=== PATIENT | female | born 1955 | race Caucasian/White ===

== ENCOUNTER 2020-10-02 08:56 | Outpatient (CLI) | payer MEDICARE, OTHER, SELFPAY ==
--- NOTE | ~2020-10-02 | MM_ITS ---
EXAMINATION: MM screening bela BI w guicho HISTORY: Screening TECHNIQUE: Craniocaudal and mediolateral oblique 3-D tomosynthesis images were obtained and synthetic 2-D images were generated. CAD analysis was submitted and interpreted. COMPARISON: Comparison to multiple prior studies sequentially, with oldest reviewed study dated 03/07. BREAST PARENCHYMAL COMPOSITION: Breast composed of scattered areas of fibroglandular density. FINDINGS: There is no evidence of suspicious mass, calcification, or architectural distortion to sugg est malignancy in either breast. There has been no suspicious interval change. IMPRESSION: 1. No mammographic evidence of malignancy. 2. Recommend routine screening mammography in one year. BI-RADS Category 1: Negative Reviewed, dictated and finalized at location A. 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
== END 2020-10-02 08:57 | disposition home or self-care (01) ==
LOC: ANHIMG 09:02
PROVIDERS: PCP Family Medicine; Visit Provider Physician Assistant
DX: Z12.31 Encounter for screening mammogram for malignant neoplasm of breast (principal)
CPT/HCPCS: 77063; 77067

== ENCOUNTER 2021-10-02 11:27 | Emergency (ER) | payer MEDICARE, OTHER, SELFPAY ==
--- NOTE | 2021-10-02 11:36 | ED.URI ---
HPI - URI/Sore Throat General Chief Complaint: Upper Respiratory Infection Stated Complaint: sorethroat,cough,rt earache Time Seen by Provider: 10/02/21 12:15 Source: patient and RN notes reviewed Mode of arrival: ambulatory Limitations: no limitations History of Present Illness HPI Narrative: 66-year-old female presents with concern for 3-day history of sore throat, cough, headache, nasal drainage, ear pain, body aches. Reports her spouse just tested positive for COVID 2 symptoms started Thursday. She denies fever, shortness of breath. Reports she has been taking several srjp-ern-gmbwcpi remedies without relief. MD elicited complaint: cough and sore throat Related Data Home Medications Medication Instructions Recorded Confirmed cetirizine 10 mg tablet 5 mg PO DAILY 08/31/20 10/02/21 Allergies Allergy/AdvReac Type Severity Reaction Status Date / Time codeine [Guaifen-C] Allergy Unknown anxious Verified 10/02/21 11:58 guaifenesin [Entex T] Allergy Unknown anxious Verified 10/02/21 11:58 pseudoephedrine [Entex T] Allergy Unknown anxious Verified 10/02/21 11:58 Review of Systems Review of Systems: CONSTITUTIONAL: Denies malaise, chills, sweats, or fever. EYES: Denies visual changes, redness, or discharge. ENT: Reports rhinorrhea, congestion, otalgia and sore throat. CARDIOVASCULAR: Denies chest pain, palpitations, or edema. RESPIRATORY: Reports cough. Denies dyspnea. GASTROINTESTINAL: Denies abdominal pain, nausea, vomiting, diarrhea SKIN: Denies rash or itching. MUSCULOSKELETAL: Reports myalgia. NEUROLOGIC: Reports headache. All systems reviewed & are unremarkable except as noted in HPI and below PMFSH Past Medical History Medical History (Updated 10/02/21 @ 12:26 by Hilary Cardenas NP) Cancer of endometrium Hysterectomy [address] Pathak Surgical History Surgical History H/O dilation and curettage H/O: hysterectomy History of appendectomy Hx of tonsillectomy Family History Family History Mother Hypertension Family history of elevated blood lipids Family history of cardiovascular disease Family history of coronary artery disease Cerebrovascular accident, Onset Age: 84 Father Malignant neoplasm of prostate Family history of cardiovascular disease Family history of malignant neoplasm of esophagus Other Family history of glaucoma Family history of malignant neoplasm of breast Social History Social History Smoking end date: 09/21/98 Alcohol intake: current Substance use: never Comments At time of signature, agree with nursing past medical, surgical, social and family history. There is no relevant family history pertinent to the presenting complaint Exam Narrative: GENERAL: Well-appearing, well-nourished, and in no acute distress. HEAD: Normocephalic EYES: PERRLA, conjunctivae clear ENT: Nares clear, turbinates edematous and erythematous, clear discharge. Mucous membranes moist. TM pearly walker with dull light reflex bilaterally; no tragal tenderness. Oropharynx not erythematous without lesions. Tonsils not enlarged and without exudate, no drooling, no hoarseness, no trismus, uvula midline. NECK: Supple. No lymphadenopathy CHEST: Clear to auscultation, breath sounds equal. No wheezing, rhonchi, rales, or stridor. No respiratory distress, speaks in full sentences. HEART: Regular rate and rhythm. No murmur heard. SKIN: Warm, dry, no rash. NEURO: Alert and oriented x3. PSYCH: Normal mood and affect Course Course Emergency Course: Patient is aware of diagnosis, understands and agrees to treatment plan. Anticipatory guidance given. Patient agrees to follow-up as directed and is aware of reasons to seek care at the emergency department. Portions of this record may have been created with voice recog
[2021-10-02 11:45] VITALS: BP 139/73; PULSE 80; RESP 18; TEMP 36.9; O2SAT 98
[2021-10-03 20:41] LABS: SARS-CoV-2 RNA PCR Positive
== END 2021-10-02 12:32 | disposition home or self-care (01) ==
PROVIDERS: Emergency Provider Nurse Practitioner; PCP Family Medicine
DX: U07.1 COVID-19 (principal)
CPT/HCPCS: 87426; 99213; C9803; G0463; U0003; U0005

== ENCOUNTER 2021-10-22 15:17 | Outpatient (CLI) | payer MEDICARE, OTHER, SELFPAY ==
--- NOTE | ~2021-10-22 | MM_ITS ---
EXAMINATION: MM screening bela BI w guicho HISTORY: Screening TECHNIQUE: Craniocaudal and mediolateral oblique 3-D tomosynthesis images were obtained and synthetic 2-D images were generated. CAD analysis was submitted and interpreted. COMPARISON: Comparison to multiple prior studies sequentially, with oldest reviewed study dated 03/12. BREAST PARENCHYMAL COMPOSITION: Breast composed of scattered areas of fibroglandular density FINDINGS: There is no evidence of suspicious mass, calcification, or architectural distortion to sugg est malignancy in either breast. There has been no suspicious interval change. IMPRESSION: 1. No mammographic evidence of malignancy. 2. Recommend routine screening mammography in one year. BI-RADS Category 1: Negative Reviewed, dictated and finalized at location A. 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
== END 2021-10-22 15:18 | disposition home or self-care (01) ==
LOC: ANHIMG 15:19
PROVIDERS: PCP Family Medicine; Visit Provider Physician Assistant
DX: Z12.31 Encounter for screening mammogram for malignant neoplasm of breast (principal)
CPT/HCPCS: 77063; 77067

== ENCOUNTER 2021-10-27 12:51 | Emergency (ER) | payer MEDICARE, OTHER, SELFPAY ==
--- NOTE | ~2021-10-27 | XR_ITS ---
EXAMINATION: XR chest 2V 10/27/2021 13:43 INDICATION: Covid infection. PROCEDURE: 2 view chest COMPARISON: No prior studies for comparison. FINDINGS: There is left basilar atelectasis. No focal pneumonia, edema, pleural effusion or pneumotho rax. The cardiomediastinal silhouette is within normal limits. There are no pleural effusions. Ther e is no pneumothorax suspected. IMPRESSION: 1: Left basilar atelectasis. Reviewed, dictated and finalized at location A. 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
--- NOTE | 2021-10-27 13:00 | ED.GENADULT ---
HPI - General Adult General Chief complaint: Upper Respiratory Infection Stated complaint: sorethroat,lt ear pain Time Seen by Provider: 10/27/21 13:00 Source: patient Mode of arrival: ambulatory Limitations: no limitations History of Present Illness HPI narrative: 66-year-old female patient presents to the [facility] with complaints of cold symptoms. Patient states she was diagnosed with COVID on October 02. Patient states at that time she was given a steroid pack which did help some of her symptoms. Patient states last weekend she started having bilateral ear pain and a sore throat with a cough and intermittent shortness of breath at times. Patient is a previous smoker but quit 1998. Patient states she is fully vaccinated against COVID. Patient states she has taken some jxnr-vwq-icttmds cold and flu medication without much relief and is taken some leftover amoxicillin of her 's which has not done anything. Related Data Allergies Allergy/AdvReac Type Severity Reaction Status Date / Time codeine [Guaifen-C] AdvReac Unknown anxious Verified 10/27/21 13:30 guaifenesin [Entex T] AdvReac Unknown anxious Verified 10/27/21 13:30 pseudoephedrine [Entex T] AdvReac Unknown anxious Verified 10/27/21 13:30 Review of Systems Review of Systems: CONSTITUTIONAL: Denies fever, chills, or sweats. EYES: Denies visual changes, redness, or discharge. ENT: Positive rhinorrhea, congestion, and sore throat, positive bilateral otalgia. CARDIOVASCULAR: Denies chest pain, palpitations, or edema. RESPIRATORY: Positive cough with intermittent dyspnea. GASTROINTESTINAL: Denies abdominal pain, nausea, vomiting, or diarrhea. GENITOURINARY: Denies dysuria or hematuria. SKIN: Denies rash or itching. MUSCULOSKELETAL: Denies back pain, joint pain, or myalgia. NEUROLOGIC: Denies headache, numbness, or weakness. PSYCHIATRIC: Denies anxiety or depression. [facility] Past Medical History Medical History (Updated 10/27/21 @ 13:54 by LIBIA Gomez) Cancer of endometrium Hysterectomy [address] Pathak Depression, recurrent Esophageal reflux Hypothyroid Laboratory confirmed diagnosis of COVID-09 October 2021 Lesion of vertebra Lytic lesion of bone on x-ray Surgical History Surgical History H/O dilation and curettage H/O: hysterectomy History of appendectomy Hx of tonsillectomy Family History Family History Mother Hypertension Family history of elevated blood lipids Family history of cardiovascular disease Family history of coronary artery disease Cerebrovascular accident, Onset Age: 84 Father Malignant neoplasm of prostate Family history of cardiovascular disease Family history of malignant neoplasm of esophagus Other Family history of glaucoma Family history of malignant neoplasm of breast Social History Social History Smoking end date: 09/21/98 Alcohol intake: current Substance use: never Comments At the time of my signature I agree with nursing past medical history, surgical, social, and family history. There is no relevant family history pertinent to the presenting complaint. Exam Narrative: GENERAL: Well-appearing, well-nourished, and in no acute distress. HEAD: Normocephalic, atraumatic. EYES: PERRLA and EOMI. ENT: Nares with erythema and edema noted bilaterally, no rhinorrhea or epistaxis. Mucous membranes moist. Posterior pharynx with no erythema, tonsillar edema, exudates or lesions. Bilateral TMs do have some fluid noted behind the TM. NECK: Supple. No lymphadenopathy CHEST: Patient slightly diminished to bilateral upper and lower lobes. No respiratory distress. Patient able talk in clear complete sentences. HEART: Regular rate and rhythm. No murmur heard. Normal peripheral pulses. ABDOMEN: Soft, nontender, nondistended,
[2021-10-27 13:09] VITALS: BP 147/71; PULSE 79; RESP 18; TEMP 36.6; O2SAT 98
== END 2021-10-27 14:00 | disposition home or self-care (01) ==
PROVIDERS: Emergency Provider Nurse Practitioner Family; PCP Family Medicine
DX: J98.11 Atelectasis (principal); E03.9 Hypothyroidism, unspecified; K21.9 Gastro-esophageal reflux disease without esophagitis; Z85.42 Personal history of malignant neoplasm of other parts of uterus
CPT/HCPCS: 71046; 99213; G0463

== ENCOUNTER 2022-01-03 10:08 | Outpatient (CLI) | payer MEDICARE, OTHER, SELFPAY ==
--- NOTE | ~2022-01-03 | DEXA_ITS ---
Bone Density Report Name: LEWIS NICHOLAS Age: 66 Sex: Female Ethnicity: White Date of : 1955 Indication: postmenopausal; screening for osteoporosis; cancer; hysterectomy; Referring Provider: VERÓNICA PRATHER Study: Bone densitometry was performed. Exam Date: January 03, 2022 Accession number: [id number] Bone Density: Region BMD T-score Z-score Classification AP Spine(L1-L4) 1.013 -0.3 1.6 Normal Femoral Neck (Left) 0.797 -0.5 1.2 Normal Total Hip (Left) 0.988 0.4 1.7 Normal Femoral Neck (Right) 0.822 -0.2 1.4 Normal Total Hip (Right) 0.953 0.1 1.5 Normal Total Hip Mean 0.971 0.3 1.6 Normal World Health Organization criteria for BMD impression classify patients as: Normal (T-score at or above -1.0), Osteopenia (T-score between -1.0 and -2.5), or Osteoporosis (T-score at or below -2.5). 10-year Fracture Risk: FRAX not reported because: All T-scores for Spine Total, Hip Total, Femoral Neck at or above -1.0 Clinical Information Provided by Patient: Has used the following medications: Vitamin D, Calcium Has the following medical conditions: Cancer, Hysterectomy Patient maximum height was 64 Menopause Age: 49 Drinks caffeinated beverages Onset of menses at age 11 Number of children 0 Impression: The patient has normal bone mass. Discussion: BONE DENSITY IS ABOVE THE MINIMUM DESIRABLE LEVEL AT ALL SKELETAL SITES TESTED. This patient?s bone mineral density is above the minimum desirable level (T-score -1.0 or better) at all sites measured. The patient should follow a healthful lifestyle (good nutrition with adequate calcium and vitamin D, and appropriate weight-bearing exercise). Follow-Up: Consider repeating this study in 5 years or sooner if there is some new clinical indication. Reported by: ALIZA on 01/06/2022 2:55:00 PM. Reviewed, dictated and finalized at location AKatrina BHANADRI
== END 2022-01-03 10:09 | disposition home or self-care (01) ==
LOC: ANHIMG 10:13
PROVIDERS: PCP Family Medicine; Visit Provider Physician Assistant
DX: Z78.0 Asymptomatic menopausal state (principal)
CPT/HCPCS: 77080

== ENCOUNTER 2022-09-25 16:11 | Emergency (ER) | payer MEDICARE, OTHER, SELFPAY ==
[2022-09-25 16:17] VITALS: BP 132/90; PULSE 80; RESP 20; TEMP 35.9; O2SAT 96
[2022-09-25 16:25] VITALS: BP 132/90; PULSE 80; RESP 20; TEMP 35.9; O2SAT 96
--- NOTE | 2022-09-25 16:38 | ED.URI ---
HPI - URI/Sore Throat General Chief Complaint: Upper Respiratory Infection Stated Complaint: Sore Throat, Time Seen by Provider: 09/25/22 16:38 Source: patient, RN notes reviewed and old records reviewed Mode of arrival: ambulatory Limitations: no limitations History of Present Illness HPI Narrative: 67 year old female who presents to [facility] care with complaints of sinus congestion and drainage which she has problems with this time of the year but has started to also have sore throat today and right ear pain. patient reports that she has been taking Mucinex, Zyrtec, Claritin, Flonase and even gargling with hydrogen peroxide. MD elicited complaint: cough and sore throat Pertinent past history: sinusitis Related Data Home Medications Medication Instructions Recorded Confirmed cetirizine 10 mg capsule (Zyrtec) 10 mg PO DAILY PRN Allergy Symptoms 06/24/22 09/25/22 multivit with 1 tablet PO DAILY 06/24/22 09/25/22 bqupsalw-whno-CS-lutein 8 mg iron-400 mcg-300 mcg tablet (Centrum Silver Women) omega-3 fatty acids 1,000 mg 1,000 mg PO DAILY 06/24/22 09/25/22 capsule Allergies Allergy/AdvReac Type Severity Reaction Status Date / Time codeine [Guaifen-C] AdvReac Unknown anxious Verified 09/25/22 16:23 guaifenesin [Entex T] AdvReac Unknown anxious Verified 09/25/22 16:23 pseudoephedrine [Entex T] AdvReac Unknown anxious Verified 09/25/22 16:23 Review of Systems Review of Systems: CONSTITUTIONAL: Reports malaise, chills, sweats, or fever. EYES: Denies visual changes, redness, or discharge. ENT: Reports rhinorrhea, congestion, sinus pain, right otalgia and sore throat. CARDIOVASCULAR: Denies chest pain, palpitations, or edema. RESPIRATORY: Reports cough.? Denies dyspnea. GASTROINTESTINAL: Denies abdominal pain, nausea, vomiting, diarrhea SKIN: Denies rash or itching. MUSCULOSKELETAL: Denies myalgia. NEUROLOGIC: Denies headache. All systems reviewed & are unremarkable except as noted in HPI and below PMFSH Past Medical History Medical History Cancer of endometrium Hysterectomy [address] Pathak Depression, recurrent Esophageal reflux Hypothyroid Laboratory confirmed diagnosis of COVID-09 October 2021 Lesion of vertebra Lytic lesion of bone on x-ray Surgical History Surgical History H/O dilation and curettage H/O: hysterectomy History of appendectomy Hx of tonsillectomy Family History Family History Mother Hypertension Family history of elevated blood lipids Family history of cardiovascular disease Family history of coronary artery disease Cerebrovascular accident, Onset Age: 84 Father Malignant neoplasm of prostate Family history of cardiovascular disease Family history of malignant neoplasm of esophagus Other Family history of glaucoma Family history of malignant neoplasm of breast Social History Social History Smoking status: Former smoker Smoking end date: 09/21/98 Alcohol intake: current Substance use: never Comments At time of signature, agree with nursing past medical, surgical, social and family history. There is no relevant family history pertinent to the presenting complaint Exam Narrative: GENERAL: Well-appearing, well-nourished, and in no acute distress. HEAD: Normocephalic EYES: PERRLA, conjunctivae clear ENT: Nares clear, turbinates edematous and erythematous, clear discharge. Mucous membranes moist. TM pearly walker with dull light reflex bilaterally; no tragal tenderness. Oropharynx erythematous without lesions. Tonsils not present and without throat exudate, no drooling, no hoarseness, no trismus, uvula midline. NECK: Supple. No lymphadenopathy CHEST: Clear to auscultation, breath sounds equ
== END 2022-09-25 17:08 | disposition home or self-care (01) ==
PROVIDERS: Emergency Provider Registered Nurse; PCP Emergency Medicine
DX: J32.9 Chronic sinusitis, unspecified (principal); Z87.891 Personal history of nicotine dependence; K21.9 Gastro-esophageal reflux disease without esophagitis; E03.9 Hypothyroidism, unspecified; Z85.42 Personal history of malignant neoplasm of other parts of uterus
CPT/HCPCS: 99213; G0463

== ENCOUNTER 2022-11-04 10:39 | Outpatient (CLI) | payer MEDICARE, OTHER, SELFPAY ==
[2022-11-04 12:55] LABS: Kit Draw Collected
== END 2022-11-04 10:40 | disposition home or self-care (01) ==
LOC: ANHGOSHLAB 10:42
PROVIDERS: PCP Emergency Medicine; Visit Provider Physician Assistant
DX: F33.9 Major depressive disorder, recurrent, unspecified (principal); E03.9 Hypothyroidism, unspecified; E78.5 Hyperlipidemia, unspecified; R73.01 Impaired fasting glucose; I10 Essential (primary) hypertension
CPT/HCPCS: 36415

== ENCOUNTER 2023-01-14 16:25 | Outpatient (CLI) | payer MEDICARE, OTHER, SELFPAY ==
--- NOTE | ~2023-01-14 | MM_ITS ---
EXAMINATION: MM screening bela BI w guicho HISTORY: Screening mammogram TECHNIQUE: Craniocaudal and mediolateral oblique 3-D tomosynthesis images were obtained and synthetic 2-D images were generated. CAD analysis was submitted and interpreted. COMPARISON: October 22, 2021, October 02, 2020, September 09, 2019 bilateral screening mammogram exam[place] BREAST PARENCHYMAL COMPOSITION: There are scattered areas of fibroglandular density. FINDINGS: Stable mild fibroglandular asymmetry. There is no evidence of suspicious mass, calcificatio n, or architectural distortion to suggest malignancy in either breast. There has been no suspicious i nterval change. IMPRESSION: 1. No mammographic evidence of malignancy. 2. Recommend routine screening mammography in one year. BI-RADS Category 2: Benign finding(s). Reviewed, dictated and finalized at location A.
== END 2023-01-14 16:26 | disposition home or self-care (01) ==
LOC: ANHIMG 16:28
PROVIDERS: PCP Emergency Medicine; Visit Provider Emergency Medicine
DX: Z12.31 Encounter for screening mammogram for malignant neoplasm of breast (principal)
CPT/HCPCS: 77063; 77067

== ENCOUNTER 2023-05-11 10:44 | Outpatient (CLI) | payer MEDICARE, OTHER, SELFPAY ==
[2023-05-11 12:19] LABS: Total Triiodothyronine (T3) 0.68 NG/ML (0.97-1.69)
[2023-05-11 19:05] LABS: Free T4 Free Thyroxine 0.65 ng/mL (0.78-2.19)
== END 2023-05-11 10:45 | disposition home or self-care (01) ==
LOC: ANHGOSHLAB 10:47
PROVIDERS: Physician Assistant; PCP Emergency Medicine; Visit Provider Emergency Medicine
DX: E03.9 Hypothyroidism, unspecified (principal); Z79.899 Other long term (current) drug therapy
CPT/HCPCS: 36415; 84439; 84443; 84480

== ENCOUNTER 2024-09-07 13:29 | Outpatient (CLI) | payer MEDICARE, OTHER, SELFPAY ==
--- NOTE | ~2024-09-07 | MM_ITS ---
EXAMINATION: MM screening bela BI w guicho HISTORY: Screening TECHNIQUE: Craniocaudal and mediolateral oblique 3-D tomosynthesis images were obtained and synthetic 2-D images were generated. CAD analysis was submitted and interpreted. COMPARISON: Comparison to multiple prior studies sequentially, with oldest reviewed study dated 03/2017. BREAST PARENCHYMAL COMPOSITION: Not dense: There are scattered areas of fibroglandular density. FINDINGS: There is no evidence of suspicious mass, calcification, or architectural distortion to sugg est malignancy in either breast. There has been no suspicious interval change. IMPRESSION: 1. No mammographic evidence of malignancy. 2. Recommend routine screening mammography in one year. BI-RADS Category 1: Negative Reviewed, dictated and finalized at location B. 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
== END 2024-09-07 13:30 | disposition home or self-care (01) ==
PROVIDERS: PCP Family Medicine; Visit Provider Family Medicine
DX: Z12.31 Encounter for screening mammogram for malignant neoplasm of breast (principal)
CPT/HCPCS: 77063; 77067

== ENCOUNTER 2024-10-05 00:31 | Day surgery (SDC) | payer MEDICARE, OTHER, SELFPAY ==
[2024-09-09 13:53] VITALS: BMI 27.4
--- NOTE | 2024-09-26 12:06 | SUR.PREOP ---
Pt called this am and left a voicemail that she had to go out town for an emergency and wouldn't be able to make her appointment. Attempted to call patient back, voicemail left requesting a return call. Pt removed from procedure schedule per pt's request.
[2024-10-05 08:35] VITALS: BP 149/79; PULSE 63; RESP 18; TEMP 36.3; O2SAT 97
[2024-10-05] MEDS: LACTATED RINGERS 1,000 ML 150 ML IV CONT (08:45)
--- NOTE | 2024-10-05 09:16 | PM.IMHP ---
H&P: HPI History of Present Illness Date/Time: 10/05/24 09:16 Chief Complaint: Screening colonoscopy Narrative: the patient had a screening colonoscopy more than 5 years ago due to the Cologuard positive test. She does not recall if she had polyps or not. She is here for a screening colonoscopy.There are no GI symptoms and there is no family history of colorectal cancer. Review of Systems Review of Systems: All systems reviewed & are unremarkable except as noted in HPI and below PMFSH Past Medical History Medical History Cancer of endometrium Hysterectomy [address] Pathak Depression, recurrent Esophageal reflux Hypothyroid Laboratory confirmed diagnosis of COVID-09 October 2021 Lesion of vertebra Lytic lesion of bone on x-ray Surgical History Surgical History H/O dilation and curettage H/O: hysterectomy History of appendectomy Hx of tonsillectomy Family History Family History Mother Hypertension Family history of elevated blood lipids Family history of cardiovascular disease Family history of coronary artery disease Cerebrovascular accident, Onset Age: 84 Father Malignant neoplasm of prostate Family history of cardiovascular disease Family history of malignant neoplasm of esophagus Other Family history of glaucoma Family history of malignant neoplasm of breast Social History Social History Smoking status: Former smoker Tobacco type: cigarettes Smoking end date: 09/21/98 Alcohol intake: current Drinks per week: 2 Substance use: never Substance use type: does not use Lack of Transportation: No Lack of Food: Never True Current Housing: I Have Housing Concerned About Future Housing: No Difficulty Paying Gas/Electric Bills: No Difficulty Paying for Meds: No Currently Unemployed: No Education: Trade/Vocational Certificate Difficulty w/ Childcare or Family Care: No Living arrangements: with family Spiritual care concerns: No Meds Home Medications and Allergies Home Medications ?Medication ?Instructions ?Recorded ?Confirmed ?Type cetirizine 10 mg capsule (Zyrtec) 10 mg PO DAILY PRN Allergy Symptoms 06/24/22 10/05/24 History jfzpdjkx-lwle-ppqz 8 mg-folic 400 1 tablet PO DAILY 06/24/22 10/05/24 History mcg-K 50 mcg-lutein 300 mcg tablet (Centrum Silver Women) diphenhydramine 25 1 tablet PO QHS PRN sleep 05/11/23 10/05/24 History mg-acetaminophen 500 mg tablet (Tylenol PM Extra Strength) mecobalamin (vitamin B12) 1,000 1,000 mcg PO DAILY 03/28/24 10/05/24 History mcg lozenges levothyroxine 75 mcg tablet See Rx Instructions .Route 06/02/24 10/05/24 Rx .COMPLEX #90 tabs simvastatin 20 mg tablet See Rx Instructions .Route 07/04/24 10/05/24 Rx .COMPLEX #90 tabs cholecalciferol (vitamin D3) 50 50 mcg PO DAILY 09/09/24 10/03/24 History mcg (2,000 unit) tablet (Vitamin D3) fluoxetine 20 mg capsule 20 mg PO DAILY #90 caps 09/22/24 10/05/24 Rx omeprazole 20 mg capsule,delayed 20 mg PO DAILY #90 caps 09/22/24 10/05/24 Rx release Allergies Allergy/AdvReac Type Severity Reaction Status Date / Time codeine (Guaifen-C) AdvReac Unknown anxious Verified 10/05/24 08:34 guaifenesin (Entex T) AdvReac Unknown anxious Verified 10/05/24 08:34 pseudoephedrine (Entex T) AdvReac Unknown anxious Verified 10/05/24 08:34 Vital Signs Vital Signs - 24 hr 10/05/24 08:35 Temperature 97.3 F L Pulse Rate 63 Respiratory Rate 18 Blood Pressure 149/79 H Pulse Oximetry 97 Oxygen Delivery Room Air Exam Const: General: cooperative and healthy appearing Resp: Effort & Inspection: normal respiratory effort and able to speak in complete sentences Auscultation: clear to auscultation bilaterally Cardio: Rate: regular rate Rhythm: regular rhythm GI: Inspection: normal to inspection GI Palp: No No hepatosplenomegaly present Auscultation: normal bowel sounds Rectal Exam: deferred Skin: General skin exam: normal color Psych: Appearance: grossly normal Mental Status: mental status grossly normal Assessment and Plan Assessment and plan (1) Encounter for screening colonoscopy: Code(s): Z12.11 - Encounter for screening for malignant neoplasm of colon Status: Acute Assessment and Plan: The patient is deemed a good candidate for the procedure. Consent signed. Will proceed.
--- NOTE | 2024-10-05 09:35 | P.PNAN_ITS ---
Anes - Initial Pre Proc Eval Procedure: Operation Date: 10/05/24 10:00 Proposed Procedures p Screening Colonoscopy - Raad Cr MD Date/Time: 10/05/24 09:35 Surgeon: Raad Cr MD Pre Op Diagnosis: Screening malignant neoplasm of colon Patient Data Age: 69 Gender: F Height: 1.63 m Weight: 72.4 kg Last Vital Signs Temp 97.3 F L 10/05/24 08:35 Pulse 63 10/05/24 08:35 Resp 18 10/05/24 08:35 BP 149/79 H 10/05/24 08:35 Pulse Ox 97 10/05/24 08:35 O2 Del Method Room Air 10/05/24 08:35 Allergies Allergy/AdvReac Type Severity Reaction Status Date / Time codeine (Guaifen-C) AdvReac Unknown anxious Verified 10/05/24 08:34 guaifenesin (Entex T) AdvReac Unknown anxious Verified 10/05/24 08:34 pseudoephedrine (Entex T) AdvReac Unknown anxious Verified 10/05/24 08:34 Home Medications ?Medication ?Instructions ?Recorded ?Confirmed ?Type cetirizine 10 mg capsule (Zyrtec) 10 mg PO DAILY PRN Allergy Symptoms 06/24/22 10/05/24 History gwpdmous-ylya-evto 8 mg-folic 400 1 tablet PO DAILY 06/24/22 10/05/24 History mcg-K 50 mcg-lutein 300 mcg tablet (Centrum Silver Women) diphenhydramine 25 1 tablet PO QHS PRN sleep 05/11/23 10/05/24 History mg-acetaminophen 500 mg tablet (Tylenol PM Extra Strength) mecobalamin (vitamin B12) 1,000 1,000 mcg PO DAILY 03/28/24 10/05/24 History mcg lozenges levothyroxine 75 mcg tablet See Rx Instructions .Route 06/02/24 10/05/24 Rx .COMPLEX #90 tabs simvastatin 20 mg tablet See Rx Instructions .Route 07/04/24 10/05/24 Rx .COMPLEX #90 tabs cholecalciferol (vitamin D3) 50 50 mcg PO DAILY 09/09/24 10/03/24 History mcg (2,000 unit) tablet (Vitamin D3) fluoxetine 20 mg capsule 20 mg PO DAILY #90 caps 09/22/24 10/05/24 Rx omeprazole 20 mg capsule,delayed 20 mg PO DAILY #90 caps 09/22/24 10/05/24 Rx release Patient hx anesthesia problems: none Family hx anesthesia problems: none Results Review: All pre-operative results and documents have been reviewed as part of the pre- operative evaluation. [facility] Past Medical History Medical History Cancer of endometrium Hysterectomy [address] Pathak Depression, recurrent Esophageal reflux Hypothyroid Laboratory confirmed diagnosis of COVID-09 October 2021 Lesion of vertebra Lytic lesion of bone on x-ray Surgical History Surgical History H/O dilation and curettage H/O: hysterectomy History of appendectomy Hx of tonsillectomy Family History Family History Mother Hypertension Family history of elevated blood lipids Family history of cardiovascular disease Family history of coronary artery disease Cerebrovascular accident, Onset Age: 84 Father Malignant neoplasm of prostate Family history of cardiovascular disease Family history of malignant neoplasm of esophagus Other Family history of glaucoma Family history of malignant neoplasm of breast Social History Social History Smoking status: Former smoker Tobacco type: cigarettes Smoking end date: 09/21/98 Alcohol intake: current Drinks per week: 2 Substance use: never Substance use type: does not use Lack of Transportation: No Lack of Food: Never True Current Housing: I Have Housing Concerned About Future Housing: No Difficulty Paying Gas/Electric Bills: No Difficulty Paying for Meds: No Currently Unemployed: No Education: Trade/Vocational Certificate Difficulty w/ Childcare or Family Care: No Living arrangements: with family Spiritual care concerns: No Anes - Eval Final PreProcedure Day of Procedure 10/05/24 09:35 Patient weight: normal Heart: regular rate and rhythm Lungs: clear to auscultation Airway: Mallampati scale class II Neurological: alert and oriented Last oral intake: >/= 8 hours ASA classification: III Emergent: no Anesthetic plan: proceed Anesthesia type and monitoring: general GIVS and standard monitoring Results Review: All pre-operative results and documents have been reviewed as part of the pre- operative evaluation. Informed Consent: The patient's anesthetic plan and its attendant risks and benefits were discussed with the patient/family/POA. Questions were solicited and answers provided to the satisfaction of the patient/family/POA.
[2024-10-05 10:34] VITALS: BP 132/61; PULSE 60; RESP 17; O2SAT 98
[2024-10-05 10:44] VITALS: BP 152/87; PULSE 65; RESP 17; O2SAT 100
[2024-10-05 10:54] VITALS: BP 168/75; PULSE 65; RESP 18; O2SAT 100
--- OUTSIDE RECORDS SUMMARY | 2024-10-06 04:03 | XMS_ITS | Clinical Summary ---
Author Organization [facility] Address [facility] [address]. [place], [place] [address] [place] [address] Care Team Providers Care Senior Principal Name Role Phone Tien Lezama MD Primary Care Provider Allergies No known active allergies Medications simvastatin (ZOCOR) 20 MG tablet Take 1 tablet (20 mg total) by mouth. Active polyethylene glycol (GLYCOLAX) packet Active omeprazole (PRILOSEC) 20 MG capsule Take 1 capsule (20 mg total) by mouth daily. 03/25/2024 Active FLUoxetine (PROZAC) 20 MG capsule Take 1 capsule (20 mg total) by mouth daily. Active Cetirizine HCl (ZYRTEC ALLERGY) 10 MG Cap Take 1 capsule every day by oral route as needed. Active diphenhydrAMINE -APAP (TYLENOL PM) 25-500 MG Tab tablet Take 1 tablet by mouth. Active levothyroxine (SYNTHROID) 75 MCG tablet Take 1 tablet (75 mcg total) by mouth daily. Active Active Problems No known active problems Social History Tobacco Use Types Packs/Day Years Used Date Smoking Tobacco: Former Cigarettes Passive Smoke Exposure: Past Smokeless Tobacco: Never Tobacco Cessation:Counseling Given: Yes PHQ-2 Answer Date Recorded Patient Health Questionnaire-2 Score 0 05/21/2024 Comments No Sex and Gender Information Value Date Recorded Sex Assigned at Not on file Legal Sex Female 7:30 PM CDT Gender Identity Not on file Sexual Orientation Not on file Last Filed Vital Signs Vital Sign Reading Time Taken Comments Blood Pressure 157/83 05/21/2024 11:47 AM CDT Pulse 65 05/21/2024 11:47 AM CDT Temperature 36.4 ??C (97.5 ??F) 05/21/2024 11:47 AM C DT Respiratory Rate 16 05/21/2024 11:47 AM CDT Oxygen Saturation 96% 05/21/2024 11:47 AM CDT Inhaled Oxygen Concentration - - Weight 70.9 kg (156 lb 3.2 oz) 05/21/2024 11:47 AM CDT Height 162.6 cm (5' 4 ) 05/21/2024 11:47 AM CDT Body Mass Index 26.81 05/21/2024 11:47 AM CDT Plan of Treatment Health Maintenance Due Date Last Done Comments Colorectal Cancer Screening Colonoscopy (10 Years) 1954 Hepatitis C 1972 Mammogram Screening 1994 Zoster Vaccines (2 of 3) 05/27/2016 04/01/2016 Annual Medicare Wellness Visit 2019 Dexa Scan (General) 2019 Pneumococcal Vaccine: 65+ Years (1 of 1 - PCV) 2019 COVID-19 Vaccine (5 - season) 2024 12/11/2020, 12/08/2020, 11/20/2020, Additional history exists Influenza Adult (#1) 2024 08/22/2019, 06/04/2018, 06/24/2016, Additional history exists RSV Immunization or 60+ Years (1 - 1-dose 75+ series) 2029 DTaP, Tdap and Td Vaccines (2 - Td or Tdap) 08/22/2029 08/22/2019 Meningococcal Vaccine Aged Out No justin ad eligible based on patient's age to complete this topic RSV Immunizations Under 20 Months Aged Out No longer eligible based on patient's age to complete this topic Insurance MEDICARE [facility] Care Teams Senior Principal Relationship Specialty Start Date End Date Tien Lezama MD [address] [place] [address] PCP - General EMERGENCY MEDICINE 05/21/24
--- OUTSIDE RECORDS SUMMARY | 2024-10-06 04:03 | XMS_ITS | Encounter Summary ---
Author Organization [facility] Address [address] [place] [address]. [place], [place] [address] [place] [address] Care Team Providers Care Therapeutic Dietitian Name Role Phone Unavailable Primary Care Provider Unavailabl e Encounter Details Date Type Department Care Team (Late st Contact Info) Description 06/20/1999 [place] [address] Tracy Warner MD [address] [place] [address] Social History Tobacco Use Types Packs/Day Years Used Date Smoking Tobacco: Never Assessed Comments Unknown Sex and Gender Information Value Date Recorded Sex Assigned at Not on file Legal Sex Female 7:30 PM CDT Gender Identity Not on file Sexual Orientation Not on file documented as of this encounter Plan of Treatment Not on file documented as of this encounter Visit Diagnoses Not on filedocumented in this encounter
--- OUTSIDE RECORDS SUMMARY | 2024-10-06 04:03 | XMS_ITS | Encounter Summary ---
Author Organization [facility] Address [address] [place] [address]. [place], [place] [address] [place] [address] Care Team Providers Care Stubber Name Role Phone Unavailable Primary Care Provider Unavailabl e Encounter Details Date Type Department Care Team (Late st Contact Info) Description 03/15/2003 Abstract [facility] [address] [place] [address] , Korina Rajan MD Social History Tobacco Use Types Packs/Day Years [...]
--- OUTSIDE RECORDS SUMMARY | 2024-10-06 04:03 | XMS_ITS | Encounter Summary ---
Author Organization [facility] Address [address] [place] [address]. [place], [place] [address] [place] [address] Care Team Providers Care Billet Driller Name Role Phone Unavailable Primary Care Provider Unavailabl e Encounter Details Date Type Department Care Team (Late st Contact Info) Description 07/28/2016 Abstract [facility] [address] [place] [address] Nicole Batista MD [address] [facility] [place] [address] Social History Tobacco Use Types Packs/Day Years Used Date Smoking Tobacco: Never Assessed Comments Unknown Sex and Gender Information Value Date Recorded Sex Assigned at Not on file Legal Sex Female 7:30 PM CDT Gender Identity Not on file Sexual Orientation Not on file documented as of this encounter Plan of Treatment Not on file documented as of this encounter Visit Diagnoses Diagnosis Bloodstream infection due to central venous catheter documented in this encounter
--- OUTSIDE RECORDS SUMMARY | 2024-10-06 04:03 | XMS_ITS | Encounter Summary ---
Author Organization [facility] Address [address] [place] [address]. [place], [place] [address] [place] [address] Care Team Providers Care Anchor Operator Name Role Phone Unavailable Primary Care Provider Unavailabl e Encounter Details Date Type Department Care Team (Late st Contact Info) Description 07/21/2016 Abstract [facility] [address] [place] [address] Nicole Batista MD [address] [facility] [place] [address] Social History Tobacco Use Types Packs/Day Years [...]
--- OUTSIDE RECORDS SUMMARY | 2024-10-06 04:03 | XMS_ITS | Encounter Summary ---
Author Organization [facility] Address [address] [place] [address]. [place], [place] [address] [place] [address] Care Team Providers Care Patient Service Technician Pst Name Role Phone Unavailable Primary Care Provider Unavailabl e Encounter Details Date Type Department Care Team (Late st Contact Info) Description 02/20/2000 Abstract [facility] CONVERSION [address] [place] [id number] , Generic Conversion, Social History Tobacco Use Types Packs/Day Years [...]
--- OUTSIDE RECORDS SUMMARY | 2024-10-06 04:03 | XMS_ITS | Encounter Summary ---
Author Organization [facility] Address [address] [place] [address]. [place], [place] [address] [place] [address] Care Team Providers Care Commercial Property Administrator Name Role Phone Tien Lezama MD Primary Care Provider Encounter Details Date Type Department Care Team (Latest Contact Info) Description 05/21/2024 Travel Social History Tobacco Use Types Packs/Day Years Used Date Smoking Tobacco: Former Cigarettes Passive Smoke Exposure: Past Smokeless Tobacco: Never PHQ-2 Answer Date Recorded Patient Health Questionnaire-2 [...] Diagnoses Not on filedocumented in this encounter Care Teams Commercial Property Administrator Relationship Specialty Start Date End Date Tien Lezama MD [address] [place] [address] PCP - General EMERGENCY MEDICINE 05/21/24 documented as of this encounter
--- OUTSIDE RECORDS SUMMARY | 2024-10-06 04:03 | XMS_ITS | Encounter Summary ---
Author Organization [facility] Address [address] [place] [address]. [place], [place] [address] [place] [address] Care Team Providers Care Data Entry Operator Name Role Phone Unavailable Primary Care Provider Unavailabl e Encounter Details Date Type Department Care Team (Late st Contact Info) Description 08/20/2016 Abstract [facility] [address] [place] [address] Nicole Batista MD [address] [facility] [place] [address] Social History Tobacco Use Types Packs/Day Years [...]
--- OUTSIDE RECORDS SUMMARY | 2024-10-06 04:03 | XMS_ITS | Encounter Summary ---
Author Organization [facility] Address [address] [place] [address]. [place], [place] [address] [place] [address] Care Team Providers Care Pcmh Specialist Name Role Phone Unavailable Primary Care Provider Unavailabl e Encounter Details Date Type Department Care Team (Late st Contact Info) Description 08/11/2016 Abstract [facility] [address] [place] [address] Nicole Batista MD [address] [facility] [place] [address] Social History Tobacco Use Types Packs/Day Years [...]
--- OUTSIDE RECORDS SUMMARY | 2024-10-06 04:03 | XMS_ITS | Encounter Summary ---
Author Organization [facility] Address [address] [place] [address]. [place], [place] [address] [place] [address] Care Team Providers Care Garment Examiner Name Role Phone Unavailable Primary Care Provider Unavailabl e Encounter Details Date Type Department Care Team (Late st Contact Info) Description 08/18/[address] [facility] [address] [place] [address] , Korina Rajan MD Social History Tobacco [...]
--- OUTSIDE RECORDS SUMMARY | 2024-10-06 04:03 | XMS_ITS | Encounter Summary ---
Author Organization [facility] Address [address] [place] [address]. [place] [address] [place] [address] Care Team Providers Care Constitutional Law Professor Name Role Phone Tien Lezama MD Primary Care Provider [phone] Reason for Visit * Reason Comments Sinus Pressure Cough Productive cough. Ye llow drainage. Xs 6 days Encounter Details Date Type Department Care Team (Late st Contact Info) Description 05/21/2024 12:00 PM CDT Office Visit [facility] [address] [place] [phone] Justa Flowers, DISPLAY MANAGER [address] [place], [place] [id number] Sinus Pressure; Cough (Productive cough. Yellow drainage. Xs 6 days) Social History Tobacco Use Types Packs/Day Years [...] on file documented as of this encounter Last Filed Vital Signs Vital Sign Reading [...] Mass Index 26.81 05/21/2024 11:47 AM CDT documented in this encounter Progress Notes * Justa Flowers, DISPLAY MANAGER - 05/21/2024 12:00 PM CDT Reason for Visit: Sinus Pressure and Cough (Productive cough. Yellow drainage. Xs 6 days) History of Present Illness: Cori Kiran is a 68-year-old female presenting today to [facility] in [place] complaining of headache, fatigue, sinus congestion, and tooth pain for the past 7 days. Pt has been taking OTC medication for symptoms. Pt notes PMH of sinus infections in the past. Pt continues to eat and drink well with adequate output. Pt denies sick contacts that they areaware of. Pt denies other shortness of breath, nausea, vomiting, and diarrhea. ROS: Negative unless specific in HPI. Medications: Current Outpatient Medications Medication Sig Dispense Refill azithromycin (ZITHROMAX Z-RAUL) 250 MG tablet Take 2 tablets by mouth on day one then 1 daily for four days. 6 tablet 0 Cetirizine HCl (ZYRTEC ALLERGY) 10 MG Cap Take 1 capsule every day by oral route as needed. diphenhydrAMINE-APAP (TYLENOL PM) 25-500 MG Tab tablet Take 1 tablet by mouth. FLUoxetine (PROZAC) 20 MG capsule Take 1 capsule (20 mg total) by mouth daily. levothyroxine (SYNTHROID) 75 MCG tablet Take 1 tablet (75 mcg total) by mouth daily. omeprazole (PRILOSEC) 20 MG capsule Take 1 capsule (20 mg total) by mouth daily. polyethylene glycol (GLYCOLAX) packet predniSONE (DELTASONE) 20 MG tablet Take 1 tablet (20 mg total) by mouth daily for 5 days. 5 tablet0 simvastatin (ZOCOR) 20 MG tablet Take 1 tablet (20 mg total) by mouth. No current facility-administered medications for this visit. Review of patient's allergies indicates: No Known Allergies Previous History: History reviewed. No pertinent past medical history. History reviewed. No pertinent surgical history. Social Determinants of Health Alcohol Use: Not on file Depression: Not at risk (05/21/2024) PHQ-2 PHQ-2 Score: 0 Financial Resource Strain: Not on file Food Insecurity: Not on file Health Literacy: Not on file Housing Stability: Not on file Intimate Partner Violence: Not on file Physical Activity: Not on file Social Connections: Not on file Stress: Not on file Tobacco Use: Medium Risk (05/21/2024) Patient History Smoking Tobacco Use: Former Smokeless Tobacco Use: Never Passive Exposure: Past Transportation Needs: Not on file Utilities: Not on file No family history on file. Physical Exam Vitals reviewed. Constitutional: Appearance: Normal appearance. HENT: Right Ear: Tympanic membrane normal. Left Ear: Tympanic membrane normal. Nose: Congestion present. Mouth/Throat: Pharynx: Posterior oropharyngeal erythema present. Eyes: Pupils: Pupils are equal, round, and reactive to light. Cardiovascular: Rate and Rhythm: Normal rate and regular rhythm. Pulses: Normal pulses. Heart sounds: Normal heart sounds. Pulmonary: Effort: Pulmonary effort is normal. Breath sounds: Normal breath sounds. No wheezing. Neurological: Mental Status: She is alert. Filed Vitals: 05/21/24 1147 BP: (!) 157/83 Pulse: 65 Resp: 16 Temp: 97.5 ??F (36.4 ??C) TempSrc: Temporal SpO2: 96% Weight: 70.9 kg (156 lb 3.2 oz) Height: 1.626 m (5' 4 ) Diagnosis/Impression: 1. Acute non-recurrent frontal sinusitis - azithromycin (ZITHROMAX Z-RAUL) 250 MG tablet; Take 2 tablets by mouth on day one then 1 daily forfour days. Dispense: 6 tablet; Refill: 0 - predniSONE (DELTASONE) 20 MG tablet; Take 1 tablet (20 mg total) by mouth daily for 5 days. Dispense: 5 tablet; Refill: 0 Plan and Recommendations: Prescriptions written as above; discussed risks, benefits and administration. Discussed differentials and etiologies. Reviewed supportive care as below. Increase fluid intake and get plenty of rest. Sore throat-May try as needed: salt water gargles (1/4-1/2 teaspoon of salt per 8 oz glass warm water), ibuprofen (Advil) as directed on the bottle for age/weight--take with food, Chloroseptic spray as directed on the bottle for age/weight, cough drops as directed on the package for age/weight or hard candy, or teaspoon honey or heavy peach syrup. Nasal congestion-May try as needed: Car's Vapor Rub, humidifier, nasal saline spray as well as nasal saline flushes/Paty Pot and Flonase. May try oral antihistamines (claritin/tamar/zyrtec) as directed on the package for age/weight Fever/Comfort: May try Tylenol (acetaminophen) or Advil/Motrin (ibuprofen) as directed on the bottle for age/weight as needed. Plan and goals were discussed with the patient and all questions were answered to his/her satisfaction. The purpose and side effects of any new medication(s) prescribed today were discussed. Please read the pharmacy insert for any medication(s) prescribed and be aware of the potential sideeffects. If you are experiencing side effects, contact our office promptly. Justa Flowers APRN [address] RO[address]C documented in this encounter Plan of Treatment Not on file documented as of this encounter Visit Diagnoses Diagnosis Acute non-recurrent frontal sinusitis- Primary documented in this encounter Care Teams Constitutional Law Professor Relationship Specialty Start Date End Date Tien Lezama MD [address] [place] [address] PCP - General EMERGENCY MEDICINE 05/21/24 documented as of this encounter
--- OUTSIDE RECORDS SUMMARY | 2024-10-06 04:03 | XMS_ITS | Encounter Summary ---
Author Organization [facility] Address [address] [place] [address]. [place], [place] [address] [place] [address] Care Team Providers Care Typewriter Assembler Name Role Phone Unavailable Primary Care Provider Unavailabl e Encounter Details Date Type Department Care Team (Late st Contact Info) Description 07/10/2016 Abstract [facility] [address] [place] [address] Nicole Batista MD [address] [facility] [place] [address] Social History Tobacco Use Types Packs/Day Years [...]
--- OUTSIDE RECORDS SUMMARY | 2024-10-06 04:04 | XMS_ITS ---
Author Organization [facility] Address [address] [place] [address] Care Team Providers Care Worm Farmer Name Role Phone Momo Carrillo MD Primary Care Provider [phone] Momo Carrillo MD Unavailable Active Problems Problem Noted Date Diagnosed Date Deep vein thrombosis (DVT) (CMS/HCC) 08/18/2016 Epidural abscess 08/13/2016 Bloodstream infection 07/15/2016 Malignant neoplasm of endometrium (CMS/HCC) 03/22 Hypercholesterolemia 04/09/2016 Hyperthyroidism 04/09/2016 Carcinoma of endometrium 04/01/2016 Current Oncology Plans No current plan information found. Past Plans No past plan information found. Radiation Treatments * No radiation treatments are documented for this patient in [facility]. Treatments may have been administered in another system. Lifetime Dose Tracking * Chemical Lifetime Dose Automatic Entry Manual Entr y DLP 1,685 mGycm 1,685 mGycm 0 mGycm
--- OUTSIDE RECORDS SUMMARY | 2024-10-06 04:04 | XMS_ITS | Referral Summary ---
Author Organization [facility] Address [address] [place] [address] Care Team Providers Care Model Technician Name Role Phone Momo Carrillo MD Primary Care Provider [phone] Momo Carrillo MD Unavailable Encounters Date Type Department Care Team Description 09/28/2024 Telephone [facility] Obstetrics and Gynecology [address] [facility] Advanced Medicine 13th [place] [address] Leyla Rowley RN 08/24/2024 Orders Only [facility] Obstetrics and Gynecology [address] [facility] Advanced Medicine 13th [place] [address] Polly Macdonald, MARLYN Endometrial cancer (CMS/HCC) (HCC) (Primary Dx) 08/24/2024 11:45 AM ONLINE ADVERTISING MANAGER Office Visit [facility] Obstetrics and Gynecology [address] [facility] Advanced Medicine 13th [place] [address] Brooke Harrington MD Endometrial cancer (CMS/HCC) (HCC) (Primary Dx) 07/06/2024 2:00 PM CDT Office Visit [facility] Minimally Invasive Surgery [facility] Medical Office Building [address] [place] [address] Vinnie Tay MD Endometrial cancer ([facility] ([facility]); Abdominal pain, RLQ; Paraumbilical hernia from Last 3 Months Allergies No known active allergies Medications cetirizine (ZyrTEC) 10 mg tablet 04/01/2016Zyrtec, po solid 10 mg TabletPOdailyCurrent Medication 04/01/20 16 Active polyethylene glycol (MIRALAX) 17 gram packet Active FLUoxetine (PROzac) 20 mg tablet Take 1 tablet (20 mg total) by mouth daily Act becky diphenhydrAMI NE-acetaminop hen (TYLENOL PM) 25-500 mg tablet Take 1 tablet by mouth Active omeprazole (PriLOSEC) 20 mg capsule 12/23/19 23 Active simvastatin (ZOCOR) 20 mg tablet 12/19/19 23 Active multivit with calcium,iron, min (MULTIPLE VITAMIN, WOMENS ORAL) Take by mouth daily Active levothyroxine (SYNTHROID) 75 mcg tablet 06/28/20 24 Active Active Problems Problem Noted Date Diagnosed Date Deep vein thrombosis (DVT) ([facility]) 08/18/2016 Epidural abscess 08/13/2016 Bloodstream infection 07/15/2016 Malignant neoplasm of endometrium ([facility]) 03/22 Hypercholesterolemia 04/09/2016 Hyperthyroidism 04/09/2016 Carcinoma of endometrium 04/01/2016 Immunizations Name Administration Dates Next Due Influenza, Quadrivalent, Rec ombinant, Egg Free, Preservative Free, Intramuscular 08/22/2019 Influenza, Quadrivalent, Spl it, Preservative Free, Intramuscular 06/04/2018 Influenza, Unspecified 06/24/2016,04/01/2016 Pfizer SARS-CoV-2 Monovalent Vaccination (12+ Yrs) PURPLE 12/11/2020,11/20/2020 Tdap 08/22/2019 ZOSTER LIVE 04/01/2016 Social History Tobacco Use Types Packs/Day Years Used Date Smoking Tobacco: Former Smokeless Tobacco: Never Tobacco Cessation:Counseling Given: Not Answered Alcohol Use Standard Drinks/Week Comments Yes 0 (1 standard drink = 0.6 oz pur e alcohol) Comments No Sex and Gender Information Value Date Recorded Sex Assigned at Not on file Legal Sex Female 2:10 AM ONLINE ADVERTISING MANAGER Gender Identity Not on file Sexual Orientation Not on file Last Filed Vital Signs Vital Sign Reading Time Taken Comments Blood Pressure 133/83 08/24/2024 11:41 AM ONLINE ADVERTISING MANAGER Pulse 76 08/24/2024 11:41 AM ONLINE ADVERTISING MANAGER Temperature 36.4 ??C (97.6 ??F) 08/24/2024 11:[address] Respiratory Rate 16 08/24/2024 11:41 AM ONLINE ADVERTISING MANAGER Oxygen Saturation 97% 08/24/2024 11:41 AM ONLINE ADVERTISING MANAGER Inhaled Oxygen Concentration - - Weight 73 kg (161 lb) 08/24/2024 11:41 AM ONLINE ADVERTISING MANAGER Height 162.6 cm (5' 4 ) 08/24/2024 11:41 AM ONLINE ADVERTISING MANAGER Body Mass Index 27.64 08/24/2024 11:41 AM ONLINE ADVERTISING MANAGER Plan of Treatment Not on file Procedures Procedure Name Priority Date/Time Associated Diagnosis Comments CA 125 Routine 08/30/2024 8:56 AM ONLINE ADVERTISING MANAGER Endometrial cancer (CMS/HCC) (HCC) from Last 3 Months Results * CA 125 (08/30/2024 8:56 AM ONLINE ADVERTISING MANAGER) CA 125 ag 4 <35 U/mL [facility] Comment: This test was performed using the Siemens Chemiluminescent method. Values obtained from different assay methods cannot be used interchangeably. CA 125 levels, regardless of value, should not be interpreted as absolute evidence of the presence or absence of disease. Blood 08/30/2024 8:56 AM ONLINE ADVERTISING MANAGER 08/30/2024 8:56 AM ONLINE ADVERTISING MANAGER us Brooke Harrington MD LAB BLOOD ORDERABLES Final Result [facility] [address] [place] [address] from Last 3 Months Insurance [facility]IC[facility] Member Subscriber Plan / Payer (Ef fective 2020-Present) Name:Cori Renee Member ID:[id number] Relation to Subscriber:Self Name:Cori Renee Subscriber ID:[id number] Payer ID:[id number] Group ID:Not on file Type:MEDICARE TRADITIONAL Address: [address] [address] MEDICARE [place] [place] [address] [employer] Care Teams Model Technician Relationship Specialty Start Date End Date Momo Carrillo MD [address] [place] [address] PCP - General 02/18/18 Momo Carrillo MD [address] [place] [address] Referring Physician Family Medicine 11/20/20
--- OUTSIDE RECORDS SUMMARY | 2024-10-06 04:04 | XMS_ITS | Clinical Summary ---
Author Organization [facility] Address [address] [place] [address] Care Team Providers Care Retail Helper Name Role Phone Momo Carrillo MD Primary Care Provider [phone] Momo Carrillo MD Unavailable Allergies No known active allergies Medications cetirizine [...] Date Diagnosed Date Deep vein thrombosis (DVT) ([facility]) 08/18/2016 Epidural abscess 08/13/2016 Bloodstream infection 07/15/2016 Malignant neoplasm of endometrium (CMS/HCC) 03/22 Hypercholesterolemia 04/09/2016 Hyperthyroidism 04/09/2016 Carcinoma of endometrium 04/01/2016 Encounters Date Type Department Care Team Description 09/28/2024 Telephone [facility] Obstetrics and Gynecology [address] [facility] Medicine 13th [place] [address] [place] [address] Leyla Rowley RN 08/24/2024 11:45 AM CELL ASSEMBLY PINNER Office Visit [facility] Obstetrics and Gynecology [address] [facility] 13th [place] [address] [place] [address] Brooke Harrington MD Endometrial cancer (CMS/HCC) (HCC) (Primary Dx) 08/24/2024 Orders Only [facility] Obstetrics and Gynecology [address] [place] [address] 13th [place] [address] Polly Macdonald RN Endometrial cancer (CMS/HCC) (HCC) (Primary Dx) 07/06/2024 2:00 PM CDT Office Visit [facility] Minimally Invasive Surgery [address] [place] [address] Medical Office Building [address] [place] [address] Vinnie Tay MD Endometrial cancer (CMS/HCC) (HCC); Abdominal pain, RLQ; Paraumbilical hernia from Last 3 Months Immunizations Name Administration Dates Next Due Influenza, Quadrivalent, Rec ombinant, Egg Free, Preservative Free, Intramuscular 08/22/2019 Influenza, Quadrivalent, Spl it, Preservative Free, Intramuscular 06/04/2018 Influenza, Unspecified 06/24/2016,04/01/2016 Pfizer SARS-CoV-2 Monovalent Vaccination (12+ Yrs) PURPLE 12/11/2020,11/20/2020 Tdap 08/22/2019 ZOSTER LIVE 04/01/2016 Surgical History Surgery Date Site/Laterality Comments PORT PLACEMENT CHEST >5 YEARS 09/05/2016 N/A PORT REMOVAL 07/04/2016 N/A PORT PLACEMENT CHEST >5 YEARS 06/26/2016 N/A Medical History Medical History Date Comments Uterine cancer (CMS/HCC) (HCC) Endometrial cancer (CMS/HCC) (HCC) Thyroid disease GERD (gastroesophageal reflux disease) Depression Hyperlipidemia Social History Tobacco Use Types Packs/Day Years Used Date Smoking Tobacco: Former Smokeless Tobacco: Never Tobacco Cessation:Counseling Given: Not Answered Alcohol Use Standard Drinks/Week Comments Yes 0 (1 standard drink = 0.6 oz pur e alcohol) Comments No Sex and Gender Information Value Date Recorded Sex Assigned at Not on file Legal Sex Female 2:10 AM CELL ASSEMBLY PINNER Gender Identity Not on file Sexual Orientation Not on file Obstetrics History Para Term AB IAB SAB Ectopic Multiple Livin g Live Births 0 0 0 0 0 0 0 0 0 0 0 Last Filed Vital Signs Vital Sign Reading Time Taken Comments Blood Pressure 133/83 08/24/2024 11:41 AM CELL ASSEMBLY PINNER Pulse 76 08/24/2024 11:41 AM CELL ASSEMBLY PINNER Temperature 36.4 ??C (97.6 ??F) 08/24/2024 11:[address] Respiratory Rate 16 08/24/2024 11:41 AM CELL ASSEMBLY PINNER Oxygen Saturation 97% 08/24/2024 11:41 AM CELL ASSEMBLY PINNER Inhaled Oxygen Concentration - - Weight 73 kg (161 lb) 08/24/2024 11:41 AM CELL ASSEMBLY PINNER Height 162.6 cm (5' 4 ) 08/24/2024 11:41 AM CELL ASSEMBLY PINNER Body Mass Index 27.64 08/24/2024 11:41 AM CELL ASSEMBLY PINNER Plan of Treatment Health Maintenance Due Date Last Done Comments Breast Cancer Screening-Mammogram 1954 Colon Cancer Screening-Colonoscopy 1954 Depression Screening 1954 Fall Risk Assessment 1954 Hepatitis C Screening 1954 Osteoporosis Screening-Bone Density Scan 1954 Hepatitis B Screening 1972 Zoster Vaccine (2 of 3) 05/27/2016 04/01/2016 Pneumococcal vaccine 65+ (1 of 1 - PCV) 2019 Well Visit 65+ 2019 Covid-19 Vaccine (3 - 2023-2 5 season) 2024 12/11/2020, 11/20/2020 Influenza Vaccine (#1) 2024 9, 06/04/2018, 06/24/2016, Additional history exists DTaP/Tdap/Td Vaccine (2 - Td or Tdap) 08/22/2029 08/22/2019 Procedures Procedure Name Priority Date/Time Associated Diagnosis Comments CA 125 Routine 08/30/2024 8:56 AM CELL ASSEMBLY PINNER Endometrial cancer (CMS/HCC) (HCC) from Last 3 Months Results * CA 125 (08/30/2024 8:56 AM CELL ASSEMBLY PINNER) CA 125 ag 4 <35 U/mL [facility] Comment: This test was performed using the Siemens Chemiluminescent method. Values obtained from different assay methods cannot be used interchangeably. CA 125 levels, regardless of value, should not be interpreted as absolute evidence of the presence or absence of disease. Blood 08/30/2024 8:56 AM CELL ASSEMBLY PINNER 08/30/2024 8:56 AM CELL ASSEMBLY PINNER us Brooke Harrington MD LAB BLOOD ORDERABLES Final Result [facility] [address] [place] [address] from Last 3 Months Insurance [employer] MEDICARE [facility] MEDICARE [facility] Care Teams Retail Helper Relationship Specialty Start Date End Date Momo Carrillo MD [address] [place] [address] PCP - General 02/18/18 Momo Carrillo MD [address] [place] [address] Referring Physician Family Medicine 11/20/20
--- OUTSIDE RECORDS SUMMARY | 2024-10-06 04:04 | XMS_ITS | Data Portability ---
Author Organization [place] [facility] Address [address] [place] [address] Assessment No assessment recorded. Plan of Treatment Reminders Order Date Submit Date Provider Last Modified By Organization Details Last Modified Time Details Appointments None recorded. Lab None recorded. Referral None recorded. Procedures None recorded. Surgeries None recorded. Imaging None recorded. Medication Orders Depo-Medrol 80 mg/mL suspension for injection 2023 024 [email or web address] Not available 11:43:28 Zithromax Z-Frank 250 mg tablet 2023 024 [facility][id number], [place], [address], 4 11:15:06 Patient TargetsNo targets recorded. Patient InstructionsNo instructions recorded. Reason for Referral None Reported. Results Created Date Observation Date Name Description Value Unit Range Abnormal Flag Note LastModifiedBy Organization Detail LastModifiedTime 06/12/20 21 06/12/2021 RT-PC R COVID -19 covid-19 real-time PCR not detect ed A NEGAT BALDO RESUL T DOES NOT PRECL UDE SARS- CoV-2 INFEC TION AND SHOUL D NOT BE USED THE SOLE BASIS FOR TREAT MENT OR OTHER PATIE NT MANAG EMENT DECIS IONS. NEGAT BALDO RESUL TS MUST BE COMBI ANDRÉS WITH CLINI JESSICA OBSER VATIO NS, PATIE NT HISTO RY, AND EPIDE MIOLO GICAL INFOR MATIO N PERFO RMANC E. PERFO RMANC E MIKY CTERI STICS FOR THE TAQPA TH COVID -19 COMBO , REAL- TIME PCR DIAGN OSTIC TEST HAVE BEEN DETER MINED BY THE [facility] AND ARE INCOR PORAT ED PART OF THE EMERG ENCY USE AUTHO BELINDA ARELLANO. PROVI VERA AND PATIE NT FACT SHEET S ARE AVAIL ABLE AT: HTTPS ://WW W.FDA .GOV/ MEDIC AL-DE VICES /KYLE GENCY -SITU ATION S-MED ICAL -JASPER POLLY/E MERGE NCY-U SE-AU AYAH URRUTIA NS#CO BONNIE IRUS2 019. Not Available [facility] (Lab) [address] [place], [address], 06/12/2021 18:06:10 Result Notes None recorded. Problems Name Problem SNOMED Code Status Onset Date Resolution Date Notes Provider Name and Address Organization Details Recorded Time Hypercholeste rolemia 85146799 Active 2020 Not Available [facility] 3 03:31:19 Acute sinusitis 55680001 Active 2021 Not Available [facility] 3 03:31:19 Insect bite, nonvenomous, of upper arm 924547301 Active 2021 Not Available [facility] 3 03:31:19 Problem Notes None recorded. Medical Equipment None Reported. Allergies No known drug allergies Medications Name Sig Start Date Stop Date Status Note LastModified by Organization Details LastModified Time azithromyci n 250 mg tablet TAKE 2 TABLETS BY MOUTH TODAY, THEN TAKE 1 TABLET DAILY FOR 4 DAYS DIRECTED active Not Available Not Available No t Available benzonatate 200 mg capsule TAKE 1 CAPSULE BY MOUTH 3 TIMES DAILY FOR 10 DAYS NEEDED FOR COUGH active Not Available Not Available No t Available prednisone 20 mg tablet TAKE 2 TABLETS BY MOUTH EVERY DAY X5DAYS FOR COUGH 12/21 completed Not Available Not Available Not Available simvastatin 10 mg tablet TAKE 1 TABLET BY MOUTH EVERY DAY 12/21 completed Not Available Not Available Not Available triamcinolo ne acetonide 0.1 % topical cream 12/21 completed Not Available Not Available Not Available Depo-Medrol 80 mg/mL suspension for injection Take 80 mg by injection route. 2023 active Not Available Not Available Not Avai lable levothyroxi ne 75 mcg tablet TAKE 1 TABLET BY MOUTH EVERY DAY active Not Available Not Available No t Available meclizine 25 mg tablet TAKE 1 TABLET BY MOUTH TWICE A DAY NEEDED FOR MOTION SICKNESS 12/21 completed Not Available Not Available Not Available levothyroxi ne 50 mcg tablet TAKE 1 TABLET BY MOUTH EVERY DAY active Not Available Not Available No t Available simvastatin 20 mg tablet TAKE 1 TABLET (20 MG) BY MOUTH DAILY active Not Available Not Available No t Available omeprazole 20 mg capsule,del ayed release TAKE 1 CAPSULE BY MOUTH EVERY DAY active Not Available Not Available No t Available codeine 10 mg-guaifene sin 100 mg/5 mL oral liquid Take 10 mL as needed by oral route at bedtime. active Not Available Not Available No t Available methylpredn isolone 4 mg tablets in a dose pack TAKE 6 TABLETS ON DAY 1 DIRECTED ON PACKAGE AND DECREASE BY 1 TAB EACH DAY FOR A TOTAL OF 6 DAYS 07/01 completed Not Available Not Available Not Available albuterol sulfate HFA 90 mcg/actuati on aerosol inhaler USE 2 PUFFS EVERY 4 HOURS NEEDED FOR COUGH active Not Available Not Available No t Available fluoxetine 20 mg capsule TAKE 1 CAPSULE BY MOUTH EVERY DAY active Not Available Not Available No t Available doxycycline hyclate 100 mg tablet Take 1 tablet twice a day by oral route for 10 days. 12/21 completed Not Available Not Available Not Available ipratropium bromide 21 mcg (0.03 %) nasal spray USE 2 SPRAYS PER NASAL 3 TIMES A DAY NEEDED FOR NASAL DRAINAGE ADMINISTE R INTO EACH NOSTRIL active Not Available Not Available No t Available amoxicillin 875 mg-potassiu m clavulanate 125 mg tablet TAKE 1 TABLET BY MOUTH TWICE A DAY 12/21 completed Not Available Not Available Not Available Solu-Medrol (PF) 125 mg/2 mL solution for injection Take 125 mg by injection route. 07/01 completed Not Available Not Available Not Available Zyrtec 10 mg capsule Take 1 capsule every day by oral route as needed. active Not Available Not Available No t Available Vitals Date Recorded Body weight Provider Name an d Address Organization Details Last Updated DateTime 12/22/2023 81431.37 g Slime Blanchard [facility] 12/22/2023 10:45:52 Date Recorded Body mass index (BMI) Body height Provider Name and Address Organization Details Last Updated DateTime 12/22/2023 27.6 kg/m2 162.56 cm Slime Blanchard [facility] 12/22/2023 10:46:04 Date Recorded Body temperature Provider Name a nd Address Organization Details Last Updated DateTime 12/22/2023 97 [degF] Slime Blanchard [facility] 12/22/2023 10:46:27 Date Recorded Respiratory rate Provider Name a nd Address Organization Details Last Updated DateTime 12/22/2023 16 /min Slime Blanchard [facility] 12/22/2023 10:46:42 Date Recorded Oxygen saturation Oxygen saturation in Arterial blood by Pulse oximetry Provider Name and Address Organization Details Last Updated DateTime 12/22/2023 95 % 95 % Slime Blanchard [facility] 12/22/2023 10:47:16 Date Recorded Heart rate Provider Name an d Address Organization Details Last Updated DateTime 12/22/2023 66 /min Slime Blanchard [facility] 12/22/2023 10:48:01 Date Recorded Body height Systolic blood pressure Diastolic blood pressure Systolic blood pressure Diastolic blood pressure Provider Name and Address Organization Details Last Updated DateTime 3 162.56 cm 152 mm[Hg] 79 mm[Hg] 145 mm[Hg] 91 mm[Hg] Not Available [facility] 3 03:30:52 Date Recorded Oxygen saturation Oxygen saturation in Arterial blood by Pulse oximetry Oxygen saturation Oxygen saturation in Arterial blood by Pulse oximetry Heart rate Heart rate Respiratory rate Respiratory rate Body temperature Body temperature Body weight Body weight Provider Name and Address Organization Details Last Updated DateTime 3 97 % 97 % 96 % 96 % 72 /min 61 /min 14 /min 16 /min 97.6 [degF] 97.9 [degF] 12236.3 9 g 86851.5 9 g Not Available [facility] 3 03:30:53 Date Recorded Systolic blood pressure Diastolic blood pressure Provider Name and Address Organization Details Last Updated DateTime 12/22/2023 146 mm[Hg] 79 mm[Hg] Slime Blanchard [facility] 12/22/2023 10:46:16 Social History Question Answer Notes LastModified by Organizat ion Details LastModified Time Tobacco Smoking Status Never Smoker Not Available [facility] 09/28/2022 03:30:02 In The 14 Days Before Symptom Onset, Have You Had Close Contact With A Laboratory-confirm ed COVID-19 While That Case Was Ill? No [id number] Information not available 09/28/2022 In The 14 Days Before Symptom Onset, Have You Had Close Contact With A Person Who Is Under Investigation For COVID-19 While That Person Was Ill? No [id number] Information not available 09/28/2022 What Was The Date Of Your Most Recent Tobacco Screening? 12/22/2023 [email or web address] Information not available 12/22/2023 Have You Recently Traveled Abroad? No [id number] Information not available 09/28/2022 Sex: Unknown Functional Status None recorded. Mental Status None recorded. Family History Nothing Reported. Medical History No medical history recorded. Gynecological HistoryNo gynecological history recorded. Obstetrics History GPAL:G 0 P 0 0 0 0 Immunizations Vaccine Type Date Status Note Provider Nam e and Address Organization Details Recorded Time COVID-19, mRNA, LNP-S, PF, 100 mcg/0.5mL dose or 50 mcg/0.25mL dose 12/08/2020 completed Not Available [facility] 3 03:32:38 COVID-19, mRNA, LNP-S, PF, 100 mcg/0.5mL dose or 50 mcg/0.25mL dose 11/19/2020 completed Not Available [facility] 3 03:32:38 Past Encounters Encounter ID Performer Location Encounter Start Date Encounter Closed Date Diagnosis/Indication Diagnosis SNOMED-CT Code Diagnosis ICD10 Code Diagnosis Note [id number] [facility] [address] [place] [address] 06/11/2021 00:00:00 06/11/2021 20:46:03 [id number] [facility] [address] [place] [address] 07/01/2022 00:00:00 07/01/2022 11:59:00 [id number] MONY Wayne [facility] [address] [place] [address] 12/22/2023 10:32:02 12/22/2023 11:19:22 Acute sinusitis 30908124 J01.90 Discussed with patient that most cases of acute sinusitis are viral in etiology and resolve within 10 days. Patient deferred rapid flu, covid, and strep testing. Depo-Medro l 80 mg IM administer ed via nursing staff. No adverse reaction(s ) noted. Patient counselled to hold ABX. Patient to initiate ABX if symptom persistenc e beyond 10 days, sudden increase in severity of symptoms, or biphasic pattern of illness. Recommende d follow up if fever developmen t or persistent , new, or worsening symptoms despite treatment. Patient verbalized understand ing and agreement to treatment plan. Health Concerns Section Related Observation LastModified by Organization Detai ls LastModified Time None Recorded Concern Status LastModified by Organization Details LastModified Time None Recorded Advance Directives Directive None Recorded Payers Encounter Date Sequence Insurance Name Policy Number Policy Mallory Covered Member ID Mallory Member ID Guarantor Name 12/22/2023 1 [place] Cori Kiran [id number] Cori Sidhu 12/22/2023 2 [facility] (MEDICARE SUPPLEMENT) Cori gant [id number] Cori Sidhu er Notes Date Note Type Note Provider Name and Address Organization Details Recorded Time 12/22/2023 text/html Patient is a 68 y/o female presenting with complaints of sinus headache, sinus pressure, right ear pain, postnasal drainage, right sided sore throat, and cough with yellow to green sputum production. Symptoms developed 3-4 days ago. She denies known fever. She has taken Mucinex, Benadryl, and an otc decongestant with minimal relief. MONY Wayne [address] [place], [address], [facility] 12/22/2023 11:19:12 OBGyn Episode No OBEpisode recorded.
--- OUTSIDE RECORDS SUMMARY | 2024-10-06 04:05 | XMS_ITS | Encounter Summary ---
Author Organization [facility] Address [address] [place] [address] Phone Care Team Providers Care Java Programming Professor Name Role Phone Momo Carrillo MD Primary Care Provider [phone] Momo Carrillo MD Unavailable Encounter Details Date Type Department Care Team (Late st Contact Info) Description 11/21/2020 Telephone [facility] Scheduling [address] [place] [address] Tony Rodriguez [facility] Social History Tobacco Use Types Packs/Day Years Used Date Smoking Tobacco: Former Smokeless Tobacco: Never Alcohol Use Standard Drinks/Week Comments Yes 0 (1 standard drink = 0.6 oz pur e alcohol) Comments No Sex and Gender Information Value Date Recorded Sex Assigned at Not on file Legal Sex Female 2:10 AM 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 CREW WORKER Gender Identity Not on file Sexual Orientation Not on file documented as of this encounter Miscellaneous Notes * Telephone Encounter - Dallin Blakely - 07/30/2021 12:46 PM CST Mistake VERY CREW WORKER documented in this encounter Plan of Treatment Not on file documented as of this encounter Visit Diagnoses Not on filedocumented in this encounter Care Teams Java Programming Professor Relationship Specialty Start Date End Date Momo Carrillo MD [address] [place] [address] PCP - General 02/18/18 Momo Carrillo MD [address] [place] [address] Referring Physician Family Medicine 11/20/20 documented as of this encounter
--- OUTSIDE RECORDS SUMMARY | 2024-10-06 04:05 | XMS_ITS | Encounter Summary ---
Author Organization [facility] Address [address] [place] [address] Phone Care Team Providers Care Solution Analyst Name Role Phone Momo Carrillo MD Primary Care Provider [phone] Momo Carrillo MD Unavailable Encounter Details Date Type Department Care Team (Late st Contact Info) Description 09/28/2024 Telephone [facility] Obstetrics and Gynecology [address] [facility] 13th [place] [address] [place] [address] Leyla Rowley, RN Social History Tobacco Use Types Packs/Day Years Used Date Smoking Tobacco: Former Smokeless Tobacco: Never Alcohol Use Standard Drinks/Week Comments Yes 0 (1 standard drink = 0.6 oz pur e alcohol) Comments No Sex and Gender Information Value Date Recorded Sex Assigned at Not on file Legal Sex Female 2:10 AM STEAK SAUCE MAKER Gender Identity Not on file Sexual Orientation Not on file documented as of this encounter Miscellaneous Notes * Telephone Encounter - Leyla Rowley RN - 09/28/2024 10:05 AM STEAK SAUCE MAKER Pt called to inform the office she will be unable to make the CT scheduled for 10/06/24. She is out of the area for most likely a few weeks. Cori would like to reschedule her CT scan. Spoke to pt, she will call when she is available to come in for the scan. CT is for persistent RLQ pain. K SAUCE MAKER documented in this encounter Plan of Treatment Not on file documented as of this encounter Visit Diagnoses Not on filedocumented in this encounter Care Teams Solution Analyst Relationship Specialty Start Date End Date Momo Carrillo MD [address] [place] [address] PCP - General 02/18/18 Momo Carrillo MD [address] [place] [address] Referring Physician Family Medicine 11/20/20 documented as of this encounter
--- OUTSIDE RECORDS SUMMARY | 2024-10-06 04:05 | XMS_ITS | Encounter Summary ---
Author Organization [facility] Address [address] [facility] [address] [place] [address] Phone Care Team Providers Care Market Analysis Director Name Role Phone Momo Carrillo MD Primary Care Provider [phone] Momo Carrillo MD Unavailable Reason for Visit * Reason Comments Follow-up Encounter Details Date Type Department Care Team (Late st Contact Info) Description 08/24/2024 11:45 AM BOAT DESIGNER Office Visit [facility] Obstetrics and Gynecology [address] [facility] 13th [place] [address] [place] [address] Brooke Harrington MD [address] [facility] [phone] [place] [address] Endometrial cancer (CMS/HCC) (HCC) (Primary Dx) Social History Tobacco Use Types Packs/Day Years Used Date Smoking Tobacco: Former Smokeless Tobacco: Never Tobacco Cessation:Counseling Given: Not Answered Alcohol Use Standard Drinks/Week Comments Yes 0 (1 standard drink = 0.6 oz pur e alcohol) Comments No Sex and Gender Information Value Date Recorded Sex Assigned at Not on file Legal Sex Female 2:10 AM BOAT DESIGNER Gender Identity Not on file Sexual Orientation Not on file documented as of this encounter Last Filed Vital Signs Vital Sign Reading Time Taken Comments Blood Pressure 133/83 08/24/2024 11:41 AM BOAT DESIGNER Pulse 76 08/24/2024 11:41 AM BOAT DESIGNER Temperature 36.4 ??C (97.6 ??F) 08/24/2024 11:[address] Respiratory Rate 16 08/24/2024 11:41 AM BOAT DESIGNER Oxygen Saturation 97% 08/24/2024 11:41 AM BOAT DESIGNER Inhaled Oxygen Concentration - - Weight 73 kg (161 lb) 08/24/2024 11:41 AM BOAT DESIGNER Height 162.6 cm (5' 4 ) 08/24/2024 11:41 AM BOAT DESIGNER Body Mass Index 27.64 08/24/2024 11:41 AM BOAT DESIGNER documented in this encounter Progress Notes * Brooke Harrington MD - 08/24/2024 11:45 AM CST GYNONC Return Visit Cori Huang 1955 69 y.o. 08/24/2024 Visit Diagnosis 1. Endometrial cancer (CMS/HCC) (HCC) Subjective HPI Cori Huang is a 69 y.o. female with hx of endometriosis, s/p hysterectomy, followed by development of a pelvic mass, requiring resection and subsequent chemotherapy with 6 cycles of Carbo/Taxol. She has some persistent RLQ discomfort, comes and goes. She is not needing to take anything for thepain, but is persistent. Appetite and BMs normal. She denies any aggravating sx. No alleviating sx.She did she see Dr. Dutta for an incisional hernia in case this was at all related. She will continue watchful waiting at this time and declines surgical mgmt. 03/12/16: Soft tissue, Intraabdominal right lower quadrant mass, biopsy (OSC [id number] FSA1; 03/12/16) - Metastatic endometrioid adenocarcinoma (see comment) Appendix, appendectomy ([facility] [id number] B1-B3; 03/12/16) - Focal well differentiated endometrioid carcinoma with associated complex atypical hyperplasia arising in a background of endometriosis - See comment Mesenteric implant, biopsy ([facility] [id number] C1; 03/12/16) - Metastatic carcinoma (See comment) 06/05/2016: Diagnosis: Soft tissue, cecal implant, biopsy (including AFR1) - Metastatic carcinoma with squamousdifferentiation, morphologically consistent with endometrial primary - See comment Soft tissue, right pelvic side wall mass, excision (B) - Metastatic carcinoma with squamous differentiation, morpholo gically consistent with endometrial primary Soft tissue, ileal, biopsy (C) - Fibroadipose tissue with foreign body giant cell reaction - Negative for malignancy Per her last visit with Dr. Jack: She was diagnosed with endometriosis in 2005. She underwent a hysterectomy. She had an uncomplicated course, but then subsequently presented with a mass in the psoas muscle. It was a full 10 years after her hysterectomy, and it turned out that it was an endometrial cancer arising within an endometriosis. We resected it. I did a colon resection on her, and she has done well. This was in May 2016, and so she is now 7 years out from that. Postoperatively, she had an epidural, and we think that she got an epidural abscess, and that we delayed her chemotherapy, but she is actually doing well, and she is out 7 years. She had her hysterectomy in 2005 (not 2015), and she did not have an endometrial cancer, but we believe that she probably did because she wound up having an endometrioid typecancer that was metastatic to that small bowel. It could have arisen within endometriosis perhaps, but we did resect it. We did a right colon on her, and now she has been disease-free for 7 years. Patient Active Problem List Diagnosis Bloodstream infection Deep vein thrombosis (DVT) (CMS/HCC) (HCC) Carcinoma of endometrium (HCC) Malignant neoplasm of endometrium (CMS/HCC) (HCC) Epidural abscess Hypercholesterolemia Hyperthyroidism Past Medical History: Diagnosis Date Depression Endometrial cancer (CMS/HCC) (HCC) GERD (gastroesophageal reflux disease) Hyperlipidemia Thyroid disease Uterine cancer (CMS/HCC) (HCC) No Known Allergies Current Outpatient Medications: cetirizine (ZyrTEC) 10 mg tablet diphenhydrAMINE-acetaminophen (TYLENOL PM) 25-500 mg tablet FLUoxetine (PROzac) 20 mg tablet levothyroxine (SYNTHROID) 75 mcg tablet multivit with calcium,iron,min (MULTIPLE VITAMIN, WOMENS ORAL) omeprazole (PriLOSEC) 20 mg capsule polyethylene glycol (MIRALAX) 17 gram packet simvastatin (ZOCOR) 20 mg tablet Objective Vitals BP 133/83 (BP Location: Right arm, Patient Position: Sitting) Pulse 76 Temp 36.4 ??C (97.6 ??F) (Oral) Resp 16 Ht 162.6 cm (5' 4 ) Wt 73 kg (161 lb) SpO2 97% BMI 27.64 kg/m?? Distress Score: 1 Physical exam: General Appearance: well, in no acute distress. HEENT: within normal limits; sclerae non icteric. Abdomen: soft, non-tender, without palpable masses, hernias, or enlarged liver or spleen; no fluid wave. Well healed scar(s). BUS/External: without lesions. Urethra/Urethral Meatus: without masses or tenderness. Bladder: non-tender. Vagina: without lesions or abnormal discharge. Bimanual: no adnexal masses, tenderness, or nodularity. Lower extremities: without edema or calf tenderness. Lab/Radiology/Diagnostic Review: Lab Results Component Value Date CA125 4 02/17/2024 CA125 <3 07/09/2023 CA125 <3 05/20/2022 CA125 3 11/20/2021 CA125 2 05/20/2021 CA125 3 03/15/2021 CA125 2 11/12/2020 CA125 2 05/07/2020 CA125 2 11/09/2019 CA125 2 04/13/2019 CA125 2 10/12/2018 CA125 3 07/08/2018 CA125 6.8 06/24/2016 CA125 5.8 05/21/2016 Assessment/Plan Cori Huang is a 68 y.o. female with hx of endometriosis, s/p hysterectomy, followed by development of a pelvic mass c/w endometrioid primary (MMRp), requiring resection and subsequent chemotherapy with 6 cycles of Carbo/Taxol. -- CA 125 today (not a good marker for her) -- ANDRÉS today by exam -- Given persistent sx will get one more CT scan to eval RLQ -- RTC in 6 months or sooner PRN pending the above Patient Counseling: Done Brooke Harrington MD CC: Encounter Referring Provider: Momo Carrillo MD Enclosures:Note Patient Care Team: Momo Carrillo MD as PCP - General Momo Carrillo MD as Referring Physician (Family Medicine) DESIGNER documented in this encounter Plan of Treatment Not on file documented as of this encounter Visit Diagnoses Diagnosis Endometrial cancer (CMS/HCC) (HCC)- Primary Malignant neoplasm of corpus uteri, except isthmus documented in this encounter Discontinued Medications Medication Sig Discontinue Reason Start Date End Da te levothyroxine (SYNTHROID) 50 mcg tablet Take 1 tablet (50 mcg total) by mouth daily Duplicate order 12/18/2022 08/24/2024 documented as of this encounter Historical Medications * This list may reflect changes made after this encounter. Medication Sig Dispense Quantity Refills Last Filled Start D ate End Date levothyroxine (SYNTHROID) 75 mcg tablet 06/28/2024 added in this encounter Care Teams Market Analysis Director Relationship Specialty Start Date End Date Momo Carrillo MD [address] [place] [address] PCP - General 02/18/18 Momo Carrillo MD [address] [place] [address] Referring Physician Family Medicine 11/20/20 documented as of this encounter
--- OUTSIDE RECORDS SUMMARY | 2024-10-06 04:05 | XMS_ITS | Encounter Summary ---
Author Organization [facility] Address [address] [place] [address] Phone Care Team Providers Care Inspector Final Assembly Mechanical Name Role Phone Momo Carrillo MD Primary Care Provider [phone] Momo Carrillo MD Unavailable Encounter Details Date Type Department Care Team (Late st Contact Info) Description 11/26/2021 Orders Only [facility] Obstetrics and Gynecology [address] [facility] Medicine 13th [place] [address] [place] [address] Umesh Garza, RN Malignant neoplasm of endometrium (CMS/HCC) (HCC) (Primary Dx) Social History Tobacco Use Types Packs/Day Years Used Date Smoking Tobacco: Former Smokeless Tobacco: Never Alcohol Use Standard Drinks/Week Comments Yes 0 (1 standard drink = 0.6 oz pur e alcohol) Comments No Sex and Gender Information Value Date Recorded Sex Assigned at Not on file Legal Sex Female 2:10 AM RESIDENTIAL SUPPORT WORKER Gender Identity Not on file Sexual Orientation Not on file documented as of this encounter Miscellaneous Notes * Addendum Note - Umesh Garza, RN - 11/26/2021 2:24 PM CSTAddended by: UMESH GARZA on: 05/12/2022 08:13 AM Modules accepted: Orders * Addendum Note - Umesh Garza RN - 11/26/2021 2:24 PM CSTAddended by: UMESH GARZA on: 05/12/2022 08:18 AM Modules accepted: Orders * Addendum Note - Umesh Garza RN - 11/26/2021 2:24 PM CSTAddended by: UMESH GARZA on: 05/12/2022 08:20 AM Modules accepted: Orders documented in this encounter Plan of Treatment Not on file documented as of this encounter Procedures Procedure Name Priority Date/Time Associated Diagnosis Comments CBC WITH AUTO DIFFERENTIAL Routine 05/20/2022 8:00 AM CDT Malignant neoplasm of endometrium (CMS/HCC) (HCC) CA 125 Routine 05/20/2022 8:00 AM CDT Malignant neoplasm of endometrium (CMS/HCC) (HCC) documented in this encounter Results * (ABNORMAL) CBC with auto differential (05/20/2022 8:00 AM CDT) WBC 3.0(L) 3.8 - 10.8 Thousand/u L [facility] RBC, POC 4.19 3.80 - 5.10 Million/uL [facility] Hgb 12.6 11.7 - 15.5 g/dL [facility] Hct 38.5 35.0 - 45.0 % [facility] MCV 91.9 80.0 - 100.0 fL [facility] MCH 30.1 27.0 - 33.0 pg [facility] MCHC 32.7 32.0 - 36.0 g/dL [facility] Rdw 13.2 11.0 - 15.0 % [facility] Platelets 126(L) 140 - 400 Thousand/u L [facility] MPV 11.1 7.5 - 12.5 fL [facility] Neutrophils, abs 1,827 1,500 - 7,800 cells/uL [facility] Lymphocytes, abs 834(L) 850 - 3,900 cells/uL [facility] Monocyte abs 279 200 - 950 cells/uL [facility] Eosinophils, abs 39 15 - 500 cells/uL [facility] Basophils, abs 21 0 - 200 cells/uL [facility] Neutrophils 60.9 % [facility] Lymphocyte pct 27.8 % [facility] Monocytes 9.3 % [facility] Eosinophils 1.3 % [facility] Basophils 0.7 % [facility] Blood specimen (specimen) 05/20/2022 8:00 AM CDT 05/20/2022 8:01 AM CDT us Jonnathan Jack MD LAB BLOOD ORDERABLES Final Res ult Performing Organization Address [facility]/ZIP Co de Phone Number [facility] [address] [place] [address] * CA 125 (05/20/2022 8:00 AM CDT) CA 125 ag <3 <35 U/mL [facility] Comment: This test was performed using the Siemens Chemiluminescent method. Values obtained from different assay methods cannot be used interchangeably. CA 125 levels, regardless of value, should not be interpreted as absolute evidence of the presence or absence of disease. Blood specimen (specimen) 05/20/2022 8:00 AM CDT 05/20/2022 8:01 AM CDT us Jonnathan Jack MD LAB BLOOD ORDERABLES Final Res ult [facility] [address] [place] [address] documented in this encounter Visit Diagnoses Diagnosis Malignant neoplasm of endometrium (CMS/HCC) (HCC)- Primary Malignant neoplasm of corpus uteri, except isthmus documented in this encounter Care Teams Inspector Final Assembly Mechanical Relationship Specialty Start Date End Date Momo Carrillo MD [address] [place] [address] PCP - General 02/18/18 Momo Carrillo MD [address] [place] [address] Referring Physician Family Medicine 11/20/20 documented as of this encounter
--- OUTSIDE RECORDS SUMMARY | 2024-10-06 04:05 | XMS_ITS | Encounter Summary ---
Author Organization [facility] Address [address] [place] [address] Phone Care Team Providers Care Display Specialist Name Role Phone Moom Carrillo MD Primary Care Provider [phone] Momo Carrillo MD Unavailable Encounter Details Date Type Department Care Team (Late st Contact Info) Description 03/07/[address] [facility] Obstetrics and Gynecology [address] [facility] [address] [place] [address] [place] [address] Shae Casas, RN Social History Tobacco Use Types Packs/Day Years Used Date Smoking Tobacco: Former Smokeless Tobacco: Never Alcohol Use Standard Drinks/Week Comments Yes 0 (1 standard drink = 0.6 oz pur e alcohol) Comments No Sex and Gender Information Value Date Recorded Sex Assigned at Not on file Legal Sex Female 2:10 AM NURSING SPECIALIST Gender Identity Not on file Sexual Orientation Not on file documented as of this encounter Miscellaneous Notes * Telephone Encounter - Shae Casas RN - 03/07/2024 10:45 AM CDT Contacted pt re: Hernia found on CT scan. Pt states she has spoken to Dr. Harrington. [facility] Vinnie Tay. Gave pt MD name and contact office ph# [phone]. Pt will await that Dept's call for setting up consultation. documented in this encounter Plan of Treatment Not on file documented as of this encounter Visit Diagnoses Not on filedocumented in this encounter Care Teams Display Specialist Relationship Specialty Start Date End Date Momo Carrillo MD [address] [place] [address] PCP - General 02/18/18 Momo Carrillo MD [address] [place] [address] Referring Physician Family Medicine 11/20/20 documented as of this encounter
--- OUTSIDE RECORDS SUMMARY | 2024-10-06 04:05 | XMS_ITS | Encounter Summary ---
Author Organization [facility] Address [address] [facility] [address] [place] [address] Phone Care Team Providers Care Cork Compounder Name Role Phone Momo Carrillo MD Primary Care Provider [phone] Momo Carrillo MD Unavailable Reason for Visit * Reason Comments Follow-up Encounter Details Date Type Department Care Team (Late st Contact Info) Description 02/17/2024 4:00 PM CDT Office Visit [facility] Obstetrics and Gynecology [address] [facility] Advanced Medicine 13th [place] [address] [place] [address] Brooke Harrington MD [address] [facility] [id number] [place] [address] Endometrial cancer (CMS/HCC) (HCC) (Primary [...] on file Legal Sex Female 2:10 AM ACLS NURSE Gender Identity Not on file Sexual Orientation Not on file documented as of this encounter Last Filed Vital Signs Vital Sign Reading Time Taken Comments Blood Pressure 154/85 02/17/2024 3:43 PM CDT Pulse 71 02/17/2024 3:43 PM CDT Temperature 36.8 ??C (98.2 ??F) 02/17/2024 3:43 PM CD T Respiratory Rate 16 02/17/2024 3:43 PM CDT Oxygen Saturation 94% 02/17/2024 3:43 PM CDT Inhaled Oxygen Concentration - - Weight 72.6 kg (160 lb) 02/17/2024 3:43 PM CDT Height 162.6 cm (5' 4.02 ) 02/17/2024 3:43 PM CD T Body Mass Index 27.45 02/17/2024 3:43 PM CDT documented in this encounter Progress Notes * Brooke Harrington MD - 02/17/2024 4:00 PM CDT GYNONC Return Visit Cori Huang 1955 68 y.o. 02/17/2024 Visit Diagnosis 1. Endometrial cancer (CMS/HCC) (HCC) Subjective HPI Cori Huang is a 68 y.o. female with hx of endometriosis, s/p hysterectomy, followed by development of a pelvic mass, requiring resection and subsequent chemotherapy with 6 cycles of Carbo/Taxol. She has no changes to report including weight loss, weight gain, vaginal bleeding or other genitourinary/gastrointestinal complaints. 03/12/16: Soft tissue, Intraabdominal right lower quadrant mass, biopsy ([facility] [id number] FSA1; 03/12/16) - Metastatic endometrioid adenocarcinoma (see comment) Appendix, appendectomy ([facility] [id number] B1-B3; 03/12/16) - Focal well differentiated endometrioid [...] Hypercholesterolemia Hyperthyroidism Past Medical History: Diagnosis Date Endometrial cancer (CMS/HCC) (HCC) Uterine cancer (CMS/HCC) (HCC) No Known Allergies Current Outpatient Medications: cetirizine (ZyrTEC) 10 mg tablet diphenhydrAMINE-acetaminophen (TYLENOL PM) 25-500 mg tablet FLUoxetine (PROzac) 20 mg tablet levothyroxine (SYNTHROID) 50 mcg tablet multivit with calcium,iron,min (MULTIPLE VITAMIN, WOMENS ORAL) omeprazole (PriLOSEC) 20 mg capsule polyethylene glycol (MIRALAX) 17 gram packet simvastatin (ZOCOR) 20 mg tablet Objective Vitals Vitals BP 154/85 (BP Location: Right arm, Patient Position: Sitting) Pulse 71 Temp 36.8 ??C (98.2 ??F) (Temporal) Resp 16 Ht 162.6 cm (5' 4.02 ) Wt 72.6 kg (160 lb) SpO2 94% BMI 27.45 kg/m?? Distress Score: 0 - No distress Physical exam: General Appearance: well, in no acute distress. HEENT: within normal limits; sclerae non icteric. Back: no CVA or paraspinal tenderness. Abdomen: soft, non-tender, without palpable masses, hernias, or enlarged liver or spleen; no fluid wave. Well healed scar(s) without herniation. BUS/External: without lesions. Urethra/Urethral Meatus: without masses [...] chemotherapy with 6 cycles of Carbo/Taxol. -- ANDRÉS today by exam and symptoms -- RTC in 6 months or sooner PRN Patient Counseling: Done Brooke Harrington MD CC: Encounter Referring Provider: Momo Carrillo MD Enclosures:Note Patient Care Team: Momo Carrillo MD as PCP - General Moom Carrillo MD as Referring Physician (Family Medicine) documented in this encounter Plan of Treatment Not on file documented as of this encounter Visit Diagnoses Diagnosis Endometrial cancer (CMS/HCC) (HCC)- Primary Malignant neoplasm of corpus uteri, except isthmus documented in this encounter Care Teams Cork Compounder Relationship Specialty Start Date End Date Momo Carrillo MD [address] [place] [address] PCP - General 02/18/18 Momo Carrillo MD [address] [place] [address] Referring Physician Family Medicine 11/20/20 documented as of this encounter
--- OUTSIDE RECORDS SUMMARY | 2024-10-06 04:05 | XMS_ITS | Encounter Summary ---
Author Organization [facility] Address [address] [place] [address] Care Team Providers Care Director Property Name Role Phone Momo Carrillo MD Primary Care Provider [phone] Momo Carrillo MD Unavailable Reason for Referral * MRI/CAT/PET Scan (Routine) - Closed Specialty Diagnoses / Procedures Referred By Contac t Referred To Contact Radiology Diagnoses Endometrial cancer (CMS/HCC) (HCC) Procedures CT Chest Abdomen Pelvis W Contrast Brooke Harrington MD [address] [facility] [phone] [place] [address] Phone: tel: fax: [address] [address] Referral ID Status Reason Start Date Expiration Date Visits Re quested Visits Authorized [id number] Closed 02/17/2024 03/18/2025 1 1 Reason for Visit * MRI/CAT/PET Scan (Routine) - Closed Specialty Diagnoses / Procedures Referred By Contac t Referred To Contact Radiology Diagnoses Endometrial cancer (CMS/HCC) (HCC) Procedures CT Chest Abdomen Pelvis W Contrast Brooke Harrington MD [address] [facility] [phone] [place] [address] Phone: tel: fax: [facility] [address] [facility] [place] [address] Referral ID Status Reason Start Date Expiration Date Visits Re quested Visits Authorized [id number] Closed 02/17/2024 03/18/2025 1 1 Encounter Details Date Type Department Care Team (Latest Contact Info) Description 03/04/2024 8:39 AM CDT - 03/04/2024 11:59 PM CDT Hospital Encounter [facility] [address] [place] [address] Brooke Harrington MD [address] [facility] [phone] [place] [address] Endometrial cancer (CMS/HCC) ([facility]) Discharge Disposition: Discharge to home or self care Social History Tobacco Use Types Packs/Day Years Used Date Smoking Tobacco: Former Smokeless Tobacco: Never Alcohol Use Standard Drinks/Week Comments Yes 0 (1 standard drink = 0.6 oz pur e alcohol) Comments No Sex and Gender Information Value Date Recorded Sex Assigned at Not on file 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 Gender Identity Not on file Sexual Orientation Not on file documented as of this encounter Medications at Time of Discharge cetirizine (ZyrTEC) 10 mg tablet 04/01/2016Zyrtec, po solid 10 mg TabletPOdailyCurrent Medication 6 diphenhydrAMIN E-acetaminophe n (TYLENOL PM) 25-500 mg tablet Take 1 tablet by mouth FLUoxetine (PROzac) 20 mg tablet Take 1 tablet (20 mg total) by mouth daily multivit with calcium,iron,m in (MULTIPLE VITAMIN, WOMENS ORAL) Take by mouth daily omeprazole (PriLOSEC) 20 mg capsule 3 polyethylene glycol (MIRALAX) 17 gram packet simvastatin (ZOCOR) 20 mg tablet 3 levothyroxine (SYNTHROID) 50 mcg tablet Take 1 tablet (50 mcg total) by mouth daily 3 08/24/20 24 documented as of this encounter Discharge Disposition Disposition Code Departure Means Destination Discharge to home or self care documented in this encounter Plan of Treatment Not on file documented as of this encounter Procedures Procedure Name Priority Date/Time Associated Diagnosis Comments CT CHEST ABDOMEN PELVIS W CONTRAST Routine 03/04/2024 10:00 AM CDT Endometrial cancer (CMS/HCC) (HCC) POCT CREATININE - DEVICE Routine 03/04/2024 9:47 AM CDT documented in this encounter Results * CT Chest Abdomen Pelvis W Contrast (03/04/2024 10:00 AM CDT) Anatomical Region Laterality Modality Body N/A Computed Tomogra phy 03/04/2024 10:2 7 AM CDT Impressions 03/04/2024 10:27 AM CDT 1. ??No evidence of recurrent disease. 2. ??Right paraumbilical Hooker hernia without evidence of obstruction or active inflammation. ??This could be a source for the patient's right lower quadrant pain. Electronically signed by: Paul Vidal M.D. Narrative 03/04/2024 10:27 AM CDT EXAMINATION: CT CHEST ABDOMEN PELVIS W CONTRAST HISTORY: Endometrial cancer with right lower quadrant pain TECHNIQUE: ??Transaxial computed tomographic images of the chest abdomen pelvis ??were obtained with intravenous contrast according to the standard protocol after the uneventful administration of 69 mL Opti-Ray 350 intravenous contrast. COMPARISON: 01/23/2020 FINDINGS: ?? No focal consolidation effusion or pneumothorax. ??Lingular atelectasis. ??Unchanged tiny pulmonary nodules. ??For reference, left lower lobe pulmonary nodule measures 2 mm (image 116). ??No new pulmonary nodules. No axillary supraclavicular mediastinal or hilar adenopathy. The heart size normal. ??No pericardial effusion. Liver is normal. ??No focal liver lesions. ??No intrahepatic or extrahepatic biliary duct dilatation. ??There is a gallstone but no cholecystitis. ??The spleen adrenals pancreas and kidneys are normal without hydronephrosis. The small bowel and colon are normal in caliber without wall thickening or obstruction. ??Suture lines in the cecum likely from prior appendectomy. ??No intraperitoneal free air or fluid. ??No inguinal pelvic mesenteric or retroperitoneal adenopathy. There is right paramidline ventral hernia at the level the umbilicus with defect measuring 2.9 cm (series 2 image 195). ??This hernia defect contains omental fat as well as a portion of the anterior wall of a segment of transverse colon with the appearance of a Hooker hernia. ??No evidence of inflammation or obstruction. The bladder is normal. ??Uterus is absent. Bone windows demonstrate no suspicious lytic or blastic lesions. L3-S1 mild degenerative disc disease. Procedure Note Paul Vidal MD PhD - 03/04/2024 EXAMINATION: CT CHEST ABDOMEN PELVIS W CONTRAST HISTORY: Endometrial cancer with right lower quadrant pain TECHNIQUE: Transaxial computed tomographic images of the chest abdomen pelvis were obtained with intravenous contrast according to the standard protocol after the uneventful administration of 69 mL Opti-Ray 350 intravenous contrast. COMPARISON: 01/23/2020 FINDINGS: No focal consolidation effusion or pneumothorax. Lingular atelectasis. Unchanged tiny pulmonary nodules. For reference, left lower lobe pulmonary nodule measures 2 mm (image 116). No new pulmonary nodules. No axillary supraclavicular mediastinal or hilar adenopathy. The heart size normal. No pericardial effusion. Liver is normal. No focal liver lesions. No intrahepatic or extrahepatic biliary duct dilatation. There is a gallstone but no cholecystitis. The spleen adrenals pancreas and kidneys are normal without hydronephrosis. The small bowel and colon are normal in caliber without wall thickening or obstruction. Suture lines in the cecum likely from prior appendectomy. No intraperitoneal free air or fluid. No inguinal pelvic mesenteric or retroperitoneal adenopathy. There is right paramidline ventral hernia at the level the umbilicus with defect measuring 2.9 cm (series 2 image 195). This hernia defect contains omental fat as well as a portion of the anterior wall of a segment of transverse colon with the appearance of a Hooker hernia. No evidence of inflammation or obstruction. The bladder is normal. Uterus is absent. Bone windows demonstrate no suspicious lytic or blastic lesions. L3-S1 mild degenerative disc disease. IMPRESSION: 1. No evidence of recurrent disease. 2. Right paraumbilical Hooker hernia without evidence of obstruction or active inflammation. This could be a source for the patient's right lower quadrant pain. Electronically signed by: Paul Vidal M.D. us Brooke Harrington MD IMG CT PROCEDURES Fi nal Result * POCT creatinine (03/04/2024 9:47 AM CDT) Creatinine POC 1.0 0.6 - 1.1 mg/dL Blood 03/04/2024 9:47 AM CDT 03/04/2024 9:47 AM CDT us Brooke Harrington MD LAB POCT ORDERABLES - DEVICE Final Result [facility] Department [place] [address] documented in this encounter Visit Diagnoses Diagnosis Endometrial cancer (CMS/HCC) (HCC) Malignant neoplasm of corpus uteri, except isthmus documented in this encounter Administered Medications Inactive Administered Medications - up to 3 most recent administrations Medication Order MAR Action Action Date Dose Rate Site ioversoL (OPTIRAY 350) syringe 75 mL 75 mL, intravenous, Once in imaging, contrast, Starting on Thu03/04/24 at 1000, For 1 dose Contrast Given 03/04/2024 10:01 AM CDT 69 mL documented in this encounter Orders Medications Ordered That Toy ht Not Have Been Administered Count Last Ordered Date First Ordered Date ioversoL (OPTIRAY 350) syringe 75 mL 1 02/19 documented in this encounter Care Teams Director Property Relationship Specialty Start Date End Date Momo Carrillo MD [address] [place] [address] PCP - General 02/18/18 Momo Carrillo MD [address] [place], [place] [address] Referring Physician Family Medicine 11/20/20 documented as of this encounter
--- OUTSIDE RECORDS SUMMARY | 2024-10-06 04:05 | XMS_ITS | Encounter Summary ---
Author Organization [facility] Address [address] [place] [address] Phone Care Team Providers Care Multifocal Button Generator Name Role Phone Momo Carrillo MD Primary Care Provider [phone] Momo Carrillo MD Unavailable Encounter Details Date Type Department Care Team (Late st Contact Info) Description 05/20/2021 Orders Only [facility] Obstetrics and Gynecology [address] [facility] 13[address] [place] [address] [place] [address] Umesh Garza, RN Carcinoma of endometrium (CMS/HCC) (HCC) (Primary Dx); Malignant neoplasm of endometrium (CMS/HCC) (HCC) Social History Tobacco Use Types Packs/Day Years Used Date Smoking Tobacco: Former Smokeless Tobacco: Never Alcohol Use Standard Drinks/Week Comments Yes 0 (1 standard drink = 0.6 oz pur e alcohol) Comments No Sex and Gender Information Value Date Recorded Sex Assigned at Not on file 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 Gender Identity Not on file Sexual Orientation Not on file documented as of this encounter Miscellaneous Notes * Addendum Note - Umesh Graza RN - 05/20/2021 10:16 AM CDTAddended by: UMESH GARZA on: 05/28/2021 02:00 PM Modules accepted: Orders documented in this encounter Plan of Treatment Not on file documented as of this encounter Procedures Procedure Name Priority Date/Time Associated Diagnosis Comments CA 125 Routine 11/20/2021 10:29 AM SENIOR LINUX ENGINEER Malignant neoplasm of endometrium (CMS/HCC) (HCC) Carcinoma of endometrium (CMS/HCC) (HCC) CA 125 Routine 05/20/2021 12:40 PM CDT Malignant neoplasm of endometrium (CMS/HCC) (HCC) Carcinoma of endometrium (CMS/HCC) (HCC) documented in this encounter Results * CA 125 (11/20/2021 10:29 AM SENIOR LINUX ENGINEER) CA 125 ag 3 <35 U/mL [facility] Comment: This test was performed using the Honey Mandy Chemiluminescent method. Values obtained from different assay methods cannot be used interchangeably. CA 125 levels, regardless of value, should not be interpreted as absolute evidence of the presence or absence of disease. Effective December 02, 2021, the Siemens CA 125 immunoassay will replace the previous Honey Hereford method. For patients followed by serial CA 125 testing, order code [id number] - CA 125, Re-baseline will be available through February 24, 2022 to assist with transition to the new assay. Blood specimen (specimen) 11/20/2021 10:29 AM SENIOR LINUX ENGINEER 11/20/2021 10:30 AM SENIOR LINUX ENGINEER Jonnathan Jack MD LAB BLOOD ORDERABLES Final Res ult [facility] [address] [place] [address] * CA 125 (05/20/2021 12:40 PM CDT) CA 125 ag 2 <35 U/mL [facility] Comment: This test was performed using the Honey Hereford Chemiluminescent method. Values obtained from different assay methods cannot be used interchangeably. CA 125 levels, regardless of value, should not be interpreted as absolute evidence of the presence or absence of disease. Blood specimen (specimen) 05/20/2021 12:40 PM CDT 05/20/2021 12:41 PM CDT Jonnathan Jack MD LAB BLOOD ORDERABLES Final Res ult [facility] [address] [place] [address] documented in this encounter Visit Diagnoses Diagnosis Carcinoma of endometrium (HCC)- Primary Malignant neoplasm of corpus uteri, except isthmus Malignant neoplasm of endometrium (CMS/HCC) (HCC) Malignant neoplasm of corpus uteri, except isthmus documented in this encounter Care Teams Multifocal Button Generator Relationship Specialty Start Date End Date Momo Carrillo MD [address] [place] [address] PCP - General 02/18/18 Momo Carrillo MD [address] [place] [address] Referring Physician Family Medicine 11/20/20 documented as of this encounter
--- OUTSIDE RECORDS SUMMARY | 2024-10-06 04:05 | XMS_ITS | Encounter Summary ---
Author Organization [facility] Address [address] [facility] [address] [place] [address] Phone Care Team Providers Care Taffy Candy Maker Name Role Phone Momo Carrillo MD Primary Care Provider [phone] Momo Carrillo MD Unavailable Reason for Visit * Reason Comments Follow-up Encounter Details Date Type Department Care Team (Late st Contact Info) Description 05/28/2021 1:30 PM CDT Office Visit [facility] [address] [facility] 13th [place] [address] [place] [address] Jonnathan Jack MD [address] [facility] [phone] [place] [address] Endometrial cancer (CMS/HCC) (HCC) Social History Tobacco Use Types Packs/Day Years Used Date Smoking Tobacco: Former Smokeless Tobacco: Never Alcohol Use Standard Drinks/Week Comments Yes 0 (1 standard drink = 0.6 oz pur e alcohol) Comments No Sex and Gender Information Value Date Recorded Sex Assigned at Not on file 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 Gender Identity Not on file Sexual Orientation Not on file documented as of this encounter Last Filed Vital Signs Vital Sign Reading Time Taken Comments Blood Pressure 158/85 05/28/2021 1:18 PM CDT Pulse 67 05/28/2021 1:18 PM CDT Temperature 36.6 ??C (97.8 ??F) 05/28/2021 1:18 PM CD T Respiratory Rate 18 05/28/2021 1:18 PM CDT Oxygen Saturation 97% 05/28/2021 1:18 PM CDT Inhaled Oxygen Concentration - - Weight 72.1 kg (159 lb) 05/28/2021 1:18 PM CDT Height 162.6 cm (5' 4.02 ) 05/28/2021 1:18 PM CD T Body Mass Index 27.28 05/28/2021 1:18 PM CDT documented in this encounter Progress Notes * Jonnathan Jack MD - 05/28/2021 12:00 AM CDT PATIENT: LEWIS RENEE : 1955 AGUSTO: 05/28/2021 HISTORY OF PRESENT ILLNESS: Ms. Renee is a 65-year-old woman who was diagnosed with endometriosis in 2015. She underwent a hysterectomy. She had an uncomplicated postop course, but subsequently presented with a mass in the psoas muscle. 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 We resected it and she did well from the surgery. Unfortunately, treatment was significantly delayed because she had osteomyelitiseither from seeding from her surgery or from the epidural catheter, we are not sure which, but nonetheless she got her 6 cycles of therapy and she is doing well. She has remained disease free. The surgery itself was done in 2016 so she is now 5 years out from that. She has no complaints or problemstoday. She is doing well. In fact, she is planning to ride her horses. PAST MEDICAL HISTORY/REVIEW OF SYSTEMS: Unchanged with the exception of the above updates. Discussed with the patient today. PHYSICAL EXAM: Vital Signs: Vitals are as noted in the patient's chart. General Appearance: A well-developed, well-nourished female in no acute distress. Lungs: Clear. Heart: Regular rate and rhythm. No evidence of failure or cardiac abnormality. Neck: No thyromegaly. Breasts: Deferred. Abdomen: Soft, nontender. No evidence of masses or ascites. No hepatosplenomegaly. No evidence of herniation. CVA: No tenderness. Extremities: No edema, cyanosis or tenderness. Superficial LN: Without adenopathy. Skin: Clear. PELVIC EXAM: External Genitalia: Normal, no vulvar lesions seen. Normal hair distribution. Urethral Meatus: Normal in size, caliber, and location. Urethra clear. No prolapse or polyps. Vagina: Clear, no lesions seen or palpated. No significant cystocele or rectocele. Adequate support. Bimanual: No masses tenderness or nodularity are identified. Bimanual exam is normal and the cuff is clean. ASSESSMENT AND PLAN: I am going to see the patient back in 6 months. ELECTRONICALLY SIGNED - 05/28/2021 02:26 PM Jonnathan Jack M.D. Jazlyn Orta and Genia Camejo, Department of Obstetrics and Gynecology Rolled Glass Crosscutter for Gynecology Division of Gynecologic Oncology [facility]//#[id number] cc: Ashley CARRILLO MD / / documented in this encounter Plan of Treatment Not on file documented as of this encounter Visit Diagnoses Diagnosis Endometrial cancer (CMS/HCC) (HCC) Malignant neoplasm of corpus uteri, except isthmus documented in this encounter Orders Appointment Requests Count Last Ordered Date Fi rst Ordered Date [facility] CLINIC APPOINTMENT REQUEST 2 022 05/28/2021 documented in this encounter Care Teams Taffy Candy Maker Relationship Specialty Start Date End Date Momo Carrillo MD [address] [place], [place] [address] PCP - General 02/18/18 Momo Carrillo MD [address] [place] [address] Referring Physician Family Medicine 11/20/20 documented as of this encounter
--- OUTSIDE RECORDS SUMMARY | 2024-10-06 04:05 | XMS_ITS | Encounter Summary ---
Author Organization [facility] Address [address] [place] [address] Phone Care Team Providers Care Bus Person Dishwasher Name Role Phone Momo Carrillo MD Primary Care Provider [phone] Momo Carrillo MD Unavailable Encounter Details Date Type Department Care Team (Latest Contact Info) Description 12/06/2022 Orders Only [facility] Polly Macdonald RN Social History Tobacco Use Types Packs/Day Years Used Date Smoking Tobacco: Former Smokeless Tobacco: Never Alcohol Use Standard Drinks/Week Comments Yes 0 (1 standard drink = 0.6 oz pur e alcohol) Comments No Sex and Gender Information Value Date Recorded Sex Assigned at Not on file 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 Gender Identity Not on file Sexual Orientation Not on file documented as of this encounter Plan of Treatment Not on file documented as of this encounter Procedures Procedure Name Priority Date/Time Associated Diagnosis Comments SCAN - LABS 12/06/2022 1:19 PM CDT documented in this encounter Results * SCAN - LABS (12/06/2022 1:19 PM CDT) Polly Macdonald RN Final Result documented in this encounter Visit Diagnoses Not on filedocumented in this encounter Care Teams Bus Person Dishwasher Relationship Specialty Start Date End Date Momo Carrillo MD [address] [place] [address] PCP - General 02/18/18 Momo Carrillo MD [address] [place] [address] Referring Physician Family Medicine 11/20/20 documented as of this encounter
--- OUTSIDE RECORDS SUMMARY | 2024-10-06 04:05 | XMS_ITS | Encounter Summary ---
Author Organization [facility] Address [address] [place] [address] Phone Care Team Providers Care Solar Installation Helper Name Role Phone Momo Carrillo MD Primary Care Provider [phone] Momo Carrillo MD Unavailable Encounter Details Date Type Department Care Team (Late st Contact Info) Description 05/28/2022 Orders Only [facility] Obstetrics and Gynecology [address] [facility] Medicine 13th [place] [address] [place] [address] Polly Macdonald RN Endometrial cancer (CMS/HCC) (HCC) (Primary Dx) Social History Tobacco Use Types Packs/Day Years Used Date Smoking Tobacco: Former Smokeless Tobacco: Never Alcohol Use Standard Drinks/Week Comments Yes 0 (1 standard drink = 0.6 oz pur e alcohol) Comments No Sex and Gender Information Value Date Recorded Sex Assigned at Not on file 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 Gender Identity Not on file Sexual Orientation Not on file documented as of this encounter Plan of Treatment Scheduled Orders Name Type Priority Associated Diagnoses Orde r Schedule CA 125 Lab Routine Endometrial cancer (CMS/HCC) (HCC) every 6 months for 2 Occurrences starting 05/28/2022 until 05/28/2023 documented as of this encounter Visit Diagnoses Diagnosis Endometrial cancer (CMS/HCC) (HCC)- Primary Malignant neoplasm of corpus uteri, except isthmus documented in this encounter Care Teams Solar Installation Helper Relationship Specialty Start Date End Date Momo Carrillo MD [address] [place] [address] PCP - General 02/18/18 Momo Carrillo MD [address] [place] [address] Referring Physician Family Medicine 11/20/20 documented as of this encounter
--- OUTSIDE RECORDS SUMMARY | 2024-10-06 04:05 | XMS_ITS | Encounter Summary ---
Author Organization [facility] Address [address] [facility] [address] [place] [address] Phone Care Team Providers Care Hot Dip Plating Supervisor Name Role Phone Momo Carrillo MD Primary Care Provider [phone] Momo Carrillo MD Unavailable Reason for Visit * Consultation (Routine) - Closed Specialty Diagnoses / Procedures Referred By Eduardo t Referred To Contact Hematology Diagnoses Other decreased white blood cell (WBC) count Jonnathan Jack MD [address] [facility] [id number] [place] [address] Phone: tel: fax: [facility] Hematology [address] [facility] [facility] [place] 7[address] [place] [address] [place] [address] Phone: tel: fax: Referral ID Status Reason Start Date Expiration Date V isits Requested Visits Authorized [id number] Closed Specialty Services Required 11/20/2020 12/20/2021 1 1 Encounter Details Date Type Department Care Team (Late st Contact Info) Description 01/03/2021 3:00 PM CDT Office Visit [facility] Hematology [address] [facility] 7th [place] [address] [place] [address] Lorelei Soto MD [address] [place] [address] Neutropenia, unspecified type (CMS/HCC) (Primary Dx); Other decreased white blood cell (WBC) count; Thrombocytopenia, unspecified (CMS/HCC) Social History Tobacco Use Types Packs/Day Years Used Date Smoking Tobacco: Former Smokeless Tobacco: Never Alcohol Use Standard Drinks/Week Comments Yes 0 (1 standard drink = 0.6 oz pur e alcohol) Comments No Sex and Gender Information Value Date Recorded Sex Assigned at Not on file Legal Sex Female 2:10 AM PHYTOPATHOLOGIST Gender Identity Not on file Sexual Orientation Not on file documented as of this encounter Last Filed Vital Signs Vital Sign Reading Time Taken Comments Blood Pressure 126/78 01/03/2021 2:50 PM CDT Pulse 80 01/03/2021 2:50 PM CDT Temperature 36.5 ??C (97.7 ??F) 01/03/2021 2:50 PM CD T Respiratory Rate 16 01/03/2021 2:50 PM CDT Oxygen Saturation 99% 01/03/2021 2:50 PM CDT Inhaled Oxygen Concentration - - Weight 72.1 kg (159 lb) 01/03/2021 2:50 PM CDT Height - - Body Mass Index 27.29 11/20/2020 1:22 PM PHYTOPATHOLOGIST documented in this encounter Progress Notes * Rosemary Lugo MD - 01/03/2021 3:00 PM CDT Images from the original note were not included. Hematology Initial Visit Note Referring Physician: Jonnathan Jack MD Reason for Consult: Leukopenia History of Presenting Illness Ms Cori Huang is a 65 year-old female with past medical history significant for endometrial cancer (2016 s/p surgical resection and adjuvant carboplatin + paclitaxel x 6 cycles), who presents for initial consult, accompanied by her sister. She feels very well and denies any acutecomplaints. She is quite active and does some volunteer work. Review of systems is negative for fever, chills, night sweats, unintentional weight loss, frequent infections, recent acute illness, bleeding, easy bruising, vision changes, headaches, shortness of breath, cough, nausea, emesis, abdominal pain, change in bowel / urinary habits, or rash. Review of Systems All review of systems negative except mentioned in HPI Past Medical History Endometrial cancer: diagnosed in 2016, status post surgical resection and adjuvant carboplatin + paclitaxel for 6 cycles Hypertension Hyperlipidemia Hypothyroidism Gastroesophageal reflux disease Anxiety Past Surgical History Hysterectomy Appendectomy Tonsillectomy Family History Father: esophageal cancer Sister: breast cancer Niece: breast cancer Aunt: breast cancer Social History Tobacco: former smoker 1/4 PPD x 15 years, quite in 1998 Alcohol: 6 beers / week Illicit drugs: none Socioeconomic: She is and lives with her in [place], [place] ([address]) 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 rate 16, weight 72.1 kg (159 lb), SpO2 99 %. General: No acute distress. Well-nourished. HEENT: Normocephalic. Pupils equal, round, and reactive. No mucositis or thrush. Lungs: Clear to auscultation. No wheezes, rales, or rubs. Cardiovascular: Normal rate, regular rhythm. No murmurs, rubs, gallops. Abdomen: Soft, not tender, not distended. No palpable organomegaly. Extremities: No edema. Skin: No visible rash. Neuro: Alert and oriented. No focal deficits. Psych: Normal affect. Judgement intact. Laboratory Data CBC: 05/07/2020 10:15 07/10/2020 09:31 09/11/2020 08:50 11/12/2020 10:18 WBC 3.0 (L) 3.1 (L) 2.7 (L) 3.0 (L) Hgb 12.1 12.4 12.7 12.0 Hct 36.7 37.4 39.6 36.1 Platelets 143 138 (L) 135 (L) 131 (L) MPV 11.4 11.7 11.5 11.5 RBC, POC 3.84 3.89 4.14 3.85 MCV 95.6 96.1 95.7 93.8 MCH 31.5 31.9 30.7 31.2 MCHC 33.0 33.2 32.1 33.2 RDW CV 13.4 13.6 13.0 12.8 Lymphocytes, abs 987 967 805 (L) 876 Monocyte abs 258 242 230 282 Eosinophils, abs 30 19 49 132 Basophils, abs 21 19 19 30 Neutrophils 56.8 59.8 59.2 56 Monocytes 8.6 7.8 8.5 9.4 Eosinophils 1.0 0.6 1.8 4.4 Basophils 0.7 0.6 0.7 1.0 Neutrophils, abs 1,704 1,854 1,598 1,[address] chest abdomen pelvis without contrast 01/23/2020 FINDINGS: ?? Atelectasis is seen within the lingula and both lower lobes. A calcified granuloma seen within the right middle lobe. No pleural effusion, consolidation, or pneumothorax. There is no supraclavicular, axillary, mediastinal, or hilar lymphadenopathy. The heart size is normal. There is no pericardial effusion. There is a small hiatal hernia. The noncontrast appearance of the liver is normal. Gallstones are seen within the gallbladder. The adrenal glands and spleen are normal. There is mild fatty atrophy of the pancreas. Both kidneys are normal. There is no hydronephrosis. The bladder is normal appearing. There are hysterectomy changes. There is a small ventral hernia which contains nonobstructed bowel. There is no pelvic or abdominal lymphadenopathy no free fluid or gas. ?? Bone windows demonstrate a lytic lesion within the L2 vertebral body which measures 1 cm. When compared to the prior examination from 07/23/2018 this lesion is unchanged and favored to be benign. ?? IMPRESSION: ?? 1. No CT evidence of metastatic disease within the chest, abdomen, and pelvis. 2. Unchanged lytic lesion within the L2 vertebral body. This lesion is unchanged compared to the prior examination from 2018 and a benign etiology is favored. Attention on follow-up imaging is recommended. Assessment and Plan - Leukopenia Ms Cori Huang is a 65 year-old female with past medical history significant for endometrial cancer (2016 s/p surgical resection and adjuvant carboplatin + paclitaxel x 6 cycles), who presents for initial consult. She is asymptomatic and does not have any constitutional symptoms or frequent recurrent infections. Routine laboratory studies by Dr. Bernal (gyne-onc) since 05/07/20 have shown mild leukopenia on 4 separate occasions, with WBC between 2.7-3.1. Differential is within normal and neutrophils are between 1.5-1.8. In comparison to the other available labs in 2016, this leukopenia is new as her prior WBC was closer to 6-8 aside from occasional drops to 3.2 at the lowest, likely due to chemotherapy. An important differential diagnosis to rule out is treatment related MDS as she is in that time window of about 5 years since treatment. We are assured by the fact that her WBC has been stable over the past 8 months, but would like to continue close monitoring and consider a bone marrow biopsy if these findings worsen. For complete evaluation, we will check CBC, reticulocyte, folate, B12, copper, homocysteine, RF, and BETY today. She is scheduled for repeat CBC in about 2-3 months, ordered by Dr. Jack, and will call us with those results. We will see her back in clinic with repeat CBC in 6 months. She knows to call us in the interim for any questions or concerns. The results of all laboratory and/or radiographic studies were reviewed and discussed with the patient. All questions were answered, and our contact information was given. The patient is instructed to report to the ER in the event of any acute issues; or call us with any further questions or concerns. Follow-up: ROV in 6 months ADDENDUM: Copper is 1.36, B12 699 and homocysteine 10, all normal. CBC with a white count of 4200 with a differential notable for an absolute neutrophil count of 2600 and an absolute lymphocyte countof 1100. Hemoglobin is 12.8 with an MCV of 91.3. Platelets are 170,000. Reticulocyte count is 1.5% with an absolute number of 62,000. Folate is normal at 19.8. Rheumatoid factor is less than 10 and BETY is negative. Reassuringly her CBC is normal today. We will plan to follow-up on her CBC in February. We will see ariel for follow-up in 6 months. The patient was seen and discussed with Dr. Brittany Lugo MD MS Heme/Onc Fellow PGY4 Cosigned by Lorelei Soto MD at 01/07/2021 3:59 PM CDT Associated attestation - Lorelei Soto MD - 01/07/2021 3:59 PM CDT I have seen and examined the patient. I agree with the findings and plan of care as documented in the resident/fellow's note and as discussed with the resident/fellow. documented in this encounter Plan of Treatment Not on file documented as of this encounter Results * Rheumatoid factor (01/03/2021 4:04 PM CDT) Rheumatoid factor, quant <10.0 0.1 - 15.0 IUnits/mL [facility] Blood specimen (specimen) 01/03/2021 4:04 PM CDT 01/03/2021 4:30 PM CDT Lorelei Soto MD LAB BLOOD ORDERABLES Final Result Performing Organization Address City/[facility]/ZIP Co de Phone Number [facility] Department [place] [address] * Folate (01/03/2021 4:04 PM CDT) [facility] Folic acid 19.8 >=5.0 ng/mL [facility] Blood specimen (specimen) 01/03/2021 4:04 PM CDT 01/03/2021 4:30 PM CDT Lorelei Soto MD LAB BLOOD ORDERABLES Final Result [facility] [place] [address] * Vitamin B12 (01/03/2021 4:04 PM CDT) Pathologist [facility] Vitamin B12 699 230 - 1,250 pg/mL [facility] Blood specimen (specimen) 01/03/2021 4:04 PM CDT 01/03/2021 4:30 PM CDT Lorelei Soto MD LAB BLOOD ORDERABLES Final Result Performing Organization Address [facility] Co de Phone Number [facility] [place] [address] * Reticulocyte Count (01/03/2021 4:04 PM CDT) Pathologist [facility] Retics, absolute 0.062 0.020 - 0.087 M/cumm [facility] Comment:Testing performed by : [facility], [address] [place] [phone] Retics 1.50 0.50 - 1.80 % [facility] Comment:Testing performed by : [facility], [address] [place] [phone] Blood specimen (specimen) 01/03/2021 4:04 PM CDT 01/03/2021 4:07 PM CDT us Lorelei Soto MD LAB BLOOD ORDERABLES Final Result Performing Organization Address [facility] de Phone Number [facility] [place] [address] * CBC with auto differential (01/03/2021 4:04 PM CDT) [facility] WBC 4.2 3.8 - 9.8 K/cumm [facility] Comment:Testing performed by : [facility], [address] [place] [phone] Hgb 12.8 12.1 - 15.1 g/dL [facility] Comment:Testing performed by : [facility], [address] [place] [phone] Hct 37.7 36.1 - 44.3 % [facility] Comment:Testing performed by : [facility], [address] [place] [phone] Plt 170 140 - 440 K/cumm [facility] Comment:Testing performed by : [facility], [address] [place], [place] [phone] MPV 7.1 6.8 - 10.4 fL MAKAYLA [facility] Comment:Testing performed by : [facility], [address] [place] [address] RBC 4.13 3.90 - 5.00 M/cumm MAKAYLA [facility]O Comment:Testing performed by : [place] [phone] MCV 91.3 80.0 - 97.6 fL MAKAYLA GARRIDO Comment:Testing performed by : [facility], [address] [place], [place] [phone] MCH 30.9 26.7 - 33.7 pg [facility]LA [facility]O Comment:Testing performed by : [place] [phone] MCHC 33.8 32.7 - 35.5 g/dL MAKALYA [facility]O Comment:Testing performed by : [place] [phone] RDW CV 13.5 11.8 - 14.6 % MAKAYLA GARRIDO Comment:Testing performed by : [facility], [address] [place] [phone] NRBC abs 0.00 0.00 - 0.01 K/cumm MAKAYLA GARRIDO Comment:Testing performed by : [facility], [address] [place], [place] [phone] Blood specimen (specimen) 01/03/2021 4:04 PM CDT 01/03/2021 4:07 PM CDT us Lorelei Soto MD LAB BLOOD ORDERABLES Final Result [facility] Department [place] [address] * BETY qualitative with reflex to BETY Quantitative (01/03/2021 4:04 PM CDT) BETY Negative MAKAYLA GARR[facility] Comment: Interpretive Data Normal range for BETY Qualitative Antibody = Negative. 1. BETY is performed using indirect immunofluorescence against HEp-2 cells 2. BETY titers are performed on all positive qualitative results. 3. A significantly positive BETY result is defined as a positive nuclear fluorescence at a titer of 1:80 or greater. 4. 15% of normal people above age 65 have significantly positive BETY results. ??5% or less of normal people age 65 or under have significantly positive BETY results. Current interpretive data was last revised on 2020. Blood specimen (specimen) 01/03/2021 4:04 PM CDT 01/03/2021 4:30 PM CDT Lorelei Soto MD LAB BLOOD ORDERABLES Final Result Performing Organization Address [facility] de Phone Number [facility] [place] [employer] [address] * Copper, serum (01/03/2021 4:04 PM CDT) Pathologist [facility] Copper 1.36 0.75 - 1.45 mcg/mL [facility] Comment: ADDITIONAL INFORMATION This test was developed and its performance characteristics determined by [facility] in a manner consistent with CLIA requirements. This test has not been cleared or approved by the U.S. Food and Drug Administration. Test Performed by: [facility] [place] [address] Dispensing Optician Apprentice: Adarsh Ni M.D. Ph.D.; CLIA# [id number] Blood specimen (specimen) 01/03/2021 4:04 PM CDT 01/03/2021 5:28 PM CDT Lorelei Soto MD LAB BLOOD ORDERABLES Final Result Performing Organization Address [facility] Co de Phone Number [facility] [place] [employer] [place] [address] * Homocysteine (01/03/2021 3:57 PM CDT) Homocysteine 10.0 0.0 - 15.0 mcmol/L [facility] Blood specimen (specimen) 01/03/2021 3:57 PM CDT 01/03/2021 4:40 PM CDT us Lorelei Soto MD LAB BLOOD ORDERABLES Final Result [facility] Department [place] [address] documented in this encounter Visit Diagnoses Diagnosis Neutropenia, unspecified type (HCC)- Primary Other decreased white blood cell (WBC) count Thrombocytopenia, unspecified (HCC) Thrombocytopenia, unspecified documented in this encounter Orders Outpatient Referral Count Last Ordered Date Fir st Ordered Date AMB REFERRAL TO HEMATOLOGY 1 01/03/2021 Appointment Requests Count Last Ordered Date Fi rst Ordered Date ONCBCN CLINIC APPOINTMENT REQUEST 1 021 ONCBCN LAB APPOINTMENT 1 06/27/2021 documented in this encounter Care Teams Hot Dip Plating Supervisor Relationship Specialty Start Date End Date Momo Carrillo MD [address] [place] [address] PCP - General 02/18/18 Momo Carrillo MD [address] [place] [address] Referring Physician Family Medicine 11/20/20 documented as of this encounter
--- OUTSIDE RECORDS SUMMARY | 2024-10-06 04:05 | XMS_ITS | Encounter Summary ---
Author Organization [facility] Address [address] [facility] [address] [place] [address] Phone Care Team Providers Care Features Editor Name Role Phone Momo Carrillo MD Primary Care Provider [phone] Momo Carrillo MD Unavailable Reason for Visit * Reason Comments Follow-up Encounter Details Date Type Department Care Team (Late st Contact Info) Description 11/26/2021 1:50 PM POLYMERIZATION OVEN OPERATOR Office Visit [facility] Obstetrics and Gynecology [facility] 13th [place] [address] [place] [address] Jonnathan Jack MD [address] [facility] [phone] [place] [address] Endometrial cancer (CMS/HCC) (HCC) Social History Tobacco Use Types Packs/Day Years Used Date Smoking Tobacco: Former Smokeless Tobacco: Never Alcohol Use Standard Drinks/Week Comments Yes 0 (1 standard drink = 0.6 oz pur e alcohol) Comments No Sex and Gender Information Value Date Recorded Sex Assigned at Not on file Legal Sex Female 2:10 AM POLYMERIZATION OVEN OPERATOR Gender Identity Not on file Sexual Orientation Not on file documented as of this encounter Last Filed Vital Signs Vital Sign Reading Time Taken Comments Blood Pressure 160/90 11/26/2021 2:20 PM POLYMERIZATION OVEN OPERATOR Pulse 83 11/26/2021 2:20 PM POLYMERIZATION OVEN OPERATOR Temperature 36.9 ??C (98.4 ??F) 11/26/2021 2:20 PM CS T Respiratory Rate 18 11/26/2021 2:20 PM POLYMERIZATION OVEN OPERATOR Oxygen Saturation 97% 11/26/2021 2:20 PM POLYMERIZATION OVEN OPERATOR Inhaled Oxygen Concentration - - Weight 72.9 kg (160 lb 12.8 oz) 11/26/2021 2:20 PM POLYMERIZATION OVEN OPERATOR Height 162.6 cm (5' 4.02 ) 11/26/2021 2:20 PM CS T Body Mass Index 27.59 11/26/2021 2:20 PM POLYMERIZATION OVEN OPERATOR documented in this encounter Progress Notes * Jonnathan Jack MD - 11/26/2021 12:00 AM CST PATIENT: LEWIS RENEE : 1955 AGUST[place]: 11/26/2021 HISTORY OF PRESENT ILLNESS: Ms. Renee comes in today in follow-up of her endometrial carcinoma. She has a modestly unusual history. I have been following her for some time. This patient is a 66-year-old woman who was diagnosed with endometriosis in 2016. She underwent a hysterectomy. She had an uncomplicated postop course, but subsequently presented with a mass in the psoas muscle. It was a full 10 years after her primary disease and it turned out that it was recurrent endometrial cancer with endometriosis probably on that gutter from the uterus at the time of hysterectomy. We resected it and she did well from the surgery. Unfortunately, her chemotherapy was significantly delayed because of osteomyelitis, either this was seeding from her surgery and/or that is at the time of the epidural catheter replacementor she could have had seeding from the port because her first port got infected and we had to put in another port. The surgery itself was done in 2016. She is now more than 5 years out. She has not had recurrent disease. She has got no complaints or problems today and is overall doing well. PAST MEDICAL HISTORY/REVIEW OF SYSTEMS: Unchanged with [...] significant cystocele or rectocele. Adequate support. Bimanual: Freely mobile uterus within normal limits as to size and contour. Adnexae not palpably enlarged. No masses, tenderness or nodularity are identified. ASSESSMENT/PLAN: Normal gynecologic evaluation. No evidence of disease. I am going to see the patient back for continued follow-up in 6 months. Her CA-125 level is 3, certainly well into the nonmeasurable range. ELECTRONICALLY SIGNED - 11/26/2021 04:00 PM Danica Lind and Genia Camejo, Department of Obstetrics and Gynecology Service Cleaner for Gynecology Division of Gynecologic Oncology [facility] DGM/leigh ann/#[id number] cc: Ashley CARRILLO MD / / MERIZATION OVEN OPERATOR documented in this encounter Plan of Treatment Not on file documented as of this encounter Visit Diagnoses Diagnosis Endometrial cancer (CMS/HCC) (HCC) Malignant neoplasm of corpus uteri, except isthmus documented in this encounter Orders Appointment Requests Count Last Ordered Date Fi rst Ordered Date ONCBCN CLINIC APPOINTMENT REQUEST 2 023 11/26/2021 documented in this encounter Care Teams Features Editor Relationship Specialty Start Date End Date Momo Carrillo MD [address] [place] [address] PCP - General 02/18/18 Momo Carrillo MD [address] [place] [address] Referring Physician Family Medicine 11/20/20 documented as of this encounter
--- OUTSIDE RECORDS SUMMARY | 2024-10-06 04:05 | XMS_ITS | Encounter Summary ---
Author Organization [facility] Address [address] [facility] [address] [place] [address] Phone Care Team Providers Care Speech Pathology Supervisor Name Role Phone Momo Carrillo MD Primary Care Provider [phone] Momo Carrillo MD Unavailable Reason for Visit * Reason Comments Follow-up Encounter Details Date Type Department Care Team (Late st Contact Info) Description 07/15/2023 4:10 PM CDT Office Visit [facility] Obstetrics and Gynecology [address] [facility] Advanced Medicine 13th [place] [address] [place] [address] Jonnathan Jack MD [address] [facility] [phone] [place] [address] Endometrial cancer (CMS/HCC) (HCC) (Primary [...] on file Legal Sex Female 2:10 AM LAMINATION ASSEMBLER Gender Identity Not on file Sexual Orientation Not on file documented as of this encounter Last Filed Vital Signs Vital Sign Reading Time Taken Comments Blood Pressure 156/87 07/15/2023 4:15 PM CDT Pulse 74 07/15/2023 4:15 PM CDT Temperature 36.9 ??C (98.4 ??F) 07/15/2023 4:15 PM CD T Respiratory Rate 16 07/15/2023 4:15 PM CDT Oxygen Saturation 97% 07/15/2023 4:15 PM CDT Inhaled Oxygen Concentration - - Weight 70.3 kg (155 lb) 07/15/2023 4:15 PM CDT Height 162.6 cm (5' 4.02 ) 07/15/2023 4:15 PM CD T Body Mass Index 26.59 07/15/2023 4:15 PM CDT documented in this encounter Progress Notes * Jonnathan Jack MD - 07/15/2023 12:00 AM CDT PATIENT: LEWIS RENEE : 1955 AGUSTO: 07/15/2023 HISTORY OF PRESENT ILLNESS: Ms. Renee had an endometrial cancer. She had a modestly unusual history. We have been following her for some time. She was diagnosed with endometriosis in 2015. She underwent a hysterectomy. She had an uncomplicated course, but then subsequently presented with a mass in the psoas muscle. Itwas a full 10 years after her hysterectomy, and it turned out that it was an endometrial cancer mary ing within an endometriosis. We resected it. I did a colon resection on her, and she has done well.This was in May 2016, and so she is now 7 years out from that. Postoperatively, she had an epidural, and we think that she got an epidural abscess, and that we delayed her chemotherapy, but sheis actually doing well, and she is out 7 years. 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 It could have arisen within endometriosis perhaps, but we did resect it. We did a right colon on her, and now she has been disease-free for 7 years. PAST MEDICAL HISTORY/REVIEW OF SYSTEMS: Unchanged with the exception of the above updates. Discussed with the patient today. PHYSICAL EXAMINATION: Vital Signs: Vitals are as noted in [...] Superficial LN: Without adenopathy. Skin: Clear. PELVIC EXAMINATION: External Genitalia: Normal, no vulvar lesions seen. Normal hair distribution. Urethral Meatus: Normal in size, caliber, and location. Urethra clear. No prolapse or polyps. Vagina: Clear, no lesions seen or palpated. No significant cystocele or rectocele. Adequate support. Bimanual: No masses, tenderness or nodularity are identified. Bimanual exam is normal. Cuff is clean. ASSESSMENT: Normal gynecologic evaluation. PLAN: We are going to see the patient back for continued follow-up in 6 months, and so that means that she will probably see Dr. Lora Walker, my partner, in 6 months. ELECTRONICALLY SIGNED - 07/15/2023 05:01 PM Danica Lind and Genia Booth Professor, Department of Obstetrics and Gynecology Electrician Maintenance for Gynecology Division of Gynecologic Oncology [facility] [email or web address]/[id number] cc: NOHEMY CUEVA MD / / documented in this encounter Plan of Treatment Not on file documented as of this encounter Visit Diagnoses Diagnosis Endometrial cancer (CMS/HCC) (HCC)- Primary Malignant neoplasm of corpus uteri, except isthmus documented in this encounter Care Teams Speech Pathology Supervisor Relationship Specialty Start Date End Date Momo Carrillo MD [address] [place] [address] PCP - General 02/18/18 Momo Carrillo MD [address] [place] [address] Referring Physician Family Medicine 11/20/20 documented as of this encounter
--- OUTSIDE RECORDS SUMMARY | 2024-10-06 04:05 | XMS_ITS | Encounter Summary ---
Author Organization [facility] Address [address] [facility] [address] [place] [address] Phone Care Team Providers Care Field Operator Name Role Phone Momo Carrillo MD Primary Care Provider [phone] Momo Carrillo MD Unavailable Reason for Referral * Consultation (Routine) - Closed Specialty Diagnoses / Procedures Referred By Eduardo t Referred To Contact Hematology Diagnoses Other decreased white blood cell (WBC) count Jonnathan Jack MD [address] [facility] [phone] [place] [address] Phone: tel: fax: [facility] Hematology [address] [facility] Advanced Medicine 7th [place] [address] [place] [address] Phone: tel: fax: Referral ID Status Reason Start Date Expiration Date V isits Requested Visits Authorized [id number] Closed Specialty Services Required 11/20/2020 12/20/2021 1 1 Question Answer Please select the performing region: [facility] (All Locations) [[id number]] Please select the performing department: [facility] [[id number]] # of visits: 1 Comments Chronically low WBC, ANC. Hx: Endometrial Cancer, completed chemo in 12/201611/12/20 CBC shows WBC 3.0 and ANC 1.6 PROCESS ENGINEER Encounter Details Date Type Department Care Team (Late st Contact Info) Description 11/20/2020 Orders Only [facility] Obstetrics and Gynecology [address] [facility] 13th [place] [address] [place] [address] Shae Casas RN Other decreased white blood cell (WBC) count (Primary Dx); Carcinoma of endometrium (CMS/HCC) Social History Tobacco Use Types Packs/Day Years Used Date Smoking Tobacco: Former Smokeless Tobacco: Never Alcohol Use Standard Drinks/Week Comments Yes 0 (1 standard drink = 0.6 oz pur e alcohol) Comments No Sex and Gender Information Value Date Recorded Sex Assigned at Not on file Legal Sex Female 2:10 AM 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 Gender Identity Not on file Sexual Orientation Not on file documented as of this encounter Plan of Treatment Scheduled Referrals Name Type Priority Associated Diagnoses Order Schedule Ambulatory referral to Hematology Outpatient Referral Routine Other decreased white blood cell (WBC) count Expected: 11/21/2020 (Approximate), Expires: 11/20/2021 documented as of this encounter Procedures Procedure Name Priority Date/Time Associated Diagnosis Comments CBC WITH AUTO DIFFERENTIAL Routine 05/20/2021 10:06 AM CDT Other decreased white blood cell (WBC) count Carcinoma of endometrium (CMS/HCC) (HCC) CBC WITH AUTO DIFFERENTIAL Routine 03/15/2021 2:08 PM CDT Other decreased white blood cell (WBC) count Carcinoma of endometrium (CMS/HCC) CA 125 Routine 03/15/2021 2:08 PM CDT Other decreased white blood cell (WBC) count Carcinoma of endometrium (CMS/HCC) documented in this encounter Results * (ABNORMAL) CBC with auto differential (05/20/2021 10:06 AM CDT) WBC 2.9(L) 3.8 - 10.8 Thousand/u L [facility] RBC, POC 3.94 3.80 - 5.10 Million/uL [facility] Hgb 12.1 11.7 - 15.5 g/dL [facility] Hct 36.9 35.0 - 45.0 % [facility] MCV 93.7 80.0 - 100.0 fL [facility] MCH 30.7 27.0 - 33.0 pg [facility] MCHC 32.8 32.0 - 36.0 g/dL [facility] Rdw 12.9 11.0 - 15.0 % [facility] Platelets 125(L) 140 - 400 Thousand/u L [facility] MPV 11.0 7.5 - 12.5 fL [facility] Neutrophils, abs 1,598 1,500 - 7,800 cells/uL [facility] Lymphocytes, abs 812(L) 850 - 3,900 cells/uL [facility] Monocyte abs 331 200 - 950 cells/uL [facility] Eosinophils, abs 139 15 - 500 cells/uL [facility] Basophils, abs 20 0 - 200 cells/uL [facility] Neutrophils 55.1 % [facility] Lymphocyte pct 28.0 % [facility] Monocytes 11.4 % [facility] Eosinophils 4.8 % [facility] Basophils 0.7 % [facility] Blood specimen (specimen) 05/20/2021 10:06 AM CDT 05/20/2021 10:11 AM CDT Narrative [facility] - 05/21/2021 5:13 AM CDT AN UPDATE OR CORRECTION HAS BEEN MADE TO NAME us Jonnathan Jack MD LAB BLOOD ORDERABLES Final Res ult [facility] [address] [place] [address] * (ABNORMAL) CBC with auto differential (03/15/2021 2:08 PM CDT) WBC 3.5(L) 3.8 - 10.8 Thousand/u L [facility] RBC, POC 4.10 3.80 - 5.10 Million/uL [facility] Hgb 12.4 11.7 - 15.5 g/dL [facility] Hct 38.0 35.0 - 45.0 % [facility] MCV 92.7 80.0 - 100.0 fL [facility] MCH 30.2 27.0 - 33.0 pg [facility] MCHC 32.6 32.0 - 36.0 g/dL [facility] Rdw 13.0 11.0 - 15.0 % [facility] Platelets 138(L) 140 - 400 Thousand/u L [facility] MPV 11.4 7.5 - 12.5 fL [facility] Neutrophils, abs 2,163 1,500 - 7,800 cells/uL [facility] Lymphocytes, abs 987 850 - 3,900 cells/uL [facility] Monocyte abs 280 200 - 950 cells/uL [facility] Eosinophils, abs 49 15 - 500 cells/uL [facility] Basophils, abs 21 0 - 200 cells/uL [facility] Neutrophils 61.8 % [facility] Lymphocyte pct 28.2 % [facility] Monocytes 8.0 % [facility] Eosinophils 1.4 % [facility] Basophils 0.6 % [facility] Blood specimen (specimen) 03/15/2021 2:08 PM CDT 03/15/2021 2:09 PM CDT Narrative [facility] - 03/16/2021 10:06 AM CDT AN UPDATE OR CORRECTION HAS BEEN MADE TO NAME us Jonnathan Jack MD LAB BLOOD ORDERABLES Final Res ult [facility] [address] [place] [address] * CA 125 (03/15/2021 2:08 PM CDT) CA 125 ag 3 <35 U/mL [employer] Comment: This test was performed using the Honey Wright Chemiluminescent method. Values obtained from different assay methods cannot be used interchangeably. CA 125 levels, regardless of value, should not be interpreted as absolute evidence of the presence or absence of disease. Blood specimen (specimen) 03/15/2021 2:08 PM CDT 03/15/2021 2:09 PM CDT Narrative [facility] - 03/16/2021 10:06 AM CDT AN UPDATE OR CORRECTION HAS BEEN MADE TO NAME us Jonnathan Jack MD LAB BLOOD ORDERABLES Final Res ult [facility] [address] [place] [address] documented in this encounter Visit Diagnoses Diagnosis Other decreased white blood cell (WBC) count- Primary Carcinoma of endometrium (HCC) Malignant neoplasm of corpus uteri, except isthmus documented in this encounter Care Teams Field Operator Relationship Specialty Start Date End Date Momo Carrillo MD [address] [place] [address] PCP - General 02/18/18 Momo Carrillo MD [address] [place] [address] Referring Physician Family Medicine 11/20/20 documented as of this encounter
--- OUTSIDE RECORDS SUMMARY | 2024-10-06 04:05 | XMS_ITS | Encounter Summary ---
Author Organization [facility] Address [address] [place] [address] Phone Care Team Providers Care Export Specialist Name Role Phone Momo Carrillo MD Primary Care Provider [phone] Momo Carrillo MD Unavailable Encounter Details Date Type Department Care Team (Late st Contact Info) Description 06/27/2021 1:45 PM CDT Office Visit [facility] Hematology [address] [facility] Advanced Medicine 7th [place] [address] Lorelei Soto MD [address] [place] [address] Neutropenia, unspecified type (HCC) (Primary Dx); Thrombocytopenia, unspecified (CMS/HCC) (HCC) Social History Tobacco Use Types Packs/Day Years Used Date Smoking Tobacco: Former Smokeless Tobacco: Never Alcohol Use Standard Drinks/Week Comments Yes 0 (1 standard drink = 0.6 oz pur e alcohol) Comments No Sex and Gender Information Value Date Recorded Sex Assigned at Not on file Legal Sex Female 2:10 AM MI[employer]OS[employer] DYNAM[employer] 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 Gender Identity Not on file Sexual Orientation Not on file documented as of this encounter Last Filed Vital Signs Vital Sign Reading Time Taken Comments Blood Pressure 136/78 06/27/2021 1:58 PM CDT Pulse 53 06/27/2021 1:58 PM CDT Temperature 36.3 ??C (97.4 ??F) 06/27/2021 1:58 PM CD T Respiratory Rate 18 06/27/2021 1:58 PM CDT Oxygen Saturation 97% 06/27/2021 1:58 PM CDT Inhaled Oxygen Concentration - - Weight 72.6 kg (160 lb) 06/27/2021 1:58 PM CDT Height - - Body Mass Index 27.45 05/28/2021 1:18 PM CDT documented in this encounter Progress Notes * Bettye Sandoval, COMMUNICATIONS FIELD TECHNICIAN - 06/27/2021 1:45 PM CDT PATIENT NAME: Cori Huang : 1955 DATE OF SERVICE: 07/02/2021 Diagnosis: Leukopenia ?? History of Presenting Illness Ms Cori Huang is a 66 year-old female with past medical history significant for endometrial cancer (2016 s/p surgical resection and adjuvant carboplatin + paclitaxel x 6 cycles), who presents for follow up of leukopenia. She feels very well and denies any acute complaints. She isquite active and does some volunteer work. ALLERGIES: No Known Allergies CURRENT MEDICATION: Current Outpatient Medications: ??? cetirizine (ZyrTEC) 10 mg tablet, 04/01/2016Zyrtec, po solid 10 mg TabletPOdailyCurrent Medication, Disp: , Rfl: ??? cholecalciferol (DELTA D3) 400 unit capsule, 04/01/2016Vitamin d, po solid 400 unit TabletPOdailyCurrent Medication, Disp: , Rfl: ??? diphenhydrAMINE-acetaminophen (TYLENOL PM) 25-500 mg tablet, Take 1 tablet by mouth, Disp: , Rfl: ??? echinacea 380 mg capsule, Take by mouth, Disp: , Rfl: ??? FLUoxetine (PROzac) 20 mg tablet, Take 20 mg by mouth daily, Disp: , Rfl: ??? guaiFENesin-codeine (GUAITUSS AC) liquid 100-10 mg/5 mL, , Disp: , Rfl: 0 ??? levothyroxine (SYNTHROID, LEVOTHROID) 50 mcg tablet, Take 75 mcg by mouth , Disp: , Rfl: ??? omega 9-wcy-ywm-fish oil (FISH OIL) 100-160-1,000 mg capsule, 04/01/2016Fish oil omega-3, po solid 300-1000mg CapsulePOdailyCurrent Medication, Disp: , Rfl: ??? omeprazole (PriLOSEC) 10 mg capsule, Take 10 mg by mouth daily, Disp: , Rfl: ??? polyethylene glycol (MIRALAX) 17 gram packet, , Disp: , Rfl: ??? simvastatin (ZOCOR) 10 mg tablet, Take 10 mg by mouth nightly, Disp: , Rfl: ??? vitamin A 10,000 unit capsule, Take 10,000 Units by mouth daily, Disp: , Rfl: ??? vitamin E 100 unit/0.25 mL drops, 04/01/2016Vitamin e, po solid 1000 unit CapsulePOdailyCurrentMedication, Disp: , Rfl: HISTORY Social History Socioeconomic History ??? Marital status: Spouse name: Not on file ??? Number of children: Not on file ??? Years of education: Not on file ??? Highest education level: Not on file Occupational History ??? Not on file Tobacco Use ??? Smoking status: Former Smoker ??? Smokeless tobacco: Never Used Substance and Sexual Activity ??? Alcohol use: Yes ??? Drug use: No ??? Sexual activity: Not on file Other Topics Concern ??? Not on file Social History Narrative ??? Not on file Social Determinants of Health Financial Resource Strain: ??? Difficulty of Paying Living Expenses: Not on file Food Insecurity: ??? Worried About Running Out of Food in the Last Year: Not on file ??? Ran Out of Food in the Last Year: Not on file Transportation Needs: ??? Lack of Transportation (Medical): Not on file ??? Lack of Transportation (Non-Medical): Not on file Physical Activity: ??? Days of Exercise per Week: Not on file ??? Minutes of Exercise per Session: Not on file Stress: ??? Feeling of Stress : Not on file Social Connections: ??? Frequency of Communication with Friends and Family: Not on file ??? Frequency of Social Gatherings with Friends and Family: Not on file ??? Attends Orthodoxy Services: Not on file ??? Active Member of Clubs or Organizations: Not on file ??? Attends Club or Organization Meetings: Not on file ??? Marital Status: Not on file Intimate Partner Violence: ??? Fear of Current or Ex-Partner: Not on file ??? Emotionally Abused: Not on file ??? Physically Abused: Not on file ??? Sexually Abused: Not on file VITALS: Vitals BP 136/78 (BP Location: Left arm) Pulse 53 Temp 36.3 ??C (97.4 ??F) (Transdermal) Resp 18 Wt 72.6 kg (160 lb) SpO2 97% BMI 27.45 kg/m?? PHYSICAL EXAM: Physical Exam Vitals reviewed. Constitutional: Appearance: Normal appearance. HENT: Head: Normocephalic and atraumatic. Mouth/Throat: Mouth: Mucous membranes are moist. Pharynx: Oropharynx is clear. Eyes: Conjunctiva/sclera: Conjunctivae normal. Pupils: Pupils are equal, round, and reactive to light. Cardiovascular: Rate and Rhythm: Normal rate and regular rhythm. Heart sounds: Normal heart sounds. Pulmonary: Effort: Pulmonary effort is normal. Breath sounds: Normal breath sounds. Abdominal: General: Bowel sounds are normal. Palpations: Abdomen is soft. Musculoskeletal: General: Normal range of motion. Cervical back: Normal range of motion and neck supple. Skin: General: Skin is warm and dry. Neurological: General: No focal deficit present. Mental Status: She is alert and oriented to person, place, and time. Psychiatric: Mood and Affect: Mood normal. Behavior: Behavior normal. LABORATORY DATA: Lab on 06/27/2021 Component Date Value Ref Range Status ??? Retics, absolute 06/27/2021 0.066 0.020 - 0.087 M/cumm Final ??? Retics 06/27/2021 1.65 0.50 - 1.80 % Final ??? WBC 06/27/2021 4.3 3.8 - 9.8 K/cumm Final ??? Hgb 06/27/2021 12.5 12.1 - 15.1 g/dL Final ??? Hct 06/27/2021 36.8 36.1 - 44.3 % Final ??? Plt 06/27/2021 169 140 - 440 K/cumm Final ??? MPV 06/27/2021 7.7 6.8 - 10.4 fL Final ??? RBC 06/27/2021 3.97 3.90 - 5.00 M/cumm Final ??? MCV 06/27/2021 92.7 80.0 - 97.6 fL Final ??? MCH 06/27/2021 31.5 26.7 - 33.7 pg Final ??? MCHC 06/27/2021 33.9 32.7 - 35.5 g/dL Final ??? RDW CV 06/27/2021 13.7 11.8 - 14.6 % Final ??? NRBC abs 06/27/2021 0.00 0.00 - 0.01 K/cumm Final ??? Neutrophil abs 06/27/2021 3.0 1.8 - 6.6 K/cumm Final ??? Lymphocyte abs 06/27/2021 0.9* 1.2 - 3.3 K/cumm Final ??? Monocyte abs 06/27/2021 0.4 0.2 - 1.2 K/cumm Final ??? Eosinophil abs 06/27/2021 0.1 0.0 - 0.5 K/cumm Final ??? Basophil abs 06/27/2021 0.0 0.0 - 0.2 K/cumm Final ??? Neutrophil pct 06/27/2021 68.5 % Final ??? Lymphocyte pct 06/27/2021 20.3 % Final ??? Monocyte pct 06/27/2021 8.4 % Final ??? Eosinophil pct 06/27/2021 2.1 % Final ??? Basophil pct 06/27/2021 0.7 % Final ASSESSMENT AND PLAN: Patient Active Problem List Diagnosis ??? Bloodstream infection (CMS/HCC) (HCC) ??? Deep vein thrombosis (DVT) (CMS/HCC) (HCC) ??? Carcinoma of endometrium (CMS/HCC) (HCC) ??? Malignant neoplasm of endometrium (CMS/HCC) (HCC) ??? Epidural abscess ??? Hypercholesterolemia ??? Hyperthyroidism Assessment and Plan 1. Leukopenia Ms Cori Huang is a 66 year-old female with past medical history significant for endometrial cancer (2016 s/p surgical resection and adjuvant carboplatin + paclitaxel x 6 cycles), who presents for follow up of leukopenia. She is asymptomatic and does not have any constitutional symptoms or frequent recurrent infections. Treatment related MDS is a consideration but it is reassuring that her WBC has been stable. We would consider a bone marrow biopsy if these findings worsen in the future, however given her completely normal CBC today we will defer back to oncology for surveillance. If there was evidence of worsening in the future, we would be happy to see her back. DISPOSITION: The patient will return follow up as needed. They know to contact our office with any questions or concerns prior to the next follow up appointment. Bettye Sandoval NP [employer] 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 documented in this encounter Plan of Treatment Not on file documented as of this encounter Results * Reticulocyte Count (06/27/2021 1:15 PM CDT) Pathologist [facility] Retics, absolute 0.066 0.020 - 0.087 M/cumm MAKAYLA GARRIDO Comment:Testing performed by : [facility], [address] [place] [phone] Retics 1.65 0.50 - 1.80 % MAKAYLA GARRIDO Comment:Testing performed by : [facility], [address] [place] [phone] Blood 06/27/2021 1:15 PM CDT 06/27/2021 1:23 PM CDT Lorelei Soto MD LAB BLOOD ORDERABLES Final Result MAKAYLA GARRIDO [facility] Department of Laboratories [place], [place] [id number] * CBC with auto differential (06/27/2021 1:15 PM CDT) Pathologist [facility] WBC 4.3 3.8 - 9.8 K/cumm MAKAYLA GARRIDO Comment:Testing performed by : [facility], [address] [place] [phone] Hgb 12.5 12.1 - 15.1 g/dL MAKAYLA BJ Comment:Testing performed by : [facility], [address] [place], [place] [id number] Hct 36.8 36.1 - 44.3 % CERCAMDEN BJ Comment:Testing performed by : [facility], [address] [place], [place] [phone] Plt 169 140 - 440 K/cumm CERCAMDEN BJ Comment:Testing performed by : [facility], [address] [place], [place] [phone] MPV 7.7 6.8 - 10.4 fL CERCAMDEN BJ Comment:Testing performed by : [place] [id number] RBC 3.97 3.90 - 5.00 M/cumm CERCAMDEN BJ Comment:Testing performed by : [place] [id number] MCV 92.7 80.0 - 97.6 fL CERCAMDEN BJ Comment:Testing performed by : [facility], [address] [place], [place] [phone] MCH 31.5 26.7 - 33.7 pg CERCAMDEN BJ Comment:Testing performed by : [place] [phone] MCHC 33.9 32.7 - 35.5 g/dL CERCAMDEN BJ Comment:Testing performed by : [place] [id number] RDW CV 13.7 11.8 - 14.6 % MAKAYLA [facility] Comment:Testing performed by : [place] [id number] NRBC abs 0.00 0.00 - 0.01 K/cumm MAKAYLA [facility] Comment:Testing performed by : [place] [id number] Blood 06/27/2021 1:15 PM CDT 06/27/2021 1:23 PM CDT us Lorelei Soto MD LAB BLOOD ORDERABLES Final Result MAKAYLA GARRIDO [facility] Department [place] [address] documented in this encounter Visit Diagnoses Diagnosis Neutropenia, unspecified type (HCC)- Primary Thrombocytopenia, unspecified (HCC) Thrombocytopenia, unspecified documented in this encounter Historical Medications * This list may reflect changes made after this encounter. Medication Sig Dispense Quantity Refills Last Filled Start D ate End Date guaiFENesin-codeine (GUAITUSS AC) liquid 100-10 mg/5 mL 0 06/11/2021 12/24/2022 added in this encounter Orders Appointment Requests Count Last Ordered Date Fi rst Ordered Date ONCBCN CLINIC APPOINTMENT REQUEST 1 021 documented in this encounter Care Teams Export Specialist Relationship Specialty Start Date End Date Momo Carrillo MD [address] [place] [address] PCP - General 02/18/18 Momo Carrillo MD [address] [place] [address] Referring Physician Family Medicine 11/20/20 documented as of this encounter
--- OUTSIDE RECORDS SUMMARY | 2024-10-06 04:05 | XMS_ITS | Encounter Summary ---
Author Organization [facility] Address [address] [place] [address] Phone Care Team Providers Care Demand Generator Manager Name Role Phone Momo Carrillo MD Primary Care Provider [phone] Momo Carrillo MD Unavailable Encounter Details Date Type Department Care Team (Late st Contact Info) Description 10/26/2023 Telephone [facility] Obstetrics and Gynecology [address] [facility] 13th [place] [address] [place] [address] Jessica Ann Social History Tobacco Use Types Packs/Day Years Used Date Smoking Tobacco: Former Smokeless Tobacco: Never Alcohol Use Standard Drinks/Week Comments Yes 0 (1 standard drink = 0.6 oz pur e alcohol) Comments No Sex and Gender Information Value Date Recorded Sex Assigned at Not on file Legal Sex Female 2:10 AM 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 Harrington. OPERER documented in this encounter Plan of Treatment Not on file documented as of this encounter Visit Diagnoses Not on filedocumented in this encounter Care Teams Demand Generator Manager Relationship Specialty Start Date End Date Momo Carrillo MD [address] [place] [address] PCP - General 02/18/18 Momo Carrillo MD [address] [place] [address] Referring Physician Family Medicine 11/20/20 documented as of this encounter
--- OUTSIDE RECORDS SUMMARY | 2024-10-06 04:05 | XMS_ITS | Encounter Summary ---
Author Organization [facility] Address [address] [facility] [address] [place] [address] Phone Care Team Providers Care Sr. Manager Marketing Name Role Phone Momo Carrillo MD Primary Care Provider [phone] Momo Carrillo MD Unavailable Reason for Referral * MRI/CAT/PET Scan (Routine) - Closed Specialty Diagnoses / Procedures Referred By Contmeena t Referred To Contact Radiology Diagnoses Endometrial cancer (CMS/HCC) (HCC) Procedures CT Chest Abdomen Pelvis W Contrast Brooke Harrington MD [address] [facility] [id number] [place] [address] Phone: tel: fax: [address] [address] Referral ID Status Reason Start Date Expiration Date Visits Re quested Visits Authorized [id number] Closed 02/17/2024 03/18/2025 1 1 Encounter Details Date Type Department Care Team (Late st Contact Info) Description 02/17/2024 Orders Only [facility] Obstetrics and Gynecology [facility] Advanced Medicine 13th [place] [address] [place] [address] Shae Casas, RN Endometrial cancer (CMS/HCC) (HCC) (Primary Dx) Social History Tobacco Use Types Packs/Day Years Used Date Smoking Tobacco: Former Smokeless Tobacco: Never Alcohol Use Standard Drinks/Week Comments Yes 0 (1 standard drink = 0.6 oz pur e alcohol) Comments No Sex and Gender Information Value Date Recorded Sex Assigned at Not on file 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 Electronically signed by: Paul Vidal M.D. Brooke Harrington MD IMG CT PROCEDURES Fi nal Result documented in this encounter Visit Diagnoses Diagnosis Endometrial cancer (CMS/HCC) (HCC)- Primary Malignant neoplasm of corpus uteri, except isthmus Endometrial cancer (CMS/HCC) (HCC) Malignant neoplasm of corpus uteri, except isthmus documented in this encounter Care Teams Sr. Manager Marketing Relationship Specialty Start Date End Date Momo Carrillo MD [address] [place] [address] PCP - General 02/18/18 Momo Carrillo MD [address] [place] [address] Referring Physician Family Medicine 11/20/20 documented as of this encounter
--- OUTSIDE RECORDS SUMMARY | 2024-10-06 04:05 | XMS_ITS | Encounter Summary ---
Author Organization [facility] Address [address] [place] [address] Care Team Providers Care Clinical Laboratory Medical Director Name Role Phone Momo Carrillo MD Primary Care Provider [phone] Momo Carrillo MD Unavailable Encounter Details Date Type Department Care Team (Late st Contact Info) Description 11/26/2021 Telephone [facility] Gy[facility]ologic On[facility] ([facility]) [address] [place] [address] Ana Ogden RN Social History Tobacco Use Types Packs/Day Years Used Date Smoking Tobacco: Former Smokeless Tobacco: Never Alcohol Use Standard Drinks/Week Comments Yes 0 (1 standard drink = 0.6 oz pur e alcohol) Comments No Sex and Gender Information Value Date Recorded Sex Assigned at Not on file Legal Sex Female 2:10 AM EXECUTIVE ADVISOR Gender Identity Not on file Sexual Orientation Not on file documented as of this encounter Miscellaneous Notes * Telephone Encounter - Ana Ogden RN - 11/26/2021 1:44 PM EXECUTIVE ADVISOR Patient called and is en route to appt with Dr. Jack, states interstate she is on is partially shut down and traffic backed up and she will be late to appt today. Notified coordinator. UTIVE ADVISOR documented in this encounter Plan of Treatment Not on file documented as of this encounter Visit Diagnoses Not on filedocumented in this encounter Care Teams Clinical Laboratory Medical Director Relationship Specialty Start Date End Date Momo Carrillo MD [address] [place] [address] PCP - General 02/18/18 Momo Carrillo MD [address] [place] [address] Referring Physician Family Medicine 11/20/20 documented as of this encounter
--- OUTSIDE RECORDS SUMMARY | 2024-10-06 04:05 | XMS_ITS | Encounter Summary ---
Author Organization [facility] Address [address] [facility] [address] [place] [address] Phone Care Team Providers Care Director Emergency Name Role Phone Momo Carrillo MD Primary Care Provider [phone] Momo Carrillo MD Unavailable Reason for Visit * Reason Comments Follow-up Encounter Details Date Type Department Care Team (Late st Contact Info) Description 05/28/2022 2:30 PM CDT Office Visit [facility] Obstetrics and Gynecology [address] [facility] Advanced Medicine 13th [place] [address] [place] [address] Jonnathan Jack MD [address] [facility] [phone] [place] [address] Endometrial cancer (CMS/HCC) (HCC) (Primary [...] on file 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 Gender Identity Not on file Sexual Orientation Not on file documented as of this encounter Last Filed Vital Signs Vital Sign Reading Time Taken Comments Blood Pressure 147/83 05/28/2022 2:41 PM CDT Pulse 75 05/28/2022 2:41 PM CDT Temperature 36.9 ??C (98.5 ??F) 05/28/2022 2:41 PM CD T Respiratory Rate 18 05/28/2022 2:41 PM CDT Oxygen Saturation 97% 05/28/2022 2:41 PM CDT Inhaled Oxygen Concentration - - Weight 73.1 kg (161 lb 1.6 oz) 05/28/2022 2:41 P M CDT Height 162.6 cm (5' 4.02 ) 05/28/2022 2:41 PM CD T Body Mass Index 27.64 05/28/2022 2:41 PM CDT documented in this encounter Progress Notes * Jonnathan Jack MD - 05/28/2022 12:00 AM CDT PATIENT: LEWIS RENEE : 1955 AGUSTO: 05/28/2022 HISTORY OF PRESENT ILLNESS: Ms. Renee comes in today in follow-up of her endometrial cancer. She has a modestly unusualhistory. I have been following her for some time. She is 66. She was diagnosed with endometriosis in 2016. She underwent a hysterectomy. She had an uncomplicated postop course, but subsequently presented with a mass in the psoas muscle. That was a full 10 years after her primary disease and turned out that it was recurrent endometrial cancer with endometriosis probably arising from the gutter andprobably from the uterus at the time of hysterectomy. We resected it and she did well. Dr. Jg Carrillo made that diagnosis. Unfortunately, her chemotherapy was significantly delayed because she got osteomyelitis, either from seeding of the mass or because she got an epidural. I do not think we will ever know exactly the answer. The surgery itself was done in 2016. She got chemotherapy, and now she is 5 years out. She has no evidence of recurrent disease. Her CA-125 is 3. She feels well. I am going to see the patient back in 6 months. Her performance status is a 0. PAST MEDICAL HISTORY/REVIEW OF SYSTEMS: Unchanged with [...] is clean. ASSESSMENT: Normal gynecologic evaluation. PLAN: 1. I will see the patient back in 6 months. 2. We will get a CA-125 at that time. 3. She will contact me if she has any other untoward symptoms. ELECTRONICALLY SIGNED - 05/28/2022 04:27 PM Jonnathan Jack M.D. Jazlyn Orta and Genia Booth Professor, Department of Obstetrics and Gynecology Import Manager for Gynecology Division of Gynecologic Oncology [facility] [id number] cc: Ashley CARRILLO MD / / documented in this encounter Plan of Treatment Not on file documented as of this encounter Visit Diagnoses Diagnosis Endometrial cancer (CMS/HCC) (HCC)- Primary Malignant neoplasm of corpus uteri, except isthmus documented in this encounter Orders Appointment Requests Count Last Ordered Date Fi rst Ordered Date [facility] CLINIC APPOINTMENT REQUEST 1 023 documented in this encounter Care Teams Director Emergency Relationship Specialty Start Date End Date Momo Carrillo MD [address] [place] [address] PCP - General 02/18/18 Momo Carrillo MD [address] [place] [address] Referring Physician Family Medicine 11/20/20 documented as of this encounter
--- OUTSIDE RECORDS SUMMARY | 2024-10-06 04:05 | XMS_ITS | Encounter Summary ---
Author Organization [facility] Address [address] [place] [address] Phone Care Team Providers Care Fish Cutter Name Role Phone Momo Carrillo MD Primary Care Provider [phone] Momo Carrillo MD Unavailable Encounter Details Date Type Department Care Team (Late st Contact Info) Description 12/24/2022 Orders Only [facility] Obstetrics and Gynecology [address] [facility] Medicine 13th [place] [address] [place] [address] Shae Casas RN Endometrial cancer (CMS/HCC) (HCC) (Primary Dx) Social History Tobacco Use Types Packs/Day Years Used Date Smoking Tobacco: Former Smokeless Tobacco: Never Alcohol Use Standard Drinks/Week Comments Yes 0 (1 standard drink = 0.6 oz pur e alcohol) Comments No Sex and Gender Information Value Date Recorded Sex Assigned at Not on file 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 Values obtained from different assay methods cannot be used interchangeably. CA 125 levels, regardless of value, should not be interpreted as absolute evidence of the presence or absence of disease. Blood 07/09/2023 8:14 AM CDT 07/09/2023 8:14 AM CDT us Jonnathan Jack MD LAB BLOOD ORDERABLES Final Res ult [facility] [address] [place] [address] documented in this encounter Visit Diagnoses Diagnosis Endometrial cancer (CMS/HCC) (HCC)- Primary Malignant neoplasm of corpus uteri, except isthmus documented in this encounter Care Teams Fish Cutter Relationship Specialty Start Date End Date Momo Carrillo MD [address] [place] [address] PCP - General 02/18/18 Momo Carrillo MD [address] [place] [address] Referring Physician Family Medicine 11/20/20 documented as of this encounter
--- OUTSIDE RECORDS SUMMARY | 2024-10-06 04:05 | XMS_ITS | Encounter Summary ---
Author Organization [facility] Address [address] [place] [address] Phone Care Team Providers Care Cotton Classer Aide Name Role Phone Momo Carrillo MD Primary Care Provider [phone] Momo Carrillo MD Unavailable Encounter Details Date Type Department Care Team (Late st Contact Info) Description 07/15/2023 Orders Only [facility] Obstetrics and Gynecology [address] [facility] Medicine 13th [place] [address] [place] [address] Shae Casas RN Endometrial cancer (CMS/HCC) (HCC) (Primary Dx) Social History Tobacco Use Types Packs/Day Years Used Date Smoking Tobacco: Former Smokeless Tobacco: Never Alcohol Use Standard Drinks/Week Comments Yes 0 (1 standard drink = 0.6 oz pur e alcohol) Comments No Sex and Gender Information Value Date Recorded Sex Assigned at Not on file 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 Comment: This test was performed using the Siemens Chemiluminescent method. Values obtained from different assay methods cannot be used interchangeably. CA 125 levels, regardless of value, should not be interpreted as absolute evidence of the presence or absence of disease. Blood 02/17/2024 1:12 PM CDT 02/17/2024 1:12 PM CDT us Jonnathan Jack MD LAB BLOOD ORDERABLES Final Res ult [facility] [address] [place] [address] documented in this encounter Visit Diagnoses Diagnosis Endometrial cancer (CMS/HCC) (HCC)- Primary Malignant neoplasm of corpus uteri, except isthmus documented in this encounter Care Teams Cotton Classer Aide Relationship Specialty Start Date End Date Momo Carrillo MD [address] [place] [address] PCP - General 02/18/18 Momo Carrillo MD [address] [place] [address] Referring Physician Family Medicine 11/20/20 documented as of this encounter
--- OUTSIDE RECORDS SUMMARY | 2024-10-06 04:05 | XMS_ITS | Encounter Summary ---
Author Organization [facility] Address [address] [facility] [address] [place] [address] Phone Care Team Providers Care Regional Commercial Sales Manager Name Role Phone Momo Carrillo MD Primary Care Provider [phone] Momo Carrillo MD Unavailable Encounter Details Date Type Department Care Team (Late st Contact Info) Description 03/07/2024 Telephone [facility] Obstetrics and Gynecology [address] [facility] Medicine 13th [place] [address] [place] [address] Brooke Harrington MD [address] [facility] [phone] [place] [address] Social History Tobacco Use Types Packs/Day Years Used Date Smoking Tobacco: Former Smokeless Tobacco: Never Alcohol Use Standard Drinks/Week Comments Yes 0 (1 standard drink = 0.6 oz pur e alcohol) Comments No Sex and Gender Information Value Date Recorded Sex Assigned at Not on file 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 No e/o recurrent disease but there is a hernia. She said that the pain she was describing that led to the CT was more migratory and associated with bloating. She has no firm bulge or tenderness specifically at the R periumbilical area but we will refer to her hernia specialist to discuss potential repair. Reviewed warning s/sx for presenting to ER. All questions answered and she was grateful for the call. Brooke Harrington MD Division of Gynecologic Oncology documented in this encounter Plan of Treatment Not on file documented as of this encounter Visit Diagnoses Not on filedocumented in this encounter Care Teams Regional Commercial Sales Manager Relationship Specialty Start Date End Date Momo Carrillo MD [address] [place] [address] PCP - General 02/18/18 Momo Carrillo MD [address] [place] [address] Referring Physician Family Medicine 11/20/20 documented as of this encounter
--- OUTSIDE RECORDS SUMMARY | 2024-10-06 04:05 | XMS_ITS | Encounter Summary ---
Author Organization [facility] Address [address] [place] [address] Phone Care Team Providers Care Urgent Care Physician Assistant Name Role Phone Momo Carrillo MD Primary Care Provider [phone] Momo Carrillo MD Unavailable Reason for Visit * Consultation (Routine) - Closed Specialty Diagnoses / Procedures Referred By Eduardo t Referred To Contact Minimally Invasive Surgery Diagnoses Endometrial cancer (CMS/HCC) (HCC) Abdominal pain, RLQ Paraumbilical hernia Brooke Harrington MD [address] [facility] [id number] [place] [address] Phone: tel: fax: Vinnie Tay MD [address] [place] [address] Phone: tel: fax: Referral ID Status Reason Start Date Expiration Date V isits Requested Visits Authorized [id number] Closed Specialty Services Required 03/07/2024 04/06/2025 1 1 Encounter Details Date Type Department Care Team (Late st Contact Info) Description 07/06/2024 2:00 PM CDT Office Visit [facility] Minimally Invasive Surgery [address] [place] [address] Medical Office Building [address] [place] [id number] Vinnie Tay MD [address] [place] [address] Endometrial cancer (CMS/HCC) (HCC); Abdominal pain, RLQ; Paraumbilical hernia Social History Tobacco Use Types Packs/Day Years Used Date Smoking Tobacco: Former Smokeless Tobacco: Never Alcohol Use Standard Drinks/Week Comments Yes 0 (1 standard drink = 0.6 oz pur e alcohol) Comments No Sex and Gender Information Value Date Recorded Sex Assigned at Not on file 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 Gender Identity Not on file Sexual Orientation Not on file documented as of this encounter Last Filed Vital Signs Vital Sign Reading Time Taken Comments Blood Pressure 151/81 07/06/2024 1:43 PM CDT Pulse 70 07/06/2024 1:43 PM CDT Temperature 36.5 ??C (97.7 ??F) 07/06/2024 1:43 PM CD T Respiratory Rate - - Oxygen Saturation 97% 07/06/2024 1:43 PM CDT Inhaled Oxygen Concentration - - Weight 72.2 kg (159 lb 3.2 oz) 07/06/2024 1:43 P M CDT Height 162.6 cm (5' 4 ) 07/06/2024 1:43 PM CDT Body Mass Index 27.33 07/06/2024 1:43 PM CDT documented in this encounter Progress Notes * Vinnie Tay MD - 07/06/2024 2:00 PM CDT [facility] Minimally Invasive Surgery New Patient Evaluation Cori Huang : 1955 REFERRING PHYSICIAN - Brooke Camilo* PCP - Momo Carrillo MD Reason for Visit: Consult requested by Brooke Camilo* for evaluation of incisional hernia HPI: . History of Present Illness The patient, with a history of endometrial cancer and multiple abdominal surgeries, including an appendectomy and hysterectomy, presents with a six-month history of intermittent right-sided abdominalpain. The pain is localized to the lower right quadrant and does not radiate. The pain is not associated with any specific activities but is noted to be worse on some days, with no identifiable triggers. The patient's bowel movements are regular, albeit sometimes excessively so. There is no associated nausea, vomiting, or changes in appetite. The patient's activities of daily living are largely unaffected, although she expresses concern about the potential impact of the pain on her ability to participate in bowling, a regular activity. A recent CT scan, ordered due to the patient's complaint of pain, revealed a hernia. The patient has a history of a similar hernia four years prior, which appears to have remained stable in size. Thepatient also reports a persistent abdominal bulge, which she has been unable to reduce despite exercise. The patient's pain does not appear to be associated with any other symptoms, such as urinary urgency or frequency. The patient has not reported any significant changes in her health status over the past six months. Patient Factors: Smoking: She reports that she has quit smoking. She has never used smokeless tobacco. BMI: Body mass index is 27.33 kg/m??. Past Surgical History: Appendectomy, hysterectomy Hernia Factors: Recurrent hernia: No Review of Symptoms: A comprehensive review of systems was completed by the patient and reviewed, signed and dated in [facility]. Past medical history, social history and family history were reviewed in the patients Core Review Physical Exam: Blood pressure 151/81, pulse 70, temperature 36.5 ??C (97.7 ??F), temperature source Oral, height 162.6 cm (5' 4 ), weight 72.2 kg (159 lb 3.2 oz), SpO2 97%. Body mass index is 27.33 kg/m??. GENERAL: No acute distress. NEURO: Alert and oriented x3, mood and affect appropriate. HEENT: Pupils equal. EOMs grossly normal. PULMONARY: Breathing comfortably on room air. CARDIO: Regular rate and rhythm. SKIN: Smooth and dry, no rash GI: Soft, nontender. Right-sided incisional hernia MUSCULOSKELETAL: Grossly normal range of motion. EXTREMITIES: Warm, well perfused. Diagnostic studies reviewed include: Results RADIOLOGY I personally reviewed Abdominal CT: Right periumbilical incisional hernia with a small amount of colon involvement. This is overall unchanged from her CT scan 4 years ago. Assessment/Plan: Assessment & Plan Abdominal Hernia Presenting with right-sided abdominal crampy pain. It is difficult to know for sure of the exact etiology of this pain but she does have a right periumbilical incisional hernia which does have a segment of her colon involved. It was certainly possible that she is getting some intermittent partial obstructions of her colon that may be contributing to her pain. However, it is difficult to know for sure if this is the specific source. The hernia does not appear to have changed significantly since her last CT scan 4 years ago. We discussed options for management including continued observation versus elective repair. I do think if she were interested in repair this would be something we can do m inimally invasively. However, at this time she would like to proceed with a watchful waiting approach. We did review the signs and symptoms of acute incarceration and to please let us know if she develops any issues. Otherwise she would like to follow up as needed. Vinnie Tay MD, FACS Minimally Invasive GI Surgery & Abdominal Wall Reconstruction complementary health therapists [facility] [phone] documented in this encounter Plan of Treatment Not on file documented as of this encounter Visit Diagnoses Diagnosis Endometrial cancer (CMS/HCC) (HCC) Malignant neoplasm of corpus uteri, except isthmus Abdominal pain, RLQ Paraumbilical hernia Umbilical hernia without mention of obstruction or gangrene documented in this encounter Orders Outpatient Referral Count Last Ordered Date Fir st Ordered Date AMB REFERRAL TO MINIMALLY INVASIVE SURGERY 1 07/06/2024 documented in this encounter Care Teams Urgent Care Physician Assistant Relationship Specialty Start Date End Date Momo Carrillo MD [address] [place], [place] [address] PCP - General 02/18/18 Momo Carrillo MD [address] [place], [place] [address] Referring Physician Family Medicine 11/20/20 documented as of this encounter
--- OUTSIDE RECORDS SUMMARY | 2024-10-06 04:05 | XMS_ITS | Encounter Summary ---
Author Organization [facility] Address [address] [facility] [address] [place] [address] Phone Care Team Providers Care Buggyman Name Role Phone Momo Carrillo MD Primary Care Provider [phone] Momo Carrillo MD Unavailable Reason for Visit * Reason Comments Follow-up Encounter Details Date Type Department Care Team (Late st Contact Info) Description 12/24/2022 10:40 AM CDT Office Visit [facility] Obstetrics and Gynecology [address] [facility] Advanced Medicine 13th [place] [address] [place] [address] Jonnathan Jack MD [address] [facility] [id number] [place] [address] Endometrial cancer (CMS/HCC) (HCC) (Primary Dx) Social History Tobacco Use Types Packs/Day Years Used Date Smoking Tobacco: Former Smokeless Tobacco: Never Alcohol Use Standard Drinks/Week Comments Yes 0 (1 standard drink = 0.6 oz pur e alcohol) Comments No Sex and Gender Information Value Date Recorded Sex Assigned at Not on file 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 Gender Identity Not on file Sexual Orientation Not on file documented as of this encounter Last Filed Vital Signs Vital Sign Reading Time Taken Comments Blood Pressure 182/80 12/24/2022 10:24 AM CDT Pulse 55 12/24/2022 10:24 AM CDT Temperature 36.4 ??C (97.5 ??F) 12/24/2022 10:24 AM C DT Respiratory Rate 16 12/24/2022 10:24 AM CDT Oxygen Saturation 98% 12/24/2022 10:24 AM CDT Inhaled Oxygen Concentration - - Weight 70 kg (154 lb 4.8 oz) 12/24/2022 10:24 AM CDT Height 162.6 cm (5' 4.02 ) 12/24/2022 10:24 AM C DT Body Mass Index 26.47 12/24/2022 10:24 AM CDT documented in this encounter Progress Notes * Jonnathan Jack MD - 12/24/2022 12:00 AM CDT PATIENT: LEWIS RENEE : 1955 AGUSTO: 12/24/2022 HISTORY OF PRESENT ILLNESS: Ms. Renee comes in today in follow-up of her endometrial cancer. She had a modestly unusualhistory. I have been following her for some time. She was diagnosed with endometriosis in 2016. Sheunderwent a hysterectomy. She had an uncomplicated postop course, and then subsequently presented with a mass in the psoas muscle. It was a full 10 years after her primary disease, and it turned out that it was recurrent endometrial cancer arising within endometriosis. I resected it. I did a right colon resection on her, and she did well. We gave her chemotherapy. Unfortunately, she got an epidural, and she got an infected osteomyelitis from the epidural and had delayed her therapy significantly, but ultimately she completed chemotherapy, and she has done well since. Her CA-125 level today isless than 3, and she is doing well. PAST MEDICAL HISTORY/REVIEW OF SYSTEMS: [...] No masses, tenderness or nodularity are identified. ASSESSMENT: Normal gynecologic evaluation. PLAN: 1. I am going to see the patient back in 6 months. 2. We will get another CA-125. 3. She will contact me if she has any other untoward symptoms. ELECTRONICALLY SIGNED - 12/24/2022 01:25 PM Jonnathan Jack M.D. Jazlyn Orta and Genia Booth Professor, Department of Obstetrics and Gynecology Banquet Manager for Gynecology Division of Gynecologic Oncology [facility] [id number] cc: Ashley CARRILLO MD / / documented in this encounter Plan of Treatment Not on file documented as of this encounter Visit Diagnoses Diagnosis Endometrial cancer (CMS/HCC) (HCC)- Primary Malignant neoplasm of corpus uteri, except isthmus documented in this encounter Discontinued Medications Medication Sig Discontinue Reason Start Date End Da te cholecalciferol (VITAMIN D-3) 400 unit capsule 04/01/2016Vitamin d, po solid 400 unit TabletPOdailyCurrent Medication 04/01/2016 12/24/2022 echinacea 380 mg capsule Take by mouth 12/24/2022 guaiFENesin-codei ne (GUAITUSS AC) liquid 100-10 mg/5 mL 06/11/2021 12/24/2022 levothyroxine (SYNTHROID, LEVOTHROID) 50 mcg tablet Take 75 mcg by mouth 04/01/2016 12/24/2022 omega 2-lij-qeb-fish oil 100-160-1,000 mg capsule 04/01/2016Fish oil omega-3, po solid 300-1000mg CapsulePOdailyCurrent Medication 04/01/2016 12/24/2022 omeprazole (PriLOSEC) 10 mg capsule Take 10 mg by mouth daily 2022 vitamin A 10,000 unit capsule Take 10,000 Units by mouth daily 12/24/2022 vitamin E 100 unit/0.25 mL drops 04/01/2016Vitamin e, po solid 1000 unit CapsulePOdailyCurrent Medication 04/01/2016 12/24/2022 simvastatin (ZOCOR) 10 mg tablet Take 10 mg by mouth nightly 01/2023 documented as of this encounter Historical Medications * This list may reflect changes made after this encounter. multivit with calcium,iron,min (MULTIPLE VITAMIN, WOMENS ORAL) Take by mouth daily simvastatin (ZOCOR) 20 mg tablet 12/18/2022 omeprazole (PriLOSEC) 20 mg capsule 12/22/2022 levothyroxine (SYNTHROID) 50 mcg tablet Take 1 tablet (50 mcg total) by mouth daily 12/18/2022 08/24/2024 added in this encounter Care Teams Buggyman Relationship Specialty Start Date End Date Momo Carrillo MD [address] [place] [address] PCP - General 02/18/18 Momo Carrillo MD [address] [place] [address] Referring Physician Family Medicine 11/20/20 documented as of this encounter
--- OUTSIDE RECORDS SUMMARY | 2024-10-06 04:05 | XMS_ITS | Encounter Summary ---
Author Organization [facility] Address [address] [place] [address] Phone Care Team Providers Care Snack Foods Mixer Operator Name Role Phone Momo Carrillo MD Primary Care Provider [phone] Momo Carrillo MD Unavailable Reason for Referral * Consultation (Routine) - Closed Specialty Diagnoses / Procedures Referred By Contmeena t Referred To Contact Minimally Invasive Surgery Diagnoses Endometrial cancer (CMS/HCC) (HCC) Abdominal pain, RLQ Paraumbilical hernia Brooke Harrington MD [address] [facility] [place] [id number] [place] [address] Phone: tel: fax: Mary Gomez MD [address] [place] [address] Phone: tel: fax: Referral ID Status Reason Start Date Expiration Date V isits Requested Visits Authorized [id number] Closed Specialty Services Required 03/07/2024 04/06/2025 1 1 Question Answer Please select the performing region: [facility] (All Locations) [[id number]] To provider: MARY GOMEZ [[id number]] # of visits: 1 Comments Please evaluate and treat for hernia noted on CT scan dated 03/04/24. Pt experiencing RLQ pain. *Right paraumbilical Hooker hernia without evidence of obstruction or active inflammation. This could be a source for the patient's right lower quadrant pain. Encounter Details Date Type Department Care Team (Late st Contact Info) Description 03/07/2024 Orders Only [facility] Obstetrics and Gynecology [address] [facility] 13th [place] [address] [place] [address] Shae Casas, MARLYN Endometrial cancer (CMS/HCC) (HCC) (Primary Dx); Abdominal pain, RLQ; Paraumbilical hernia Social History Tobacco Use Types Packs/Day Years Used Date Smoking Tobacco: Former Smokeless Tobacco: Never Alcohol Use Standard Drinks/Week Comments Yes 0 (1 standard drink = 0.6 oz pur e alcohol) Comments No Sex and Gender Information Value Date Recorded Sex Assigned at Not on file 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 Sex 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 Gender Identity Not on file Sexual Orientation Not on file documented as of this encounter Plan of Treatment Scheduled Referrals Name Type Priority Associated Diagnoses Order Schedule Ambulatory referral to Minimally Invasive Surgery Outpatient Referral Routine Endometrial cancer (CMS/HCC) (HCC) Abdominal pain, RLQ Paraumbilical hernia Expected: 03/07/2024 (Approximate), Expires: 03/07/2025 documented as of this encounter Visit Diagnoses Diagnosis Endometrial cancer (CMS/HCC) (HCC)- Primary Malignant neoplasm of corpus uteri, except isthmus Abdominal pain, RLQ Paraumbilical hernia Umbilical hernia without mention of obstruction or gangrene documented in this encounter Care Teams Snack Foods Mixer Operator Relationship Specialty Start Date End Date Momo Carrillo MD [address] [place] [address] PCP - General 02/18/18 Momo Carrillo MD [address] [place] [address] Referring Physician Family Medicine 11/20/20 documented as of this encounter
--- OUTSIDE RECORDS SUMMARY | 2024-10-06 04:05 | XMS_ITS | Encounter Summary ---
Author Organization [facility] Address [address] [place] [address] Phone Care Team Providers Care Visual Merchandising Associate Name Role Phone Momo Carrillo MD Primary Care Provider [phone] Momo Carrillo MD Unavailable Encounter Details Date Type Department Care Team (Late st Contact Info) Description 06/27/2021 1:15 PM CDT Lab [facility] On[facility] Advanced Medicine 7th [place] [address] [place] [address] Lorelei Soto MD [address] [place] [address] Neutropenia, unspecified type (HCC); Thrombocytopenia, unspecified (CMS/HCC) (HCC) Social History Tobacco Use Types Packs/Day Years Used Date Smoking Tobacco: Former Smokeless Tobacco: Never Alcohol Use Standard Drinks/Week Comments Yes 0 (1 standard drink = 0.6 oz pur e alcohol) Comments No Sex and Gender Information Value Date Recorded Sex Assigned at Not on file 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 Gender Identity Not on file Sexual Orientation Not on file documented as of this encounter Plan of Treatment Not on file documented as of this encounter Procedures Procedure Name Priority Date/Time Associated Diagnosis Comments DIFFERENTIAL AUTO Routine 06/27/2021 1:1 5 PM CDT Neutropenia, unspecified type (HCC) CBC WITH AUTO DIFFERENTIAL Routine 06/27/2021 1:15 PM CDT Neutropenia, unspecified type (HCC) RETICULOCYTES Routine 06/27/2021 1:15 PM CDT Neutropenia, unspecified type (HCC) documented in this encounter Results * (ABNORMAL) Differential, auto (06/27/2021 1:15 PM CDT) Pathologist [facility] Neutrophil abs 3.0 1.8 - 6.6 K/cumm [facility] Comment:Testing performed by : [facility], [address] [place] [phone] Lymphocyte abs 0.9(L) 1.2 - 3.3 K/cumm [facility] Comment:Testing performed by : [facility], [address] [place] [phone] Monocyte abs 0.4 0.2 - 1.2 K/cumm [facility] Comment:Testing performed by : [facility], [address] [place] [phone] Eosinophil abs 0.1 0.0 - 0.5 K/cumm [facility] Comment:Testing performed by : [facility], [address] [place] [phone] Basophil abs 0.0 0.0 - 0.2 K/cumm [facility] Comment:Testing performed by : [facility], [address] [place] [phone] Neutrophil pct 68.5 % [facility] Comment: Interpretive Data Percent cell count reference ranges are not reported, since discordance with absolute values may lead to misinterpretation of CBC data. Current Interpretive Data was last revised on 2017. Testing performed by: [facility], [address] [place] [phone] Lymphocyte pct 20.3 % [facility] Comment: Interpretive Data Percent cell count reference ranges are not reported, since discordance with absolute values may lead to misinterpretation of CBC data. Current Interpretive Data was last revised on 2017. Testing performed by: [facility], [address] [place] [phone] Monocyte pct 8.4 % [facility] Comment:Testing performed by : [facility], [address] [place] [phone] Eosinophil pct 2.1 % [facility] Comment:Testing performed by : [facility], [address] [place] [phone] Basophil pct 0.7 % [facility] Comment:Testing performed by : [facility], [address] [place] [phone] Blood 06/27/2021 1:15 PM CDT 06/27/2021 1:23 PM CDT us Lorelei Soto MD LAB BLOOD ORDERABLES Final Result [facility] Department [place] [address] * CBC with auto differential (06/27/2021 1:15 PM CDT) WBC 4.3 3.8 - 9.8 K/cumm MAK[facility]LA [facility] Comment:Testing performed by : [facility], [address] [place] [phone] Hgb 12.5 12.1 - 15.1 g/dL [facility]KAYLA G[facility]O Comment:Testing performed by : [facility], [address] [place] [phone] Hct 36.8 36.1 - 44.3 % MAKAYLA GARRIDO Comment:Testing performed by : [facility], [address] [place] [phone] Plt 169 140 - 440 K/cumm MAKAYLA GARRIDO Comment:Testing performed by : [address] [phone] MPV 7.7 6.8 - 10.4 fL [facility]LA GARRIDO Comment:Testing performed by : [address] [phone] RBC 3.97 3.90 - 5.00 M/cumm MAKAYLA GARRIDOH Comment:Testing performed by : [facility], [address] [place] [phone] MCV 92.7 80.0 - 97.6 fL [facility] Comment:Testing performed by : [facility], [address] [place] [phone] MCH 31.5 26.7 - 33.7 pg [facility] Comment:Testing performed by : [facility], [address] [place] [phone] MCHC 33.9 32.7 - 35.5 g/dL [facility] Comment:Testing performed by : [facility], [address] [place] [phone] RDW CV 13.7 11.8 - 14.6 % [facility] Comment:Testing performed by : [facility], [address] [place] [phone] NRBC abs 0.00 0.00 - 0.01 K/cumm [facility] Comment:Testing performed by : [facility], [address] [place] [phone] Blood 06/27/2021 1:15 PM CDT 06/27/2021 1:23 PM CDT us Lorelei Soto MD LAB BLOOD ORDERABLES Final Result [facility] Department [place] [address] * Reticulocyte Count (06/27/2021 1:15 PM CDT) Retics, absolute 0.066 0.020 - 0.087 M/cumm [facility] Comment:Testing performed by : [facility], [address] [place] [phone] Retics 1.65 0.50 - 1.80 % [facility] Comment:Testing performed by : [facility], [address] [place] [phone] Blood 06/27/2021 1:15 PM CDT 06/27/2021 1:23 PM CDT us Lorelei Soto MD LAB BLOOD ORDERABLES Final Result [facility] Department [place] [address] documented in this encounter Visit Diagnoses Diagnosis Neutropenia, unspecified type (HCC) Thrombocytopenia, unspecified (HCC) Thrombocytopenia, unspecified documented in this encounter Orders Appointment Requests Count Last Ordered Date Fi rst Ordered Date ONCBCN LAB APPOINTMENT 1 06/27/2021 documented in this encounter Care Teams Visual Merchandising Associate Relationship Specialty Start Date End Date Momo Carrillo MD [address] [place] [address] PCP - General 02/18/18 Momo Carrillo MD [address] [place] [address] Referring Physician Family Medicine 11/20/20 documented as of this encounter
--- OUTSIDE RECORDS SUMMARY | 2024-10-06 04:05 | XMS_ITS | Encounter Summary ---
Author Organization [facility] Address [address] [place] [address] Phone Care Team Providers Care Corral Boss Name Role Phone Momo Carrillo MD Primary Care Provider [phone] Momo Carrillo MD Unavailable Reason for Visit * Reason Onset Date Comments Confirmation 01/02/2021 Encounter Details Date Type Department Care Team (Late st Contact Info) Description 01/02/2021 Telephone [facility] Hematology [address] [facility] 7th [place] [address] [place] [address] Vanessa Silverio Confirmation Social History Tobacco Use Types Packs/Day Years Used Date Smoking Tobacco: Former Smokeless Tobacco: Never Alcohol Use Standard Drinks/Week Comments Yes 0 (1 standard drink = 0.6 oz pur e alcohol) Comments No Sex and Gender Information Value Date Recorded Sex Assigned at Not on file 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 consult/lab appt. with Dr. Soto on 01-03-21 @ 3:00PM at [facility]. Requested patient return call if unable to keep appt. or she has any questions. documented in this encounter Plan of Treatment Not on file documented as of this encounter Visit Diagnoses Not on filedocumented in this encounter Care Teams Corral Boss Relationship Specialty Start Date End Date Momo Carrillo MD [address] [place] [address] PCP - General 02/18/18 Momo Carrillo MD [address] [place] [address] Referring Physician Family Medicine 11/20/20 documented as of this encounter
--- OUTSIDE RECORDS SUMMARY | 2024-10-06 04:05 | XMS_ITS | Encounter Summary ---
Author Organization [facility] Address [address] [facility] [address] [place] [address] Phone Care Team Providers Care Color Printer Operator Name Role Phone Momo Carrillo MD Primary Care Provider [phone] Momo Carrillo MD Unavailable Reason for Referral * MRI/CAT/PET Scan (Routine) - Authorized Specialty Diagnoses / Procedures Referred By Contac t Referred To Contact Radiology Diagnoses Endometrial cancer (CMS/HCC) (HCC) Procedures CT Chest Abdomen Pelvis W Contrast Brooke Harrington MD [address] [facility] [id number] [place] [address] Phone: tel: fax: [address] [address] Referral ID Status Reason Start Date Expiration Date V isits Requested Visits Authorized [id number] Authorized 08/24/2024 09/23/2025 1 1 EW CANTOR Encounter Details Date Type Department Care Team (Late st Contact Info) Description 08/24/2024 Orders Only [facility] Obstetrics and Gynecology [facility] Advanced Medicine 13th [place] [address] [place] [address] Polly Macdonald RN Endometrial cancer (CMS/HCC) (HCC) (Primary Dx) Social History Tobacco Use Types Packs/Day Years Used Date Smoking Tobacco: Former Smokeless Tobacco: Never Alcohol Use Standard Drinks/Week Comments Yes 0 (1 standard drink = 0.6 oz pur e alcohol) Comments No Sex and Gender Information Value Date Recorded Sex Assigned at Not on file Legal Sex Female 2:10 AM HEBREW CANTOR Gender Identity Not on file Sexual Orientation Not on file documented as of this encounter Plan of Treatment Scheduled Orders Name Type Priority Associated Diagnoses Orde r Schedule CT Chest Abdomen Pelvis W Contrast Imaging Routine Endometrial cancer (CMS/HCC) (HCC) Expected: 08/25/2024 (Approximate), Expires: 02/22/2025 documented as of this encounter Procedures Procedure Name Priority Date/Time Associated Diagnosis Comments CA 125 Routine 08/30/2024 8:56 AM HEBREW CANTOR Endometrial cancer (CMS/HCC) (HCC) documented in this encounter Results * CA 125 (08/30/2024 8:56 AM HEBREW CANTOR) CA 125 ag 4 <35 U/mL [facility] Comment: This test was performed using the Siemens Chemiluminescent method. Values obtained from different assay methods cannot be used interchangeably. CA 125 levels, regardless of value, should not be interpreted as absolute evidence of the presence or absence of disease. Blood 08/30/2024 8:56 AM HEBREW CANTOR 08/30/2024 8:56 AM HEBREW CANTOR us Brooke Harrington MD LAB BLOOD ORDERABLES Final Result [facility] [address] [facility] [place] [address] documented in this encounter Visit Diagnoses Diagnosis Endometrial cancer (CMS/HCC) (HCC)- Primary Malignant neoplasm of corpus uteri, except isthmus documented in this encounter Care Teams Color Printer Operator Relationship Specialty Start Date End Date Momo Carrillo MD [address] [place] [address] PCP - General 02/18/18 Momo Carrillo MD [address] [place] [address] Referring Physician Family Medicine 11/20/20 documented as of this encounter
--- OUTSIDE RECORDS SUMMARY | 2024-10-06 04:05 | XMS_ITS | Encounter Summary ---
Author Organization [facility] Address [address] [place] [address] Phone Care Team Providers Care Director Sales Name Role Phone Momo Carrillo MD Primary Care Provider [phone] Momo Carrillo MD Unavailable Encounter Details Date Type Department Care Team (Late st Contact Info) Description 01/03/2021 4:00 PM CDT Lab [facility] Oncology 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 Gender Identity Not on file Sexual Orientation Not on file documented as of this encounter Discharge Disposition Disposition Code Departure Means Destination Discharge to home or self care documented in this encounter Plan of Treatment Not on file documented as of this encounter Procedures Procedure Name Priority Date/Time Associated Diagnosis Comments DIFFERENTIAL AUTO Routine 01/03/2021 4:0 4 PM CDT Neutropenia, unspecified type (CMS/HCC) Thrombocytopenia, unspecified (CMS/HCC) CBC WITH AUTO DIFFERENTIAL Routine 01/03/2021 4:04 PM CDT Neutropenia, unspecified type (CMS/HCC) Thrombocytopenia, unspecified (CMS/HCC) RETICULOCYTES Routine 01/03/2021 4:04 PM CDT Neutropenia, unspecified type (CMS/HCC) Thrombocytopenia, unspecified (CMS/HCC) RHEUMATOID FACTOR Routine 01/03/2021 4:0 4 PM CDT Neutropenia, unspecified type (CMS/HCC) Thrombocytopenia, unspecified (CMS/HCC) FOLATE Routine 01/03/2021 4:04 PM CDT Neutropenia, unspecified type (CMS/HCC) Thrombocytopenia, unspecified (CMS/HCC) VITAMIN B12 Routine 01/03/2021 4:04 PM CDT Neutropenia, unspecified type (CMS/HCC) Thrombocytopenia, unspecified (CMS/HCC) BETY QUALITATIVE WITH REFLEX TO BETY QUANTITATIVE Routine 01/03/2021 4:04 PM CDT Neutropenia, unspecified type (CMS/HCC) Thrombocytopenia, unspecified (CMS/HCC) COPPER, SERUM Routine 01/03/2021 4:04 PM CDT Neutropenia, unspecified type (CMS/HCC) Thrombocytopenia, unspecified (CMS/HCC) HOMOCYSTEINE Routine 01/03/2021 3:57 PM CDT Neutropenia, unspecified type (CMS/HCC) Thrombocytopenia, unspecified (CMS/HCC) documented in this encounter Results * (ABNORMAL) Differential, auto (01/03/2021 4:04 PM CDT) Neutrophil abs 2.6 1.8 - 6.6 K/cumm [facility] Comment:Testing performed by : [facility], [address] [place] [phone] Lymphocyte abs 1.1(L) 1.2 - 3.3 K/cumm [facility] Comment:Testing performed by : [facility], [address] [place] [phone] Monocyte abs 0.3 0.2 - 1.2 K/cumm [facility] Comment:Testing performed by : [facility], [address] [place] [phone] Eosinophil abs 0.0 0.0 - 0.5 K/cumm [facility] Comment:Testing performed by : [facility], [address] [place] [phone] Basophil abs 0.0 0.0 - 0.2 K/cumm [facility] Comment:Testing performed by : [facility], [address] [place] [phone] Neutrophil pct 63.1 % [facility] Comment: Interpretive Data Percent cell count reference ranges are not reported, since discordance with absolute values may lead to misinterpretation of CBC data. Current Interpretive Data was last revised on 2017. Testing performed by: [facility], [address] [place] [phone] Lymphocyte pct 27.3 % [facility] Comment: Interpretive Data Percent cell count reference ranges are not reported, since discordance with absolute values may lead to misinterpretation of CBC data. Current Interpretive Data was last revised on 2017. Testing performed by: [facility], [address] [place] [phone] Monocyte pct 8.0 % [facility] Comment:Testing performed by : [facility], [address] [place] [phone] Eosinophil pct 1.1 % [facility] Comment:Testing performed by : [facility], [address] [place] [phone] Basophil pct 0.5 % [facility] Comment:Testing performed by : [facility], [address] [place] [phone] Blood specimen (specimen) 01/03/2021 4:04 PM CDT 01/03/2021 4:07 PM CDT us Lorelei Soto MD LAB BLOOD ORDERABLES Final Result [facility] Department [place] [address] * CBC with auto differential (01/03/2021 4:04 PM CDT) WBC 4.2 3.8 - 9.8 K/cumm [facility] Comment:Testing performed by : [address] [phone] Hgb 12.8 12.1 - 15.1 g/dL [facility] Comment:Testing performed by : [address] [phone] Hct 37.7 36.1 - 44.3 % [facility] Comment:Testing performed by : [address] [phone] Plt 170 140 - 440 K/cumm [facility] Comment:Testing performed by : [address] [address] MPV 7.1 6.8 - 10.4 fL [facility] Comment:Testing performed by : [address] [phone] RBC 4.13 3.90 - 5.00 M/cumm [facility] Comment:Testing performed by : [address] [phone] MCV 91.3 80.0 - 97.6 fL [facility] Comment:Testing performed by : [address] [phone] MCH 30.9 26.7 - 33.7 pg [facility] Comment:Testing performed by : [address] [address] MCHC 33.8 32.7 - 35.5 g/dL [facility] Comment:Testing performed by : [address] [phone] RDW CV 13.5 11.8 - 14.6 % [facility] Comment:Testing performed by : [facility], [address] [place] [phone] NRBC abs 0.00 0.00 - 0.01 K/cumm [facility] Comment:Testing performed by : [facility], [address] [place] [phone] Blood specimen (specimen) 01/03/2021 4:04 PM CDT 01/03/2021 4:07 PM CDT Lorelei Soto MD LAB BLOOD ORDERABLES Final Result [facility] Department [place] [employer] [place] [address] * Reticulocyte Count (01/03/2021 4:04 PM CDT) Pathologist [facility] Retics, absolute 0.062 0.020 - 0.087 M/cumm [facility] Comment:Testing performed by : [facility], [address] [place] [phone] Retics 1.50 0.50 - 1.80 % [facility] Comment:Testing performed by : [facility], [address] [place] [phone] Blood specimen (specimen) 01/03/2021 4:04 PM CDT 01/03/2021 4:07 PM CDT Lorelei Soto MD LAB BLOOD ORDERABLES Final Result [facility] [place] [employer] [address] * Vitamin B12 (01/03/2021 4:04 PM CDT) Vitamin B12 699 230 - 1,250 pg/mL [facility] Blood specimen (specimen) 01/03/2021 4:04 PM CDT 01/03/2021 4:30 PM CDT Lorelei Soto MD LAB BLOOD ORDERABLES Final Result Performing Organization Address [facility] de Phone Number [facility] [place] [address] * Folate (01/03/2021 4:04 PM CDT) [facility] Folic acid 19.8 >=5.0 ng/mL [facility] Blood specimen (specimen) 01/03/2021 4:04 PM CDT 01/03/2021 4:30 PM CDT Lorelei Soto MD LAB BLOOD ORDERABLES Final Result Performing Organization Address [facility] Phone Number [facility] [place] [address] * Rheumatoid factor (01/03/2021 4:04 PM CDT) [facility] Rheumatoid factor, quant <10.0 0.1 - 15.0 IUnits/mL [facility] Blood specimen (specimen) 01/03/2021 4:04 PM CDT 01/03/2021 4:30 PM CDT Lorelei Soto MD LAB BLOOD ORDERABLES Final Result Performing Organization Address [facility] de Phone Number [facility] [place] [address] * Copper, serum (01/03/2021 4:04 PM CDT) [facility] Copper 1.36 0.75 - 1.45 mcg/mL [facility] Comment: ADDITIONAL INFORMATION This test was developed and its performance characteristics determined by [facility] in a manner consistent with CLIA requirements. This test has not been cleared or approved by the U.S. Food and Drug Administration. Test Performed by: [facility] - [facility] [address] [place] [address] Tomography Technologist: Adarsh Ni M.D. Ph.D.; CLIA# [id number] Blood specimen (specimen) 01/03/2021 4:04 PM CDT 01/03/2021 5:28 PM CDT Lorelei Soto MD LAB BLOOD ORDERABLES Final Result Performing Organization Address [facility] Co de Phone Number [facility] [place] [address] * BETY qualitative with reflex to BETY Quantitative (01/03/2021 4:04 PM CDT) BETY Negative [facility] Comment: Interpretive Data Normal range for BETY [...] BLOOD ORDERABLES Final Result Performing Organization Address [facility] Co de Phone Number [facility] [place] [employer] [address] * Homocysteine (01/03/2021 3:57 PM CDT) Homocysteine 10.0 0.0 - 15.0 mcmol/L [facility] Blood specimen (specimen) 01/03/2021 3:57 PM CDT 01/03/2021 4:40 PM CDT us Lorelei Soto MD LAB BLOOD ORDERABLES Final Result [facility] Department [place] [address] documented in this encounter Visit Diagnoses Diagnosis Neutropenia, unspecified type (HCC) Thrombocytopenia, unspecified (HCC) Thrombocytopenia, unspecified documented in this encounter Care Teams Director Sales Relationship Specialty Start Date End Date Momo Carrillo MD [address] [place] [address] PCP - General 02/18/18 Momo Carrillo MD [address] [place] [address] Referring Physician Family Medicine 11/20/20 documented as of this encounter
--- OUTSIDE RECORDS SUMMARY | 2024-10-06 04:06 | XMS_ITS | Encounter Summary ---
Author Organization [facility] Address [address] [place] [address] Care Team Providers Care Hr Associate Name Role Phone Momo Carrillo MD Primary Care Provider [phone] Reason for Referral * Diagnostic Imaging (Routine) - Closed Specialty Diagnoses / Procedures Referred By Contac t Referred To Contact Radiology Diagnoses Endometrial cancer (CMS/HCC) (HCC) Procedures CT Chest Abdomen Pelvis W Contrast Jonnathan Jack MD Phone: tel: fax: [address] [phone] Referral ID Status Reason Start Date Expiration Date Visits Re quested Visits Authorized [id number] Closed 07/14/2018 01/23/2020 1 1 Reason for Visit * Diagnostic Imaging (Routine) - Closed Specialty Diagnoses / Procedures Referred By Contac t Referred To Contact Radiology Diagnoses Endometrial cancer (CMS/HCC) (HCC) Procedures CT Chest Abdomen Pelvis W Contrast Jonnathan Jack MD Phone: tel: fax: [address] [phone] Referral ID Status Reason Start Date Expiration Date Visits Re quested Visits Authorized [id number] Closed 07/14/2018 01/23/2020 1 1 Encounter Details Date Type Department Care Team (Latest Contact Info) Description 07/23/2018 8:52 AM CDT - 07/23/2018 11:59 PM CDT Hospital Encounter [facility] [address] [place] [address] Jonnathan Jack MD [id number] [place] [address] Endometrial cancer ([facility]/HCC) Discharge Disposition: Discharge to home or self care Social History Tobacco Use Types Packs/Day Years Used Date Smoking Tobacco: Former Smokeless Tobacco: Never Alcohol Use Standard Drinks/Week Comments Yes 0 (1 standard drink = 0.6 oz pur e alcohol) Comments No Sex and Gender Information Value Date Recorded Sex Assigned at Not on file Legal Sex Female 2:10 AM [employer] Gender Identity Not on file Sexual Orientation Not on file documented as of this encounter Medications at Time of Discharge cetirizine (ZyrTEC) 10 mg tablet 04/01/2016Zyrtec, po solid 10 mg TabletPOdailyCurrent Medication 6 polyethylene glycol (MIRALAX) 17 gram packet cholecalcifero l (VITAMIN D-3) 400 unit capsule 04/01/2016Vitamin d, po solid 400 unit TabletPOdailyCurrent Medication 6 023 levothyroxine (SYNTHROID, LEVOTHROID) 50 mcg tablet Take 75 mcg by mouth 01 6 023 omega 0-pbw-joi-fish oil 100-160-1,000 mg capsule 04/01/2016Fish oil omega-3, po solid 300-1000mg CapsulePOdailyCurrent Medication 6 023 pyridoxine (VITAMIN B-6) 100 mg tablet 2 times daily. 6 020 vitamin E 100 unit/0.25 mL drops 04/01/2016Vitamin e, po solid 1000 unit CapsulePOdailyCurrent Medication 6 023 documented as of this encounter Discharge Disposition Disposition Code Departure Means Destination Discharge to home or self care documented in this encounter Plan of Treatment Not on file documented as of this encounter Procedures Procedure Name Priority Date/Time Associated Diagnosis Comments CT CHEST ABDOMEN PELVIS W CONTRAST Schedule Routine, Read Routine (OP Routine) 07/23/2018 9:22 AM CDT Endometrial cancer (CMS/HCC) POCT CREATININE FOR CONTRAST EVALUATION Routine Gen Lab 07/23/2018 9:05 AM CDT documented in this encounter Results * CT Chest Abdomen Pelvis W Contrast (07/23/2018 9:22 AM CDT) Anatomical Region Laterality Modality Body N/A Computed Tomogra phy 07/23/2018 10:0 9 AM CDT Impressions 07/23/2018 10:09 AM CDT No evidence of metastatic disease in the chest, abdomen or pelvis. Stable postsurgical changes from hysterectomy and bilateral salpingo-oophorectomy as well as resection of prior lesion involving the right iliopsoas and right colon without evidence to suggest residual or recurrent disease in these regions. Slight interval increase of the ventral hernia with increased amount of bowel and fat within the hernia. ??No evidence of bowel obstruction. Electronically signed by: Mikala Lundberg M.D. 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 ??Patient presented 2015 with a right psoas muscle mass resulting in resection of the mass and the right colon and underwent chemotherapy complicated by osteomyelitis. ??Patient had a hysterectomy in 2006 now with reported lower back pain. ??CTA 125 within normal limits. TECHNIQUE: ??Transaxial computed tomographic images of the chest, abdomen and pelvis were obtained with intravenous contrast according to the standard protocol after the uneventful administration of 100 mL Opti-Ray 350 intravenous contrast. COMPARISON: CT from 12/16/2017 FINDINGS: ?? Chest: Lymphadenopathy demonstrated in the chest. The heart is normal in size. ??No pericardial effusion demonstrated. Great vessels are normal in caliber. ??No pulmonary embolism. Several calcified granulomas noted. ??No new suspicious pulmonary nodules. ??No consolidation, pleural effusion, pneumothorax or pulmonary edema. The esophagus is noted to be mildly patulous possibly related to reflux esophagitis. Abdomen/Pelvis: Stable tiny scattered subcentimeter hypodensities in the liver too small to characterize likely reflect a benign etiology such as small cysts. ??No new suspicious lesions in the liver. ??The portal vein is patent. ??No biliary ductal dilation demonstrated. ??The gallbladder is normal. ??Normal appearance of the spleen. ??There is fatty infiltration of the pancreas which is otherwise unremarkable. ??No ductal dilation demonstrated. ??The adrenal glands are within normal limits. ??Symmetric enhancement of the kidneys. ??No hydronephrosis. No obstructing renal or ureteral calculi. ??The bladder is normal in appearance. There is stable postsurgical changes from a prior hysterectomy and bilateral salpingo-oophorectomy without evidence of local recurrence of disease. There are postsurgical changes of the partial right colectomy and resection changes of the mass involving the right iliopsoas as without evidence of residual or local recurrence of disease. ??Again seen is a ventral hernia with several loops of bowel projecting into it without evidence of obstruction; protrusion of the bowel and fat is slightly worse on today's exam than on prior imaging. ??No ascites or free intraperitoneal air. ??Small hiatal hernia present. The aorta is normal in caliber with minimal atherosclerotic calcifications. ??No lymphadenopathy by size criteria demonstrated. There are mild degenerative changes of the spine. ??There is a very mild the anterolisthesis of L4 on L5. No destructive osseous lesions seen. ?? 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 Patient presented 2015 with a right psoas muscle mass resulting in resection of the mass and the right colon and underwent chemotherapy complicated by osteomyelitis. Patient had a hysterectomy in 2006 now with reported lower back pain. CTA 125 within normal limits. TECHNIQUE: Transaxial computed tomographic images of the chest, abdomen and pelvis were obtained with intravenous contrast according to the standard protocol after the uneventful administration of 100 mL Opti-Ray 350 intravenous contrast. COMPARISON: CT from 12/16/2017 FINDINGS: Chest: Lymphadenopathy demonstrated in the chest. The heart is normal in size. No pericardial effusion demonstrated. Great vessels are normal in caliber. No pulmonary embolism. Several calcified granulomas noted. No new suspicious pulmonary nodules. No consolidation, pleural effusion, pneumothorax or pulmonary edema. The esophagus is noted to be mildly patulous possibly related to reflux esophagitis. Abdomen/Pelvis: Stable tiny scattered subcentimeter hypodensities in the liver too small to characterize likely reflect a benign etiology such as small cysts. No new suspicious lesions in the liver. The portal vein is patent. No biliary ductal dilation demonstrated. The gallbladder is normal. Normal appearance of the spleen. There is fatty infiltration of the pancreas which is otherwise unremarkable. No ductal dilation demonstrated. The adrenal glands are within normal limits. Symmetric enhancement of the kidneys. No hydronephrosis. No obstructing renal or ureteral calculi. The bladder is normal in appearance. There is stable postsurgical changes from a prior hysterectomy and bilateral salpingo-oophorectomy without evidence of local recurrence of disease. There are postsurgical changes of the partial right colectomy and resection changes of the mass involving the right iliopsoas as without evidence of residual or local recurrence of disease. Again seen is a ventral hernia with several loops of bowel projecting into it without evidence of obstruction; protrusion of the bowel and fat is slightly worse on today's exam than on prior imaging. No ascites or free intraperitoneal air. Small hiatal hernia present. The aorta is normal in caliber with minimal atherosclerotic calcifications. No lymphadenopathy by size criteria demonstrated. There are mild degenerative changes of the spine. There is a very mild the anterolisthesis of L4 on L5. No destructive osseous lesions seen. IMPRESSION: No evidence of metastatic disease in the chest, abdomen or pelvis. Stable postsurgical changes from hysterectomy and bilateral salpingo-oophorectomy as well as resection of prior lesion involving the right iliopsoas and right colon without evidence to suggest residual or recurrent disease in these regions. Slight interval increase of the ventral hernia with increased amount of bowel and fat within the hernia. No evidence of bowel obstruction. Electronically signed by: Mikala Lundberg M.D. PHD Jonnathan Jack MD IMG CT PROCEDURES Final Result * POCT creatinine for contrast evaluation (07/23/2018 9:05 AM CDT) Creatinine POC 1.1 0.6 - 1.1 mg/dL [facility] Blood specimen (specimen) 07/23/2018 9:05 AM CDT 07/23/2018 9:05 AM CDT Narrative [facility] - 07/23/2018 9:25 AM CDT us Jonnathan Jack MD POINT OF CARE TEST ORDERABLES Final Result [facility] Department [place] [address] documented in this encounter Visit Diagnoses Diagnosis Endometrial cancer (CMS/HCC) (HCC) Malignant neoplasm of corpus uteri, except isthmus documented in this encounter Administered Medications Inactive Administered Medications - up to 3 most recent administrations Medication Order MAR Action Action Date Dose Rate Site ioversol (OPTIRAY 350) syringe syringe 100 mL 100 mL, intravenous, Once in imaging, contrast, Starting on Thu07/23/18 at 0922, For 1 dose Given 07/23/2018 9:22 AM CDT 100 mL documented in this encounter Orders Medications Ordered That Toy ht Not Have Been Administered Count Last Ordered Date First Ordered Date ioversol (OPTIRAY 350) syrin ge syringe 100 mL 1 07/23/2018 documented in this encounter Care Teams Hr Associate Relationship Specialty Start Date End Date Momo Carrillo MD [address] [place] [address] PCP - General 02/18/18 documented as of this encounter
--- OUTSIDE RECORDS SUMMARY | 2024-10-06 04:06 | XMS_ITS | Encounter Summary ---
Author Organization [facility] Healthcare Address [address] [place] [address] Care Team Providers Care Continuous Drier Operator Name Role Phone Momo Carrillo MD Primary Care Provider Encounter Details Date Type Department Care Team (Latest Contact Info) Description 12/16/2017 12:08 PM CDT - 12/16/2017 11:59 PM CDT Hospital Encounter [facility] INTERIM [phone] Van Jack MD [address] [facility] [id number] [place] [address] Discharge Disposition: Discharge to home or self care Social History Tobacco Use Types Packs/Day Years Used Date Smoking Tobacco: Never Assessed Comments Unknown Sex and Gender Information Value Date Recorded Sex Assigned at Not on file 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 Gender Identity Not on file Sexual Orientation Not on file documented as of this encounter Medications at Time of Discharge cetirizine (ZyrTEC) 10 mg tablet 04/01/2016Zyrtec, po solid 10 mg TabletPOdailyCurrent Medication 6 ypyfdkjrz-RD-O M-acetaminophe n 2-5-10-325 mg tablets, sequential 04/01/2016Multivitamin, po solid TabletPOdailyCurrent Medication 6 018 cholecalcifero l (VITAMIN D-3) 400 unit capsule 04/01/2016Vitamin d, po solid 400 unit TabletPOdailyCurrent Medication 6 023 FLUoxetine (PROzac) 20 mg capsule 04/01/2016Fluoxetine hcl, po solid 20 mg CapsulePOdailyCurrent Medication 6 018 levothyroxine (SYNTHROID, LEVOTHROID) 50 mcg tablet Take 75 mcg by mouth 01 6 023 omega 5-bxd-uop-fish oil 100-160-1,000 mg capsule 04/01/2016Fish oil omega-3, [...] Name Priority Date/Time Associated Diagnosis Comments CT ABDOMEN PELVIS W CONTRAST Routine 12/16/2017 5:[address] CHEST W CONTRAST Routine 12/16/2017 5:50 PM CDT POCT CREATININE FOR CONTRAST EVALUATION Routine Gen Lab 12/16/2017 12:31 PM CDT documented in this encounter Results * CT Chest W Contrast (12/16/2017 5:50 PM CDT) Anatomical Region Laterality Modality Body N/A Computed Tomogra phy 12/16/2017 5:50 PM CDT Narrative 12/16/2017 8:16 PM CDT EMIL RAI M.D. SHAHIDA HANNA M.D. FINAL REPORT The radiology attending physician has personally reviewed this study, and has reviewed and/or edited this written report and agrees with it. ACC# ??Date Time ??Exam [id number] Dec 16, 2017 12:50:[address] Abd & ??Pelvis with cont [id number] Dec 16, 2017 12:50:[address] Chest with contrast EXAMINATION: ??Computed tomography of the chest, abdomen and pelvis with intravenous contrast HISTORY: 62-year-old woman with endometrial cancer status post retroperitoneal dissection, lysis of adhesions, and tumor debulking on 06/05/2016 TECHNIQUE: ??Transaxial computed tomographic images of the chest, abdomen and pelvis were obtained with intravenous contrast according to the standard protocol after the uneventful administration of 94 mL Opti-Ray 350 intravenous contrast. COMPARISON: 01/28/2017 FINDINGS: ?? CHEST: A right-sided subclavian port catheter with its tip ??at the superior cavoatrial junction ??is seen. There are 2 unchanged calcified nodules within the right middle lobe seen on slice position 636 and adjacent to the heart on slice position 666, likely granulomas. ??No pneumothorax or pleural effusion. The heart size is normal. ??There is no pericardial effusion. ??No pulmonary embolus is seen. No mediastinal, axillary, or hilar lymphadenopathy is seen. ABDOMEN/PELVIS: There is an unchanged 2 mm hypoattenuating qce-blttu-vx-characterize lesion within hepatic segment 6 and a 2 mm hypoattenuating ulb-dnxui-ao-characterize lesion within hepatic segment 2. ??There is no intrahepatic or extrahepatic biliary ductal dilation. ??The gallbladder is normal. ??Fatty replacement of the head of the pancreas is again seen. ??The spleen is normal. ??There is a linear 4 mm hypodensity within the inferior pole of the left kidney that is xlk-snlzb-lu-characterize, but unchanged. ??The right kidney is normal. ??No hydronephrosis is present. ??No renal stone is present. The bladder is normal. ??There is no free fluid or free air. Postsurgical changes of hysterectomy and bilateral salpingo-oophorectomy are seen. ??There is a ventral hernia within the lower anterior abdomen, which now contains portions of the transverse colon, previously just containing fat. ??There is no evidence of bowel obstruction. Postsurgical changes from prior appendectomy are seen No retroperitoneal, mesenteric, or pelvic lymphadenopathy is seen.. Postsurgical changes from retroperitoneal dissection are present. The vasculature is normal in course and caliber. There is an unchanged hypoattenuating lesion within the L2 vertebral body that likely represents a hemangioma. ??No suspicious osseous lesion is seen. IMPRESSION: ??1. ??No evidence of metastatic disease within the chest, abdomen, or pelvis. 2. ??Interval increase in size of the ventral hernia in the lower abdominal wall, which now contains portions of the transverse colon. Electronically signed by: Emil Rai M.D. Requested By: Van Jack ??MKatrinaD. ? Dictated By: ?? SHAHIDA HANNA M.D. ??on Dec 16 2017 ??2:09P This document has been electronically signed by: EMIL RAI M.D. on Dec 16 2017 ??3:08P [id number] BRONSON M.D. FINAL REPORT The radiology attending physician has personally reviewed this study, and has reviewed and/or edited this written report and agrees with it. Attending: ??MILI, ??VAN Requesting: ??Mili, ??Van Requesting Fax: ?? Attending Fax: ?? Attending ID: ??[id number] Requesting ID: ??[id number] Report To 1 ID: ??[id number] ? Report To 1 Name: ??, ?? Report To 1 FAX: ?? NextGen Order #: ?? Procedure Note Miscellaneous, Not In File - 12/16/2017 Danica BOLAÑOS M.D. FINAL REPORT The radiology attending physician has personally reviewed this study, and has reviewed and/or edited this written report and agrees with it. ACC# Date Time Exam [id number] Dec 16, 2017 12:50:[address] Abd & Pelvis with cont [id number] Dec 16, 2017 12:50:[address] Chest with contrast EXAMINATION: Computed tomography of the chest, abdomen and pelvis with intravenous contrast HISTORY: 62-year-old woman with endometrial cancer status post retroperitoneal dissection, lysis of adhesions, and tumor debulking on 06/05/2016 TECHNIQUE: Transaxial computed tomographic images of the chest, abdomen and pelvis were obtained with intravenous contrast according to the standard protocol after the uneventful administration of 94 mL Opti-Ray 350 intravenous contrast. COMPARISON: 01/28/2017 FINDINGS: CHEST: A right-sided subclavian port catheter with its tip at the superior cavoatrial junction is seen. There are 2 unchanged calcified nodules within the right middle lobe seen on slice position 636 and adjacent to the heart on slice position 666, likely granulomas. No pneumothorax or pleural effusion. The heart size is normal. There is no pericardial effusion. No pulmonary embolus is seen. No mediastinal, axillary, or hilar lymphadenopathy is seen. ABDOMEN/PELVIS: There is an unchanged 2 mm hypoattenuating ksi-sthda-zp-characterize lesion within hepatic segment 6 and a 2 mm hypoattenuating oes-jiftx-tw-characterize lesion within hepatic segment 2. There is no intrahepatic or extrahepatic biliary ductal dilation. The gallbladder is normal. Fatty replacement of the head of the pancreas is again seen. The spleen is normal. There is a linear 4 mm hypodensity within the inferior pole of the left kidney that is vxh-bswrt-jo-characterize, but unchanged. The right kidney is normal. No hydronephrosis is present. No renal stone is present. The bladder is normal. There is no free fluid or free air. Postsurgical changes of hysterectomy and bilateral salpingo-oophorectomy are seen. There is a ventral hernia within the lower anterior abdomen, which now contains portions of the transverse colon, previously just containing fat. There is no evidence of bowel obstruction. Postsurgical changes from prior appendectomy are seen No retroperitoneal, mesenteric, or pelvic lymphadenopathy is seen.. Postsurgical changes from retroperitoneal dissection are present. The vasculature is normal in course and caliber. There is an unchanged hypoattenuating lesion within the L2 vertebral body that likely represents a hemangioma. No suspicious osseous lesion is seen. IMPRESSION: 1. No evidence of metastatic disease within the chest, abdomen, or pelvis. 2. Interval increase in size of the ventral hernia in the lower abdominal wall, which now contains portions of the transverse colon. Electronically signed by: Emil Rai M.D. Requested By: Van Jack M.D. Dictated By: SHAHIDA HANNA M.D. on Dec 16 2017 2:09P This document has been electronically signed by: EMIL RAI M.D. on Dec 16 2017 3:08P [id number] BRONSON M.D. FINAL REPORT The radiology attending physician has personally reviewed this study, and has reviewed and/or edited this written report and agrees with it. Attending: VAN JACK Requesting: Van Jack Requesting Fax: Attending Fax: Attending ID: [id number] Requesting ID: [id number] Report To 1 ID: [id number] Report To 1 Name: , Report To 1 FAX: NextGen Order #: [id number] Van Jack MD IMG CT PROCEDURES Final Result * CT Abdomen Pelvis W Contrast (12/16/2017 5:50 PM CDT) Anatomical Region Laterality Modality Body N/A Computed Tomogra phy 12/16/2017 5:50 PM CDT Narrative 12/16/2017 8:16 PM CDT Danica BOLAÑOS M.D. FINAL REPORT The radiology attending physician has personally reviewed this study, and has reviewed and/or edited this written report and agrees with it. ACC# ??Date Time ??Exam [id number] Dec 16, 2017 12:50:[address] Abd & ??Pelvis with cont [id number] Dec 16, 2017 12:50:[address] Chest with contrast EXAMINATION: ??Computed tomography of the chest, abdomen and pelvis with intravenous contrast HISTORY: 62-year-old woman with endometrial cancer status post retroperitoneal dissection, lysis of adhesions, and tumor debulking on 06/05/2016 TECHNIQUE: ??Transaxial computed tomographic images of the chest, abdomen and pelvis were obtained with intravenous contrast according to the standard protocol after the uneventful administration of 94 mL Opti-Ray 350 intravenous contrast. COMPARISON: 01/28/2017 FINDINGS: ?? CHEST: A right-sided subclavian port catheter with its tip ??at the superior cavoatrial junction ??is seen. There are 2 unchanged calcified nodules within the right middle lobe seen on slice position 636 and adjacent to the heart on slice position 666, likely granulomas. ??No pneumothorax or pleural effusion. The heart size is normal. ??There is no pericardial effusion. ??No pulmonary embolus is seen. No mediastinal, axillary, or hilar lymphadenopathy is seen. ABDOMEN/PELVIS: There is an unchanged 2 mm hypoattenuating yfm-cuyfu-ny-characterize lesion within hepatic segment 6 and a 2 mm hypoattenuating oji-ifsqx-su-characterize lesion within hepatic segment 2. ??There is no intrahepatic or extrahepatic biliary ductal dilation. ??The gallbladder is normal. ??Fatty replacement of the head of the pancreas is again seen. ??The spleen is normal. ??There is a linear 4 mm hypodensity within the inferior pole of the left kidney that is bsa-ztybv-nc-characterize, but unchanged. ??The right kidney is normal. ??No hydronephrosis is present. ??No renal stone is present. The bladder is normal. ??There is no free fluid or free air. Postsurgical changes of hysterectomy and bilateral salpingo-oophorectomy are seen. ??There is a ventral hernia within the lower anterior abdomen, which now contains portions of the transverse colon, previously just containing fat. ??There is no evidence of bowel obstruction. Postsurgical changes from prior appendectomy are seen No retroperitoneal, mesenteric, or pelvic lymphadenopathy is seen.. Postsurgical changes from retroperitoneal dissection are present. The vasculature is normal in course and caliber. There is an unchanged hypoattenuating lesion within the L2 vertebral body that likely represents a hemangioma. ??No suspicious osseous lesion is seen. IMPRESSION: ??1. ??No evidence of metastatic disease within the chest, abdomen, or pelvis. 2. ??Interval increase in size of the ventral hernia in the lower abdominal wall, which now contains portions of the transverse colon. Electronically signed by: Emil Rai M.D. Requested By: Van Jack ??MSon. ? Dictated By: ?? SHAHIDA AHNNA M.D. ??on Dec 16 2017 ??2:09P This document has been electronically signed by: EMIL RAI M.D. on Dec 16 2017 ??3:08P [id number] BOLAÑOS M.D. FINAL REPORT The radiology attending physician has personally reviewed this study, and has reviewed and/or edited this written report and agrees with it. Attending: ??MILI, ??VAN Requesting: ??Mili, ??Van Requesting Fax: ?? Attending Fax: ?? Attending ID: ??[id number] Requesting ID: ??[id number] Report To 1 ID: ??[id number] ? Report To 1 Name: ??, ?? Report To 1 FAX: ?? NextGen Order #: ?? Procedure Note Miscellaneous, Not In File - 12/16/2017 Danica BOLAÑOS M.D. FINAL REPORT The radiology attending physician has personally reviewed this study, and has reviewed and/or edited this written report and agrees with it. ACC# Date Time Exam [id number] Dec 16, 2017 12:50:[address] Abd & Pelvis with cont [id number] Dec 16, 2017 12:50:[address] Chest with contrast EXAMINATION: Computed tomography of the chest, abdomen and pelvis with intravenous contrast HISTORY: 62-year-old woman with endometrial cancer status post retroperitoneal dissection, lysis of adhesions, and tumor debulking on 06/05/2016 TECHNIQUE: Transaxial computed tomographic images of the chest, abdomen and pelvis were obtained with intravenous contrast according to the standard protocol after the uneventful administration of 94 mL Opti-Ray 350 intravenous contrast. COMPARISON: 01/28/2017 FINDINGS: CHEST: A right-sided subclavian port catheter with its tip at the superior cavoatrial junction is seen. There are 2 unchanged calcified nodules within the right middle lobe seen on slice position 636 and adjacent to the heart on slice position 666, likely granulomas. No pneumothorax or pleural effusion. The heart size is normal. There is no pericardial effusion. No pulmonary embolus is seen. No mediastinal, axillary, or hilar lymphadenopathy is seen. ABDOMEN/PELVIS: There is an unchanged 2 mm hypoattenuating brk-rnpwf-fl-characterize lesion within hepatic segment 6 and a 2 mm hypoattenuating dpk-dlgls-om-characterize lesion within hepatic segment 2. There is no intrahepatic or extrahepatic biliary ductal dilation. The gallbladder is normal. Fatty replacement of the head of the pancreas is again seen. The spleen is normal. There is a linear 4 mm hypodensity within the inferior pole of the left kidney that is aiu-ryrup-mh-characterize, but unchanged. The right kidney is normal. No hydronephrosis is present. No renal stone is present. The bladder is normal. There is no free fluid or free air. Postsurgical changes of hysterectomy and bilateral salpingo-oophorectomy are seen. There is a ventral hernia within the lower anterior abdomen, which now contains portions of the transverse colon, previously just containing fat. There is no evidence of bowel obstruction. Postsurgical changes from prior appendectomy are seen No retroperitoneal, mesenteric, or pelvic lymphadenopathy is seen.. Postsurgical changes from retroperitoneal dissection are present. The vasculature is normal in course and caliber. There is an unchanged hypoattenuating lesion within the L2 vertebral body that likely represents a hemangioma. No suspicious osseous lesion is seen. IMPRESSION: 1. No evidence of metastatic disease within the chest, abdomen, or pelvis. 2. Interval increase in size of the ventral hernia in the lower abdominal wall, which now contains portions of the transverse colon. Electronically signed by: Emil Rai M.D. Requested By: Van Jack M.D. Dictated By: SHAHIDA HANNA M.D. on Dec 16 2017 2:09P This document has been electronically signed by: EMIL RAI M.D. on Dec 16 2017 3:08P [id number] BOLAÑOS M.D. FINAL REPORT The radiology attending physician has personally reviewed this study, and has reviewed and/or edited this written report and agrees with it. Attending: VAN JACK Requesting: Van Jack Requesting Fax: Attending Fax: Attending ID: [id number] Requesting ID: [id number] Report To 1 ID: [id number] Report To 1 Name: , Report To 1 FAX: NextGen Order #: Van Jack MD IM CT PROCEDURES Final Result * POCT creatinine for contrast evaluation (12/16/2017 12:31 PM CDT) Creatinine POC 1.0 0.6 - 1.1 mg/dL [facility] Blood specimen (specimen) 12/16/2017 12:31 PM CDT 12/16/2017 12:31 PM CDT Narrative [facility] - 12/16/2017 12:52 PM CDT us Van Jack MD POINT OF CARE TEST ORDERABLES Final Result [facility] Department [place] [address] documented in this encounter Visit Diagnoses Not on filedocumented in this encounter Care Teams Continuous Drier Operator Relationship Specialty Start Date End Date Momo Carrillo MD [address] [place] [address] PCP - General 12/16/17 01/06/18 documented as of this encounter
--- OUTSIDE RECORDS SUMMARY | 2024-10-06 04:06 | XMS_ITS | Encounter Summary ---
Author Organization [facility] Address [address] [place] [address] Phone Care Team Providers Care Hide And Skin Colerer Name Role Phone Momo Carrillo MD Primary Care Provider [phone] Encounter Details Date Type Department Care Team (Late st Contact Info) Description 01/26/2020 Telephone [facility] Obstetrics and Gynecology [address] [facility] 13th [place] [address] [place] [address] Shae Casas, RN Social History Tobacco Use Types Packs/Day Years Used Date Smoking Tobacco: Former Smokeless Tobacco: Never Alcohol Use Standard Drinks/Week Comments Yes 0 (1 standard drink = 0.6 oz pur e alcohol) Comments No Sex and Gender Information Value Date Recorded Sex Assigned at Not on file 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 Gave summary to -they are still coming in to see DGM on 01/30. Report confirms L lesion was there and unchanged from 2018 and likely benign. documented in this encounter Plan of Treatment Not on file documented as of this encounter Visit Diagnoses Not on filedocumented in this encounter Care Teams Hide And Skin Colerer Relationship Specialty Start Date End Date Momo Carrillo MD [address] [place] [address] PCP - General 02/18/18 documented as of this encounter
--- OUTSIDE RECORDS SUMMARY | 2024-10-06 04:06 | XMS_ITS | Encounter Summary ---
Author Organization [facility] Address [address] [place] [address] Phone Care Team Providers Care Ruling Technician Name Role Phone Momo Carrillo MD Primary Care Provider [phone] Encounter Details Date Type Department Care Team (Late st Contact Info) Description 11/15/2019 Orders Only [facility] Obstetrics and Gynecology [address] [facility] Advanced Medicine 13th [place] [address] [place] [address] Polly Macdonald, MARLYN Carcinoma of endometrium (CMS/HCC) (Primary Dx) Social History Tobacco Use Types Packs/Day Years Used Date Smoking Tobacco: Former Smokeless Tobacco: Never Alcohol Use Standard Drinks/Week Comments Yes 0 (1 standard drink = 0.6 oz pur e alcohol) Comments No Sex and Gender Information Value Date Recorded Sex Assigned at Not on file 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 Gender Identity Not on file Sexual Orientation Not on file documented as of this encounter Plan of Treatment Scheduled Orders Name Type Priority Associated Diagnoses Orde r Schedule CA 125 Lab Routine Carcinoma of endometrium (CMS/HCC) Every 26 weeks for 2 Occurrences starting 11/15/2019 until 11/15/2020, 1 completed CBC with auto differential Lab Routine Carcinoma of endometrium (CMS/HCC) Expected: 05/15/2020 (Approximate), Expires: 11/15/2020 documented as of this encounter Procedures Procedure Name Priority Date/Time Associated Diagnosis Comments CBC WITH AUTO DIFFERENTIAL Routine 05/07/2020 10:15 AM CDT CA 125 Routine 05/07/2020 10:15 AM CDT Carcinoma of endometrium (CMS/HCC) documented in this encounter Results * (ABNORMAL) CBC with auto differential (05/07/2020 10:15 AM CDT) WBC 3.0(L) 3.8 - 10.8 Thousand/u L [facility] RBC, POC 3.84 3.80 - 5.10 Million/uL [facility] Hgb 12.1 11.7 - 15.5 g/dL [facility] Hct 36.7 35.0 - 45.0 % [facility] MCV 95.6 80.0 - 100.0 fL [facility] MCH 31.5 27.0 - 33.0 pg [facility] MCHC 33.0 32.0 - 36.0 g/dL [facility] Rdw 13.4 11.0 - 15.0 % [facility] Platelets 143 140 - 400 Thousand/u L [facility] MPV 11.4 7.5 - 12.5 fL [facility] Neutrophils, abs 1,704 1,500 - 7,800 cells/uL [facility] Lymphocytes, abs 987 850 - 3,900 cells/uL [facility] Monocyte abs 258 200 - 950 cells/uL [facility] Eosinophils, abs 30 15 - 500 cells/uL [facility] Basophils, abs 21 0 - 200 cells/uL [facility] Neutrophils 56.8 % [facility] Lymphocyte pct 32.9 % [facility] Monocytes 8.6 % [facility] Eosinophils 1.0 % [facility] Basophils 0.7 % [facility] 05/07/2020 10:1 5 AM CDT 05/07/2020 10:15 AM CDT us Jonnathan Jack MD LAB BLOOD ORDERABLES Final Res ult Performing Organization Address [facility] Co de Phone Number [employer] [address] [place] [address] * CA 125 (05/07/2020 10:15 AM CDT) CA 125 ag 2 <35 U/mL [facility] Comment: This test was performed using the Honey Mandy Chemiluminescent method. Values obtained from different assay methods cannot be used interchangeably. CA 125 levels, regardless of value, should not be interpreted as absolute evidence of the presence or absence of disease. Blood specimen (specimen) 05/07/2020 10:15 AM CDT 05/07/2020 10:15 AM CDT Jonnathan Jack MD LAB BLOOD ORDERABLES Final Res ult Performing Organization Address [facility] Co de Phone Number [employer] [facility] [address] [place] [address] documented in this encounter Visit Diagnoses Diagnosis Carcinoma of endometrium (HCC)- Primary Malignant neoplasm of corpus uteri, except isthmus documented in this encounter Care Teams Ruling Technician Relationship Specialty Start Date End Date Momo Carrillo MD [address] [place] [address] PCP - General 02/18/18 documented as of this encounter
--- OUTSIDE RECORDS SUMMARY | 2024-10-06 04:06 | XMS_ITS | Encounter Summary ---
Author Organization [facility] Address [address] [place] [address] Phone Care Team Providers Care Scanning Clerk Name Role Phone Momo Carrillo MD Primary Care Provider [phone] Encounter Details Date Type Department Care Team (Late st Contact Info) Description 05/15/2020 Orders Only [facility] Obstetrics and Gynecology [address] [facility] Advanced Medicine 13th [place] [address] [place] [address] Shae Casas, RN Malignant neoplasm of endometrium (CMS/HCC) (Primary Dx); Other neutropenia (CMS/HCC) Social History Tobacco Use Types Packs/Day Years Used Date Smoking Tobacco: Former Smokeless Tobacco: Never Alcohol Use Standard Drinks/Week Comments Yes 0 (1 standard drink = 0.6 oz pur e alcohol) Comments No Sex and Gender Information Value Date Recorded Sex Assigned at Not on file Legal Sex Female 2:10 AM LIFT BUILDER WHOLE Gender Identity Not on file Sexual Orientation Not on file documented as of this encounter Plan of Treatment Scheduled Orders Name Type Priority Associated Diagnoses Orde r Schedule CBC with auto differential Lab Routine Malignant neoplasm of endometrium (CMS/HCC) Other neutropenia (CMS/HCC) q 2 months for 6 Occurrences starting 05/15/2020 until 05/15/2021, 2 completed documented as of this encounter Procedures Procedure Name Priority Date/Time Associated Diagnosis Comments CBC WITH AUTO DIFFERENTIAL Routine 11/12/2020 10:18 AM LIFT BUILDER WHOLE CA 125 Routine 11/12/2020 10:18 AM LIFT BUILDER WHOLE Malignant neoplasm of endometrium (CMS/HCC) CBC WITH AUTO DIFFERENTIAL Routine 09/11/2020 8:50 AM LIFT BUILDER WHOLE Malignant neoplasm of endometrium (CMS/HCC) Other neutropenia (CMS/HCC) CBC WITH AUTO DIFFERENTIAL Routine 07/10/2020 9:31 AM CDT Malignant neoplasm of endometrium (CMS/HCC) Other neutropenia (CMS/HCC) documented in this encounter Results * (ABNORMAL) CBC with auto differential (11/12/2020 10:18 AM LIFT BUILDER WHOLE) Pathologist [facility] WBC 3.0(L) 3.8 - 10.8 Thousand/u L [facility] RBC, POC 3.85 3.80 - 5.10 Million/uL [facility] Hgb 12.0 11.7 - 15.5 g/dL [facility] Hct 36.1 35.0 - 45.0 % [facility] MCV 93.8 80.0 - 100.0 fL [facility] MCH 31.2 27.0 - 33.0 pg [facility] MCHC 33.2 32.0 - 36.0 g/dL [facility] Rdw 12.8 11.0 - 15.0 % [facility] Platelets 131(L) 140 - 400 Thousand/u L [facility] MPV 11.5 7.5 - 12.5 fL [facility] Neutrophils, abs 1,680 1,500 - 7,800 cells/uL [facility] Lymphocytes, abs 876 850 - 3,900 cells/uL [facility] Monocyte abs 282 200 - 950 cells/uL [facility] Eosinophils, abs 132 15 - 500 cells/uL [facility] Basophils, abs 30 0 - 200 cells/uL [facility] Neutrophils 56 % [facility] Lymphocyte pct 29.2 % [facility] Monocytes 9.4 % [facility] Eosinophils 4.4 % [facility] Basophils 1.0 % [facility] 11/12/2020 10:1 8 AM LIFT BUILDER WHOLE 11/12/2020 10:20 AM LIFT BUILDER WHOLE Jonnathan Jack MD LAB BLOOD ORDERABLES Final Res ult Performing Organization Address [facility] de Phone Number QUEST [facility] [address] [place] [address] * CA 125 (11/12/2020 10:18 AM LIFT BUILDER WHOLE) [facility] CA 125 ag 2 <35 U/mL [facility] Comment: This test was performed using the Honey [place] Chemiluminescent method. Values obtained from different assay methods cannot be used interchangeably. CA 125 levels, regardless of value, should not be interpreted as absolute evidence of the presence or absence of disease. Blood specimen (specimen) 11/12/2020 10:18 AM LIFT BUILDER WHOLE 11/12/2020 10:20 AM LIFT BUILDER WHOLE Jonnathan Jack MD LAB BLOOD ORDERABLES Final Res ult Performing Organization Address [facility] de Phone Number QUEST [facility] [address] [place] [address] * (ABNORMAL) CBC with auto differential (09/11/2020 8:50 AM LIFT BUILDER WHOLE) [facility] WBC 2.7(L) 3.8 - 10.8 Thousand/u L [facility] RBC, POC 4.14 3.80 - 5.10 Million/uL [facility] Hgb 12.7 11.7 - 15.5 g/dL [facility] Hct 39.6 35.0 - 45.0 % [facility] MCV 95.7 80.0 - 100.0 fL [facility] MCH 30.7 27.0 - 33.0 pg [facility] MCHC 32.1 32.0 - 36.0 g/dL [facility] Rdw 13.0 11.0 - 15.0 % [facility] Platelets 135(L) 140 - 400 Thousand/u L [facility] MPV 11.5 7.5 - 12.5 fL [facility] Neutrophils, abs 1,598 1,500 - 7,800 cells/uL [facility] Lymphocytes, abs 805(L) 850 - 3,900 cells/uL [facility] Monocyte abs 230 200 - 950 cells/uL [facility] Eosinophils, abs 49 15 - 500 cells/uL [facility] Basophils, abs 19 0 - 200 cells/uL [facility] Neutrophils 59.2 % [facility] Lymphocyte pct 29.8 % [facility] Monocytes 8.5 % [facility] Eosinophils 1.8 % [facility] Basophils 0.7 % [facility] Blood specimen (specimen) 09/11/2020 8:50 AM LIFT BUILDER WHOLE 09/11/2020 8:51 AM LIFT BUILDER WHOLE us Jonnathan Jack MD LAB BLOOD ORDERABLES Final Res ult [facility] [address] [place] [address] * (ABNORMAL) CBC with auto differential (07/10/2020 9:31 AM CDT) WBC 3.1(L) 3.8 - 10.8 Thousand/u L [facility] RBC, POC 3.89 3.80 - 5.10 Million/uL [facility] Hgb 12.4 11.7 - 15.5 g/dL [facility] Hct 37.4 35.0 - 45.0 % [facility] MCV 96.1 80.0 - 100.0 fL [facility] MCH 31.9 27.0 - 33.0 pg [facility] MCHC 33.2 32.0 - 36.0 g/dL [facility] Rdw 13.6 11.0 - 15.0 % [facility] Platelets 138(L) 140 - 400 Thousand/u L [facility] MPV 11.7 7.5 - 12.5 fL [facility] Neutrophils, abs 1,854 1,500 - 7,800 cells/uL [facility] Lymphocytes, abs 967 850 - 3,900 cells/uL [facility] Monocyte abs 242 200 - 950 cells/uL [facility] Eosinophils, abs 19 15 - 500 cells/uL [facility] Basophils, abs 19 0 - 200 cells/uL [facility] Neutrophils 59.8 % [facility] Lymphocyte pct 31.2 % [facility] Monocytes 7.8 % [facility] Eosinophils 0.6 % [facility] Basophils 0.6 % [facility] Blood specimen (specimen) 07/10/2020 9:31 AM CDT 07/10/2020 9:33 AM CDT Narrative [facility] - 07/11/2020 4:17 AM CDT FASTING:YES FASTING: YES Jonnathan Jack MD LAB BLOOD ORDERABLES Final Res ult [facility] [address] [place] [address] documented in this encounter Visit Diagnoses Diagnosis Malignant neoplasm of endometrium (CMS/HCC) (HCC)- Primary Malignant neoplasm of corpus uteri, except isthmus Other neutropenia (CMS/HCC) (HCC) Other neutropenia documented in this encounter Care Teams Scanning Clerk Relationship Specialty Start Date End Date Momo Carrillo MD [address] [place] [address] PCP - General 02/18/18 documented as of this encounter
--- OUTSIDE RECORDS SUMMARY | 2024-10-06 04:06 | XMS_ITS | Encounter Summary ---
Author Organization [facility] Address [address] [place] [address] Phone Care Team Providers Care Aluminum Can Collector Name Role Phone Momo Carrillo MD Primary Care Provider [phone] Encounter Details Date Type Department Care Team (Late st Contact Info) Description 01/24/2020 Telephone [facility] Obstetrics and Gynecology [address] [facility] Advanced Medicine 13th [place] [address] [place] [address] Shae Casas, RN Social History Tobacco Use Types Packs/Day Years Used Date Smoking Tobacco: Former Smokeless Tobacco: Never Alcohol Use Standard Drinks/Week Comments Yes 0 (1 standard drink = 0.6 oz pur e alcohol) Comments No Sex and Gender Information Value Date Recorded Sex Assigned at Not on file Legal Sex Female 2:10 AM GLASS FORMING ENGINEER Gender Identity Not on file Sexual Orientation Not on file documented as of this encounter Miscellaneous Notes * Telephone Encounter - Shae Casas RN - 01/24/2020 9:40 AM CDT PA called from in pt stating they have pt there for observation for concussion from fall off a horse. No major injuries, will likely D/C home today. Did a CT c/a/p and found a 1.1 cm lesion on L2 concerning for metastatic endo ca. PA will fax report and pt will bring disc. Will return call to and make sooner DGM appt. documented in this encounter Plan of Treatment Not on file documented as of this encounter Visit Diagnoses Not on filedocumented in this encounter Care Teams Aluminum Can Collector Relationship Specialty Start Date End Date Momo Carrillo MD [address] [place] [address] PCP - General 02/18/18 documented as of this encounter
--- OUTSIDE RECORDS SUMMARY | 2024-10-06 04:06 | XMS_ITS | Encounter Summary ---
Author Organization [facility] Facility Care Team Providers Care Front Tender Name Role Phone Unavailable Primary Care Provider Unavailabl e Encounter Details Date Type Department Care Team (Latest Contact Info) Description 09/24/2016 9:58 AM FAST FOOD SERVER - 09/24/2016 11:59 PM FAST FOOD SERVER Hospital [facility] MD [id number] [place] [address] Encounter for antineoplastic chemotherapy; Malignant neoplasm of endometrium (CMS/HCC) Social History Tobacco Use Types Packs/Day Years Used Date Smoking Tobacco: Never Assessed Comments Unknown Sex and Gender Information Value Date Recorded Sex Assigned at Not on file Legal Sex Female 2:10 AM FAST FOOD SERVER Gender Identity Not on file Sexual Orientation Not on file documented as of this encounter Medications at Time of Discharge cetirizine (ZyrTEC) 10 mg tablet 04/01/2016Zyrtec, po solid 10 mg TabletPOdailyCurrent Medication 6 bqdrbxdhi-GJ-L M-acetaminophe n 2-5-10-325 mg tablets, sequential 04/01/2016Multivitamin, po solid TabletPOdailyCurrent Medication 6 03/17/ 018 cholecalcifero l (VITAMIN D-3) 400 unit capsule 04/01/2016Vitamin d, po solid 400 unit TabletPOdailyCurrent Medication 6 023 FLUoxetine (PROzac) 20 mg capsule 04/01/2016Fluoxetine hcl, po solid 20 mg CapsulePOdailyCurrent Medication 6 018 levothyroxine (SYNTHROID, LEVOTHROID) 50 mcg tablet Take 75 mcg by mouth 01 6 023 omega 1-khn-iik-fish oil 100-160-1,000 mg capsule 04/01/2016Fish oil omega-3, po solid 300-1000mg CapsulePOdailyCurrent Medication 6 023 pyridoxine (VITAMIN B-6) 100 mg tablet 2 times daily. 6 020 vitamin E 100 unit/0.25 mL drops 04/01/2016Vitamin e, po solid 1000 unit CapsulePOdailyCurrent Medication 6 023 documented as of this encounter Plan of Treatment Not on file documented as of this encounter Visit Diagnoses Diagnosis Encounter for antineoplastic chemotherapy Malignant neoplasm of endometrium (CMS/HCC) (HCC) Malignant neoplasm of corpus uteri, except isthmus documented in this encounter
--- OUTSIDE RECORDS SUMMARY | 2024-10-06 04:06 | XMS_ITS | Encounter Summary ---
Author Organization [facility] Facility Care Team Providers Care Can Filling And Closing Machine Tender Name Role Phone Unavailable Primary Care Provider Unavailabl e Encounter Details Date Type Department Care Team (Latest Contact Info) Description 10/15/2016 9:52 AM PLISSE MACHINE OPERATOR HELPER - 10/15/2016 11:59 PM PLISSE MACHINE OPERATOR HELPER Hospital [facility]CON[facility]regoso MD [id number] [place] [address] Encounter for antineoplastic chemotherapy; Malignant neoplasm of endometrium (CMS/HCC) Social History Tobacco Use Types Packs/Day Years Used Date Smoking Tobacco: Never Assessed Comments Unknown Sex and Gender Information Value Date Recorded Sex Assigned at Not on file Legal Sex Female 2:10 AM PLISSE MACHINE OPERATOR HELPER Gender Identity Not on file Sexual Orientation Not on file documented as of this encounter Medications at Time of Discharge cetirizine (ZyrTEC) 10 mg tablet 04/01/2016Zyrtec, po solid 10 mg TabletPOdailyCurrent Medication 6 dflujsric-EE-S M-acetaminophe n 2-5-10-325 mg tablets, sequential 04/01/2016Multivitamin, po solid TabletPOdailyCurrent Medication 6 03/17/ 018 cholecalcifero l (VITAMIN D-3) 400 unit capsule 04/01/2016Vitamin d, po solid 400 unit TabletPOdailyCurrent Medication 6 023 FLUoxetine (PROzac) 20 mg capsule 04/01/2016Fluoxetine hcl, po solid 20 mg CapsulePOdailyCurrent Medication 6 018 levothyroxine (SYNTHROID, LEVOTHROID) 50 mcg tablet Take 75 mcg by mouth 01 6 023 omega 0-kjv-fpz-fish oil 100-160-1,000 mg capsule 04/01/2016Fish oil omega-3, [...]
--- OUTSIDE RECORDS SUMMARY | 2024-10-06 04:06 | XMS_ITS | Encounter Summary ---
Author Organization [facility] Address [address] [facility] [address] [place] [address] Phone Care Team Providers Care Pre Owned Sales Manager Name Role Phone Momo Carrillo MD Primary Care Provider [phone] Reason for Visit * Reason Comments Follow-up Encounter Details Date Type Department Care Team (Late st Contact Info) Description 05/10/2019 3:00 PM CDT Office Visit [facility] Obstetrics and Gynecology [address] [facility] Advanced Medicine 13th [place] [address] [place] [address] Jonnathan Jack MD [address] [facility] [phone] [place] [address] Endometrial cancer (CMS/HCC) Social History Tobacco Use Types Packs/Day Years Used Date Smoking Tobacco: Former Smokeless Tobacco: Never Alcohol Use Standard Drinks/Week Comments Yes 0 (1 standard drink = 0.6 oz pur e alcohol) Comments No Sex and Gender Information Value Date Recorded Sex Assigned at Not on file Legal Sex Female 2:10 AM HANDKERCHIEF FOLDER Gender Identity Not on file Sexual Orientation Not on file documented as of this encounter Last Filed Vital Signs Vital Sign Reading Time Taken Comments Blood Pressure 133/73 05/10/2019 2:55 PM CDT Pulse 61 05/10/2019 2:55 PM CDT Temperature 36.6 ??C (97.9 ??F) 05/10/2019 2:55 PM CD T Respiratory Rate 16 05/10/2019 2:55 PM CDT Oxygen Saturation 97% 05/10/2019 2:55 PM CDT Inhaled Oxygen Concentration - - Weight 72.4 kg (159 lb 11.2 oz) 05/10/2019 2:55 PM CDT Height 162.6 cm (5' 4 ) 05/10/2019 2:55 PM CDT Body Mass Index 27.41 05/10/2019 2:55 PM CDT documented in this encounter Progress Notes * Jonnathan Jack MD - 05/10/2019 12:00 AM CDT PATIENT: LEWIS RENEE : 1955 AGUSTO: 05/10/2019 HISTORY OF PRESENT ILLNESS: Ms. 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 She was originally diagnosed in 2005. She had an uncomplicated postop course. She presented with a mass in the psoas muscle at the end of 2015, so a full 10 years later. We tookher to the operating room and resected it. 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 She did well andthen underwent postop chemotherapy. Unfortunately, her treatment was significantly delayed because she developed some osteomyelitis. It is unclear whether her port got infected and seeded her bone orwhether it was related to her epidural. I do not think anyone will exactly admit as to what happened, but she thinks it was from her port, and I think that that is certainly possible. Her CA-125 level is now nonmeasurable. She is not having any pain, and she is normal in every way, related to her cancer. PAST MEDICAL HISTORY/REVIEW OF SYSTEMS: Unchanged with the exception of the above updates. Discussed with the patient today. PHYSICAL EXAMINATION: Vital Signs: Vitals are as noted in the patient's chart. General Appearance: A well-developed, well-nourished female in no acute distress. Lungs: Clear. Heart: Regular rate and rhythm. Normal S1/S2. Neck: No thyromegaly. Breasts: Deferred. Abdomen: Soft, nontender. No evidence of ascites. No hepatosplenomegaly. CVA: No tenderness. Extremities: No edema, cyanosis [...] Normal gynecologic evaluation. No evidence of disease. Normal CA-125. No pain. We are going to go ahead and see her back in 6 months. She will contact me if she has any pain or other untoward symptoms. She will return to see me then in 6 months. ELECTRONICALLY SIGNED - 05/11/2019 01:54 PM Danica Lind and Genia Booth Professor, Department of Obstetrics and Gynecology Electronic Publishing Specialist for Gynecology Division of Gynecologic Oncology Fellowship Director, Division of Gynecologic Oncology [facility] [id number] cc: Ashley CARRILLO MD / / documented in this encounter Plan of Treatment Not on file documented as of this encounter Visit Diagnoses Diagnosis Endometrial cancer (CMS/HCC) (HCC) Malignant neoplasm of corpus uteri, except isthmus documented in this encounter Orders Appointment Requests Count Last Ordered Date Fi rst Ordered Date ONCBCN CLINIC APPOINTMENT REQUEST 2 020 05/10/2019 documented in this encounter Care Teams Pre Owned Sales Manager Relationship Specialty Start Date End Date Momo Carrillo MD [address] [place] [address] PCP - General 02/18/18 documented as of this encounter
--- OUTSIDE RECORDS SUMMARY | 2024-10-06 04:06 | XMS_ITS | Encounter Summary ---
Author Organization [facility] Address [address] [facility] [address] [place] [address] Phone Care Team Providers Care Early Childhood Lead Teacher Name Role Phone Momo Carrillo MD Primary Care Provider [phone] Reason for Referral * Diagnostic Imaging (Routine) - Closed Specialty Diagnoses / Procedures Referred By Contac t Referred To Contact Radiology Diagnoses Endometrial cancer (CMS/HCC) (HCC) Procedures CT Chest Abdomen Pelvis W Contrast Jonnathan Jack MD Phone: tel: fax: [address] [address] Referral ID Status Reason Start Date Expiration Date Visits Re quested Visits Authorized [id number] Closed 07/14/2018 01/23/2020 1 1 Encounter Details Date Type Department Care Team (Late st Contact Info) Description 07/14/2018 Orders Only [facility] Obstetrics and Gynecology [address] [facility] Advanced Medicine 13th [place] [address] [place] [address] Kristine Hernandez RN Endometrial cancer (CMS/HCC) (Primary Dx) Social History Tobacco Use Types Packs/Day Years Used Date Smoking Tobacco: Former Smokeless Tobacco: Never Alcohol Use Standard Drinks/Week Comments Yes 0 (1 standard drink = 0.6 oz pur e alcohol) Comments No Sex and Gender Information Value Date Recorded Sex Assigned at Not on file Legal Sex Female 2:10 AM COOKER SODA Gender Identity Not on file Sexual Orientation Not on file documented as of this encounter Miscellaneous Notes * Addendum Note - Kristine Hernandez RN - 07/14/2018 2:23 PM CDTAddended by: KRISTINE HERNANDEZ on: 07/14/2018 02:32 PM Modules accepted: Orders documented in this encounter Plan of Treatment Scheduled Orders Name Type Priority Associated Diagnoses Orde r Schedule CA 125 Lab Routine Endometrial cancer (CMS/HCC) Every 12 Weeks for 2 Occurrences starting 07/14/2018 until 10/14/2019, 1 completed documented as of this encounter Procedures Procedure Name Priority Date/Time Associated Diagnosis Comments CA 125 Routine 10/12/2018 9:33 AM COOKER SODA Endometrial cancer (CMS/HCC) documented in this encounter Results * CA 125 (10/12/2018 9:33 AM COOKER SODA) CA 125 ag 2 <35 U/mL [facility] [place] Comment: This test was performed using the Honey [place] Chemiluminescent method. Values obtained from different assay methods cannot be used interchangeably. CA 125 levels, regardless of value, should not be interpreted as absolute evidence of the presence or absence of disease. Blood specimen (specimen) 10/12/2018 9:33 AM COOKER SODA 10/12/2018 9:44 AM COOKER SODA Narrative [facility] - 10/13/2018 8:15 AM COOKER SODA FASTING:NO FASTING: NO Resulting Agency Comment Performing Organization Information: ?Site ID: [place] ?Name: [facility] ?Address: [address] [place] [address] ?Director: Adarsh Marion D.O., MPH us Jonnathan Jack MD LAB BLOOD ORDERABLES Final Res ult [facility] [place] Garcia * CT Chest Abdomen Pelvis W Contrast [...] adhesion and tumor the bulking. Patient presented 2016 with a right psoas muscle mass resulting [...] Mikala Lundberg M.D. PHD Jonnathan Jack MD IM CT PROCEDURES Final Result documented in this encounter Visit Diagnoses Diagnosis Endometrial cancer (CMS/HCC) (HCC)- Primary Malignant neoplasm of corpus uteri, except isthmus Endometrial cancer (CMS/HCC) (HCC) Malignant neoplasm of corpus uteri, except isthmus documented in this encounter Care Teams Early Childhood Lead Teacher Relationship Specialty Start Date End Date Momo Carrillo MD [address] [place] [address] PCP - General 02/18/18 documented as of this encounter
--- OUTSIDE RECORDS SUMMARY | 2024-10-06 04:06 | XMS_ITS | Encounter Summary ---
Author Organization [facility] Address [address] [place] [address] Care Team Providers Care Fashion Illustrator Name Role Phone Unavailable Primary Care Provider Unavailabl e Encounter Details Date Type Department Care Team (Latest Contact Info) Description 11/05/2016 10:12 AM STONE AND PLATE PREPARER APPRENTICE - 11/05/2016 11:59 PM [facility] Hospital Encounter [facility] [phone] Jonnathan Jack MD [address] [facility] [phone] [place], [place] [id number] Discharge Disposition: Discharge to home or self care Social History Tobacco Use Types Packs/Day Years Used Date Smoking Tobacco: Never Assessed Comments Unknown Sex and Gender Information Value Date Recorded Sex Assigned at Not on file Legal Sex Female 2:10 AM STONE AND PLATE PREPARER APPRENTICE Gender Identity Not on file Sexual Orientation Not on file documented as of this encounter Medications at Time of Discharge cetirizine (ZyrTEC) 10 mg tablet 04/01/2016Zyrtec, po solid 10 mg TabletPOdailyCurrent Medication 6 eruutefgo-XL-L M-acetaminophe n 2-5-10-325 mg tablets, sequential 04/01/2016Multivitamin, po solid TabletPOdailyCurrent Medication 6 018 cholecalcifero l (VITAMIN D-3) 400 unit capsule 04/01/2016Vitamin d, po solid 400 unit TabletPOdailyCurrent Medication 6 023 FLUoxetine (PROzac) 20 mg capsule 04/01/2016Fluoxetine hcl, po solid 20 mg CapsulePOdailyCurrent Medication 6 018 levothyroxine (SYNTHROID, LEVOTHROID) 50 mcg tablet Take 75 mcg by mouth 01 6 023 omega 5-khx-mjh-fish oil 100-160-1,000 mg capsule 04/01/2016Fish oil omega-3, [...]
--- OUTSIDE RECORDS SUMMARY | 2024-10-06 04:06 | XMS_ITS | Encounter Summary ---
Author Organization [facility] Healthcare Address [address] [place] [address] Care Team Providers Care Ndt Inspector Name Role Phone Unknown, Notinfile Primary Care Provider Unavail able Encounter Details Date Type Department Care Team (Latest Contact Info) Description 02/05/2018 8:50 AM CDT - 02/05/2018 11:59 PM CDT Hospital Encounter [facility] INTERIM [phone] Jonnathan Jack MD [address] [facility] [id number] [place], [place] [id number] Discharge Disposition: Discharge to home or self care Social History Tobacco Use Types Packs/Day Years Used Date Smoking Tobacco: Never Assessed Comments Unknown Sex and Gender Information Value Date Recorded Sex Assigned at Not on file Legal Sex Female 2:10 AM PREMIUM REPRESENTATIVE Gender Identity Not on file Sexual Orientation Not on file documented as of this encounter Last Filed Vital Signs Vital Sign Reading Time Taken Comments Blood Pressure - - Pulse - - Temperature - - Respiratory Rate - - Oxygen Saturation - - Inhaled Oxygen Concentration - - Weight - - Height 157.5 cm (5' 2 ) 07/03/2016 11:33 AM CDT Body Mass Index - - documented in this encounter Medications at Time of Discharge cetirizine (ZyrTEC) 10 mg tablet 04/01/2016Zyrtec, po solid 10 mg TabletPOdailyCurrent Medication 6 pfuzegdox-WZ-V M-acetaminophe n 2-5-10-325 mg tablets, sequential 04/01/2016Multivitamin, po solid TabletPOdailyCurrent Medication 6 018 cholecalcifero l (VITAMIN D-3) 400 unit capsule 04/01/2016Vitamin d, po solid 400 unit TabletPOdailyCurrent Medication 6 023 FLUoxetine (PROzac) 20 mg capsule 04/01/2016Fluoxetine hcl, po solid 20 mg CapsulePOdailyCurrent Medication 6 018 levothyroxine (SYNTHROID, LEVOTHROID) 50 mcg tablet Take 75 mcg by mouth 01 6 023 omega 1-zpo-waj-fish oil 100-160-1,000 mg capsule 04/01/2016Fish oil omega-3, [...] on filedocumented in this encounter Care Teams Ndt Inspector Relationship Specialty Start Date End Date Unknown, Notinfile PCP - General 01/12/18 02/17/18 documented as of this encounter
--- OUTSIDE RECORDS SUMMARY | 2024-10-06 04:06 | XMS_ITS | Encounter Summary ---
Author Organization [facility] Address [address] [facility] [address] [place] [address] Phone Care Team Providers Care Water Taxi Driver Name Role Phone Momo Carrillo MD Primary Care Provider [phone] Reason for Visit * Reason Comments Follow-up Encounter Details Date Type Department Care Team (Late st Contact Info) Description 01/31/2020 1:10 PM CDT Office Visit [facility] Obstetrics and Gynecology [address] [facility] Advanced Medicine 13th [place] [address] [place] [address] Jonnathan Jack MD [address] [facility] [id number] [place] [address] Endometrial cancer (CMS/HCC) (Primary Dx) Social History Tobacco Use Types Packs/Day Years Used Date Smoking Tobacco: Former Smokeless Tobacco: Never Alcohol Use Standard Drinks/Week Comments Yes 0 (1 standard drink = 0.6 oz pur e alcohol) Comments No Sex and Gender Information Value Date Recorded Sex Assigned at Not on file 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 Gender Identity Not on file Sexual Orientation Not on file documented as of this encounter Last Filed Vital Signs Vital Sign Reading Time Taken Comments Blood Pressure 152/88 01/31/2020 12:59 PM CDT Pulse 83 01/31/2020 12:59 PM CDT Temperature 36.3 ??C (97.3 ??F) 01/31/2020 12:59 PM C DT Respiratory Rate 16 01/31/2020 12:59 PM CDT Oxygen Saturation 100% 01/31/2020 12:59 PM CDT Inhaled Oxygen Concentration - - Weight 70.8 kg (156 lb 1.6 oz) 01/31/2020 12:59 PM CDT Height 162.6 cm (5' 4.02 ) 01/31/2020 12:59 PM C DT Body Mass Index 26.78 01/31/2020 12:59 PM CDT documented in this encounter Progress Notes * Jonnathan Jack MD - 01/31/2020 12:00 AM CDT PATIENT: LEWIS RENEE : 1955 AGUSTO: 01/31/2020 HISTORY OF PRESENT ILLNESS: Ms. Renee comes in today in follow-up. She is a 64-year-old woman who comes in today in follow-up for her endometrial carcinoma. She was originally diagnosed in 2006. She had an uncomplicatedpostop course. Subsequently presented with a mass in the psoas muscle in 2016 so a full 10 years later now and she is 4 years out from that. This was a recurrent endometrial cancer. We resected it. She did well. 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 It could have been from an epidural however. She comes in today now because she was thrown from a horse, which prompted a CT scan, and she has a lytic lesion in L2. I reviewed all of her films going back to 2016 and this looks like it is a benign hemangioma. It has been there since 2016 which was when she first got her CT. She has no other issues today and she is feeling well. She is accompanied by her . They were expecting bad news, but I thinkafter review of all of the serial CTs, we have 3 of them, this lesion is unchanged since 2016. PAST MEDICAL HISTORY/REVIEW OF SYSTEMS: Unchanged with [...] nodularity are identified. Bimanual exam is normal. ASSESSMENT: Normal mobile security architect evaluation. No evidence of disease. PLAN: I am going to see the patient back in follow-up in April which is when I was going to see her. We are going to get a CT scan then just to make sure this is unchanged but after review of all of her films, it has been unchanged since 2016. ELECTRONICALLY SIGNED - 02/01/2020 11:16 AM Jonnathan Jack M.D. Jazlyn Orta and Genia Booth Professor, Department of Obstetrics and Gynecology Bundling Machine Operator for Gynecology Division of Gynecologic Oncology [facility]//#[id number] cc: Ashley CARRILLO MD / / documented in this encounter Plan of Treatment Not on file documented as of this encounter Visit Diagnoses Diagnosis Endometrial cancer (CMS/HCC) (HCC)- Primary Malignant neoplasm of corpus uteri, except isthmus documented in this encounter Care Teams Water Taxi Driver Relationship Specialty Start Date End Date Momo Carrillo MD [address] [place] [address] PCP - General 02/18/18 documented as of this encounter
--- OUTSIDE RECORDS SUMMARY | 2024-10-06 04:06 | XMS_ITS | Encounter Summary ---
Author Organization [facility] Healthcare Address [address] [place] [address] Care Team Providers Care Marketing Production Manager Name Role Phone Momo Carrillo MD Primary Care Provider [phone] Encounter Details Date Type Department Care Team (Latest Contact Info) Description 01/28/2017 8:11 AM CDT - 01/28/2017 11:59 PM T Hospital Encounter [facility] INTERIM [phone] Van Jack MD [address] [facility] [phone] [place] [address] Discharge Disposition: Discharge to home or self care Social History Tobacco Use Types Packs/Day Years Used Date Smoking Tobacco: Never Assessed Comments Unknown Sex and Gender Information Value Date Recorded Sex Assigned at Not on file 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 Gender Identity Not on file Sexual Orientation Not on file documented as of this encounter Medications at Time of Discharge cetirizine (ZyrTEC) 10 mg tablet 04/01/2016Zyrtec, po solid 10 mg TabletPOdailyCurrent Medication 6 moomyvhpo-OZ-B M-acetaminophe n 2-5-10-325 mg tablets, sequential 04/01/2016Multivitamin, po solid TabletPOdailyCurrent Medication 6 018 cholecalcifero l (VITAMIN D-3) 400 unit capsule 04/01/2016Vitamin d, po solid 400 unit TabletPOdailyCurrent Medication 6 023 FLUoxetine (PROzac) 20 mg capsule 04/01/2016Fluoxetine hcl, po solid 20 mg CapsulePOdailyCurrent Medication 6 018 levothyroxine (SYNTHROID, LEVOTHROID) 50 mcg tablet Take 75 mcg by mouth 01 6 023 omega 7-tpr-oxm-fish oil 100-160-1,000 mg capsule 04/01/2016Fish oil omega-3, [...] Comments CT ABDOMEN PELVIS W CONTRAST Routine 01/28/2017 1:[address] CHEST W CONTRAST Routine 01/28/2017 1:52 PM CDT POCT CREATININE FOR CONTRAST EVALUATION Routine Gen Lab 01/28/2017 8:34 AM CDT documented in this encounter Results * CT Abdomen Pelvis W Contrast (01/28/2017 1:52 PM CDT) Anatomical Region Laterality Modality Body N/A Computed Tomogra phy 01/28/2017 1:52 PM CDT Narrative 01/28/2017 1:52 PM CDT MD ERICK CARLOS M.D. FINAL REPORT The radiology attending physician has personally reviewed this study, and has reviewed and/or edited this written report and agrees with it. ACC# ??Date Time ??Exam [id number] January 28, 2017 08:52:[id number] Chest with contrast [id number] January 28, 2017 08:52:[address] Abd ??and ??Pelvis with cont EXAMINATION: ?CT OF THE CHEST, ABDOMEN, AND PELVIS WITH INTRAVENOUS CONTRAST HISTORY: ??61-year-old woman presents for followup of endometrial cancer. TECHNIQUE: Transaxial computed tomographic images of the chest, abdomen, and pelvis were obtained with intravenous contrast, 95 mL Optiray-350, according to standard protocol. No immediate complications following contrast administration. FINDINGS: ??Comparison is made to prior CT of the abdomen and pelvis from July 03, 2016. Chest: A right port catheter is in place with tip terminating at the superior cavoatrial junction. There is no supraclavicular, axillary, mediastinal, or hilar lymphadenopathy. The aortic arch and its branch vessels are normal. There is no central pulmonary embolus. The heart is normal in size. There is no pericardial effusion. An unchanged 8 mm nodule is seen within the right middle lobe which abuts the right heart border (series 3, image 88). In addition, there is a stable centrally calcified 9 mm nodule within the right lower lobe (series 3, image 103). No new nodule is identified in either lung. There is no focal consolidation or edema within the lungs. There is no pneumothorax or pleural effusion. Abdomen/Pelvis: A 2 mm hypoattenuating lesion is seen within hepatic segment 6 which is too small to characterize. An additional 2 mm hypoattenuating lesion is seen within hepatic segment 2 which is too small to characterize. Otherwise, no suspicious focal hepatic lesion is identified. Hepatic steatosis is noted. Unchanged fatty replacement is seen within the pancreatic head. The spleen, gallbladder, and adrenal glands are normal. There is no intrahepatic or extrahepatic biliary ductal dilatation. A small hypoattenuating focus is seen within the inferior pole of the left kidney which is too small to characterize. Otherwise, the kidneys are normal with no hydronephrosis or stone identified. The bladder is normal. There is no evidence of local disease recurrence within the right lower quadrant at the site of prior metastasis resection. Postsurgical changes of prior hysterectomy are noted. The bowel is normal in course and caliber without evidence of thickening or obstruction. Postsurgical changes of prior appendectomy are noted. The terminal ileum is normal. No lymphadenopathy is identified within the abdomen and pelvis. No vascular abnormality is identified within the abdomen and pelvis. There is no free intraperitoneal air or fluid. An unchanged 1.2 cm hypoattenuating lesion is seen within the L2 vertebral body also representing a hemangioma. No suspicious lytic or blastic lesion is identified on bone windows. IMPRESSION: ? 1. No evidence of metastatic disease within the abdomen and pelvis. 2. Stable subcentimeter right middle lobe pulmonary nodules. Requested By: VAN JACK M.D. Dictated By: ?? ERICK ALMANZAR M.D. ??on Jan 28 2017 ??9:21A This document has been electronically signed by: WILIAN SHERMAN MD on Jan 28 2017 10:13A [id number] Procedure Note Miscellaneous, Not In File - 02/14/2017 MD ERICK CARLOS M.D. FINAL REPORT The radiology attending physician has personally reviewed this study, and has reviewed and/or edited this written report and agrees with it. ACC# Date Time Exam [id number] January 28, 2017 08:52:[id number] Chest with contrast [id number] January 28, 2017 08:52:[id number] Abd and Pelvis with cont EXAMINATION: CT OF THE CHEST, ABDOMEN, AND PELVIS WITH INTRAVENOUS CONTRAST HISTORY: 61-year-old woman presents for followup of endometrial cancer. TECHNIQUE: Transaxial computed tomographic images of the chest, abdomen, and pelvis were obtained with intravenous contrast, 95 mL Optiray-350, according to standard protocol. No immediate complications following contrast administration. FINDINGS: Comparison is made to prior CT of the abdomen and pelvis from July 03, 2016. Chest: A right port catheter is in place with tip terminating at the superior cavoatrial junction. There is no supraclavicular, axillary, mediastinal, or hilar lymphadenopathy. The aortic arch and its branch vessels are normal. There is no central pulmonary embolus. The heart is normal in size. There is no pericardial effusion. An unchanged 8 mm nodule is seen within the right middle lobe which abuts the right heart border (series 3, image 88). In addition, there is a stable centrally calcified 9 mm nodule within the right lower lobe (series 3, image 103). No new nodule is identified in either lung. There is no focal consolidation or edema within the lungs. There is no pneumothorax or pleural effusion. Abdomen/Pelvis: A 2 mm hypoattenuating lesion is seen within hepatic segment 6 which is too small to characterize. An additional 2 mm hypoattenuating lesion is seen within hepatic segment 2 which is too small to characterize. Otherwise, no suspicious focal hepatic lesion is identified. Hepatic steatosis is noted. Unchanged fatty replacement is seen within the pancreatic head. The spleen, gallbladder, and adrenal glands are normal. There is no intrahepatic or extrahepatic biliary ductal dilatation. A small hypoattenuating focus is seen within the inferior pole of the left kidney which is too small to characterize. Otherwise, the kidneys are normal with no hydronephrosis or stone identified. The bladder isnormal. There is no evidence of local disease recurrence within the right lower quadrant at the site of prior metastasis resection. Postsurgical changes of prior hysterectomy are noted. The bowel is normal in course and caliber without evidence of thickening or obstruction. Postsurgical changes of prior appendectomy are noted. The terminal ileum is normal. No lymphadenopathy is identified within the abdomen and pelvis. No vascular abnormality is identified within the abdomen and pelvis. There is no free intraperitoneal air or fluid. An unchanged 1.2 cm hypoattenuating lesion is seen within the L2 vertebral body also representing a hemangioma. No suspicious lytic or blastic lesion is identified on bone windows. IMPRESSION: 1. No evidence of metastatic disease within the abdomen and pelvis. 2. Stable subcentimeter right middle lobe pulmonary nodules. Requested By: VAN JACK M.D. Dictated By: ERICK ALMANZAR M.D. on Jan 28 2017 9:21A This document has been electronically signed by: WILIAN SHERMAN MD on Jan 28 2017 10:13A [id number] us Not In File Miscellaneous IMG CT PROCEDURES Shira l Result * CT Chest W Contrast (01/28/2017 1:52 PM CDT) Anatomical Region Laterality Modality Body N/A Computed Tomogra phy 01/28/2017 1:52 PM CDT Narrative 01/28/2017 1:52 PM CDT MD ERICK CARLOS M.D. FINAL REPORT The radiology attending physician has personally reviewed this study, and has reviewed and/or edited this written report and agrees with it. ACC# ??Date Time ??Exam [id number] January 28, 2017 08:52:[id number] Chest with contrast [id number] January 28, 2017 08:52:[id number] Abd ??and ??Pelvis with cont EXAMINATION: ?CT OF THE CHEST, ABDOMEN, AND PELVIS WITH INTRAVENOUS CONTRAST HISTORY: ??61-year-old woman presents for followup of endometrial cancer. TECHNIQUE: Transaxial computed tomographic images of the chest, abdomen, and pelvis were obtained with intravenous contrast, 95 mL Optiray-350, according to standard protocol. No immediate complications following contrast administration. FINDINGS: ??Comparison is made to prior CT of the abdomen and pelvis from July 03, 2016. Chest: A right port catheter is in place with tip terminating at the superior cavoatrial junction. There is no supraclavicular, axillary, mediastinal, or hilar lymphadenopathy. The aortic arch and its branch vessels are normal. There is no central pulmonary embolus. The heart is normal in size. There is no pericardial effusion. An unchanged 8 mm nodule is seen within the right middle lobe which abuts the right heart border (series 3, image 88). In addition, there is a stable centrally calcified 9 mm nodule within the right lower lobe (series 3, image 103). No new nodule is identified in either lung. There is no focal consolidation or edema within the lungs. There is no pneumothorax or pleural effusion. Abdomen/Pelvis: A 2 mm hypoattenuating lesion is seen within hepatic segment 6 which is too small to characterize. An additional 2 mm hypoattenuating lesion is seen within hepatic segment 2 which is too small to characterize. Otherwise, no suspicious focal hepatic lesion is identified. Hepatic steatosis is noted. Unchanged fatty replacement is seen within the pancreatic head. The spleen, gallbladder, and adrenal glands are normal. There is no intrahepatic or extrahepatic biliary ductal dilatation. A small hypoattenuating focus is seen within the inferior pole of the left kidney which is too small to characterize. Otherwise, the kidneys are normal with no hydronephrosis or stone identified. The bladder is normal. There is no evidence of local disease recurrence within the right lower quadrant at the site of prior metastasis resection. Postsurgical changes of prior hysterectomy are noted. The bowel is normal in course and caliber without evidence of thickening or obstruction. Postsurgical changes of prior appendectomy are noted. The terminal ileum is normal. No lymphadenopathy is identified within the abdomen and pelvis. No vascular abnormality is identified within the abdomen and pelvis. There is no free intraperitoneal air or fluid. An unchanged 1.2 cm hypoattenuating lesion is seen within the L2 vertebral body also representing a hemangioma. No suspicious lytic or blastic lesion is identified on bone windows. IMPRESSION: ? 1. No evidence of metastatic disease within the abdomen and pelvis. 2. Stable subcentimeter right middle lobe pulmonary nodules. Requested By: VAN JACK M.D. Dictated By: ?? ERICK ALMANZAR M.D. ??on Jan 28 2017 ??9:21A This document has been electronically signed by: WILIAN SHERMAN MD on Jan 28 2017 10:13A [id number] Procedure Note Miscellaneous, Not In File / Provider, MD Palma - 02/14/2017 MD ERICK CARLOS M.D. FINAL REPORT The radiology attending physician has personally reviewed this study, and has reviewed and/or edited this written report and agrees with it. ACC# Date Time Exam [id number] January 28, 2017 08:52:[id number] Chest with contrast [id number] January 28, 2017 08:52:[id number] Abd and Pelvis with cont EXAMINATION: CT OF THE CHEST, ABDOMEN, AND PELVIS WITH INTRAVENOUS CONTRAST HISTORY: 61-year-old woman presents for followup of endometrial cancer. TECHNIQUE: Transaxial computed tomographic images of the chest, abdomen, and pelvis were obtained with intravenous contrast, 95 mL Optiray-350, according to standard protocol. No immediate complications following contrast administration. FINDINGS: Comparison is made to prior CT of the abdomen and pelvis from July 03, 2016. Chest: A right port catheter is in place with tip terminating at the superior cavoatrial junction. There is no supraclavicular, axillary, mediastinal, or hilar lymphadenopathy. The aortic arch and its branch vessels are normal. There is no central pulmonary embolus. The heart is normal in size. There is no pericardial effusion. An unchanged 8 mm nodule is seen within the right middle lobe which abuts the right heart border (series 3, image 88). In addition, there is a stable centrally calcified 9 mm nodule within the right lower lobe (series 3, image 103). No new nodule is identified in either lung. There is no focal consolidation or edema within the lungs. There is no pneumothorax or pleural effusion. Abdomen/Pelvis: A 2 mm hypoattenuating lesion is seen within hepatic segment 6 which is too small to characterize. An additional 2 mm hypoattenuating lesion is seen within hepatic segment 2 which is too small to characterize. Otherwise, no suspicious focal hepatic lesion is identified. Hepatic steatosis is noted. Unchanged fatty replacement is seen within the pancreatic head. The spleen, gallbladder, and adrenal glands are normal. There is no intrahepatic or extrahepatic biliary ductal dilatation. A small hypoattenuating focus is seen within the inferior pole of the left kidney which is too small to characterize. Otherwise, the kidneys are normal with no hydronephrosis or stone identified. The bladder isnormal. There is no evidence of local disease recurrence within the right lower quadrant at the site of prior metastasis resection. Postsurgical changes of prior hysterectomy are noted. The bowel is normal in course and caliber without evidence of thickening or obstruction. Postsurgical changes of prior appendectomy are noted. The terminal ileum is normal. No lymphadenopathy is identified within the abdomen and pelvis. No vascular abnormality is identified within the abdomen and pelvis. There is no free intraperitoneal air or fluid. An unchanged 1.2 cm hypoattenuating lesion is seen within the L2 vertebral body also representing a hemangioma. No suspicious lytic or blastic lesion is identified on bone windows. IMPRESSION: 1. No evidence of metastatic disease within the abdomen and pelvis. 2. Stable subcentimeter right middle lobe pulmonary nodules. Requested By: VAN JACK M.D. Dictated By: ERICK ALMANZAR M.D. on Jan 28 2017 9:21A This document has been electronically signed by: WILIAN SHERMAN MD on Jan 28 2017 10:13A [id number] us Not In File Miscellaneous IMG CT PROCEDURES Shira l Result * POCT creatinine (01/28/2017 8:34 AM CDT) Creatinine POC 0.8 0.6 - 1.1 mg/dL MAKAYLA GARRIDO Blood specimen (specimen) 01/28/2017 8:34 AM CDT 01/28/2017 8:34 AM CDT us Van Jack MD POINT OF CARE TEST ORDERABLES Final Result Performing Organization Address City/State/[facility] Co de Phone Number [facility] Department [place] [address] documented in this encounter Visit Diagnoses Not on filedocumented in this encounter Care Teams Marketing Production Manager Relationship Specialty Start Date End Date Momo Carrillo MD [address] [place] [address] PCP - General 01/07/17 12/15/17 documented as of this encounter
--- OUTSIDE RECORDS SUMMARY | 2024-10-06 04:06 | XMS_ITS | Encounter Summary ---
Author Organization [facility] Address [address] [place] [address] Phone Care Team Providers Care Trans Router Name Role Phone Momo Carrillo MD Primary Care Provider [phone] Encounter Details Date Type Department Care Team (Late st Contact Info) Description 05/10/2019 Orders Only [facility] Obstetrics and Gynecology [address] [facility] Advanced Medicine 13th [place] [address] [place] [address] Polly Macdonald RN Endometrial cancer (CMS/HCC) (Primary Dx) Social History Tobacco Use Types Packs/Day Years Used Date Smoking Tobacco: Former Smokeless Tobacco: Never Alcohol Use Standard Drinks/Week Comments Yes 0 (1 standard drink = 0.6 oz pur e alcohol) Comments No Sex and Gender Information Value Date Recorded Sex Assigned at Not on file 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 Values obtained from different assay methods cannot be used interchangeably. CA 125 levels, regardless of value, should not be interpreted as absolute evidence of the presence or absence of disease. Blood specimen (specimen) 11/09/2019 7:08 AM TIRE SETTER 11/09/2019 7:08 AM TIRE SETTER Narrative [facility] - 11/10/2019 9:18 AM TIRE SETTER AN UPDATE OR CORRECTION HAS BEEN MADE TO NAME Resulting Agency Comment Performing Organization Information: ?Site ID: [facility] ?Name: [facility] ?Address: [address] [place] [address] ?Director: Adarsh Marion D.O., MPH us Jonnathan Jack MD LAB BLOOD ORDERABLES Final Res ult [facility] [place] documented in this encounter Visit Diagnoses Diagnosis Endometrial cancer (CMS/HCC) (HCC)- Primary Malignant neoplasm of corpus uteri, except isthmus documented in this encounter Care Teams Trans Router Relationship Specialty Start Date End Date Momo Carrillo MD [address] [place] [place] [address] PCP - General 02/18/18 documented as of this encounter
--- OUTSIDE RECORDS SUMMARY | 2024-10-06 04:06 | XMS_ITS | Encounter Summary ---
Author Organization [facility] Address [address] [place] [address] Phone Care Team Providers Care Tour Sales Representative Name Role Phone Momo Carrillo MD Primary Care Provider [phone] Momo Carrillo MD Unavailable Encounter Details Date Type Department Care Team (Latest Contact Info) Description 08/30/2019 Orders Only [facility] Scanning, Provider Social History Tobacco Use Types Packs/Day Years Used Date Smoking Tobacco: Former Smokeless Tobacco: Never Alcohol Use Standard Drinks/Week Comments Yes 0 (1 standard drink = 0.6 oz pur e alcohol) Comments No Sex and Gender Information Value Date Recorded Sex Assigned at Not on file 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 Gender Identity Not on file Sexual Orientation Not on file documented as of this encounter Plan of Treatment Not on file documented as of this encounter Procedures Procedure Name Priority Date/Time Associated Diagnosis Comments SCAN - LABS 08/30/2019 documented in this encounter Results * SCAN - LABS (08/30/2019) us Provider Scanning Final Result documented in this encounter Visit Diagnoses Not on filedocumented in this encounter Care Teams Tour Sales Representative Relationship Specialty Start Date End Date Momo Carrillo MD [address] [place] [address] PCP - General 02/18/18 Momo Carrillo MD [address] [place] [address] Referring Physician Family Medicine 11/20/20 documented as of this encounter
--- OUTSIDE RECORDS SUMMARY | 2024-10-06 04:06 | XMS_ITS | Encounter Summary ---
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 Jonnathan Jack MD Phone: tel: fax: Jonnathan Jack MD [address] [facility] [phone] [place] [address] Phone: tel: fax: Referral ID Status Reason Start Date Expiration Date Visits Re quested Visits Authorized [id number] Closed 07/14/2018 01/23/2020 1 1 Encounter Details Date Type Department Care Team (Late st Contact Info) Description 07/14/2018 2:00 PM CDT Office Visit [facility] Obstetrics and Gynecology [address] [facility] 13th [place] [address] [place] [address] Jonnathan Jack MD [address] [facility] [phone] [place] [address] Endometrial cancer (CMS/HCC) (Primary Dx) Social History Tobacco Use Types Packs/Day Years Used Date Smoking Tobacco: Former Smokeless Tobacco: Never Alcohol Use Standard Drinks/Week Comments Yes 0 (1 standard drink = 0.6 oz pur e alcohol) Comments No Sex and Gender Information Value Date Recorded Sex Assigned at Not on file Legal Sex Female 2:10 AM 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 Gender Identity Not on file Sexual Orientation Not on file documented as of this encounter Last Filed Vital Signs Vital Sign Reading Time Taken Comments Blood Pressure 136/77 07/14/2018 1:42 PM CDT Pulse 78 07/14/2018 1:42 PM CDT Temperature 36.5 ??C (97.7 ??F) 07/14/2018 1:42 PM CD T Respiratory Rate 18 07/14/2018 1:42 PM CDT Oxygen Saturation 99% 07/14/2018 1:42 PM CDT Inhaled Oxygen Concentration - - Weight 74.8 kg (165 lb) 07/14/2018 1:42 PM CDT Height 162.6 cm (5' 4 ) 07/14/2018 1:42 PM CDT Body Mass Index 28.32 07/14/2018 1:42 PM CDT documented in this encounter Progress Notes * Jonnathan Jack MD - 07/14/2018 12:00 AM CDT PATIENT: LEWIS RENEE : 1955 AGUSTO: 07/14/2018 HISTORY OF PRESENT ILLNESS: Ms. 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 This patient was diagnosed in March 2003. She had an uncomplicated postop course. She had an endometrial cancer. Her original hysterectomy actually was in 2005. She did well. She presented with a mass on her psoas muscle to Dr. Jg Carrillo, who made the diagnosis now about 2 years ago. We took her to the operating room. We resected this mass and the right colon with it. Shethen underwent postop chemotherapy. Unfortunately, her port got infected, and then she developed osteomyelitis. We had significant delay of her chemotherapy, but in the end, everything worked out, and she has remained disease free. Her CA-125 level today is 3. She does complain of some peculiar pain, like sometimes just a squeezing, sort of crampy pain that actually kind of brings her to the floor and she just waits for awhile and it resolves, but I am not sure what exactly this is, and I think it is worth investigating, and I think she would feel more comfortable if we did that as well. PAST MEDICAL HISTORY/REVIEW OF SYSTEMS: Unchanged with the exception of the above updates. Discussed with the patient today. PHYSICAL EXAM: Vital Signs: Vitals are as noted in the patient's chart. General Appearance: A well-developed, well-nourished female in no acute distress. Lungs: Clear. Heart: Regular rate and rhythm. Normal S1/S2. Neck: No thyromegaly. Breasts: Deferred. Abdomen: She has some right-sided abdominal pain. No evidence of masses or ascites. No hepatosplenomegaly. CVA: No tenderness. Extremities: No edema, cyanosis or tenderness. Superficial LN: Without adenopathy. Skin: Clear. PELVIC EXAM: External Genitalia: Normal, no vulvar lesions seen. Normal hair distribution. Urethral Meatus: Normal in size, caliber, and location. Urethra clear. No prolapse or polyps. Vagina: Clear, no lesions seen or palpated. No significant cystocele or rectocele. Adequate support. Bimanual: No evidence of disease. ASSESSMENT/PLAN: 1. No evidence of disease. 2. Normal CA-125. 3. Some right-sided abdominal pain that we are going to investigate with a CT, and I will see her back in 3 months. ELECTRONICALLY SIGNED - 07/15/2018 03:05 PM Danica Lind Professor, Department of Obstetrics and Gynecology Rural Electrification Engineer for Gynecology Division of Gynecologic Oncology Fellowship Director, Division of Gynecologic Oncology [facility] MARISOL/[id number] cc: Ashley CARRILLO MD / / documented in this encounter Miscellaneous Notes * Treatment Plan - Jonnathan Jack MD - 07/14/2018 2:00 PM CDT Please schedule Lewis Renee for the following: Requested Order Contrast Indication When CXR CT Chest, Abdomen, and Pelvis CT Abdomen and Pelvis Fu ovarian cancer with pain LEEANNA LEEP (during clinic hours) FISH ROE TECHNICIAN Ultrasound MRI Mammogram PET Initiate Survivoship Care Plan Surveillance Labs (CBC w/ Diff, CMP, Magnesium, CA125) Labwork: documented in this encounter Plan of Treatment Not on file documented as of this encounter Visit Diagnoses Diagnosis Endometrial cancer (CMS/HCC) (HCC)- Primary Malignant neoplasm of corpus uteri, except isthmus documented in this encounter Discontinued Medications Medication Sig Discontinue Reason Start Date End Da te FLUoxetine (PROzac) 20 mg capsule 04/01/2016Fluoxetine hcl, po solid 20 mg CapsulePOdailyCurrent Medication Other 04/01/2016 07/14/2018 documented as of this encounter Orders Appointment Requests Count Last Ordered Date Fi rst Ordered Date ONCBCN CLINIC APPOINTMENT REQUEST 1 019 documented in this encounter Care Teams Licensed Social Worker Relationship Specialty Start Date End Date Momo Carrillo MD [address] [place] [address] PCP - General 02/18/18 documented as of this encounter
--- OUTSIDE RECORDS SUMMARY | 2024-10-06 04:06 | XMS_ITS | Encounter Summary ---
Author Organization [facility] Address [address] [place] [address] Care Team Providers Care Retail Sales Associate Bilingual Name Role Phone Unavailable Primary Care Provider Unavailabl e Encounter Details Date Type Department Care Team (Latest Contact Info) Description 12/17/2016 7:34 AM CDT - 12/17/2016 11:59 PM CDT Hospital Encounter [facility] [phone] Jonnathan Jack MD [address] [facility] [phone] [place], [place] [id number] Discharge Disposition: Discharge to home or self care Social History Tobacco Use Types Packs/Day Years Used Date Smoking Tobacco: Never Assessed Comments Unknown Sex and Gender Information Value Date Recorded Sex Assigned at Not on file Legal Sex Female 2:10 AM PREMIUM NOTE INTEREST CALCULATOR CLERK Gender Identity Not on file Sexual Orientation Not on file documented as of this encounter Medications at Time of Discharge cetirizine (ZyrTEC) 10 mg tablet 04/01/2016Zyrtec, po solid 10 mg TabletPOdailyCurrent Medication 6 wvoeyform-YO-G M-acetaminophe n 2-5-10-325 mg tablets, sequential 04/01/2016Multivitamin, po solid TabletPOdailyCurrent Medication 6 06/27/2 018 cholecalcifero l (VITAMIN D-3) 400 unit capsule 04/01/2016Vitamin d, po solid 400 unit TabletPOdailyCurrent Medication 6 023 FLUoxetine (PROzac) 20 mg capsule 04/01/2016Fluoxetine hcl, po solid 20 mg CapsulePOdailyCurrent Medication 6 018 levothyroxine (SYNTHROID, LEVOTHROID) 50 mcg tablet Take 75 mcg by mouth 01 6 023 omega 5-drz-urb-fish oil 100-160-1,000 mg capsule 04/01/2016Fish oil omega-3, [...]
--- OUTSIDE RECORDS SUMMARY | 2024-10-06 04:06 | XMS_ITS | Encounter Summary ---
Author Organization [facility] Address [address] [place] [address] Care Team Providers Care Contract Post Office Clerk Name Role Phone Momo Carrillo MD Primary Care Provider [phone] Encounter Details Date Type Department Care Team (Latest Contact Info) Description 01/25/2020 5:02 PM CDT - 01/25/2020 11:59 PM CDT Hospital Encounter [facility] [address] [place] [id number] Diagnosis unknown Discharge Disposition: Discharge to home or self care Social History Tobacco Use Types Packs/Day Years Used Date Smoking Tobacco: Former Smokeless Tobacco: Never Alcohol Use Standard Drinks/Week Comments Yes 0 (1 standard drink = 0.6 oz pur e alcohol) Comments No Sex and Gender Information Value Date Recorded Sex Assigned at Not on file Legal Sex Female 2:10 AM WEIGH BOSS Gender Identity Not on file Sexual Orientation Not on file documented as of this encounter Medications at Time of Discharge cetirizine (ZyrTEC) 10 mg tablet 04/01/2016Zyrtec, po solid 10 mg TabletPOdailyCurrent Medication 6 FLUoxetine (PROzac) 20 mg tablet Take 1 tablet (20 mg total) by mouth daily polyethylene glycol (MIRALAX) 17 gram packet cholecalcifero l (VITAMIN D-3) 400 unit capsule 04/01/2016Vitamin d, po solid 400 unit TabletPOdailyCurrent Medication 6 023 levothyroxine (SYNTHROID, LEVOTHROID) 50 mcg tablet Take 75 mcg by mouth 01 6 023 omega 7-pkt-byc-fish oil 100-160-1,000 mg capsule 04/01/2016Fish oil omega-3, po solid 300-1000mg CapsulePOdailyCurrent Medication 6 023 simvastatin (ZOCOR) 10 mg tablet Take 10 mg by mouth nightly 023 vitamin E 100 unit/0.25 mL drops 04/01/2016Vitamin e, po solid 1000 unit CapsulePOdailyCurrent Medication 6 023 documented as of this encounter Discharge Disposition Disposition Code Departure Means Destination Discharge to home or self care documented in this encounter Plan of Treatment Not on file documented as of this encounter Procedures Procedure Name Priority Date/Time Associated Diagnosis Comments CT BODY OUTSIDE CONSULT Routine 01/25/2020 5:02 PM CDT Diagnosis unknown documented in this encounter Results * CT Body Outside Consult (01/25/2020 5:02 PM CDT) Anatomical Region Laterality Modality Body N/A Computed Tomogra phy 01/25/2020 6:21 PM CDT Impressions 01/25/2020 6:[address] evidence of metastatic disease within the chest, abdomen, and pelvis. 2. Unchanged lytic lesion within the L2 vertebral body. This lesion is unchanged compared to the prior examination from 2018 and a benign etiology is favored. Attention on follow-up imaging is recommended. The findings, conclusions and recommendations within this report do not replace the initial findings, conclusions ??and recommendations made at the facility where the study was performed based upon the imaging and clinical condition at that time. ??Comparison with the prior report and clinical history is necessary. ??The provided images may or may not represent the kiana source data set and thus may contain changes that may lower the accuracy of this second-opinion interpretation. Electronically signed by: Danica Hodge 01/25/2020 6:21 PM CDT EXAMINATION: RADIOLOGY CONSULTATION ON OUTSIDE IMAGING STUDY STUDY INITIALLY PERFORMED: 01/23/2020 at [place]. TYPE OF STUDY: Multiple CT images of the chest, abdomen, and pelvis without intravenous contrast are provided at the time of this interpretation. CONTRAST ROUTE: None given The protocol was adequate to address the clinical question. The outside final report was not available at the time of this second opinion interpretation. TYPE OF CONSULTATION: Consult on outside imaging study with images submitted through [facility] DATE OF CONSULTATION: 01/25/2020 6:17 PM HISTORY: Endometrioid adenocarcinoma COMPARISON: 07/23/2018 FINDINGS: Atelectasis is seen within the lingula and [...] abdominal lymphadenopathy no free fluid or gas. Bone windows demonstrate a lytic lesion within the L2 vertebral body which measures 1 cm. When compared to the prior examination from 07/23/2018 this lesion is unchanged and favored to be benign. Procedure Note Dennis Lugo MD - 01/25/2020 EXAMINATION: RADIOLOGY CONSULTATION ON OUTSIDE IMAGING STUDY STUDY INITIALLY PERFORMED: 01/23/2020 at [place]. TYPE OF STUDY: Multiple CT images of the chest, abdomen, and pelvis without intravenous contrast are provided at the time of this interpretation. CONTRAST ROUTE: None given The protocol was adequate to address the clinical question. The outside final report was not available at the time of this second opinion interpretation. TYPE OF CONSULTATION: Consult on outside imaging study with images submitted through [facility] DATE OF CONSULTATION: 01/25/2020 6:17 PM HISTORY: Endometrioid adenocarcinoma COMPARISON: 07/23/2018 FINDINGS: Atelectasis is seen within the lingula and [...] abdominal lymphadenopathy no free fluid or gas. Bone windows demonstrate a lytic lesion within the L2 vertebral body which measures 1 cm. When compared to the prior examination from 07/23/2018 this lesion is unchanged and favored to be benign. IMPRESSION: 1. No CT evidence of metastatic disease within the chest, abdomen, and pelvis. 2. Unchanged lytic lesion within the L2 vertebral body. This lesion is unchanged compared to the prior examination from 2018 and a benign etiology is favored. Attention on follow-up imaging is recommended. The findings, conclusions and recommendations within this report do not replace the initial findings, conclusions and recommendations made at the facility where the study was performed based upon the imaging and clinical condition at that time. Comparison with the prior report and clinical history is necessary. The provided images may or may not represent the kiana source data set and thus may contain changes that may lower the accuracy of this second-opinion interpretation. Electronically signed by: Dennis Lugo M.D. Jonnathan Jack MD IMG CT PROCEDURES Final Result documented in this encounter Visit Diagnoses Diagnosis Diagnosis unknown documented in this encounter Care Teams Contract Post Office Clerk Relationship Specialty Start Date End Date Momo Carrillo MD [address] [place] [address] PCP - General 02/18/18 documented as of this encounter
--- OUTSIDE RECORDS SUMMARY | 2024-10-06 04:06 | XMS_ITS | Encounter Summary ---
Author Organization [facility] Address [address] [place] [address] Care Team Providers Care Ham Stringer Name Role Phone Momo Carrillo MD Primary Care Provider [phone] Encounter Details Date Type Department Care Team (Latest Contact Info) Description 01/23/2017 11:00 AM CDT - 01/23/2017 11:59 PM T Hospital Encounter [facility] [phone] Jonnathan Jack MD [address] [facility] [phone] [place] [address] Discharge Disposition: Discharge to home or self care Social History Tobacco Use Types Packs/Day Years Used Date Smoking Tobacco: Never Assessed Comments Unknown Sex and Gender Information Value Date Recorded Sex Assigned at Not on file Legal Sex Female 2:10 AM CARBOY FILLER Gender Identity Not on file Sexual Orientation Not on file documented as of this encounter Medications at Time of Discharge cetirizine (ZyrTEC) 10 mg tablet 04/01/2016Zyrtec, po solid 10 mg TabletPOdailyCurrent Medication 6 aaphhlina-VF-U M-acetaminophe n 2-5-10-325 mg tablets, sequential 04/01/2016Multivitamin, po solid TabletPOdailyCurrent Medication 6 018 cholecalcifero l (VITAMIN D-3) 400 unit capsule 04/01/2016Vitamin d, po solid 400 unit TabletPOdailyCurrent Medication 6 023 FLUoxetine (PROzac) 20 mg capsule 04/01/2016Fluoxetine hcl, po solid 20 mg CapsulePOdailyCurrent Medication 6 018 levothyroxine (SYNTHROID, LEVOTHROID) 50 mcg tablet Take 75 mcg by mouth 01 6 023 omega 4-tbp-upf-fish oil 100-160-1,000 mg capsule 04/01/2016Fish oil omega-3, [...] on filedocumented in this encounter Care Teams Ham Stringer Relationship Specialty Start Date End Date Momo Carrillo MD [address] [place] [address] PCP - General 01/07/17 12/15/17 documented as of this encounter
--- OUTSIDE RECORDS SUMMARY | 2024-10-06 04:06 | XMS_ITS | Encounter Summary ---
Author Organization [facility] Address [address] [facility] [address] [place] [address] Phone Care Team Providers Care Content Designer Name Role Phone Momo Carrillo MD Primary Care Provider [phone] Encounter Details Date Type Department Care Team (Late st Contact Info) Description 05/15/2020 2:30 PM CDT Office Visit [facility] [address] [facility] Advanced Medicine 13th [place] [address] [place] [address] Jonnathan Jack MD [address] [facility] [phone] [place] [address] Endometrial cancer (CMS/HCC) (Primary Dx) Social History Tobacco Use Types Packs/Day Years Used Date Smoking Tobacco: Former Smokeless Tobacco: Never Alcohol Use Standard Drinks/Week Comments Yes 0 (1 standard drink = 0.6 oz pur e alcohol) Comments No Sex and Gender Information Value Date Recorded Sex Assigned at Not on file Legal Sex Female 2:10 AM SENIOR SOFTWARE DEVELOPMENT ENGINEER Gender Identity Not on file Sexual Orientation Not on file documented as of this encounter Last Filed Vital Signs Vital Sign Reading Time Taken Comments Blood Pressure 147/77 05/15/2020 2:13 PM CDT Pulse 58 05/15/2020 2:13 PM CDT Temperature 36.3 ??C (97.3 ??F) 05/15/2020 2:13 PM CD T Respiratory Rate - - Oxygen Saturation 97% 05/15/2020 2:13 PM CDT Inhaled Oxygen Concentration - - Weight 71.2 kg (157 lb) 05/15/2020 2:13 PM CDT Height 162.6 cm (5' 4 ) 05/15/2020 2:13 PM CDT Body Mass Index 26.95 05/15/2020 2:13 PM CDT documented in this encounter Progress Notes * Jonnathan Jack MD - 05/15/2020 12:00 AM CDT PATIENT: LEWIS RENEE : 1955 AGUSTO: 05/15/2020 HISTORY OF PRESENT ILLNESS: Ms. Renee comes in follow-up. She is a 64-year-old woman who had an endometrial cancer. Shewas originally diagnosed in 2005. She had an uncomplicated postop course, but subsequently presented with a mass in the psoas muscle in 2016. That was a full 10 years after her primary disease and she is now 4 years out from that. She had a recurrent endometrial cancer. We resected it. She did well. Unfortunately, treatment was significantly delayed because of osteomyelitis either from seeding from the surgery or from the epidural catheter, we are not sure. Suffice it to say that she was treated for osteo and now is doing well and there is no evidence of disease. The only problem is that her CA-125 is 2, which is nonmeasurable, well into the nonmeasurable range, but her white count is running in the 3000 range which could be normal for her, but I think we need to follow this carefully to make sure does not worsen, so we will get a CBC with differential every 3 months. She is accompaniedby her sister. PAST MEDICAL HISTORY/REVIEW OF SYSTEMS: Unchanged with [...] masses, tenderness or nodularity are identified. ASSESSMENT/PLAN: 1. Patient with a white count of 3000. We are going to continue to monitor this. 2. CA-125 that is normal. 3. I am going to see her back in 6 months but we are going to get a CBC with diff every 2 months, so we will get 1 in 2 months, 4 months, and then I will see her in 6. ELECTRONICALLY SIGNED - 05/16/2020 08:51 AM Jonnathan Jack M.D. Jazlyn Orta and Genia Camejo, Department of Obstetrics and Gynecology Autistic Teacher for Gynecology Division of Gynecologic Oncology [facility] LIBRA//#[id number] cc: Ashley CARRILLO MD / / documented in this encounter Plan of Treatment Not on file documented as of this encounter Visit Diagnoses Diagnosis Endometrial cancer (CMS/HCC) (HCC)- Primary Malignant neoplasm of corpus uteri, except isthmus documented in this encounter Orders Appointment Requests Count Last Ordered Date Fi rst Ordered Date ONCBCN CLINIC APPOINTMENT REQUEST 1 021 documented in this encounter Care Teams Content Designer Relationship Specialty Start Date End Date Momo Carrillo MD [address] [place] [address] PCP - General 02/18/18 documented as of this encounter
--- OUTSIDE RECORDS SUMMARY | 2024-10-06 04:06 | XMS_ITS | Encounter Summary ---
Author Organization [facility] Facility Care Team Providers Care Emergency Communications Officer Name Role Phone Unavailable Primary Care Provider Unavailabl e Encounter Details Date Type Department Care Team (Late st Contact Info) Description 09/04/2016 9:21 AM GRAPHITE MILL OPERATOR - 09/04/2016 11:59 PM GRAPHITE MILL OPERATOR [facility] [phone] [place] [address] Malignant neoplasm of endometrium (CMS/HCC) Social History Tobacco Use Types Packs/Day Years Used Date Smoking Tobacco: Never Assessed Comments Unknown Sex and Gender Information Value Date Recorded Sex Assigned at Not on file Legal Sex Female 2:10 AM GRAPHITE MILL OPERATOR Gender Identity Not on file Sexual Orientation Not on file documented as of this encounter Medications at Time of Discharge cetirizine (ZyrTEC) 10 mg tablet 04/01/2016Zyrtec, po solid 10 mg TabletPOdailyCurrent Medication 6 zhdpntnck-US-R M-acetaminophe n 2-5-10-325 mg tablets, sequential 04/01/2016Multivitamin, po solid TabletPOdailyCurrent Medication 6 03/17/ 018 cholecalcifero l (VITAMIN D-3) 400 unit capsule 04/01/2016Vitamin d, po solid 400 unit TabletPOdailyCurrent Medication 6 023 FLUoxetine (PROzac) 20 mg capsule 04/01/2016Fluoxetine hcl, po solid 20 mg CapsulePOdailyCurrent Medication 6 018 levothyroxine (SYNTHROID, LEVOTHROID) 50 mcg tablet Take 75 mcg by mouth 01 6 023 omega 3-wng-xns-fish oil 100-160-1,000 mg capsule 04/01/2016Fish oil omega-3, [...] Procedure Name Priority Date/Time Associated Diagnosis Comments PLASMA PROTHROMBIN TIME (PT) Routine 09/04/2016 9:55 AM GRAPHITE MILL OPERATOR PLASMA PARTIAL THROMBOPLASTIN TIME (PTT) Routine 09/04/2016 9:55 AM GRAPHITE MILL OPERATOR BLOOD CELL COUNT (CBC) Routine 6 9:30 AM GRAPHITE MILL OPERATOR BLOOD CELL MORPHOLOGIC EXAM Routine 09/04/2016 9:30 AM GRAPHITE MILL OPERATOR DISCHARGE LABORATORY CUMULATIVE REPORT 09/04/2016 documented in this encounter Results * (ABNORMAL) Plasma partial thromboplastin time (PTT) (09/04/2016 9:55 AM GRAPHITE MILL OPERATOR) APTT 39.4(H) 25.0 - 37.0 seconds CDR HISTORICAL RESULTS Comment: Interpretive Data Therapeutic heparin range:60.0 - 94.0 sec based on correlation with therapeutic heparin activity range of 0.3 -0.7 Units/mL. Current interpretive data was last revised on 2011. Plasma 09/04/2016 9:55 AM GRAPHITE MILL OPERATOR us Jonnathan Jack MD LAB BLOOD ORDERABLES Final Res ult Performing Organization Address [facility] de Phone Number CDR HISTORICAL RESULTS * Plasma prothrombin time (PT) (09/04/2016 9:55 AM GRAPHITE MILL OPERATOR) Prothrombin time (PT) 12.1 9.2 - 14.0 seconds CDR HISTORICAL RESULTS INR 1.06 0.81 - 1.22 CDR HIST ORICAL RESULTS Comment: Interpretive Data Inpatient therapeutic ranges* Atrial fibrillation ?2.0-3.0 INR Venous thrombo-embolism ?2.0-3.0 INR Bioprosthetic heart valve ?* Mechanical heart valve, bileaflet or tilting disk,aortic position ? 2.0-3.0 INR All other,or bileaflet or tilting disk, in mitral position ? 2.5-3.5 INR *See the pharmacy resource directory (PHRED) for an updated copy of the Tool Book at [email or web address] Current Interpretive Data was last revised 2011. Plasma 09/04/2016 9:55 AM GRAPHITE MILL OPERATOR us Jonnathan Jack MD LAB BLOOD ORDERABLES Final Res ult Performing Organization Address [facility] de Phone Number CDR HISTORICAL RESULTS * (ABNORMAL) Blood cell count (CBC) (09/04/2016 9:30 AM GRAPHITE MILL OPERATOR) WBC 3.2(L) 3.8 - 9.9 K/cumm CDR HISTORICAL RESULTS RBC 3.83(L) 3.90 - 5.20 M/cumm CDR HISTORICAL RESULTS Hgb 11.7(L) 11.9 - 15.5 g/dl CDR HISTORICAL RESULTS Hct 35.1(L) 35.6 - 45.5 % CDR HISTORICAL RESULTS MCV 91.6 81.3 - 96.4 fl CDR HISTORICAL RESULTS MCH 30.5 27.1 - 33.3 pg CDR HISTORICAL RESULTS MCHC 33.3 32.3 - 35.7 g/dl CDR HISTORICAL RESULTS Rdw 13.9 11.1 - 14.9 % CDR HISTORICAL RESULTS RDW 46.6 35.7 - 48.1 fl CDR HISTORICAL RESULTS Platelets 204 150 - 400 K/cumm CDR HISTORICAL RESULTS MPV 10.7 9.1 - 12.3 fl CDR HISTORICAL RESULTS NRBC 0.0 0.0 - 0.2 % CDR HIST ORICAL RESULTS NRBC, abs 0.00 0.00 - 0.01 K/cumm CDR HISTORICAL RESULTS Blood specimen (specimen) 09/04/2016 9:30 AM GRAPHITE MILL OPERATOR Jonnathan Jack MD LAB BLOOD ORDERABLES Final Res ult CDR HISTORICAL RESULTS * Blood cell morphologic exam (09/04/2016 9:30 AM GRAPHITE MILL OPERATOR) Neutrophils 58.0 % CDR HIST ORICAL RESULTS Immature granulocytes 0.3 % CDR HISTORICAL RESULTS Lymphocytes 31.7 % CDR HIST ORICAL RESULTS Monos 7.2 % CDR HISTOR ICAL RESULTS Eosinophils 1.9 % CDR HIST ORICAL RESULTS Basophils 0.9 % CDR HISTOR ICAL RESULTS Neutrophils, abs 1.8 1.7 - 6.5 K/cumm CDR HISTORICAL RESULTS Immature granulocyte, abs 0.0 0.0 - 0.1 K/cumm CDR HISTORICAL RESULTS Lymphocytes, abs 1.0 0.8 - 3.3 K/cumm CDR HISTORICAL RESULTS Monocytes, absolute 0.2 0.2 - 0.8 K/cumm CDR HISTORICAL RESULTS Eosinophils, abs 0.1 0.0 - 0.5 K/cumm CDR HISTORICAL RESULTS Basophils, abs 0.0 0.0 - 0.1 K/cumm CDR HISTORICAL RESULTS Blood specimen (specimen) 09/04/2016 9:30 AM GRAPHITE MILL OPERATOR Jonnathan Jcak MD LAB BLOOD ORDERABLES Final Res ult CDR HISTORICAL RESULTS * DISCHARGE LABORATORY CUMULATIVE REPORT (09/04/2016) Narrative 09/04/2016 Ordered by an unspecified provider. us Historical Provider LAB BLOOD ORDERABLES Shira l Result documented in this encounter Visit Diagnoses Diagnosis Malignant neoplasm of endometrium (CMS/HCC) (HCC) Malignant neoplasm of corpus uteri, except isthmus documented in this encounter
--- OUTSIDE RECORDS SUMMARY | 2024-10-06 04:06 | XMS_ITS | Encounter Summary ---
Author Organization [facility] Address [address] [facility] [address] [place] [address] Phone Care Team Providers Care Gaming Manager Name Role Phone Momo Carrillo MD Primary Care Provider [phone] Momo Carrillo MD Unavailable Encounter Details Date Type Department Care Team (Late st Contact Info) Description 11/20/2020 1:30 PM MACHINE CASTINGS PLASTERER Office Visit [facility] Obstetrics and Gynecology [address] [facility] Advanced Medicine 13th [place] [address] [place] [address] Jonnathan Jack MD [address] [facility] [phone] [place] [address] Endometrial cancer ([facility]/HCC) Social History Tobacco Use Types Packs/Day Years Used Date Smoking Tobacco: Former Smokeless Tobacco: Never Alcohol Use Standard Drinks/Week Comments Yes 0 (1 standard drink = 0.6 oz pur e alcohol) Comments No Sex and Gender Information Value Date Recorded Sex Assigned at Not on file Legal Sex Female 2:10 AM MACHINE CASTINGS PLASTERER Gender Identity Not on file Sexual Orientation Not on file documented as of this encounter Last Filed Vital Signs Vital Sign Reading Time Taken Comments Blood Pressure 136/72 11/20/2020 1:22 PM MACHINE CASTINGS PLASTERER Pulse 69 11/20/2020 1:22 PM MACHINE CASTINGS PLASTERER Temperature 36.7 ??C (98 ??F) 11/20/2020 1:22 PM MACHINE CASTINGS PLASTERER Respiratory Rate 20 11/20/2020 1:22 PM MACHINE CASTINGS PLASTERER Oxygen Saturation 97% 11/20/2020 1:22 PM MACHINE CASTINGS PLASTERER Inhaled Oxygen Concentration - - Weight 73.4 kg (161 lb 12.8 oz) 11/20/2020 1:22 PM MACHINE CASTINGS PLASTERER Height 162.6 cm (5' 4 ) 11/20/2020 1:22 PM MACHINE CASTINGS PLASTERER Body Mass Index 27.77 11/20/2020 1:22 PM MACHINE CASTINGS PLASTERER documented in this encounter Progress Notes * Jonnathan Jack MD - 11/20/2020 12:00 AM CST PATIENT: LEWIS RENEE : 1955 AGUSTO: 11/20/2020 HISTORY OF PRESENT ILLNESS: Ms. Renee is a 65-year-old woman who was originally diagnosed with endometriosis in 2016, underwent a hysterectomy. She had an uncomplicated postop course, but subsequently presented with a mass in the psoas muscle in 2016. It was a full 10 years after her primary disease. It turns out thatit was a recurrent endometrial cancer and within the endometriosis and within the uterus when she had her hysterectomy, it seems like there probably was an occult endometrial cancer. She then came tosee me. We resected it. She actually did well. Unfortunately, the treatment was significantly delayed because of osteomyelitis either from seeding from her surgery or from the epidural catheter. We are not sure which. Suffice it to say that she was treated for osteomyelitis and then received her chemotherapy and she is doing well at this point. Her CA-125 level has been normal. The one just mostrecently is 2, so it is stable in the nonmeasurable range. Her performance status is a 0, and I think that she has completely recovered. She has no other issues today. PAST MEDICAL HISTORY/REVIEW OF SYSTEMS: Unchanged with [...] tenderness or nodularity are identified. ASSESSMENT/PLAN: 1. CA-125 level is normal. 2. Her CA-125 has been normal, though she has had a white count that has hovered in the 3000, so ithas been kind of low, but it is about 3 now, which is just sort of right on the cusp. She is being followed by Medical Oncology for this or Heme-Onc and otherwise is doing well. 3. She has got no evidence of disease at this point. 4. I am going to see the patient back for follow-up in 6 months. ELECTRONICALLY SIGNED - 11/20/2020 02:42 PM Jonnathan Jack M.D. Jazlyn Orta and Genia Camejo, Department of Obstetrics and Gynecology Extrusion Technician for Gynecology Division of Gynecologic Oncology [facility] DGM/sv/#[id number] cc: Ashley CARRILLO MD / / INE CASTINGS PLASTERER documented in this encounter Plan of Treatment Not on file documented as of this encounter Visit Diagnoses Diagnosis Endometrial cancer (CMS/HCC) (HCC) Malignant neoplasm of corpus uteri, except isthmus documented in this encounter Historical Medications * This list may reflect changes made after this encounter. diphenhydrAMINE-a cetaminophen (TYLENOL PM) 25-500 mg tablet Take 1 tablet by mouth echinacea 380 mg capsule Take by mouth 12/24/2022 vitamin A 10,000 unit capsule Take 10,000 Units by mouth daily 12/24/2022 omeprazole (PriLOSEC) 10 mg capsule Take 10 mg by mouth daily 12/24/2022 added in this encounter Orders Appointment Requests Count Last Ordered Date Fi rst Ordered Date ONCBCN CLINIC APPOINTMENT REQUEST 2 021 11/20/2020 documented in this encounter Care Teams Gaming Manager Relationship Specialty Start Date End Date Momo Carrillo MD [address] [place] [address] PCP - General 02/18/18 Momo Carrillo MD [address] [place] [address] Referring Physician Family Medicine 11/20/20 documented as of this encounter
--- OUTSIDE RECORDS SUMMARY | 2024-10-06 04:06 | XMS_ITS | Encounter Summary ---
Author Organization [facility] Healthcare Address [address] [place] [address] Care Team Providers Care Chaplain Name Role Phone Unavailable Primary Care Provider Unavailabl e Encounter Details Date Type Department Care Team (Latest Contact Info) Description 11/26/2016 10:28 AM PROP ATTENDANT - 11/26/2016 11:[address] [facility] Hospital Encounter [facility] INTERIM [phone] Jonnathan Jack MD [address] [facility] [address] [phone] [place], [place] [id number] Discharge Disposition: Discharge to home or self care Social History Tobacco Use Types Packs/Day Years Used Date Smoking Tobacco: Never Assessed Comments Unknown Sex and Gender Information Value Date Recorded Sex Assigned at Not on file Legal Sex Female 2:10 AM PROP ATTENDANT Gender Identity Not on file Sexual Orientation Not on file documented as of this encounter Medications at Time of Discharge cetirizine (ZyrTEC) 10 mg tablet 04/01/2016Zyrtec, po solid 10 mg TabletPOdailyCurrent Medication 6 pdqsmlxpb-YB-V M-acetaminophe n 2-5-10-325 mg tablets, sequential 04/01/2016Multivitamin, po solid TabletPOdailyCurrent Medication 6 018 cholecalcifero l (VITAMIN D-3) 400 unit capsule 04/01/2016Vitamin d, po solid 400 unit TabletPOdailyCurrent Medication 6 023 FLUoxetine (PROzac) 20 mg capsule 04/01/2016Fluoxetine hcl, po solid 20 mg CapsulePOdailyCurrent Medication 6 018 levothyroxine (SYNTHROID, LEVOTHROID) 50 mcg tablet Take 75 mcg by mouth 01 6 023 omega 3-bde-ntf-fish oil 100-160-1,000 mg capsule 04/01/2016Fish oil omega-3, [...]
--- OUTSIDE RECORDS SUMMARY | 2024-10-06 04:06 | XMS_ITS | Encounter Summary ---
Author Organization [facility] Healthcare Address [address] [place] [address] Care Team Providers Care Shrink Pit Operator Name Role Phone Momo Carrillo MD Primary Care Provider [phone] Encounter Details Date Type Department Care Team (Latest Contact Info) Description 01/07/2017 11:03 AM CDT - 01/07/2017 11:59 PM CDT Hospital Encounter [facility] INTERIM [phone] Jonnathan Jack MD [address] [facility] [phone] [place] [address] Discharge Disposition: Discharge to home or self care Social History Tobacco Use Types Packs/Day Years Used Date Smoking Tobacco: Never Assessed Comments Unknown Sex and Gender Information Value Date Recorded Sex Assigned at Not on file Legal Sex Female 2:10 AM AUTOMOTIVE FUEL SYSTEMS CONVERTER Gender Identity Not on file Sexual Orientation Not on file documented as of this encounter Medications at Time of Discharge cetirizine (ZyrTEC) 10 mg tablet 04/01/2016Zyrtec, po solid 10 mg TabletPOdailyCurrent Medication 6 rckqswepb-ZE-V M-acetaminophe n 2-5-10-325 mg tablets, sequential 04/01/2016Multivitamin, po solid TabletPOdailyCurrent Medication 6 018 cholecalcifero l (VITAMIN D-3) 400 unit capsule 04/01/2016Vitamin d, po solid 400 unit TabletPOdailyCurrent Medication 6 023 FLUoxetine (PROzac) 20 mg capsule 04/01/2016Fluoxetine hcl, po solid 20 mg CapsulePOdailyCurrent Medication 6 018 levothyroxine (SYNTHROID, LEVOTHROID) 50 mcg tablet Take 75 mcg by mouth 01 6 023 omega 6-man-hhm-fish oil 100-160-1,000 mg capsule 04/01/2016Fish oil omega-3, [...] on filedocumented in this encounter Care Teams Shrink Pit Operator Relationship Specialty Start Date End Date Momo Carrillo MD [address] [place] [address] PCP - General 01/07/17 12/15/17 documented as of this encounter
--- OUTSIDE RECORDS SUMMARY | 2024-10-06 04:06 | XMS_ITS | Encounter Summary ---
Author Organization [facility] Healthcare Address [address] [place] [address] Care Team Providers Care Master Cook Name Role Phone Momo Carrillo MD Primary Care Provider [phone] Encounter Details Date Type Department Care Team (Latest Contact Info) Description 01/23/2017 - 01/23/2017 11:59 PM T Hospital Encounter [facility] OP INTERIM [phone] Jonnathan Jack MD [address] [facility] [phone] [place] [address] Discharge Disposition: Discharge to home or self care Social History Tobacco Use Types Packs/Day Years Used Date Smoking Tobacco: Never Assessed Comments Unknown Sex and Gender Information Value Date Recorded Sex Assigned at Not on file Legal Sex Female 2:10 AM BUGGY LADLE TENDER Gender Identity Not on file Sexual Orientation Not on file documented as of this encounter Medications at Time of Discharge cetirizine (ZyrTEC) 10 mg tablet 04/01/2016Zyrtec, po solid 10 mg TabletPOdailyCurrent Medication 6 arerfkuit-NK-Z M-acetaminophe n 2-5-10-325 mg tablets, sequential 04/01/2016Multivitamin, po solid TabletPOdailyCurrent Medication 6 018 cholecalcifero l (VITAMIN D-3) 400 unit capsule 04/01/2016Vitamin d, po solid 400 unit TabletPOdailyCurrent Medication 6 023 FLUoxetine (PROzac) 20 mg capsule 04/01/2016Fluoxetine hcl, po solid 20 mg CapsulePOdailyCurrent Medication 6 018 levothyroxine (SYNTHROID, LEVOTHROID) 50 mcg tablet Take 75 mcg by mouth 01 6 023 omega 6-wjo-zyn-fish oil 100-160-1,000 mg capsule 04/01/2016Fish oil omega-3, [...] on filedocumented in this encounter Care Teams Master Cook Relationship Specialty Start Date End Date Momo Carrillo MD [address] [place] [address] PCP - General 01/07/17 12/15/17 documented as of this encounter
--- OUTSIDE RECORDS SUMMARY | 2024-10-06 04:06 | XMS_ITS | Encounter Summary ---
Author Organization [facility] Address [address] [place] [address] Phone Care Team Providers Care Pyrotechnics Press Tender Name Role Phone Momo Carrillo MD Primary Care Provider [phone] Encounter Details Date Type Department Care Team (Late st Contact Info) Description 01/31/2020 Orders Only [facility] Obstetrics and Gynecology [address] [facility] Advanced Medicine 13th [place] [address] [place] [address] Polly Macdonald RN Endometrial cancer (CMS/HCC) (Primary Dx) Social History Tobacco Use Types Packs/Day Years Used Date Smoking Tobacco: Former Smokeless Tobacco: Never Alcohol Use Standard Drinks/Week Comments Yes 0 (1 standard drink = 0.6 oz pur e alcohol) Comments No Sex and Gender Information Value Date Recorded Sex Assigned at Not on file Legal Sex Female 2:10 AM PHOTO MASK PROCESSOR Gender Identity Not on file Sexual Orientation Not on file documented as of this encounter Miscellaneous Notes * Addendum Note - Umesh Garza RN - 01/31/2020 1:54 PM CDTAddended by: UMESH GARZA on: 05/07/2020 10:41 AM Modules accepted: Orders documented in this encounter Plan of Treatment Scheduled Orders Name Type Priority Associated Diagnoses Orde r Schedule CA 125 Lab Routine Endometrial cancer (CMS/HCC) Every 12 Weeks for 4 Occurrences starting 05/07/2020 until 05/07/2021 documented as of this encounter Visit Diagnoses Diagnosis Endometrial cancer (CMS/HCC) (HCC)- Primary Malignant neoplasm of corpus uteri, except isthmus documented in this encounter Care Teams Pyrotechnics Press Tender Relationship Specialty Start Date End Date Momo Carrillo MD [address] [place] [address] PCP - General 02/18/18 documented as of this encounter
--- OUTSIDE RECORDS SUMMARY | 2024-10-06 04:06 | XMS_ITS | Encounter Summary ---
Author Organization [facility] Address [address] [facility] [address] [place] [address] Phone Care Team Providers Care Boiler Tube Blower Name Role Phone Momo Carrillo MD Primary Care Provider [phone] Reason for Visit * Reason Comments Follow-up Encounter Details Date Type Department Care Team (Late st Contact Info) Description 03/17/2018 2:00 PM CDT Office Visit [facility] Obstetrics and Gynecology [address] [facility] Medicine 13th [place] [address] [place] [phone] Jonnathan Jack MD [address] [facility] [phone] [place] [address] Endometrial cancer (CMS/HCC) (Primary Dx); Ovarian cancer, right (CMS/HCC); Endometriosis Social History Tobacco Use Types Packs/Day Years Used Date Smoking Tobacco: Never Assessed Comments Unknown Sex and Gender Information Value Date Recorded Sex Assigned at Not on file Legal Sex Female 2:10 AM KITCHEN CLEANER Gender Identity Not on file Sexual Orientation Not on file documented as of this encounter Last Filed Vital Signs Vital Sign Reading Time Taken Comments Blood Pressure 136/79 03/17/2018 2:05 PM CDT Pulse 62 03/17/2018 2:05 PM CDT Temperature 36.5 ??C (97.7 ??F) 03/17/2018 2:05 PM CD T Respiratory Rate 20 03/17/2018 2:05 PM CDT Oxygen Saturation 97% 03/17/2018 2:05 PM CDT Inhaled Oxygen Concentration - - Weight 73.2 kg (161 lb 6.4 oz) 03/17/2018 2:05 P M CDT Height 162.6 cm (5' 4 ) 03/17/2018 2:05 PM CDT Body Mass Index 27.7 03/17/2018 2:05 PM CDT documented in this encounter Progress Notes * Jonnathan Jack MD - 03/17/2018 12:00 AM CDT PATIENT: CORI RENEE : 1955 AGUSTO: 03/17/2018 HISTORY OF PRESENT ILLNESS: Mrs. Renee comes in today in follow-up. 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 This was diagnosed in March 2003. She had a complicated postoperative course. We resected this endometrioid cancer. It was recurrent actually in the pelvis. Her original hysterectomy was in 2005. She did well until she presented with a mass on her psoas muscle. Dr. Jg Carrillo, her primary care physician, made the diagnosis. She was referred to see me, and we resected her cecum and the disease within the gutter. We recommended postop chemotherapy. Unfortunately, her port, she got an infection, from either the epidural or from the port, and she had osteomyelitis. We had to delay chemotherapy, but in the end, she completed everything and now is doing well. She is now about 2 years out from diagnosis of her recurrence. She comes in today feeling well. We have removed her port. She is riding her horse and enjoying things. PAST MEDICAL HISTORY/REVIEW OF SYSTEMS: Unchanged with [...] nodularity are identified. Bimanual exam is normal. ASSESSMENT/PLAN: 1. The strategy at this point would be for her to see me back for continued follow-up in 3 months. 2. Her port site looks good. 3. I am going to see her back and we will get a CA-125 when she returns. ELECTRONICALLY SIGNED - 03/19/2018 03:12 PM Danica Lind and Genia Booth Professor, Department of Obstetrics and Gynecology Escrow Assistant for Gynecology Division of Gynecologic Oncology Fellowship Director, Division of Gynecologic Oncology [facility] MARISOL/collins/#[id number] cc: Ashley CARRILLO MD / / documented in this encounter Miscellaneous Notes * Treatment Plan - Jonnathan Jack MD - 03/17/2018 2:00 PM CDT Please schedule Cori Renee for the following: Requested Order Contrast Indication When CXR CT Chest, Abdomen, and Pelvis CT Abdomen and Pelvis LEEP (during clinic hours) SOIL TESTER Ultrasound MRI Mammogram PET Initiate Care Plan Labwork: CA125 3 months at return documented in this encounter Plan of Treatment Scheduled Orders Name Type Priority Associated Diagnoses Orde r Schedule CA 125 Lab Routine Endometrial cancer (CMS/HCC) Every 12 Weeks for 2 Occurrences starting 03/17/2018 until 03/17/2019, 1 completed documented as of this encounter Procedures Procedure Name Priority Date/Time Associated Diagnosis Comments CA 125 Routine 07/08/2018 9:01 AM CDT Endometrial cancer (CMS/HCC) documented in this encounter Results * CA 125 (07/08/2018 9:01 AM CDT) CA 125 ag 3 <35 U/mL [facility] [place] Comment: This test was performed using the Honey Mandy Chemiluminescent method. Values obtained from different assay methods cannot be used interchangeably. CA 125 levels, regardless of value, should not be interpreted as absolute evidence of the presence or absence of disease. Blood specimen (specimen) 07/08/2018 9:01 AM CDT 07/08/2018 9:02 AM CDT Narrative [facility] - 07/09/2018 8:12 AM CDT FASTING:YES AN UPDATE OR CORRECTION HAS BEEN MADE TO NAME FASTING: YES Resulting Agency Comment Performing Organization Information: ?Site ID: [place] ?Name: [facility] ?Address: [address] [place] [address] [place] [address] ?Director: Adarsh Marion D.O., MPH us Jonnathan Jack MD LAB BLOOD ORDERABLES Final Res ult [facility] [place], [place] documented in this encounter Visit Diagnoses Diagnosis Endometrial cancer (CMS/HCC) (HCC)- Primary Malignant neoplasm of corpus uteri, except isthmus Ovarian cancer, right (HCC) Endometriosis Endometriosis, site unspecified documented in this encounter Discontinued Medications Medication Sig Discontinue Reason Start Date End Da te oeqjrkazr-XU-HT-ac etaminophen 2-5-10-325 mg tablets, sequential 04/01/2016Multivitamin, po solid TabletPOdailyCurrent Medication Duplicate order 04/01/2016 03/17/2018 documented as of this encounter Historical Medications * This list may reflect changes made after this encounter. polyethylene glycol (MIRALAX) 17 gram packet cetirizine (ZyrTEC) 10 mg tablet 04/01/2016Zyrtec, po solid 10 mg TabletPOdailyCurrent Medication 6 pyridoxine (VITAMIN B-6) 100 mg tablet 2 times daily. 6 020 vitamin E 100 unit/0.25 mL drops 04/01/2016Vitamin e, po solid 1000 unit CapsulePOdailyCurrent Medication 6 023 cholecalcifero l (VITAMIN D-3) 400 unit capsule 04/01/2016Vitamin d, po solid 400 unit TabletPOdailyCurrent Medication 6 023 rdbmxfldj-OD-T M-acetaminophe n 2-5-10-325 mg tablets, sequential 04/01/2016Multivitamin, po solid TabletPOdailyCurrent Medication 6 018 levothyroxine (SYNTHROID, LEVOTHROID) 50 mcg tablet Take 75 mcg by mouth 01 6 023 FLUoxetine (PROzac) 20 mg capsule 04/01/2016Fluoxetine hcl, po solid 20 mg CapsulePOdailyCurrent Medication 6 018 omega 7-kjx-zme-fish oil 100-160-1,000 mg capsule 04/01/2016Fish oil omega-3, po solid 300-1000mg CapsulePOdailyCurrent Medication 6 023 added in this encounter Care Teams Boiler Tube Blower Relationship Specialty Start Date End Date Momo Carrillo MD [address] [place] [address] PCP - General 02/18/18 documented as of this encounter
--- OUTSIDE RECORDS SUMMARY | 2024-10-06 04:06 | XMS_ITS | Encounter Summary ---
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 Jonnathan Jack MD Phone: tel: fax: Jonnathan Jack MD [address] [facility] [phone] [place] [address] Phone: tel: fax: Referral ID Status Reason Start Date Expiration Date Visits Re quested Visits Authorized [id number] Closed 10/19/2018 04/29/2020 1 1 Encounter Details Date Type Department Care Team (Late st Contact Info) Description 10/19/2018 2:00 PM PARIMUTUEL TICKET SELLER Office Visit [facility] Obstetrics and Gynecology [address] [facility] [address] 13th [place] [address] [place] [phone] Jonnathan Jack MD [address] [facility] [phone] [place] [address] Endometrial cancer (CMS/HCC) (Primary Dx) Social History Tobacco Use Types Packs/Day Years Used Date Smoking Tobacco: Former Smokeless Tobacco: Never Alcohol Use Standard Drinks/Week Comments Yes 0 (1 standard drink = 0.6 oz pur e alcohol) Comments No Sex and Gender Information Value Date Recorded Sex Assigned at Not on file Legal Sex Female 2:10 AM PARIMUTUEL TICKET SELLER Gender Identity Not on file Sexual Orientation Not on file documented as of this encounter Last Filed Vital Signs Vital Sign Reading Time Taken Comments Blood Pressure 146/86 10/19/2018 2:42 PM PARIMUTUEL TICKET SELLER Pulse 62 10/19/2018 2:42 PM PARIMUTUEL TICKET SELLER Temperature 36.7 ??C (98.1 ??F) 10/19/2018 2:42 PM CS T Respiratory Rate 16 10/19/2018 2:42 PM PARIMUTUEL TICKET SELLER Oxygen Saturation 98% 10/19/2018 2:42 PM PARIMUTUEL TICKET SELLER Inhaled Oxygen Concentration - - Weight 73 kg (160 lb 14.4 oz) 10/19/2018 2:42 PM PARIMUTUEL TICKET SELLER Height 162.6 cm (5' 4 ) 10/19/2018 2:42 PM PARIMUTUEL TICKET SELLER Body Mass Index 27.62 10/19/2018 2:42 PM PARIMUTUEL TICKET SELLER documented in this encounter Progress Notes * Jonnathan Jack MD - 10/19/2018 12:00 AM CST PATIENT: CORI RENEE : 1955 AGUSTO: 10/19/2018 HISTORY OF PRESENT ILLNESS: Ms. 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 She was originally diagnosed in 2005. She had an uncomplicated postop course, and she did well. She presented with a mass in her psoas muscle in the end of 2015. We took her to the operating roomand resected this. 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 She did well and then she underwent postop chemotherapy. Unfortunately, treatment was significantly delayed because she developed osteomyelitis. It is unclear whether her port got infected and that seeded her bone or whether it was related to her epidural. She thinks it was from the port. Her CA-125 level is now 2. She is not having any pain. Her CA-125, obviously, is normal. PLAN: The strategy, at this point, would be for her to see me back for continued follow-up in 6 months. ELECTRONICALLY SIGNED - 10/20/2018 11:37 AM Jonnathan Jack M.D. Jazlyn Booth Professor, Department of Obstetrics and Gynecology Clinching Machine Operator for Gynecology Division of Gynecologic Oncology Fellowship Director, Division of Gynecologic Oncology [facility] DGM/[facility]/#[id number] cc: Ashley CARRILLO MD / / MUTUEL TICKET SELLER documented in this encounter Plan of Treatment Not on file documented as of this encounter Procedures Procedure Name Priority Date/Time Associated Diagnosis Comments CA 125 Routine 04/13/2019 9:11 AM CDT Endometrial cancer (CMS/HCC) documented in this encounter Results * CA 125 (04/13/2019 9:11 AM CDT) CA 125 ag 2 <35 U/mL [facility] [place] Comment: This test was performed using the Honey Mandy Chemiluminescent method. Values obtained from different assay methods cannot be used interchangeably. CA 125 levels, regardless of value, should not be interpreted as absolute evidence of the presence or absence of disease. Blood specimen (specimen) 04/13/2019 9:11 AM CDT 04/13/2019 9:11 AM CDT Narrative [facility] - 04/14/2019 8:24 AM CDT AN UPDATE OR CORRECTION HAS BEEN MADE TO NAME Resulting Agency Comment Performing Organization Information: ?Site ID: [place] ?Name: [facility] ?Address: [address] [place] [address] ?Director: Adarsh Marion D.O., MPH us Jonnathan Jack MD LAB BLOOD ORDERABLES Final Res ult [facility] [place] documented in this encounter Visit Diagnoses Diagnosis Endometrial cancer (CMS/HCC) (HCC)- Primary Malignant neoplasm of corpus uteri, except isthmus documented in this encounter Orders Appointment Requests Count Last Ordered Date Fi rst Ordered Date ONCBCN CLINIC APPOINTMENT REQUEST 2 019 10/19/2018 documented in this encounter Care Teams Tie Layer Relationship Specialty Start Date End Date Momo Carrillo MD [address] [place] [address] PCP - General 02/18/18 documented as of this encounter
--- OUTSIDE RECORDS SUMMARY | 2024-10-06 04:06 | XMS_ITS | Encounter Summary ---
Author Organization [facility] Address [address] [place] [address] Care Team Providers Care Workplace Rehabilitation Officer Name Role Phone Momo Carrillo MD Primary Care Provider [phone] Encounter Details Date Type Department Care Team (Latest Contact Info) Description 02/18/2018 6:09 AM CDT - 02/18/2018 12:23 PM CDT Hospital Encounter [facility] Procedure [address] [place] [address] Jonnathan Jack MD [address] [facility] [phone] [place] [address] Discharge Disposition: Discharge to home or self care Social History Tobacco Use Types Packs/Day Years Used Date Smoking Tobacco: Never Assessed Comments Unknown Sex and Gender Information Value Date Recorded Sex Assigned at Not on file Legal Sex Female 2:10 AM FISH 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 Gender Identity Not on file Sexual Orientation Not on file documented as of this encounter Medications at Time of Discharge cetirizine (ZyrTEC) 10 mg tablet 04/01/2016Zyrtec, po solid 10 mg TabletPOdailyCurrent Medication 6 srpjweaar-AG-W M-acetaminophe n 2-5-10-325 mg tablets, sequential 04/01/2016Multivitamin, po solid TabletPOdailyCurrent Medication 6 018 cholecalcifero l (VITAMIN D-3) 400 unit capsule 04/01/2016Vitamin d, po solid 400 unit TabletPOdailyCurrent Medication 6 023 FLUoxetine (PROzac) 20 mg capsule 04/01/2016Fluoxetine hcl, po solid 20 mg CapsulePOdailyCurrent Medication 6 018 levothyroxine (SYNTHROID, LEVOTHROID) 50 mcg tablet Take 75 mcg by mouth 01 6 023 omega 9-ehu-taz-fish oil 100-160-1,000 mg capsule 04/01/2016Fish oil omega-3, po solid 300-1000mg CapsulePOdailyCurrent Medication 6 023 pyridoxine (VITAMIN B-6) 100 mg tablet 2 times daily. 6 020 vitamin E 100 unit/0.25 mL drops 04/01/2016Vitamin e, po solid 1000 unit CapsulePOdailyCurrent Medication 6 023 documented as of this encounter Discharge Disposition Disposition Code Departure Means Destination Discharge to home or self care documented in this encounter Miscellaneous Notes * Op Note - Provider, MD Palma - 02/18/2018 12:00 AM CDT Patient: CORI RENEE Reg No: [id number] U H #: [id number] Admit Dt.: 02/18/2018 : 1955 Pt Type: [facility] Room No: Attending: Jonnathan Jack M.D. Surgeon: Jonnathan Jack M.D. Dictating: Ana Maria Kemp M.D. Service Dt: 02/18/2018 OPERATIVE REPORT FACILITY ID: [facility] SURGEON Jonnathan Jack MD DIGITAL COURT REPORTER Ana Maria Kemp MD SECOND HAND REAMER Audrey Hammer M.D. PREOPERATIVE DIAGNOSIS History of endometrial cancer with no evidence of disease, desires port removal. POSTOPERATIVE DIAGNOSIS History of endometrial cancer with no evidence of disease, desires port removal. NAME OF OPERATION Subclavian port removal. INDICATIONS FOR PROCEDURE Ms. Renee is a 62-year-old with a history of recurrent endometrial carcinoma who underwent original staging surgery in 2005. She subsequently recurred and underwent a secondary site reduction. Currently has no evidence of disease. She did have a CT scan on December 16, 2017 which showed no evidence of disease and the patient desired her port to be removed. Therefore, the patient was scheduled for the above-noted procedure. OPERATIVE FINDINGS Normal intact port at the time of removal with hemostatic port site. DESCRIPTION OF PROCEDURE After appropriate informed consent was obtained, the patient was taken to the operating room where LMA anesthesia was obtained without difficulty. She was prepped and draped in a normal sterile fashion in dorsal supine position. Local anesthetic was injected along her previous incision site of her port placement. It was then incised with electrocautery and the capsule around the subclavian port was incised and resected. The port was grasped with a Zuly and the port catheter itself was grasped with another Zuly. Pressure was applied to the port site area and the port was removed smoothly and without difficulty. The port was intact upon removal. Additional pressure was placed, although the area was hemostatic. The port site bed was then closed with interrupted 2-0 Vicryl and the skin was closed with 4-0 Monocryl. Additional local anesthetic was injected underneath the incision. Sponge, lap, and needle counts were correct x2 and the patient was awoken from anesthesia and taken to recovery room in stable condition. SPECIMENS/TISSUE REMOVED Port for gross pathology. ESTIMATED BLOOD LOSS 5 mL. INTRAOPERATIVE FLUIDS 1000 mL of crystalloid. URINE OUTPUT Not recorded. BLOOD PRODUCTS TRANSFUSED None. COMPLICATIONS None. CONDITION ON DISCHARGE FROM THE OPERATING ROOM Stable. ATTESTATION OF PRESENCE Dr. Jonnathan Jack was present and available for all portions of this procedure. Electronically Authenticated by: Ana Maria Kemp MD On 02/19/2018 11:45 PM CDT Electronically Authenticated and Edited by: Jonnathan Jack MD On 02/24/2018 07:57 AM CDT Ana Maria Kemp M.D. Jonnathan Jack M.D. [facility] #[id number] Editing MT: TD: 02/19/2018 01:12 PM cc: Danica Lind M.D. documented in this encounter Plan of Treatment Not on file documented as of this encounter Procedures Procedure Name Priority Date/Time Associated Diagnosis Comments SURGICAL PATHOLOGY Routine 02/18/2018 9: 57 AM CDT SURGICAL PATHOLOGY 02/18/2018 12 :00 AM CDT documented in this encounter Results * Surgical pathology (02/18/2018 9:57 AM CDT) 02/18/2018 9:57 AM CDT 02/18/2018 10:41 AM CDT Narrative 02/23/2018 5:18 PM CDT [facility] [place] [address] SURGICAL PATHOLOGY REPORT FINAL Patient Name: CORI RENEE ? Address: [facility] [address] ??Service: ??Gynecology ??[facility], [place] ??[address] ??Location: ??[facility] Taken: 02/18/2018 Gender: F ?? Received: 02/18/2018 : 1955 (Age: 62) ??Hospital #: ??[id number] Accessioned: 02/18/2018 ?Patient Type: ??[facility] SDS Reported: 02/23/2018 ? Physician(s): Jonnathan Jack M.D. ? Diagnosis: Vascular access device, removal ? - Port-A- Cath (gross only diagnosis) [facility]02/18/2018 12:40 By this signature, I attest that the above diagnosis is based upon my personal examination of the slides(and/or other material indicated in the diagnosis). ?? Bebeto Salgado M.D., Ph.D. ??Report Electronically Reviewed and Signed Out By ??Bebeto Salgado M.D., Ph.D. 02/23/2018 17:18:32 ? History: The patient is a 62-year-old woman with endometrial cancer. ??Operative procedure: Abdominal peritoneal Port-A-Cath removal. Specimen(s) Received: A: Port Gross Description: The specimen is received in one container with no fixative labeled with the patient's name and port. ??It contains a 4.2 x 3.0 x 1.7 cm round to oval device with the identifiers [facility] CT [id number]. ??Attached to the device is a white pliable piece of tubing measuring 22 cm in length by 0.3 cm in diameter. ??Along the tubing are hash weiner and the numbers 5, 10, 15, 20. ??The entire specimen is submitted for gross examination only. ??[facility]02/18/2018 12:39 ?Amelia Crenshaw, ESTRELLA, CT (ASCP ? By this signature, I attest that the above diagnosis is based upon my personal examination of the slides(and/or other material). ?? Surgical Pathology report is available electronically in Clinical Desktop. The performance characteristics of some immunohistochemical stains, fluorescence in-situ hybridization tests and immunophenotyping by flow cytometry cited in this report (if any) were determined by the Surgical Pathology Department at [facility] as part of an ongoing chemistry quality control technician program and in compliance with federally mandated regulations drawn from the Clinical Laboratory Improvement Act of 1988 (CLIA '88). ??Some of these tests rely on the use of analyte specific reagents and are subject to specific labeling requirements by the US Food and Drug Administration. ??Such diagnostic tests may only be performed in a facility that is certified by the Department of Health and Human Services as a high complexity laboratory under CLIA '88. ??The FDA has determined that such clearance or approval is not necessary. ??This test is used for clinical purposes. ??It should not be regarded as investigational or for research. ??Nevertheless, federal rules concerning the medical use of analyte specific reagents require that the following disclaimer be attached to the report: This test was developed and its performance characteristics determined by the Surgical Pathology Department of [facility]. ??It has not been cleared or approved by the U. S. Food and Drug Administration. Jonnathan Jack MD LAB PATHOLOGY ORDERABLES Final Result * SURGICAL PATHOLOGY (02/18/2018 12:00 AM CDT) Narrative 02/18/2018 12:00 AM CDT Ordered by an unspecified provider. [facility] Provider LAB PATHOLOGY ORDERABLES Final Result documented in this encounter Visit Diagnoses Not on filedocumented in this encounter Care Teams Workplace Rehabilitation Officer Relationship Specialty Start Date End Date Momo Carrillo MD [address] [place] [address] PCP - General 02/18/18 documented as of this encounter
--- OUTSIDE RECORDS SUMMARY | 2024-10-06 04:06 | XMS_ITS | Encounter Summary ---
Author Organization [facility] Address [address] [place] [address] Phone Care Team Providers Care Administrative Assistant Data Entry Name Role Phone Momo Carrillo MD Primary Care Provider [phone] Encounter Details Date Type Department Care Team (Late st Contact Info) Description 11/15/2019 2:30 PM FISHER DIP NET Office Visit [facility] Obstetrics and Gynecology [address] 13th [place] [address] [place] [address] Jonnathan Jack MD [address] [facility] [place] [phone] [place] [address] Endometrial cancer ([facility]/HCC) Social History Tobacco Use Types Packs/Day Years Used Date Smoking Tobacco: Former Smokeless Tobacco: Never Alcohol Use Standard Drinks/Week Comments Yes 0 (1 standard drink = 0.6 oz pur e alcohol) Comments No Sex and Gender Information Value Date Recorded Sex Assigned at Not on file Legal Sex Female 2:10 AM FISHER DIP NET Gender Identity Not on file Sexual Orientation Not on file documented as of this encounter Last Filed Vital Signs Vital Sign Reading Time Taken Comments Blood Pressure 134/83 11/15/2019 2:16 PM FISHER DIP NET Pulse 77 11/15/2019 2:16 PM FISHER DIP NET Temperature 36.4 ??C (97.5 ??F) 11/15/2019 2:16 PM CS T Respiratory Rate 22 11/15/2019 2:16 PM FISHER DIP NET Oxygen Saturation 94% 11/15/2019 2:16 PM FISHER DIP NET Inhaled Oxygen Concentration - - Weight 71.2 kg (157 lb) 11/15/2019 2:16 PM FISHER DIP NET Height 162.6 cm (5' 4.02 ) 11/15/2019 2:16 PM CS T Body Mass Index 26.94 11/15/2019 2:16 PM FISHER DIP NET documented in this encounter Progress Notes * Jonnathan Jack MD - 11/15/2019 12:00 AM CST PATIENT: LEWIS RENEE : 1955 AGUSTO: 11/15/2019 HISTORY OF PRESENT ILLNESS: Ms. Renee comes in today. She is a 64-year-old woman who comes in today in follow-up of herendometrial endometrioid carcinoma. She was originally diagnosed in 2005. She had an uncomplicated postop course. She subsequently presented with a mass in the psoas muscle in 2016, so a full 10 years later and now really 4 years from now. It was a recurrent endometrial carcinoma. We resected this.She did well. She got postop chemotherapy. Unfortunately, her treatment was significantly delayed because she developed osteomyelitis in the spine, probably secondary to a port seeding, but it could have been due to an epidural. We are not sure. Anyway it took some time before she could actually get her chemotherapy. She is now here for follow-up evaluation and overall is doing well. PAST MEDICAL HISTORY/REVIEW OF [...] nodularity are identified. ASSESSMENT: Normal gynecologic evaluation. No evidence of disease. PLAN: The patient will return to see me for follow-up. We will get a CA-125 in 6 [address] CA-[address] is 2. ADDENDUM: Her CBC is a little bit low. Her platelets are 139,000 which is sort of on the low side. We are going to go ahead and check a CBC at her next visit. Certainly, if she starts to bleed or anything, sheis to contact me. ELECTRONICALLY SIGNED - 11/16/2019 09:54 AM Danica Lind and Genia Camejo, Department of Obstetrics and Gynecology Consulting Senior Practice Director for Gynecology Division of Gynecologic Oncology [facility] MARISOL/leigh ann/#[id number] cc: Ashley CARRILLO MD / / ER DIP NET ER DIP NET documented in this encounter Plan of Treatment Not on file documented as of this encounter Visit Diagnoses Diagnosis Endometrial cancer (CMS/HCC) (HCC) Malignant neoplasm of corpus uteri, except isthmus documented in this encounter Discontinued Medications Medication Sig Discontinue Reason Start Date End Da te pyridoxine (VITAMIN B-6) 100 mg tablet 2 times daily. Therapy completed 06/25/2016 11/15/2019 documented as of this encounter Historical Medications * This list may reflect changes made after this encounter. FLUoxetine (PROzac) 20 mg tablet Take 1 tablet (20 mg total) by mouth daily simvastatin (ZOCOR) 10 mg tablet Take 10 mg by mouth nightly 12/24/2022 added in this encounter Orders Appointment Requests Count Last Ordered Date Fi rst Ordered Date ONCBCN CLINIC APPOINTMENT REQUEST 1 020 documented in this encounter Care Teams Administrative Assistant Data Entry Relationship Specialty Start Date End Date Momo Carrillo MD [address] [place] [address] PCP - General 02/18/18 documented as of this encounter
--- OUTSIDE RECORDS SUMMARY | 2024-10-06 04:07 | XMS_ITS | Encounter Summary ---
Author Organization [facility] Facility Care Team Providers Care Camera Engineer Name Role Phone Unavailable Primary Care Provider Unavailabl e Encounter Details Date Type Department Care Team (Late st Contact Info) Description 06/24/2016 4:46 PM CDT - 06/24/2016 11:59 PM CDT Hospital Encounter [facility] Jonnathan Jack MD [id number] [place] [address] Malignant neoplasm of endometrium (CMS/HCC) Social History Tobacco Use Types Packs/Day Years Used Date Smoking Tobacco: Never Assessed Comments Unknown Sex and Gender Information Value Date Recorded Sex Assigned at Not on file 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 Gender Identity Not on file Sexual Orientation Not on file documented as of this encounter Medications at Time of Discharge cetirizine (ZyrTEC) 10 mg tablet 04/01/2016Zyrtec, po solid 10 mg TabletPOdailyCurrent Medication 6 [id number] M-acetaminophe n 2-5-10-325 mg tablets, sequential 04/01/2016Multivitamin, po solid TabletPOdailyCurrent Medication 6 018 cholecalcifero l (VITAMIN D-3) 400 unit capsule 04/01/2016Vitamin d, po solid 400 unit TabletPOdailyCurrent Medication 6 023 FLUoxetine (PROzac) 20 mg capsule 04/01/2016Fluoxetine hcl, po solid 20 mg CapsulePOdailyCurrent Medication 6 018 levothyroxine (SYNTHROID, LEVOTHROID) 50 mcg tablet Take 75 mcg by mouth 6 023 omega 6-jkd-jzn-fish oil 100-160-1,000 mg capsule 04/01/2016Fish oil omega-3, po solid 300-1000mg CapsulePOdailyCurrent Medication 6 023 vitamin E 100 unit/0.25 mL drops 04/01/2016Vitamin e, po solid 1000 unit CapsulePOdailyCurrent Medication 6 023 documented as of this encounter Plan of Treatment Not on file documented as of this encounter Procedures Procedure Name Priority Date/Time Associated Diagnosis Comments SERUM CA 125 AG Routine 06/24/2016 5:05 PM CDT SERUM MAGNESIUM Routine 06/24/2016 5:01 PM CDT PLASMA PROTHROMBIN TIME (PT) Routine 06/24/2016 5:01 PM CDT PLASMA PARTIAL THROMBOPLASTIN TIME (PTT) Routine 06/24/2016 5:01 PM CDT PLASMA COMPREHENSIVE METABOLIC PANEL Routine 06/24/2016 5:01 PM CDT BLOOD CELL COUNT (CBC) Routine 6 5:01 PM CDT BLOOD CELL MORPHOLOGIC EXAM Routine 06/24/2016 5:01 PM CDT DISCHARGE LABORATORY CUMULATIVE REPORT 06/24/2016 documented in this encounter Results * Serum CA 125 ag (06/24/2016 5:05 PM CDT) CA 125 ag 6.8 0.0 - 35.0 Units/ml CDR HISTORICAL RESULTS Serum 06/24/2016 5:05 PM CDT Jonnathan Jack MD LAB BLOOD ORDERABLES Final Res ult Performing Organization Address [facility] de Phone Number CDR HISTORICAL RESULTS * Plasma comprehensive metabolic panel (06/24/2016 5:01 PM CDT) Sodium 136 135 - 145 mmol/L CDR HISTORICAL RESULTS K, pl 4.2 3.3 - 4.9 mmol/L CDR HISTORICAL RESULTS Chloride 97 97 - 110 mmol/L CDR HISTORICAL RESULTS CO2 31 22 - 32 mmol/L CDR HISTORICAL RESULTS A. gap 8 2 - 15 mmol/L CDR HISTORICAL RESULTS Glucose 84 70 - 199 mg/dl CDR HISTORICAL RESULTS BUN 21 8 - 25 mg/dl CDR HISTORICAL RESULTS Creatinine 0.97 0.60 - 1.10 mg/dl CDR HISTORICAL RESULTS Calcium 10.2 8.5 - 10.3 mg/dl CDR HISTORICAL RESULTS Protein, pl 7.5 6.5 - 8.5 g/dl CDR HISTORICAL RESULTS Alb 4.5 3.5 - 5.0 g/dl CDR HISTORICAL RESULTS Bilirubin 0.2 0.1 - 1.2 mg/dl CDR HISTORICAL RESULTS Alk phos 76 40 - 130 Units/L CDR HISTORICAL RESULTS AST 26 10 - 45 Units/L CDR HISTORICAL RESULTS ALT 30 7 - 45 Units/L CDR HISTORICAL RESULTS Plasma 06/24/2016 5:01 PM CDT Jonnathan Jack MD LAB BLOOD ORDERABLES Final Res ult Performing Organization Address [facility] de Phone Number CDR HISTORICAL RESULTS * (ABNORMAL) Plasma partial thromboplastin time (PTT) (06/24/2016 5:01 PM CDT) APTT 37.3(H) 25.0 - 37.0 seconds CDR HISTORICAL RESULTS Comment: Interpretive Data Therapeutic heparin range:60.0 - 94.0 sec based on correlation with therapeutic heparin activity range of 0.3 -0.7 Units/mL. Current interpretive data was last revised on 2011. Plasma 06/24/2016 5:01 PM CDT Jonnathan Jack MD LAB BLOOD ORDERABLES Final Res ult Performing Organization Address [facility] de Phone Number CDR HISTORICAL RESULTS * Plasma prothrombin time (PT) (06/24/2016 5:01 PM CDT) Prothrombin time (PT) 12.4 9.2 - 14.0 seconds CDR HISTORICAL RESULTS INR 1.09 0.81 - 1.22 CDR HIST ORICAL RESULTS Comment: Interpretive Data Inpatient therapeutic ranges* Atrial fibrillation ?2.0-3.0 INR Venous thrombo-embolism ?2.0-3.0 INR Bioprosthetic heart valve ?* Mechanical heart valve, bileaflet or tilting disk,aortic position ? 2.0-3.0 INR All other,or bileaflet or tilting disk, in mitral position ? 2.5-3.5 INR *See the pharmacy resource directory (PHRED) for an updated copy of the Tool Book at [email or web address] Current Interpretive Data was last revised 2011. Plasma 06/24/2016 5:01 PM CDT Jonnathan Jack MD LAB BLOOD ORDERABLES Final Res ult Performing Organization Address [facility]/ZIP Co de Phone Number CDR HISTORICAL RESULTS * Serum magnesium (06/24/2016 5:01 PM CDT) Magnesium 2.0 1.4 - 2.5 mg/dl CDR HISTORICAL RESULTS Serum 06/24/2016 5:01 PM CDT Jonnathan Jack MD LAB BLOOD ORDERABLES Final Res ult CDR HISTORICAL RESULTS * (ABNORMAL) Blood cell count (CBC) (06/24/2016 5:01 PM CDT) WBC 4.6 3.8 - 9.9 K/cumm CDR HISTORICAL RESULTS RBC 3.74(L) 3.90 - 5.20 M/cumm CDR HISTORICAL RESULTS Hgb 11.3(L) 11.9 - 15.5 g/dl CDR HISTORICAL RESULTS Hct 34.0(L) 35.6 - 45.5 % CDR HISTORICAL RESULTS MCV 90.9 81.3 - 96.4 fl CDR HISTORICAL RESULTS MCH 30.2 27.1 - 33.3 pg CDR HISTORICAL RESULTS MCHC 33.2 32.3 - 35.7 g/dl CDR HISTORICAL RESULTS Rdw 13.2 11.1 - 14.9 % CDR HISTORICAL RESULTS RDW 43.8 35.7 - 48.1 fl CDR HISTORICAL RESULTS Platelets 219 150 - 400 K/cumm CDR HISTORICAL RESULTS MPV 11.5 9.1 - 12.3 fl CDR HISTORICAL RESULTS NRBC 0.0 0.0 - 0.2 % CDR HIST ORICAL RESULTS NRBC, abs 0.00 0.00 - 0.01 K/cumm CDR HISTORICAL RESULTS Blood specimen (specimen) 06/24/2016 5:01 PM CDT Jonnathan Jack MD LAB BLOOD ORDERABLES Final Res ult Performing Organization Address [facility]/State/ZIP Co de Phone Number CDR HISTORICAL RESULTS * (ABNORMAL) Blood cell morphologic exam (06/24/2016 5:01 PM CDT) Neutrophils 55.7 % CDR HIST ORICAL RESULTS Immature granulocytes 0.2 % CDR HISTORICAL RESULTS Lymphocytes 22.9 % CDR HIST ORICAL RESULTS Monos 9.3 % CDR HISTOR ICAL RESULTS Eosinophils 11.3 % CDR HIST ORICAL RESULTS Basophils 0.6 % CDR HISTOR ICAL RESULTS Neutrophils, abs 2.6 1.7 - 6.5 K/cumm CDR HISTORICAL RESULTS Immature granulocyte, abs 0.0 0.0 - 0.1 K/cumm CDR HISTORICAL RESULTS Lymphocytes, abs 1.1 0.8 - 3.3 K/cumm CDR HISTORICAL RESULTS Monocytes, absolute 0.4 0.2 - 0.8 K/cumm CDR HISTORICAL RESULTS Eosinophils, abs 0.5(H) 0.0 - 0.5 K/cumm CDR HISTORICAL RESULTS Basophils, abs 0.0 0.0 - 0.1 K/cumm CDR HISTORICAL RESULTS Blood specimen (specimen) 06/24/2016 5:01 PM CDT Jonnathan Jack MD LAB BLOOD ORDERABLES Final Res ult CDR HISTORICAL RESULTS * DISCHARGE LABORATORY CUMULATIVE REPORT (06/24/2016) Narrative 06/24/2016 Ordered by an unspecified provider. Historical Provider LAB BLOOD ORDERABLES Shira l Result documented in this encounter Visit Diagnoses Diagnosis Malignant neoplasm of endometrium (CMS/HCC) (HCC) Malignant neoplasm of corpus uteri, except isthmus documented in this encounter
--- OUTSIDE RECORDS SUMMARY | 2024-10-06 04:07 | XMS_ITS | Encounter Summary ---
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 Name Role Phone Unavailable Primary Care Provider Unavailabl e Encounter Details Date Type Department Care Team (Late st Contact Info) Description 04/10/2016 1:07 PM CDT - 04/10/2016 11:59 PM T Hospital Encounter [facility] Jonnathan Jack MD [phone] [place] [address] Malignant neoplasm of endometrium (CMS/HCC); Other specified disorders of muscle Social History Tobacco Use Types Packs/Day Years Used Date Smoking Tobacco: Never Assessed Comments Unknown Sex and Gender Information Value Date Recorded Sex Assigned at Not on file 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 Gender Identity Not on file Sexual Orientation Not on file documented as of this encounter Medications at Time of Discharge cetirizine (ZyrTEC) 10 mg tablet 04/01/2016Zyrtec, po solid 10 mg TabletPOdailyCurrent Medication 6 [id number] M-acetaminophe n 2-5-10-325 mg tablets, sequential 04/01/2016Multivitamin, po solid TabletPOdailyCurrent Medication 6 03/17/ 018 cholecalcifero l (VITAMIN D-3) 400 unit capsule 04/01/2016Vitamin d, po solid 400 unit TabletPOdailyCurrent Medication 6 023 FLUoxetine (PROzac) 20 mg capsule 04/01/2016Fluoxetine hcl, po solid 20 mg CapsulePOdailyCurrent Medication 6 018 levothyroxine (SYNTHROID, LEVOTHROID) 50 mcg tablet Take 75 mcg by mouth 01 6 023 omega 3-vrg-bda-fish oil 100-160-1,000 mg capsule 04/01/2016Fish oil omega-3, po solid 300-1000mg CapsulePOdailyCurrent Medication 6 023 vitamin E 100 unit/0.25 mL drops 04/01/2016Vitamin e, po solid 1000 unit CapsulePOdailyCurrent Medication 6 023 documented as of this encounter Plan of Treatment Not on file documented as of this encounter Procedures Procedure Name Priority Date/Time Associated Diagnosis Comments XR CONSULT OF OUTSIDE FILMS (PEDS ONLY) Routine 04/11/2016 3:[address] ABDOMEN PELVIS W CONTRAST Routine 04/10/2016 1:49 PM CDT BLOOD CREATININE, POINT OF CARE Routine 04/10/2016 1:35 PM CDT documented in this encounter Results * XR Interpretation Of Outside Films (04/11/2016 3:34 PM CDT) Anatomical Region Laterality Modality N/A Radiographic Ana Cristina ging 04/11/2016 3:34 PM CDT Narrative 04/11/2016 5:42 PM CDT LISA GRIDER M.D. KIMBERLY FERREIRA M.D. FINAL REPORT The radiology attending physician has personally reviewed this study, and has reviewed and/or edited this written report and agrees with it. ACC# ??Date Time ??Exam [id number] Apr 11, 2016 15:34:00 [id number] [facility] Body CT Consult EXAMINATION: ?CHANGE CONSULT ON OUTSIDE IMAGES TO REFERENCE IMAGES IMPRESSION: ?This study was initially nominated as a consult on outside images via [employer]. However, a consult was not performed because the study has been used as a reference for a more recent abdomen and pelvis CT. An addendum has been added to CT requisition number [id number]. Accordingly, there will be no separate report of this study generated by a [facility] Radiologist. Requested By: Dictated By: ?? KIMBERLY FERREIRA M.D. ??on Apr 11 2016 ??3:58P This document has been electronically signed by: LISA GRIDER M.D. on Apr 11 2016 ??5:42P [id number] Procedure Note Provider, MD Palma - 01/25/2017 Danica BRAUN M.D. FINAL REPORT The radiology attending physician has personally reviewed this study, and has reviewed and/or edited this written report and agrees with it. ACC# Date Time Exam [id number] Apr 11, 2016 15:34:00 [id number] [facility] Body CT Consult EXAMINATION: CHANGE CONSULT ON OUTSIDE IMAGES TO REFERENCE IMAGES IMPRESSION: This study was initially nominated as a consult on outside images via [employer]. However, a consult was not performed because the study has been used as a reference for a more recent abdomen and pelvis CT. An addendum has been added to CT requisition number [id number]. Accordingly, there will be no separate report of this study generated by a [facility] Radiologist. Requested By: Dictated By: KIMBERLY FERREIRA M.D. on Apr 11 2016 3:58P This document has been electronically signed by: LISA GRIDER M.D. on Apr 11 2016 5:42P [id number] us Historical Provider IMG XR PROCEDURES Final R esult * CT Abdomen Pelvis W Contrast (04/10/2016 1:49 PM CDT) Anatomical Region Laterality Modality Body N/A Computed Tomogra phy 04/10/2016 1:49 PM CDT Narrative 04/11/2016 5:20 PM CDT LISA GRIDER M.D. GRAEME REBIK, DO FINAL REPORT The radiology attending physician has personally reviewed this study, and has reviewed and/or edited this written report and agrees with it. ACC# ??Date Time ??Exam [id number] Apr 10, 2016 13:49:[id number] Abd & Pelvis with cont ACC# ??Date Time ??Exam [id number] Apr 10, 2016 13:49:[id number] Abd & Pelvis with cont EXAMINATION: ?? CT of the abdomen and pelvis with contrast. HISTORY: ??60-year-old female with endometrial cancer. TECHNIQUE: ??After the uncomplicated infusion of 93 cc Optiray-350 contrast, serial tomographic images of the abdomen and pelvis were obtained. FINDINGS: ??No comparison examinations were available at the time of dictation. There is mild bibasilar atelectasis. There is a 0.9 cm pulmonary nodule with central calcification in the inferior right middle lobe, compatible with a calcified granuloma. There are a few scattered tiny subcentimeter foci of low-attenuation within the liver, which are too small to characterize. The gallbladder is normal. There is no dilation of intrahepatic or extrahepatic biliary ducts. The spleen and pancreas are normal. The adrenal glands are normal. There is symmetric enhancement of the both kidneys. There is no hydronephrosis. A right extrarenal pelvis is noted. The urinary bladder is normal. The uterus is surgically absent. The adnexa are not definitively visualized. There is no obstruction or inflammation within the gastrointestinal tract. There is a small low attenuating collection along the anterior aspect of the iliopsoas muscle which measures 1.8 x 0.9 cm (series 2, image 127). Two surgical clips are noted along the medial aspect of the collection. There is no intraperitoneal free air. There is no retroperitoneal or mesenteric lymphadenopathy. Linear stranding within the subcutaneous tissues of the right upper quadrant and the left mid abdomen may be related to recent procedure. Bone windows demonstrate no suspicious lytic or blastic lesions. Facets arthropathy is noted bilaterally at L4-L5 and L5-S1. There is grade 1 anterolisthesis of L4 and L5. ?? IMPRESSION: 1. Small hypoattenuating fluid collection along the right iliopsoas muscle adjacent to two surgical clips. This may represent a postoperative fluid collection or a metastasis. Recommend correlation with any available outside CTs. 2. Otherwise, no definitive evidence of metastatic disease within the abdomen or pelvis. Addendum: This addendum is being added, because an outside CT dated 03/12/2016 has become available for comparison. The fluid collection with a peripheral thick enhancing rim adjacent to and invading the iliacus muscle was larger on the prior examination where it measured approximately 5.3 x 2.7 cm. There has been interval placement of surgical clips. It remains worrisome for residual metastasis. Correlation with any surgical pathology from the interval partial resection is recommended. ?? Requested By: Dictated By: ?? GRAEME GRIFFIN, ??on Apr 10 2016 ??3:31P This document has been electronically signed by: CHRISTO GUZMÁN M.D. on Apr 10 2016 ??3:57P Addendum Dictated by: KIMBERLY FERREIRA M.D. on Apr 11 2016 ??3:57P This Addendum has been electronically signed by: LISA GRIDER M.D. on Apr 11 2016 ??5:20P [id number] Procedure Note Provider, MD Palma - 01/25/2017 LISA GRIDER M.D. GRAEME GRIFFIN DO FINAL REPORT The radiology attending physician has personally reviewed this study, and has reviewed and/or edited this written report and agrees with it. ACC# Date Time Exam [id number] Apr 10, 2016 13:49:[id number] Abd & Pelvis with cont ACC# Date Time Exam [id number] Apr 10, 2016 13:49:[id number] Abd & Pelvis with cont EXAMINATION: CT of the abdomen and pelvis with contrast. HISTORY: 60-year-old female with endometrial cancer. TECHNIQUE: After the uncomplicated infusion of 93 cc Optiray-350 contrast, serial tomographic images of the abdomen and pelvis were obtained. FINDINGS: No comparison examinations were available at the time of dictation. There is mild bibasilar atelectasis. There is a 0.9 cm pulmonary nodule with central calcification in the inferior right middle lobe, compatible with a calcified granuloma. There are a few scattered tiny subcentimeter foci of low-attenuation within the liver, which are too small to characterize. The gallbladder is normal. There is no dilation of intrahepatic or extrahepatic biliary ducts. The spleen and pancreas are normal. The adrenal glands are normal. There is symmetric enhancement of the both kidneys. There is no hydronephrosis. A right extrarenal pelvis is noted. The urinary bladder is normal. The uterus is surgically absent. The adnexa are not definitively visualized. There is no obstruction or inflammation within the gastrointestinaltract. There is a small low attenuating collection along the anterior aspect of the iliopsoas muscle which measures 1.8 x 0.9 cm (series 2, image 127). Two surgical clips are noted along the medial aspect of the collection. There is no intraperitoneal free air. There is no retroperitoneal or mesenteric lymphadenopathy. Linear stranding within the subcutaneous tissues of the right upper quadrant and the left mid abdomen may be related to recent procedure. Bone windows demonstrate no suspicious lytic or blastic lesions. Facets arthropathy is noted bilaterally at L4-L5 and L5-S1. There is grade 1 anterolisthesis of L4 and L5. IMPRESSION: 1. Small hypoattenuating fluid collection along the right iliopsoas muscle adjacent to two surgical clips. This may represent a postoperative fluid collection or a metastasis. Recommend correlation with any available outside CTs. 2. Otherwise, no definitive evidence of metastatic disease within the abdomen or pelvis. Addendum: This addendum is being added, because an outside CT dated 03/12/2016 has become available for comparison. The fluid collection with a peripheral thick enhancing rim adjacent to and invading the iliacus muscle was larger on the prior examination where it measured approximately 5.3 x 2.7 cm. There has been interval placement of surgical clips. It remains worrisome for residual metastasis. Correlation with any surgical pathology from the interval partial resection is recommended. Requested By: Dictated By: GRAEME GRIFFIN DO on Apr 10 2016 3:31P This document has been electronically signed by: CHRISTO GUZMÁN M.D. on Apr 10 2016 3:57P Addendum Dictated by: KIMBERLY FERREIRA M.D. on Apr 11 2016 3:57P This Addendum has been electronically signed by: LISA GRIDER M.D. on Apr 11 2016 5:20P [id number] us Historical Provider MD SOLORZANO CT PROCEDURES Final R esult * Blood creatinine, point of care (04/10/2016 1:35 PM CDT) Creatinine, POC, bld 1.0 0.6 - 1.1 mg/dl CDR HISTORICAL RESULTS Blood specimen (specimen) 04/10/2016 1:35 PM CDT us Jonnathan Jack MD LAB BLOOD ORDERABLES Final Res ult CDR HISTORICAL RESULTS documented in this encounter Visit Diagnoses Diagnosis Malignant neoplasm of endometrium (CMS/HCC) (HCC) Malignant neoplasm of corpus uteri, except isthmus Other specified disorders of muscle documented in this encounter
--- OUTSIDE RECORDS SUMMARY | 2024-10-06 04:07 | XMS_ITS | Encounter Summary ---
Author Organization [facility] Care Team Providers Care Tableau Analyst Name Role Phone Unavailable Primary Care Provider Unavailabl e Encounter Details Date Type Department Care Team (Late st Contact Info) Description 08/19/2016 6:19 AM VESSEL OPERATOR - 08/19/2016 11:59 PM [facility] Hospital Encounter [facility] Diogenes Denney MD [address] [id number] Sepsis (CMS/HCC); Extradural and subdural abscess, unspecified; Malignant neoplasm of endometrium (CMS/HCC); Secondary malignant neoplasm (CMS/HCC) Social History Tobacco Use Types Packs/Day Years Used Date Smoking Tobacco: Never Assessed Comments Unknown Sex and Gender Information Value Date Recorded Sex Assigned at Not on file Legal Sex Female 2:10 AM VESSEL OPERATOR Gender Identity Not on file Sexual Orientation Not on file documented as of this encounter Medications at Time of Discharge cetirizine (ZyrTEC) 10 mg tablet 04/01/2016Zyrtec, po solid 10 mg TabletPOdailyCurrent Medication 6 [id number]-RU-[id number] M-acetaminophe n 2-5-10-325 mg tablets, sequential 04/01/2016Multivitamin, po solid TabletPOdailyCurrent Medication 6 018 cholecalcifero l (VITAMIN D-3) 400 unit capsule 04/01/2016Vitamin d, po solid 400 unit TabletPOdailyCurrent Medication 6 023 FLUoxetine (PROzac) 20 mg capsule 04/01/2016Fluoxetine hcl, po solid 20 mg CapsulePOdailyCurrent Medication 6 018 levothyroxine (SYNTHROID, LEVOTHROID) 50 mcg tablet Take 75 mcg by mouth 01 6 023 omega 0-rqi-tjs-fish oil 100-160-1,000 mg capsule 04/01/2016Fish oil omega-3, [...] Procedure Name Priority Date/Time Associated Diagnosis Comments MRI LUMBAR SPINE W WO CONTRAST Routine 08/19/2016 8:47 AM VESSEL OPERATOR documented in this encounter Results * MRI Lumbar Spine W WO Contrast (08/19/2016 8:47 AM VESSEL OPERATOR) Anatomical Region Laterality Modality Spine N/A Magnetic Resonan ce 08/19/2016 8:47 AM VESSEL OPERATOR Narrative 08/19/2016 1:45 PM VESSEL OPERATOR THELMA CAMARENA M.D. JENISE GIL M.D. FINAL REPORT The radiology attending physician has personally reviewed this study, and has reviewed and/or edited this written report and agrees with it. ACC# ??Date Time ??Exam [id number] Aug 19, 2016 08:47:00 [id number] MRI Lumbar Spn wo&wi cont EXAMINATION: ?? 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 TECHNIQUE: Multiplanar multi-weighted MRI of the lumbar spine was performed without and with intravenous contrast using the standard lumbar spine protocol. Contrast information: 12 mL Dotarem COMPARISON: Comparison made to prior lumbar spine MRI with and without intravenous contrast dated 07/07/2016. FINDINGS: Interval resolution of the previously seen epidural enhancement. Interval resolution of the epidural abscess. Interval increase in the marked enhancement and edema surrounding the left L5 and left L4 facet joints. Interval increase in the enhancement of the posterior spinous processes of L4 and L5. Interval increase in the enhancement of the left pedicles of L5 and S1. Interval increase in the enhancement of the left superior articular process of S1. There is unchanged mild anterolisthesis of L4 and L5. Multilevel disc desiccation is noted throughout the lumbar spine with an annular fissure at L2-L3. There are no compression fractures. The conus medullaris terminates at the level of L1. The distal spinal cord signal intensity is normal. There is an unchanged T2 hyperintensities with a L2 vertebral body which likely represents a hemangioma. Limited views of the abdomen and pelvis show no soft tissue abnormality. The aorta is normal. IMPRESSION: ?? 1. Interval resolution of the epidural enhancement and epidural abscess. 2. Interval increase in enhancement of the posterior spinous processes of L4 and L5, the left pedicle of L5 and S1, and the left superior articular process of S1. Findings are favored to represent worsening osteomyelitis. 3. Interval increase in the enhancement and surrounding T2/STIR hyperintense edema of the left L4 and L5 facet joints. Findings are favored to represent septic arthritis. Requested By: Dictated By: ?? JENISE GIL M.D. ??on Aug 19 2016 10:46A This document has been electronically signed by: THELMA CAMARENA M.D. on Aug 19 2016 ??1:44P [id number] Procedure Note Provider, MD [place] - 01/27/2017 THELMA CAMARENA M.D. JENISE GIL M.D. FINAL REPORT The radiology attending physician has personally reviewed this study, and has reviewed and/or edited this written report and agrees with it. 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 TECHNIQUE: Multiplanar multi-weighted MRI of the lumbar spine was performed without and with intravenous contrast using the standard lumbar spine protocol. Contrast information: 12 mL Dotarem COMPARISON: Comparison made to prior lumbar spine MRI with and without intravenous contrast dated 07/07/2016. FINDINGS: Interval resolution of the previously seen epidural enhancement. Interval resolution of the epidural abscess. Interval increase in the marked enhancement and edema surrounding the left L5 and left L4 facet joints. Interval increase in the enhancement of the posterior spinous processes of L4 and L5. Interval increase in the enhancement of the left pedicles of L5 and S1. Interval increase in the enhancement of the left superior articular process of S1. There is unchanged mild anterolisthesis of L4 and L5. Multilevel disc desiccation is noted throughout the lumbar spine with an annular fissure at L2-L3. There are no compression fractures. The conus medullaris terminates at the level of L1. The distal spinal cord signal intensity is normal. There is an unchanged T2 hyperintensities with a L2 vertebral body which likely represents a hemangioma. Limited views of the abdomen and pelvis show no soft tissue abnormality. The aorta is normal. IMPRESSION: 1. Interval resolution of the epidural enhancement and epidural abscess. 2. Interval increase in enhancement of the posterior spinous processes of L4 and L5, the left pedicle of L5 and S1, and the left superior articular process of S1. Findings are favored to represent worseningosteomyelitis. 3. Interval increase in the enhancement and surrounding T2/STIR hyperintense edema of the left L4 and L5 facet joints. Findings are favored to represent septic arthritis. Requested By: Dictated By: JENISE GIL M.D. on Aug 19 2016 10:46A This document has been electronically signed by: THELMA CAMARENA M.D. on Aug 19 2016 1:44P [id number] Historical Provider MD SOLOR[facility]O MRI PROCEDURES Final Result documented in this encounter Visit Diagnoses Diagnosis Sepsis (HCC) Extradural and subdural abscess, unspecified Malignant neoplasm of endometrium (CMS/HCC) (HCC) Malignant neoplasm of corpus uteri, except isthmus Secondary malignant neoplasm (HCC) Secondary malignant neoplasm of other specified sites documented in this encounter
--- OUTSIDE RECORDS SUMMARY | 2024-10-06 04:07 | XMS_ITS | Encounter Summary ---
Author Organization [facility] Facility Care Team Providers Care Founder Ceo & President Name Role Phone Unavailable Primary Care Provider Unavailabl e Encounter Details Date Type Department Care Team (Late st Contact Info) Description 06/26/2016 8:44 AM CDT - 06/26/2016 11:59 PM CDT Hospital Encounter [facility] Van Garces, DO [address] [place] [address] Malignant neoplasm of endometrium (CMS/HCC); Acquired absence of both cervix and uterus Social History Tobacco Use Types Packs/Day Years Used Date Smoking Tobacco: Never Assessed Comments Unknown Sex and Gender Information Value Date Recorded Sex Assigned at Not on file Legal 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 Gender Identity Not on file Sexual Orientation Not on file documented as of this encounter Medications at Time of Discharge cetirizine (ZyrTEC) 10 mg tablet 04/01/2016Zyrtec, po solid 10 mg TabletPOdailyCurrent Medication 6 uzjoiypji-VA-Z M-acetaminophe n 2-5-10-325 mg tablets, sequential 04/01/2016Multivitamin, po solid TabletPOdailyCurrent Medication 6 018 cholecalcifero l (VITAMIN D-3) 400 unit capsule 04/01/2016Vitamin d, po solid 400 unit TabletPOdailyCurrent Medication 6 023 FLUoxetine (PROzac) 20 mg capsule 04/01/2016Fluoxetine hcl, po solid 20 mg CapsulePOdailyCurrent Medication 6 018 levothyroxine (SYNTHROID, LEVOTHROID) 50 mcg tablet Take 75 mcg by mouth 01 6 023 omega 9-bet-edo-fish oil 100-160-1,000 mg capsule 04/01/2016Fish oil omega-3, [...] Procedure Name Priority Date/Time Associated Diagnosis Comments VENOUS ACCESS Routine 06/26/2016 10:26 AM CDT US GUIDED VASCULAR ACCESS Routine 06/26/2016 10:26 AM CDT PORT PLACEMENT CHEST >5 YEARS Routine 06/26/2016 10:26 AM CDT documented in this encounter Results * Port Placement Chest > 5 Years (06/26/2016 10:26 AM CDT) Anatomical Region Laterality Modality Chest N/A X-Ray Angiograph y 06/26/2016 10:2 6 AM CDT Narrative 06/26/2016 11:51 AM CDT DAYO HEBERT M.D. LI OLSON M.D. FINAL REPORT The radiology attending physician has personally reviewed this study, and has reviewed and/or edited this written report and agrees with it. ACC# ??Date Time ??Exam [id number] Jun 26, 2016 10:26:00 17275 Insert Chest Port >5 y/o [id number] Jun 26, 2016 10:26:00 26933 Fluoro Wilian Accs R [id number] Jun 26, 2016 10:26:00 91730 USguide Wilian Acc R ACC# ??Date Time ??Exam [id number] Jun 26, 2016 10:26:00 27418 Insert Chest Port >5 y/o [id number] Jun 26, 2016 10:26:00 35853 Fluoro Wilian Accs R [id number] Jun 26, 2016 10:26:00 72328 USguide Wilian Acc R EXAMINATION: ?PORT PLACEMENT USING ULTRASOUND AND FLUOROSCOPIC GUIDANCE HISTORY: 61-year-old woman with endometrioid carcinoma presents for port placement for chemotherapy. ATTENDING PRESENCE: Dr. Hebert, the attending radiologist, was present from the beginning to the end of the procedure. Devi Perkins also participated in the procedure. SEDATION: Conscious sedation was used for the procedure. TECHNIQUE: The risks, benefits and alternatives were discussed and informed consent was obtained. ??Prior to beginning the procedure, [place] Protocol was used to confirm the patient's identity and planned procedure. ?? Fluoroscopy time has been recorded in the electronic medical record. Prior to the procedure, the central veins were evaluated by ultrasound, an image recorded and placed in the patient's chart. Maximum sterile barriers including cap, mask, hand hygiene, sterile gloves, sterile gown, large sterile drape and 2% chlorhexidine for cutaneous antisepsis were used. The skin over the right internal jugular vein was sterilely prepped, draped and infiltrated with 1% lidocaine. ??The vein was accessed with a 21 gauge needle using realtime ultrasound guidance. ??A guidewire and catheter were then passed centrally using fluoroscopic guidance. ?? The intravascular length from the access site to the right atrium was then measured. ??After infiltrating the skin in the subclavicular region with 1% buffered lidocaine, a short transverse incision was made and the pocket for the ?? power injectable port reservoir was formed by blunt dissection. The catheter was tunneled to the IJ access site, cut to the appropriate length and inserted through a peel-away sheath. ??The catheter was flushed with 100U/ml heparin and the access needle was removed. The deep tissues were approximated using 4-0 Monocryl and the incision closed using Dermabond. ??The incision in the lower neck was closed in a similar fashion. ESTIMATED BLOOD LOSS: less than 30 milliliters DISCHARGED TO: Recovery and then to home CONDITION: stable FINDINGS: Ultrasound image shows a patent vein in the lower neck. ??The final fluoroscopic image demonstrates the catheter with its tip at the cavoatrial junction. ??No complications are seen. ?? IMPRESSION: Successful chest wall port placement. PLAN: The port is ready for immediate use. Please note that a power injectable port was placed. When treatment is completed, removal can be scheduled by calling [facility] - [phone] [facility] - [phone] ?? Requested By: VAN GARCES M.D. Dictated By: ?? LI OLSON M.D. ??on Jun ??2015 11:23A This document has been electronically signed by: DAYO HEBERT M.D. on Jun ??2015 11:51A [id number] Procedure Note Provider, MD Palma - 01/27/2017 Danica MURPHY M.D. FINAL REPORT The radiology attending physician has personally reviewed this study, and has reviewed and/or edited this written report and agrees with it. ACC# Date Time Exam [id number] Jun 26, 2016 10:26:00 06726 Insert Chest Port >5 y/o [id number] Jun 26, 2016 10:26:00 16596 Fluoro Wilian Accs R [id number] Jun 26, 2016 10:26:00 24554 USguide Wilian Acc R ACC# Date Time Exam [id number] Jun 26, 2016 10:26:00 63039 Insert Chest Port >5 y/o [id number] Jun 26, 2016 10:26:00 42551 Fluoro Wilian Accs R [id number] Jun 26, 2016 10:26:00 29678 USguide Wilian Acc R EXAMINATION: PORT PLACEMENT USING ULTRASOUND AND FLUOROSCOPICGUIDANCE HISTORY: 61-year-old woman with endometrioid carcinoma presents for port placement for chemotherapy. ATTENDING PRESENCE: Dr. Hebert, the attending radiologist, was present from the beginning to the end of the procedure. Devi Perkins also participated in the procedure. SEDATION: Conscious sedation was used for the procedure. TECHNIQUE: The risks, benefits and alternatives were discussed and informed consent was obtained. Prior to beginning the procedure, [place] Protocol was used to confirm the patient's identity and planned procedure. Fluoroscopy time has been recorded in the electronic medical record. Prior to the procedure, the central veins were evaluated by ultrasound, an image recorded and placed in the patient's chart. Maximum sterile barriers including cap, mask, hand hygiene, sterile gloves, sterile gown, large sterile drape and 2% chlorhexidine for cutaneous antisepsis were used. The skin over the right internal jugular vein was sterilely prepped, draped and infiltrated with 1% lidocaine. The vein was accessed with a 21 gauge needle using realtime ultrasound guidance. A guidewire and catheter were then passed centrally using fluoroscopic guidance. The intravascular length from the access site to the right atrium was then measured. After infiltrating the skin in the subclavicular region with 1% buffered lidocaine, a short transverse incision was made and the pocket for the power injectable port reservoir was formed by blunt dissection. The catheter was tunneled to the IJ access site, cut to the appropriate length and inserted through a peel-away sheath. The catheter was flushed with 100U/ml heparin and the access needle was removed. The deep tissues were approximated using 4-0 Monocryl and the incision closed using Dermabond. The incision in the lower neck was closed in a similar fashion. ESTIMATED BLOOD LOSS: less than 30 milliliters DISCHARGED TO: Recovery and then to home CONDITION: stable FINDINGS: Ultrasound image shows a patent vein in the lower neck. The final fluoroscopic image demonstrates the catheter with its tip at the cavoatrial junction. No complications are seen. IMPRESSION: Successful chest wall port placement. PLAN: The port is ready for immediate use. Please note that a power injectable port was placed. When treatment is completed, removal can be scheduled by calling [facility] - [phone] [facility] - [phone] Requested By: VAN GARCES M.D. Dictated By: LI OLSON M.D. on Jun 26 2016 11:23A This document has been electronically signed by: DAYO HEBERT M.D. on Jun 26 2016 11:51A [id number] us Historical Provider MD SOLORZANO IR PROCEDURES Final R esult * VENOUS ACCESS (06/26/2016 10:26 AM CDT) Anatomical Region Laterality Modality N/A Radiographic Ana Cristina ging 06/26/2016 10:2 6 AM CDT Narrative 06/26/2016 11:51 AM CDT DAYO HEBERT M.D. LI OLSON M.D. FINAL REPORT The radiology attending physician has personally reviewed this study, and has reviewed and/or edited this written report and agrees with it. ACC# ??Date Time ??Exam [id number] Jun 26, 2016 10:26:00 90020 Insert Chest Port >5 y/o [id number] Jun 26, 2016 10:26:00 89836 Fluoro Wilian Accs R [id number] Jun 26, 2016 10:26:00 04390 USguide Wilian Acc R ACC# ??Date Time ??Exam [id number] Jun 26, 2016 10:26:00 73287 Insert Chest Port >5 y/o [id number] Jun 26, 2016 10:26:00 08568 Fluoro Wilian Accs R [id number] Jun 26, 2016 10:26:00 55268 USguide Wilian Acc R EXAMINATION: ?PORT PLACEMENT USING ULTRASOUND AND FLUOROSCOPIC GUIDANCE HISTORY: 61-year-old woman with endometrioid carcinoma presents for port placement for chemotherapy. ATTENDING PRESENCE: Dr. Hebert, the attending radiologist, was present from the beginning to the end of the procedure. Devi Perkins also participated in the procedure. SEDATION: Conscious sedation was used for the procedure. TECHNIQUE: The risks, benefits and alternatives were discussed and informed consent was obtained. ??Prior to beginning the procedure, [place] Protocol was used to confirm the patient's identity and planned procedure. ?? Fluoroscopy time has been recorded in the electronic medical record. Prior to the procedure, the central veins were evaluated by ultrasound, an image recorded and placed in the patient's chart. Maximum sterile barriers including cap, mask, hand hygiene, sterile gloves, sterile gown, large sterile drape and 2% chlorhexidine for cutaneous antisepsis were used. The skin over the right internal jugular vein was sterilely prepped, draped and infiltrated with 1% lidocaine. ??The vein was accessed with a 21 gauge needle using realtime ultrasound guidance. ??A guidewire and catheter were then passed centrally using fluoroscopic guidance. ?? The intravascular length from the access site to the right atrium was then measured. ??After infiltrating the skin in the subclavicular region with 1% buffered lidocaine, a short transverse incision was made and the pocket for the ?? power injectable port reservoir was formed by blunt dissection. The catheter was tunneled to the IJ access site, cut to the appropriate length and inserted through a peel-away sheath. ??The catheter was flushed with 100U/ml heparin and the access needle was removed. The deep tissues were approximated using 4-0 Monocryl and the incision closed using Dermabond. ??The incision in the lower neck was closed in a similar fashion. ESTIMATED BLOOD LOSS: less than 30 milliliters DISCHARGED TO: Recovery and then to home CONDITION: stable FINDINGS: Ultrasound image shows a patent vein in the lower neck. ??The final fluoroscopic image demonstrates the catheter with its tip at the cavoatrial junction. ??No complications are seen. ?? IMPRESSION: Successful chest wall port placement. PLAN: The port is ready for immediate use. Please note that a power injectable port was placed. When treatment is completed, removal can be scheduled by calling [facility] - [phone] [facility] - [phone] ?? Requested By: VAN GARCES M.D. Dictated By: ?? LI OLSON M.D. ??on Jun 11:23A This document has been electronically signed by: DAYO HEBERT M.D. on Jun 11:51A [id number] Procedure Note Provider, MD Palma - 01/27/2017 Danica MURPHY M.D. FINAL REPORT The radiology attending physician has personally reviewed this study, and has reviewed and/or edited this written report and agrees with it. ACC# Date Time Exam [id number] Jun 26, 2016 10:26:00 33321 Insert Chest Port >5 y/o [id number] Jun 26, 2016 10:26:00 37663 Fluoro Wilian Accs R [id number] Jun 26, 2016 10:26:00 57937 USguide Wilian Acc R ACC# Date Time Exam [id number] Jun 26, 2016 10:26:00 40255 Insert Chest Port >5 y/o [id number] Jun 26, 2016 10:26:00 53186 Fluoro Wilian Accs R [id number] Jun 26, 2016 10:26:00 44902 USguide Wilian Acc R EXAMINATION: PORT PLACEMENT USING ULTRASOUND AND FLUOROSCOPICGUIDANCE HISTORY: 61-year-old woman with endometrioid carcinoma presents for port placement for chemotherapy. ATTENDING PRESENCE: Dr. Hebert, the attending radiologist, was present from the beginning to the end of the procedure. Devi Perkins also participated in the procedure. SEDATION: Conscious sedation was used for the procedure. TECHNIQUE: The risks, benefits and alternatives were discussed and informed consent was obtained. Prior to beginning the procedure, [place] Protocol was used to confirm the patient's identity and planned procedure. Fluoroscopy time has been recorded in the electronic medical record. Prior to the procedure, the central veins were evaluated by ultrasound, an image recorded and placed in the patient's chart. Maximum sterile barriers including cap, mask, hand hygiene, sterile gloves, sterile gown, large sterile drape and 2% chlorhexidine for cutaneous antisepsis were used. The skin over the right internal jugular vein was sterilely prepped, draped and infiltrated with 1% lidocaine. The vein was accessed with a 21 gauge needle using realtime ultrasound guidance. A guidewire and catheter were then passed centrally using fluoroscopic guidance. The intravascular length from the access site to the right atrium was then measured. After infiltrating the skin in the subclavicular region with 1% buffered lidocaine, a short transverse incision was made and the pocket for the power injectable port reservoir was formed by blunt dissection. The catheter was tunneled to the IJ access site, cut to the appropriate length and inserted through a peel-away sheath. The catheter was flushed with 100U/ml heparin and the access needle was removed. The deep tissues were approximated using 4-0 Monocryl and the incision closed using Dermabond. The incision in the lower neck was closed in a similar fashion. ESTIMATED BLOOD LOSS: less than 30 milliliters DISCHARGED TO: Recovery and then to home CONDITION: stable FINDINGS: Ultrasound image shows a patent vein in the lower neck. The final fluoroscopic image demonstrates the catheter with its tip at the cavoatrial junction. No complications are seen. IMPRESSION: Successful chest wall port placement. PLAN: The port is ready for immediate use. Please note that a power injectable port was placed. When treatment is completed, removal can be scheduled by calling [facility] - [phone] [facility] - [phone] Requested By: VAN GARCES M.D. Dictated By: LI OLSON M.D. on Jun 26 2016 11:23A This document has been electronically signed by: DAYO HEBERT M.D. on Jun 26 2016 11:51A [id number] us Historical Provider MD SOLORZANO XR PROCEDURES Final R esult * US Guided Vascular Access (06/26/2016 10:26 AM CDT) Anatomical Region Laterality Modality N/A Ultrasound 06/26/2016 10:2 6 AM CDT Narrative 06/26/2016 11:51 AM CDT Danica MURPHY M.D. FINAL REPORT The radiology attending physician has personally reviewed this study, and has reviewed and/or edited this written report and agrees with it. ACC# ??Date Time ??Exam [id number] Jun 26, 2016 10:26:00 86344 Insert Chest Port >5 y/o [id number] Jun 26, 2016 10:26:00 00773 Fluoro Wilian Accs R [id number] Jun 26, 2016 10:26:00 06723 USguide Wilian Acc R ACC# ??Date Time ??Exam [id number] Jun 26, 2016 10:26:00 22015 Insert Chest Port >5 y/o [id number] Jun 26, 2016 10:26:00 77277 Fluoro Wilian Accs R [id number] Jun 26, 2016 10:26:00 71528 USguide Wilian Acc R EXAMINATION: ?PORT PLACEMENT USING ULTRASOUND AND FLUOROSCOPIC GUIDANCE HISTORY: 61-year-old woman with endometrioid carcinoma presents for port placement for chemotherapy. ATTENDING PRESENCE: Dr. Hebert, the attending radiologist, was present from the beginning to the end of the procedure. Devi Perkins also participated in the procedure. SEDATION: Conscious sedation was used for the procedure. TECHNIQUE: The risks, benefits and alternatives were discussed and informed consent was obtained. ??Prior to beginning the procedure, [place] Protocol was used to confirm the patient's identity and planned procedure. ?? Fluoroscopy time has been recorded in the electronic medical record. Prior to the procedure, the central veins were evaluated by ultrasound, an image recorded and placed in the patient's chart. Maximum sterile barriers including cap, mask, hand hygiene, sterile gloves, sterile gown, large sterile drape and 2% chlorhexidine for cutaneous antisepsis were used. The skin over the right internal jugular vein was sterilely prepped, draped and infiltrated with 1% lidocaine. ??The vein was accessed with a 21 gauge needle using realtime ultrasound guidance. ??A guidewire and catheter were then passed centrally using fluoroscopic guidance. ?? The intravascular length from the access site to the right atrium was then measured. ??After infiltrating the skin in the subclavicular region with 1% buffered lidocaine, a short transverse incision was made and the pocket for the ?? power injectable port reservoir was formed by blunt dissection. The catheter was tunneled to the IJ access site, cut to the appropriate length and inserted through a peel-away sheath. ??The catheter was flushed with 100U/ml heparin and the access needle was removed. The deep tissues were approximated using 4-0 Monocryl and the incision closed using Dermabond. ??The incision in the lower neck was closed in a similar fashion. ESTIMATED BLOOD LOSS: less than 30 milliliters DISCHARGED TO: Recovery and then to home CONDITION: stable FINDINGS: Ultrasound image shows a patent vein in the lower neck. ??The final fluoroscopic image demonstrates the catheter with its tip at the cavoatrial junction. ??No complications are seen. ?? IMPRESSION: Successful chest wall port placement. PLAN: The port is ready for immediate use. Please note that a power injectable port was placed. When treatment is completed, removal can be scheduled by calling [facility] - [phone] [facility] - [phone] ?? Requested By: VAN GARCES M.D. Dictated By: ?? LI OLSON M.D. ??on Jun?2015 11:23A This document has been electronically signed by: DAYO HEBERT M.D. on Jun?2015 11:51A [id number] Procedure Note Provider, MD Palma - 01/27/2017 DAYO HEBERT M.D. LI OLSON M.D. FINAL REPORT The radiology attending physician has personally reviewed this study, and has reviewed and/or edited this written report and agrees with it. ACC# Date Time Exam [id number] Jun 26, 2016 10:26:00 02233 Insert Chest Port >5 y/o [id number] Jun 26, 2016 10:26:00 16588 Fluoro Wilian Accs R [id number] Jun 26, 2016 10:26:00 88086 USguide Wilian Acc R ACC# Date Time Exam [id number] Jun 26, 2016 10:26:00 70806 Insert Chest Port >5 y/o [id number] Jun 26, 2016 10:26:00 23209 Fluoro Wilian Accs R [id number] Jun 26, 2016 10:26:00 55880 USguide Wilian Acc R EXAMINATION: PORT PLACEMENT USING ULTRASOUND AND FLUOROSCOPICGUIDANCE HISTORY: 61-year-old woman with endometrioid carcinoma presents for port placement for chemotherapy. ATTENDING PRESENCE: Dr. Hebert, the attending radiologist, was present from the beginning to the end of the procedure. Devi Perkins also participated in the procedure. SEDATION: Conscious sedation was used for the procedure. TECHNIQUE: The risks, benefits and alternatives were discussed and informed consent was obtained. Prior to beginning the procedure, [place] Protocol was used to confirm the patient's identity and planned procedure. Fluoroscopy time has been recorded in the electronic medical record. Prior to the procedure, the central veins were evaluated by ultrasound, an image recorded and placed in the patient's chart. Maximum sterile barriers including cap, mask, hand hygiene, sterile gloves, sterile gown, large sterile drape and 2% chlorhexidine for cutaneous antisepsis were used. The skin over the right internal jugular vein was sterilely prepped, draped and infiltrated with 1% lidocaine. The vein was accessed with a 21 gauge needle using realtime ultrasound guidance. A guidewire and catheter were then passed centrally using fluoroscopic guidance. The intravascular length from the access site to the right atrium was then measured. After infiltrating the skin in the subclavicular region with 1% buffered lidocaine, a short transverse incision was made and the pocket for the power injectable port reservoir was formed by blunt dissection. The catheter was tunneled to the IJ access site, cut to the appropriate length and inserted through a peel-away sheath. The catheter was flushed with 100U/ml heparin and the access needle was removed. The deep tissues were approximated using 4-0 Monocryl and the incision closed using Dermabond. The incision in the lower neck was closed in a similar fashion. ESTIMATED BLOOD LOSS: less than 30 milliliters DISCHARGED TO: Recovery and then to home CONDITION: stable FINDINGS: Ultrasound image shows a patent vein in the lower neck. The final fluoroscopic image demonstrates the catheter with its tip at the cavoatrial junction. No complications are seen. IMPRESSION: Successful chest wall port placement. PLAN: The port is ready for immediate use. Please note that a power injectable port was placed. When treatment is completed, removal can be scheduled by calling [facility] - [phone] [facility] - [phone] Requested By: VAN GARCES M.D. Dictated By: LI OLSON M.D. on Jun 26 2016 11:23A This document has been electronically signed by: DAYO HEBERT M.D. on Jun 26 2016 11:51A [id number] us Historical Provider MD SOLORZANO US PROCEDURES Final R esult documented in this encounter Visit Diagnoses Diagnosis Malignant neoplasm of endometrium (CMS/HCC) (HCC) Malignant neoplasm of corpus uteri, except isthmus Acquired absence of both cervix and uterus documented in this encounter
--- OUTSIDE RECORDS SUMMARY | 2024-10-06 04:07 | XMS_ITS | Encounter Summary ---
Author Organization [facility] Care Team Providers Care Diamond Powder Technician Name Role Phone Unavailable Primary Care Provider Unavailabl e Encounter Details Date Type Department Care Team (Late st Contact Info) Description 07/08/2016 - 07/08/2016 11:59 PM CDT Hospital [facility] Jonnathan Jack MD [id number] [place] [address] Social History Tobacco Use Types Packs/Day Years Used Date Smoking Tobacco: Never Assessed Comments Unknown Sex and Gender Information Value Date Recorded Sex Assigned at Not on file Legal Sex Female 2:10 AM [employer] Gender Identity Not on file Sexual Orientation Not on file documented as of this encounter Medications at Time of Discharge cetirizine (ZyrTEC) 10 mg tablet 04/01/2016Zyrtec, po solid 10 mg TabletPOdailyCurrent Medication 6 [id number] M-acetaminophe n 2-5-10-325 mg tablets, sequential 04/01/2016Multivitamin, po solid TabletPOdailyCurrent Medication 6 06/ 018 cholecalcifero l (VITAMIN D-3) 400 unit capsule 04/01/2016Vitamin d, po solid 400 unit TabletPOdailyCurrent Medication 6 023 FLUoxetine (PROzac) 20 mg capsule 04/01/2016Fluoxetine hcl, po solid 20 mg CapsulePOdailyCurrent Medication 6 018 levothyroxine (SYNTHROID, LEVOTHROID) 50 mcg tablet Take 75 mcg by mouth 01 6 023 omega 6-thr-fsv-fish oil 100-160-1,000 mg capsule 04/01/2016Fish oil omega-3, [...]
--- OUTSIDE RECORDS SUMMARY | 2024-10-06 04:07 | XMS_ITS | Encounter Summary ---
Author Organization [facility] Facility Care Team Providers Care Disability Insurance Claim Examiner Name Role Phone Unavailable Primary Care Provider Unavailabl e Encounter Details Date Type Department Care Team (Latest Contact Info) Description 07/03/2016 10:35 AM CDT - 07/09/2016 5:28 PM CDT Hospital Encounter [facility] Jonnathan Theodore MD [address] [place] [id number] [place] [id number] Bloodstream infection due to central venous catheter; Sepsis due to Methicillin susceptible Staphylococcus aureus (CMS/HCC); Intraspinal abscess and granuloma; Acute embolism and thrombosis of right internal jugular vein (CMS/HCC); Hypothyroidism; Malignant neoplasm of endometrium (CMS/HCC); Anemia; Acute embolism and thrombosis of superficial vein of left upper extremity; Family history of malignant neoplasm of breast; Family history of malignant neoplasm of digestive organ; Personal history of nicotine dependence; Other surgical procedures as the cause of abnormal reaction of the patient, or of later complication, without mention of misadventure at the time of the procedure; Unspecified place or not applicable; Engages in activity; Headache Social History Tobacco Use Types Packs/Day Years Used Date Smoking Tobacco: Never Assessed Comments Unknown Sex and Gender Information Value Date Recorded Sex Assigned at Not on file Legal Sex Female 2:10 AM [employer]INE [employer] Gender Identity Not on file Sexual Orientation Not on file documented as of this encounter Last Filed Vital Signs Vital Sign Reading Time Taken Comments Blood Pressure 152/79 07/09/2016 12:30 PM CDT Pulse 65 07/09/2016 12:30 PM CDT Temperature - - Respiratory Rate - - Oxygen Saturation 97% 07/09/2016 12: 30 PM CDT Inhaled Oxygen Concentration - - Weight 70.3 kg (154 lb 15.7 oz) 016 11:33 AM CDT Height 157.5 cm (5' 2 ) 07/03/2016 11:3 3 AM CDT Body Mass Index 28.35 07/03/2016 11:33 AM CDT documented in this encounter Medications at Time of Discharge cetirizine (ZyrTEC) 10 mg tablet 04/01/2016Zyrtec, po solid 10 mg TabletPOdailyCurrent Medication 6 [id number] M-acetaminophe n 2-5-10-325 mg tablets, sequential 04/01/2016Multivitamin, po solid TabletPOdailyCurrent Medication 6 018 cholecalcifero l (VITAMIN D-3) 400 unit capsule 04/01/2016Vitamin d, po solid 400 unit TabletPOdailyCurrent Medication 6 023 FLUoxetine (PROzac) 20 mg capsule 04/01/2016Fluoxetine hcl, po solid 20 mg CapsulePOdailyCurrent Medication 6 018 levothyroxine (SYNTHROID, LEVOTHROID) 50 mcg tablet Take 75 mcg by mouth 01 6 023 omega 5-tzp-qvt-fish oil 100-160-1,000 mg capsule 04/01/2016Fish oil omega-3, po solid 300-1000mg CapsulePOdailyCurrent Medication 6 023 pyridoxine (VITAMIN B-6) 100 mg tablet 2 times daily. 6 020 vitamin E 100 unit/0.25 mL drops 04/01/2016Vitamin e, po solid 1000 unit CapsulePOdailyCurrent Medication 6 023 documented as of this encounter H&P Notes * Provider, MD Paresh Waldrop 07/03/2016 12:00 AM CDT Patient: CORI RENEE Reg No: [id number] [facility] #: [id number] Admit Dt.: 07/03/2016 : 1955 Room No: [id number] Attending: Jonnathan Jack M.D. Dictating: Rubi Bronson M.D. ADMISSION HISTORY AND PHYSICAL FACILITY: [facility] ADMISSION DIAGNOSIS 1. Metastatic endometrioid adenocarcinoma. 2. Fever of unknown origin. HISTORY OF PRESENT ILLNESS This is a 61-year-old who is status post an exploratory laparotomy, retroperitoneal dissection, lysis of adhesions, and tumor debulking on 06/05/2016 who presents with reports of an approximately week-long history of fevers at home. She notes a temperature as high as 105 degrees the day before yesterday. She has been intermittently taking Tylenol to break her fever. She denies shortness of breath, other than some fatigue and dyspnea on exertion, or chest pain. She also denies a cough, nausea, vomiting, burning with urination, or constipation. She did have a couple episodes of diarrhea several days ago. Of note, the patient had her flu shot during her admission a month ago for her surgery and had a port placed 1 week ago. She does not some decreased appetite and generalized feeling of weakness but, otherwise, has no complaints. 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 Jack in March of 2016. The patient had a remote history of a hysterectomy with bilateral salpingo-oophorectomy in 2005 for benign indications. She then presented to an outside hospital with abdominal discomfort and had a laparoscopic appendectomy and peritoneal biopsies which returned as endometrioid carcinoma. Per the patient's history, she had a history of endometriosis with likely malignant transformation; thus, she underwent an ex-lap radical retroperitoneal dissection, lysis of adhesions, and tumor debulking with Dr. Jack on 06/05/2016 with pathology showing metastatic endometrioid adenocarcinoma, so the patient had a port placed a week ago with plans to undergo carboplatin and Taxol chemotherapy. PAST MEDICAL HISTORY Hypothyroidism. PAST SURGICAL HISTORY 1. Laparoscopic appendectomy and peritoneal biopsies in March of 2016. 2. Exploratory laparotomy, retroperitoneal dissection, tumor debulking and lysis of adhesions, as per tumor history. 3. Dilatation and curettage. 4. Hysterectomy with BSO in March of 2006. 5. Diagnostic laparoscopy for endometriosis. MEDICATIONS 1. Oxycodone p.r.n. for pain. 2. Ibuprofen 600 mg every 6 hours as needed for pain and fever. 3. Tylenol 1 g every 6 hours as needed for fever. 4. Synthroid 0.75 mg daily. 5. Simvastatin 10 mg daily. 6. Vitamin D3 daily. 7. Fluoxetine 30 mg daily. FAMILY HISTORY The patient has a sister who is a breast cancer survivor and a father with esophageal cancer. She also notes an aunt and a niece with breast cancer diagnosed in their 40s. SOCIAL HISTORY The patient is a former smoker and quit 15 years ago. She is a social alcohol drinker and denies any other illicit drug use. 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 HEALTH CARE MAINTENANCE The patient has been on hormone-replacement therapy for 10 years following her hysterectomy. She had a normal mammogram in February of 2016. She had a colonoscopy with polyps demonstrated in July of 2009. She had a DEXAscan that was normal in February of 2016. REVIEW OF SYSTEMS Negative, except as noted in HPI. PHYSICAL EXAM Vital Signs: Temperature 36.8, heart rate 77, respiratory rate 16, blood pressure 122/60. General: The patient is in no acute distress. Chest: Regular rate and rhythm. Port site clean, dry and intact with some bruising but no surrounding erythema, tenderness or fluctuance noted. Lungs: Clear to auscultation bilaterally without crackles, wheezes or rales. Abdomen: Soft with minimal distention and nontender. Her vertical midline incision is clean, dry and intact without any surrounding cellulitis or tenderness. Extremities: No lower extremity edema or tenderness to palpation. Pelvic Exam: Deferred. Breast Exam: Deferred. Musculoskeletal: Moves all extremities well. Psychiatric: Affect appropriate. Alert and oriented x4. LABORATORY EVALUATION Pending at this time. IMAGING Pending at this time. ASSESSMENT AND PLAN This is a 61-year-old woman who is approximately a month postop from an exploratory laparotomy, retroperitoneal dissection, lysis of adhesions, and tumor debulking for metastatic endometrioid cancer presenting with fever of unknown origin. 1. Fever of unknown origin. Laboratory evaluation including CBC, CMP, blood cultures, urine cultures, and flu swab are pending. We will also obtain a CT of the chest, abdomen and pelvis to evaluate for possible respiratory versus intraabdominal source of infection. The patient will be kept NPO for possible intervention pending these findings. After return of the laboratories, we will plan on empiric vancomycin and cefepime. We will hold ibuprofen and Tylenol to avoid masking her fever. 2. Endometrioid adenocarcinoma. The patient is planning to undergo carboplatin and Taxol per Dr. Jack. She has a port in place. 3. Hypothyroidism. We will continue the patient's Synthroid. 4. Fluids, Electrolytes, Nutrition, Gastrointestinal. The patient will remain NPO for possible intervention pending imaging findings. 5. Access. The patient has a port in place. 6. Prophylaxis. We place SCDs and hold Lovenox pending admission laboratory and possible intervention. 7. Code status. Full code. 8. ECOG performance status . Electronically Authenticated and Edited by: Jonnathan Jack MD On 07/12/2016 02:47 AM CDT Rubi Bronson M.D. Jonnathan Jack M.D. ACP:[facility] #[id number] Editing MT: TD: 07/03/2016 01:37 PM cc: Jonnathan Jack M.D. documented in this encounter Plan of Treatment Not on file documented as of this encounter Procedures Procedure Name Priority Date/Time Associated Diagnosis Comments DISCHARGE LABORATORY CUMULATIVE REPORT 07/09/2016 BLOOD CULTURE, CDR Routine 07/08/2016 9: 23 PM CDT SERUM MAGNESIUM Routine 07/08/2016 9:23 PM CDT SERUM CREATININE Routine 07/08/2016 9:23 PM CDT PLASMA PHOSPHORUS Routine 07/08/2016 9:2 3 PM CDT PLASMA BASIC METABOLIC PANEL Routine 07/08/2016 9:23 PM CDT BLOOD CELL COUNT Routine 07/08/2016 9:23 PM CDT BLOOD CELL COUNT (CBC) Routine 6 9:23 PM CDT BLOOD CELL MORPHOLOGIC EXAM Routine 07/08/2016 9:23 PM CDT MRI THORACIC SPINE WO CONTRAST Routine 07/08/2016 12:54 AM CDT MRI CERVICAL SPINE WO CONTRAST Routine 07/08/2016 12:54 AM CDT TRANSTHORACIC ECHO (TTE) COMPLETE W DOPPLER/CF WO CONTRAST 07/08/2016 SERUM MAGNESIUM Routine 07/07/2016 9:07 PM CDT SERUM C-REACTIVE PROTEIN Routine 07/07/2016 9:07 PM CDT PLASMA PHOSPHORUS Routine 07/07/2016 9:0 7 PM CDT PLASMA BASIC METABOLIC PANEL Routine 07/07/2016 9:07 PM CDT BLOOD ERYTHROCYTE SEDIMENTATION RATE (ESR) Routine 07/07/2016 9:07 PM CDT BLOOD CELL COUNT (CBC) Routine 6 9:07 PM CDT BLOOD CELL MORPHOLOGIC EXAM Routine 07/07/2016 9:07 PM CDT XR SPINE LUMBAR 2 OR 3 VIEWS Routine 07/07/2016 4:26 PM CDT MRI LUMBAR SPINE W WO CONTRAST Routine 07/07/2016 2:00 PM CDT BLOOD CULTURE, CDR Routine 07/07/2016 11 :00 AM CDT URINALYSIS Routine 07/07/2016 10:54 AM CDT BLOOD CULTURE, CDR Routine 07/07/2016 9: 45 AM CDT BLOOD CELL COUNT (CBC) Routine 6 8:59 AM CDT BLOOD CELL MORPHOLOGIC EXAM Routine 07/07/2016 8:59 AM CDT BLOOD CULTURE, CDR Routine 07/05/2016 9: 58 PM CDT BLOOD CULTURE, CDR Routine 07/05/2016 9: 58 PM CDT SERUM MAGNESIUM Routine 07/05/2016 9:00 PM CDT PLASMA PHOSPHORUS Routine 07/05/2016 9:0 0 PM CDT PLASMA BASIC METABOLIC PANEL Routine 07/05/2016 9:00 PM CDT BLOOD CELL COUNT Routine 07/05/2016 9:00 PM CDT SERUM VANCOMYCIN, TROUGH DRUG LEVEL Routine 07/05/2016 10:05 AM CDT BLOOD CULTURE, CDR Routine 07/04/2016 10 :23 PM CDT BLOOD CULTURE, CDR Routine 07/04/2016 10 :23 PM CDT SERUM MAGNESIUM Routine 07/04/2016 10:23 PM CDT PLASMA PHOSPHORUS Routine 07/04/2016 10: 23 PM CDT PLASMA BASIC METABOLIC PANEL Routine 07/04/2016 10:23 PM CDT BLOOD CELL COUNT (CBC) Routine 6 10:23 PM CDT BLOOD CELL MORPHOLOGIC EXAM Routine 07/04/2016 10:23 PM CDT PORT REMOVAL Routine 07/04/2016 3:30 PM CDT AEROBIC CULTURE, CDR Routine 07/04/2016 12:30 PM CDT SERUM MAGNESIUM Routine 07/03/2016 8:56 PM CDT PLASMA PHOSPHORUS Routine 07/03/2016 8:5 6 PM CDT PLASMA BASIC METABOLIC PANEL Routine 07/03/2016 8:56 PM CDT BLOOD CELL COUNT Routine 07/03/2016 8:[address] ABDOMEN PELVIS W CONTRAST Routine 07/03/2016 4:[address] CHEST W CONTRAST Routine 07/03/2016 4 :18 PM CDT URINE (AEROBIC) CULTURE, CDR Routine 07/03/2016 3:57 PM CDT BLOOD CULTURE, CDR Routine 07/03/2016 12 :41 PM CDT BLOOD CULTURE, CDR Routine 07/03/2016 12 :24 PM CDT BLOOD CELL MORPHOLOGIC EXAM, MANUAL Routine 07/03/2016 12:21 PM CDT INFLUENZA VIRUS PCR, CDR Routine 07/03/2016 12:21 PM CDT SERUM MAGNESIUM Routine 07/03/2016 12:21 PM CDT PLASMA PROTHROMBIN TIME (PT) Routine 07/03/2016 12:21 PM CDT PLASMA PHOSPHORUS Routine 07/03/2016 12: 21 PM CDT PLASMA PARTIAL THROMBOPLASTIN TIME (PTT) Routine 07/03/2016 12:21 PM CDT PLASMA COMPREHENSIVE METABOLIC PANEL Routine 07/03/2016 12:21 PM CDT BLOOD CELL COUNT (CBC) Routine 6 12:21 PM CDT BLOOD ABO, RH, INDIRECT AB SCREEN Routine 07/03/2016 12:21 PM CDT documented in this encounter Results * DISCHARGE LABORATORY CUMULATIVE REPORT (07/09/2016) Narrative 07/09/2016 Ordered by an unspecified provider. Historical Provider LAB BLOOD ORDERABLES Shira l Result * Plasma basic metabolic panel (07/08/2016 9:23 PM CDT) Sodium 139 135 - 145 mmol/L CDR HISTORICAL RESULTS K, pl 4.1 3.3 - 4.9 mmol/L CDR HISTORICAL RESULTS Chloride 103 97 - 110 mmol/L CDR HISTORICAL RESULTS CO2 27 22 - 32 mmol/L CDR HISTORICAL RESULTS A. gap 9 2 - 15 mmol/L CDR HISTORICAL RESULTS Glucose 92 70 - 199 mg/dl CDR HISTORICAL RESULTS BUN 8 8 - 25 mg/dl CDR HISTORICAL RESULTS Creatinine 0.79 0.60 - 1.10 mg/dl CDR HISTORICAL RESULTS Calcium 9.1 8.5 - 10.3 mg/dl CDR HISTORICAL RESULTS Plasma 07/08/2016 9:23 PM CDT Brice Pagan MD LAB BLOOD ORDERABLES Final R esult Performing Organization Address City/[facility] Co de Phone Number CDR HISTORICAL RESULTS * Plasma phosphorus (07/08/2016 9:23 PM CDT) Phosphorus, pl 3.6 2.3 - 4.5 mg/dl CDR HISTORICAL RESULTS Plasma 07/08/2016 9:23 PM CDT Brice Pagan MD LAB BLOOD ORDERABLES Final R esult [facility] HISTORICAL RESULTS * Serum magnesium (07/08/2016 9:23 PM CDT) Magnesium 2.1 1.4 - 2.5 mg/dl CDR HISTORICAL RESULTS Serum 07/08/2016 9:23 PM CDT Brice Pagan MD LAB BLOOD ORDERABLES Final R [facility] CDR HISTORICAL RESULTS * (ABNORMAL) Blood cell count (CBC) (07/08/2016 9:23 PM CDT) WBC 8.0 3.8 - 9.9 K/cumm CDR HISTORICAL RESULTS RBC 3.00(L) 3.90 - 5.20 M/cumm CDR HISTORICAL RESULTS Hgb 8.9(L) 11.9 - 15.5 g/dl CDR HISTORICAL RESULTS Hct 27.6(L) 35.6 - 45.5 % CDR HISTORICAL RESULTS MCV 92.0 81.3 - 96.4 fl CDR HISTORICAL RESULTS MCH 29.7 27.1 - 33.3 pg CDR HISTORICAL RESULTS MCHC 32.2(L) 32.3 - 35.7 g/dl CDR HISTORICAL RESULTS Rdw 14.3 11.1 - 14.9 % CDR HISTORICAL RESULTS RDW 47.8 35.7 - 48.1 fl CDR HISTORICAL RESULTS Platelets 258 150 - 400 K/cumm CDR HISTORICAL RESULTS MPV 10.4 9.1 - 12.3 fl CDR HISTORICAL RESULTS NRBC 0.0 0.0 - 0.2 % CDR HIST ORICAL RESULTS NRBC, abs 0.00 0.00 - 0.01 K/cumm CDR HISTORICAL RESULTS Blood specimen (specimen) 07/08/2016 9:23 PM CDT Brice Pagan MD LAB BLOOD ORDERABLES Final R esult CDR HISTORICAL RESULTS * (ABNORMAL) Blood cell morphologic exam (07/08/2016 9:23 PM CDT) Neutrophils 67.8 % CDR HIST ORICAL RESULTS Immature granulocytes 4.0 % CDR HISTORICAL RESULTS Lymphocytes 13.6 % CDR HIST ORICAL RESULTS Monos 7.9 % CDR HISTOR ICAL RESULTS Eosinophils 5.9 % CDR HIST ORICAL RESULTS Basophils 0.8 % CDR HISTOR ICAL RESULTS Neutrophils, abs 5.4 1.7 - 6.5 K/cumm CDR HISTORICAL RESULTS Immature granulocyte, abs 0.3(H) 0.0 - 0.1 K/cumm CDR HISTORICAL RESULTS Lymphocytes, abs 1.1 0.8 - 3.3 K/cumm CDR HISTORICAL RESULTS Monocytes, absolute 0.6 0.2 - 0.8 K/cumm CDR HISTORICAL RESULTS Eosinophils, abs 0.5 0.0 - 0.5 K/cumm CDR HISTORICAL RESULTS Basophils, abs 0.1 0.0 - 0.1 K/cumm CDR HISTORICAL RESULTS Blood specimen (specimen) 07/08/2016 9:23 PM CDT Brice Pagan MD LAB BLOOD ORDERABLES Final R esult Performing Organization Address [facility] Co de Phone Number CDR HISTORICAL RESULTS * Serum creatinine (07/08/2016 9:23 PM CDT) Creatinine 0.79 0.60 - 1.10 mg/dl CDR HISTORICAL RESULTS Serum 07/08/2016 9:23 PM CDT Eryn Ramos LAB BLOOD ORDERABLES Final Re sult Performing Organization Address [facility] Co de Phone Number CDR HISTORICAL RESULTS * (ABNORMAL) Blood cell count [CBC] express (07/08/2016 9:23 PM CDT) WBC 8.0 3.8 - 9.9 K/cumm CDR HISTORICAL RESULTS RBC 3.04(L) 3.90 - 5.20 M/cumm CDR HISTORICAL RESULTS Hgb 9.0(L) 11.9 - 15.5 g/dl CDR HISTORICAL RESULTS Hct 27.8(L) 35.6 - 45.5 % CDR HISTORICAL RESULTS MCV 91.4 81.3 - 96.4 fl CDR HISTORICAL RESULTS MCH 29.6 27.1 - 33.3 pg CDR HISTORICAL RESULTS MCHC 32.4 32.3 - 35.7 g/dl CDR HISTORICAL RESULTS Rdw 14.2 11.1 - 14.9 % CDR HISTORICAL RESULTS RDW 47.6 35.7 - 48.1 fl CDR HISTORICAL RESULTS NRBC 0.0 0.0 - 0.2 % CDR HIST ORICAL RESULTS NRBC, abs 0.00 0.00 - 0.01 K/cumm CDR HISTORICAL RESULTS Platelets 257 150 - 400 K/cumm CDR HISTORICAL RESULTS MPV 10.6 9.1 - 12.3 fl CDR HISTORICAL RESULTS Blood specimen (specimen) 07/08/2016 9:23 PM CDT Eryn Ramos LAB BLOOD ORDERABLES Final Re sult Performing Organization Address City/[facility] Co de Phone Number CDR HISTORICAL RESULTS * Blood culture (07/08/2016 9:23 PM CDT) Blood specimen (specimen) (Hand, right) 07/08/2016 9:23 PM CDT 07/08/2016 11:38 PM CDT Impressions CDR HISTORICAL RESULTS - 07/15/2016 5:03 AM CDT Blood cultures are incubated for five days on a continuously monitored blood culture system. ??The first report of a negative culture is issued within 24 hours of receipt of the specimen in the laboratory. ??Positive culture results are reported as soon as they are detected. ??For blood cultures with gram-positive cocci, a rapid molecular test for organism identification may be performed using the [employer] Nanosphere Gram Positive Blood Culture Assay. ??The Nanosphere assay detects microbial DNA in positive blood culture broth via hybridization of target DNA to capture oligonucleotides on a microarray. ??This assay has been cleared by the [place] Food and Drug Administration and its performance characteristics have been verified by the [facility]. Current Interpretive Data was last revised on 2014. Narrative CDR HISTORICAL RESULTS - 07/15/2016 5:03 AM CDT No growth Historical Provider LAB MICROBIOLOGY - JOHNATHAN L ORDERABLES Final Result Performing Organization Address City/[facility] Co de Phone Number CDR HISTORICAL RESULTS * MRI Cervical Spine WO Contrast (07/08/2016 12:54 AM CDT) Anatomical Region Laterality Modality Spine N/A Magnetic Resonan ce 07/08/2016 12:5 4 AM CDT Narrative 07/10/2016 9:22 AM CDT ENA NORRIS M.D. CRISTIAN ROSAS M.D. FINAL REPORT The radiology attending physician has personally reviewed this study, and has reviewed and/or edited this written report and agrees with it. ACC# ??Date Time ??Exam [id number] Jul 08, 2016 00:54:00 [id number] MRI Cervical Spine wo cont [id number] Jul 08, 2016 00:54:00 [id number] MRI Thoracic Spine wo cont EXAMINATION: ?? Magnetic resonance imaging (MRI) of the cervical spine without contrast Magnetic resonance imaging (MRI) of the thoracic spine without contrast HISTORY: Metastatic endometrial cancer post retroperitoneal dissection presenting with fever, back pain and found to have a lumbar epidural abscess. TECHNIQUE: Multiplanar multi-weighted MRI of the cervical and thoracic spine was performed without intravenous contrast using the standard total spine protocol. COMPARISON: None available. FINDINGS: CERVICAL SPINE: There is mild anterolisthesis of C4 on C5. Vertebral bodies demonstrate normal signal intensity on all sequences. No acute fracture is identified; however, if trauma is suspected, a CT scan would be a more sensitive examination for fractures. The craniocervical junction is normal. The visualized portions of the skull base and the posterior fossa are normal. The spinal cord demonstrates normal signal intensity on all sequences. Multilevel degenerative disease is present with mild disc bulges at all cervical levels. Bilateral pleural effusions are present. Normal signal voids are present in the vertebral arteries. Associated with the anterolisthesis of C4 on C5 is moderate left facet osteoarthritis. There is also moderate left uncovertebral joint disease with moderate left neural foraminal stenosis. At C5-C6 there is moderate bilateral neural foraminal stenosis secondary to moderate bilateral uncovertebral joint disease. Overall, there is no spinal canal stenosis. There are no findings to suggest discitis osteomyelitis or epidural abscess. THORACIC SPINE: Subcutaneous edema is present in the paraspinal soft tissues. There or pleural effusions. The alignment of the thoracic spine is normal. Vertebral bodies demonstrate normal signal intensity on all sequences. There are no compression fractures. The spinal cord demonstrates normal signal intensity on all sequences. Mild diffuse degenerative disease is present with small disc protrusions in the midthoracic spine from T5 through T8. The aorta is normal. No evidence of discitis osteomyelitis or epidural abscess. There is no facet arthropathy. There is no neuroforaminal stenosis. There is no spinal canal stenosis. IMPRESSION: ?? 1. No evidence of discitis osteomyelitis or epidural abscess. 2. No cord compression or cord signal abnormality. Requested By: ERYN RAMOS M.D. Dictated By: ?? CRISTIAN ROSAS M.D. ??on Jul 08 2016 11:51A This document has been electronically signed by: ENA NORRIS M.D. on Jul 10 2016 ??9:22A [id number] Procedure Note Provider, MD Palma - 01/27/2017 Danica BROOKE M.D. FINAL REPORT The radiology attending physician has personally reviewed this study, and has reviewed and/or edited this written report and agrees with it. ACC# Date Time Exam [id number] Jul 08, 2016 00:54:00 [id number] MRI Cervical Spine wo cont [id number] Jul 08, 2016 00:54:00 [id number] MRI Thoracic Spine wo cont EXAMINATION: Magnetic resonance imaging (MRI) of the cervical spine without contrast Magnetic resonance imaging (MRI) of the thoracic spine without contrast HISTORY: Metastatic endometrial cancer post retroperitoneal dissection presenting with fever, back pain and found to have a lumbar epidural abscess. TECHNIQUE: Multiplanar multi-weighted MRI of the cervical and thoracic spine was performed without intravenous contrast using the standard total spine protocol. COMPARISON: None available. FINDINGS: CERVICAL SPINE: There is mild anterolisthesis of C4 on C5. Vertebral bodies demonstrate normal signal intensity on all sequences. No acute fracture is identified; however, if trauma is suspected, a CT scan would be a more sensitive examination for fractures. The craniocervical junction is normal. The visualized portions of the skull base and the posterior fossa are normal. The spinal cord demonstrates normal signal intensity on all sequences. Multilevel degenerative disease is present with mild disc bulges at all cervical levels. Bilateral pleural effusions are present. Normal signal voids are present in the vertebral arteries. Associated with the anterolisthesis of C4 on C5 is moderate left facet osteoarthritis. There is also moderate left uncovertebral joint disease with moderate left neural foraminal stenosis. At C5-C6 there is moderate bilateral neural foraminal stenosis secondary to moderate bilateral uncovertebral joint disease. Overall, there is no spinal canal stenosis. There are no findings to suggest discitis osteomyelitis or epidural abscess. THORACIC SPINE: Subcutaneous edema is present in the paraspinal soft tissues. There or pleural effusions. The alignment of the thoracic spine is normal. Vertebral bodies demonstrate normal signal intensity on all sequences. There are no compression fractures. The spinal cord demonstrates normal signal intensity on all sequences. Mild diffuse degenerative disease is present with small disc protrusions in the midthoracic spine from T5 through T8. The aorta is normal. No evidence of discitis osteomyelitis or epidural abscess. There is no facet arthropathy. There is no neuroforaminal stenosis. There is no spinal canal stenosis. IMPRESSION: 1. No evidence of discitis osteomyelitis or epidural abscess. 2. No cord compression or cord signal abnormality. Requested By: ERYN RAMOS M.D. Dictated By: CRISTIAN ROSAS M.D. on Jul 08 2016 11:51A This document has been electronically signed by: ENA NORRIS M.D. on Jul 10 2016 9:22A [id number] us Historical Provider MD SOLORZANO MRI PROCEDURES Final Result * MRI Thoracic Spine WO Contrast (07/08/2016 12:54 AM CDT) Anatomical Region Laterality Modality Spine N/A Magnetic Resonan ce 07/08/2016 12:5 4 AM CDT Narrative 07/10/2016 9:22 AM CDT Danica BROOKE M.D. FINAL REPORT The radiology attending physician has personally reviewed this study, and has reviewed and/or edited this written report and agrees with it. ACC# ??Date Time ??Exam [id number] Jul 08, 2016 00:54:00 [id number] MRI Cervical Spine wo cont [id number] Jul 08, 2016 00:54:00 [id number] MRI Thoracic Spine wo cont EXAMINATION: ?? Magnetic resonance imaging (MRI) of the cervical spine without contrast Magnetic resonance imaging (MRI) of the thoracic spine without contrast HISTORY: Metastatic endometrial cancer post retroperitoneal dissection presenting with fever, back pain and found to have a lumbar epidural abscess. TECHNIQUE: Multiplanar multi-weighted MRI of the cervical and thoracic spine was performed without intravenous contrast using the standard total spine protocol. COMPARISON: None available. FINDINGS: CERVICAL SPINE: There is mild anterolisthesis of C4 on C5. Vertebral bodies demonstrate normal signal intensity on all sequences. No acute fracture is identified; however, if trauma is suspected, a CT scan would be a more sensitive examination for fractures. The craniocervical junction is normal. The visualized portions of the skull base and the posterior fossa are normal. The spinal cord demonstrates normal signal intensity on all sequences. Multilevel degenerative disease is present with mild disc bulges at all cervical levels. Bilateral pleural effusions are present. Normal signal voids are present in the vertebral arteries. Associated with the anterolisthesis of C4 on C5 is moderate left facet osteoarthritis. There is also moderate left uncovertebral joint disease with moderate left neural foraminal stenosis. At C5-C6 there is moderate bilateral neural foraminal stenosis secondary to moderate bilateral uncovertebral joint disease. Overall, there is no spinal canal stenosis. There are no findings to suggest discitis osteomyelitis or epidural abscess. THORACIC SPINE: Subcutaneous edema is present in the paraspinal soft tissues. There or pleural effusions. The alignment of the thoracic spine is normal. Vertebral bodies demonstrate normal signal intensity on all sequences. There are no compression fractures. The spinal cord demonstrates normal signal intensity on all sequences. Mild diffuse degenerative disease is present with small disc protrusions in the midthoracic spine from T5 through T8. The aorta is normal. No evidence of discitis osteomyelitis or epidural abscess. There is no facet arthropathy. There is no neuroforaminal stenosis. There is no spinal canal stenosis. IMPRESSION: ?? 1. No evidence of discitis osteomyelitis or epidural abscess. 2. No cord compression or cord signal abnormality. Requested By: ERYN RAMOS M.D. Dictated By: ?? CRISTIAN ROSAS M.D. ??on Jul 08 2016 11:51A This document has been electronically signed by: ENA NORRIS M.D. on Jul 10 2016 ??9:22A [id number] Procedure Note Provider, MD Palma - 01/27/2017 Danica BROOKE M.D. FINAL REPORT The radiology attending physician has personally reviewed this study, and has reviewed and/or edited this written report and agrees with it. ACC# Date Time Exam [id number] Jul 08, 2016 00:54:00 [id number] MRI Cervical Spine wo cont [id number] Jul 08, 2016 00:54:00 [id number] MRI Thoracic Spine wo cont EXAMINATION: Magnetic resonance imaging (MRI) of the cervical spine without contrast Magnetic resonance imaging (MRI) of the thoracic spine without contrast HISTORY: Metastatic endometrial cancer post retroperitoneal dissection presenting with fever, back pain and found to have a lumbar epidural abscess. TECHNIQUE: Multiplanar multi-weighted MRI of the cervical and thoracic spine was performed without intravenous contrast using the standard total spine protocol. COMPARISON: None available. FINDINGS: CERVICAL SPINE: There is mild anterolisthesis of C4 on C5. Vertebral bodies demonstrate normal signal intensity on all sequences. No acute fracture is identified; however, if trauma is suspected, a CT scan would be a more sensitive examination for fractures. The craniocervical junction is normal. The visualized portions of the skull base and the posterior fossa are normal. The spinal cord demonstrates normal signal intensity on all sequences. Multilevel degenerative disease is present with mild disc bulges at all cervical levels. Bilateral pleural effusions are present. Normal signal voids are present in the vertebral arteries. Associated with the anterolisthesis of C4 on C5 is moderate left facet osteoarthritis. There is also moderate left uncovertebral joint disease with moderate left neural foraminal stenosis. At C5-C6 there is moderate bilateral neural foraminal stenosis secondary to moderate bilateral uncovertebral joint disease. Overall, there is no spinal canal stenosis. There are no findings to suggest discitis osteomyelitis or epidural abscess. THORACIC SPINE: Subcutaneous edema is present in the paraspinal soft tissues. There or pleural effusions. The alignment of the thoracic spine is normal. Vertebral bodies demonstrate normal signal intensity on all sequences. There are no compression fractures. The spinal cord demonstrates normal signal intensity on all sequences. Mild diffuse degenerative disease is present with small disc protrusions in the midthoracic spine from T5 through T8. The aorta is normal. No evidence of discitis osteomyelitis or epidural abscess. There is no facet arthropathy. There is no neuroforaminal stenosis. There is no spinal canal stenosis. IMPRESSION: 1. No evidence of discitis osteomyelitis or epidural abscess. 2. No cord compression or cord signal abnormality. Requested By: ERYN RAMOS M.D. Dictated By: CRISTIAN ROSAS M.D. on Jul 08 2016 11:51A This document has been electronically signed by: ENA NORRIS M.D. on Jul 10 2016 9:22A [id number] us Historical Provider IMMarshall MRI PROCEDURES Final Result * TRANSTHORACIC ECHO (TTE) COMPLETE W DOPPLER/CF WO CONTRAST (07/08/2016) Anatomical Region Laterality Modality Ultrasound Narrative 07/08/2016 Ordered by an unspecified provider. Historical Provider CV ECHO PROCEDURES Final Result * (ABNORMAL) Serum C-reactive protein (07/07/2016 9:07 PM CDT) C-RP 234.3(H) 0.0 - 9.9 mg/L CDR HISTORICAL RESULTS Serum 07/07/2016 9:07 PM CDT Eryn Youngbloodell LAB BLOOD ORDERABLES Final Re sult Performing Organization Address [facility]/State/ZIP Co de Phone Number CDR HISTORICAL RESULTS * Plasma basic metabolic panel (07/07/2016 9:07 PM CDT) Sodium 137 135 - 145 mmol/L CDR HISTORICAL RESULTS K, pl 4.2 3.3 - 4.9 mmol/L CDR HISTORICAL RESULTS Chloride 99 97 - 110 mmol/L CDR HISTORICAL RESULTS CO2 27 22 - 32 mmol/L CDR HISTORICAL RESULTS A. gap 11 2 - 15 mmol/L CDR HISTORICAL RESULTS Glucose 100 70 - 199 mg/dl CDR HISTORICAL RESULTS BUN 8 8 - 25 mg/dl CDR HISTORICAL RESULTS Creatinine 0.84 0.60 - 1.10 mg/dl CDR HISTORICAL RESULTS Calcium 9.2 8.5 - 10.3 mg/dl CDR HISTORICAL RESULTS Plasma 07/07/2016 9:07 PM CDT Eryn Wellington Youngbloodell LAB BLOOD ORDERABLES Final Re sult CDR HISTORICAL RESULTS * Plasma phosphorus (07/07/2016 9:07 PM CDT) Phosphorus, pl 3.5 2.3 - 4.5 mg/dl CDR HISTORICAL RESULTS Plasma 07/07/2016 9:07 PM CDT Eryn Youngbloodell LAB BLOOD ORDERABLES Final Re sult Performing Organization Address [facility] de Phone Number CDR HISTORICAL RESULTS * Serum magnesium (07/07/2016 9:07 PM CDT) Pathologist [facility] [place] Magnesium 2.1 1.4 - 2.5 mg/dl CDR HISTORICAL RESULTS Serum 07/07/2016 9:07 PM CDT [facility] [place] Richard LAB BLOOD ORDERABLES Final Re sult Performing Organization Address [facility] de Phone Number CDR HISTORICAL RESULTS * (ABNORMAL) Blood cell count (CBC) (07/07/2016 9:07 PM CDT) Pathologist [facility] [place] WBC 8.8 3.8 - 9.9 K/cumm CDR HISTORICAL RESULTS RBC 2.95(L) 3.90 - 5.20 M/cumm CDR HISTORICAL RESULTS Hgb 9.0(L) 11.9 - 15.5 g/dl CDR HISTORICAL RESULTS Hct 26.7(L) 35.6 - 45.5 % CDR HISTORICAL RESULTS MCV 90.5 81.3 - 96.4 fl CDR HISTORICAL RESULTS MCH 30.5 27.1 - 33.3 pg CDR HISTORICAL RESULTS MCHC 33.7 32.3 - 35.7 g/dl CDR HISTORICAL RESULTS Rdw 14.3 11.1 - 14.9 % CDR HISTORICAL RESULTS RDW 47.2 35.7 - 48.1 fl CDR HISTORICAL RESULTS Platelets 230 150 - 400 K/cumm CDR HISTORICAL RESULTS MPV 11.1 9.1 - 12.3 fl CDR HISTORICAL RESULTS NRBC 0.3(H) 0.0 - 0.2 % CDR HIST ORICAL RESULTS NRBC, abs 0.03 0.00 - 0.01 K/cumm CDR HISTORICAL RESULTS Blood specimen (specimen) 07/07/2016 9:07 PM CDT Eryn LendUpKatrina Richard LAB BLOOD ORDERABLES Final Re sult Performing Organization Address [facility] de Phone Number CDR HISTORICAL RESULTS * (ABNORMAL) Blood erythrocyte sedimentation rate (ESR) (07/07/2016 9:07 PM CDT) Erythrocyte sedimentation rate 85.0(H) 0.0 - 35.0 mm/hr CDR HISTORICAL RESULTS Blood specimen (specimen) 07/07/2016 9:07 PM CDT Eryn Paris Richard LAB BLOOD ORDERABLES Final Re sult Performing Organization Address [facility] de Phone Number CDR HISTORICAL RESULTS * (ABNORMAL) Blood cell morphologic exam (07/07/2016 9:07 PM CDT) Neutrophils 70.7 % CDR HIST ORICAL RESULTS Immature granulocytes 4.8 % CDR HISTORICAL RESULTS Lymphocytes 11.2 % CDR HIST ORICAL RESULTS Monos 9.1 % CDR HISTOR ICAL RESULTS Eosinophils 3.9 % CDR HIST ORICAL RESULTS Basophils 0.3 % CDR HISTOR ICAL RESULTS Neutrophils, abs 6.2 1.7 - 6.5 K/cumm CDR HISTORICAL RESULTS Immature granulocyte, abs 0.4(H) 0.0 - 0.1 K/cumm CDR HISTORICAL RESULTS Lymphocytes, abs 1.0 0.8 - 3.3 K/cumm CDR HISTORICAL RESULTS Monocytes, absolute 0.8 0.2 - 0.8 K/cumm CDR HISTORICAL RESULTS Eosinophils, abs 0.3 0.0 - 0.5 K/cumm CDR HISTORICAL RESULTS Basophils, abs 0.0 0.0 - 0.1 K/cumm CDR HISTORICAL RESULTS Blood specimen (specimen) 07/07/2016 9:07 PM CDT Eryn Paris Richard LAB BLOOD ORDERABLES Final Re sult Performing Organization Address [facility] de Phone Number CDR HISTORICAL RESULTS * XR Spine Lumbar 2 or 3 Views (07/07/2016 4:26 PM CDT) Anatomical Region Laterality Modality Spine N/A Radiographic Ana Cristina ging 07/07/2016 4:26 PM CDT Narrative 07/07/2016 5:12 PM CDT MD ALYSSA NGO M.D. FINAL REPORT The radiology attending physician has personally reviewed this study, and has reviewed and/or edited this written report and agrees with it. ACC# ??Date Time ??Exam [id number] Jul 07, 2016 16:26:00 [id number] Spine Lumbar 2 or 3 views ACC# ??Date Time ??Exam [id number] Jul 07, 2016 16:26:00 [id number] Spine Lumbar 2 or 3 views EXAMINATION: ?? Lumbar spine 2 or 3 views HISTORY: Epidural abscess centered around L5-S1 FINDINGS: AP and lateral views of the lumbar spine are digitally acquired and without comparison. Correlation is made to MRI from 07/07/2016. There is grade 1 anterolisthesis of L4 on L5. The vertebral body heights are normal. There is mild dextroconvex scoliosis of the lumbar spine. There is mild L4-L5 degenerative disc disease. ??Three linear radiopaque densities project over L5-S1 and are seen only on the lateral view and may be external to the patient. ?? IMPRESSION: Mild L4-L5 degenerative disease with grade 1 anterolisthesis. ?? Requested By: ERYN RAMOS M.D. Dictated By: ?? ALYSSA WINTERS M.D. ??on Jul 07 2016 ??4:46P This document has been electronically signed by: TEO AMARAL MD on Jul 07 2016 ??5:12P [id number] Procedure Note Provider, MD Palma - 01/27/2017 MD ALYSSA NGO M.D. FINAL REPORT The radiology attending physician has personally reviewed this study, and has reviewed and/or edited this written report and agrees with it. ACC# Date Time Exam [id number] Jul 07, 2016 16:26:00 [id number] Spine Lumbar 2 or 3 views ACC# Date Time Exam [id number] Jul 07, 2016 16:26:00 [id number] Spine Lumbar 2 or 3 views EXAMINATION: Lumbar spine 2 or 3 views HISTORY: Epidural abscess centered around L5-S1 FINDINGS: AP and lateral views of the lumbar spine are digitally acquired and without comparison. Correlation is made to MRI from 07/07/2016. There is grade 1 anterolisthesis of L4 on L5. The vertebral body heights are normal. There is mild dextroconvex scoliosis of the lumbar spine. There is mild L4-L5 degenerative disc disease. Three linear radiopaque densities project over L5-S1 and are seen only on the lateral view and may be external to the patient. IMPRESSION: Mild L4-L5 degenerative disease with grade 1 anterolisthesis. Requested By: ERYN RAMOS M.D. Dictated By: ALYSSA WINTERS M.D. on Jul 07 2016 4:46P This document has been electronically signed by: TEO AMARAL MD on Jul 07 2016 5:12P [id number] us Historical Provider IMM[facility] XR PROCEDURES Final R esult * MRI Lumbar Spine W WO Contrast (07/07/2016 2:00 PM CDT) Anatomical Region Laterality Modality Spine N/A Magnetic Resonan ce 07/07/2016 2:00 PM CDT Narrative 07/07/2016 10:11 PM CDT THELMA CAMARENA M.D. HCRISTINE MOORE M.D. FINAL REPORT The radiology attending physician has personally reviewed this study, and has reviewed and/or edited this written report and agrees with it. ACC# ??Date Time ??Exam [id number] Jul 07, 2016 14:00:00 [id number] MRI Lumbar Spn wo&wi cont EXAMINATION: ?? Magnetic resonance imaging (MRI) of the lumbar spine without and with contrast HISTORY: Metastatic endometrial cancer status post retroperitoneal dissection presenting with fever, back pain, radiculopathy with concern for abscess. TECHNIQUE: Multiplanar multi-weighted MRI of the lumbar spine was performed without and with intravenous contrast using the standard lumbar spine protocol. Contrast information: 14 mL Dotarem COMPARISON: CT of the abdomen and pelvis dated 04/10/2016 FINDINGS: There is mild straightening of the lumbar spine. There is a hemangioma within the L2 vertebral body. There are no compression fractures. The conus medullaris terminates at the level of L1-L2. The distal spinal cord signal intensity is normal. There is disc desiccation most prominent at L2-L3 and L4-L5. There is associated annular fissures at these levels. Postsurgical changes of retroperitoneal dissection are partially visualized. The aorta is normal. There is enhancement about the left L5-S1 facet joint with enhancement of the adjacent paraspinal muscles. Additionally, there is rim enhancement within the epidural space in the lower lumbar spine with associated region of T2 hyperintensity along the dorsal epidural space. There is compression of the thecal sac at L5-S1 extending inferiorly through the sacrum. There is partial visualization of enhancement along the right iliacus muscle, likely related to recent surgery. There is mild central canal stenosis at L2-L3 the L4-L5. Mild bilateral neuroforaminal stenosis is noted at L4-L5 and L5-S1. IMPRESSION: ?? 1. Rim enhancing epidural fluid collection, consistent with an epidural abscess, centered around L5-S1 which exerts mass effect on the thecal sac, and appears to be associated with the left L5-S1 facet, which may be related to septic arthritis involving the facet joint. 2. Enhancement involving the left iliacus muscle, incompletely visualized, which may be related to recent surgical intervention. The above findings were Dr. Yo by Dr. Moore at 1520 on 07/07/2016. Requested By: KASSANDRA JORGENSEN M.D. Dictated By: ?? CHRISTINE MOORE M.D. ??on Jul 07 2016 ??3:24P This document has been electronically signed by: THELMA CAMARENA M.D. on Jul 07 2016 10:11P [id number] Procedure Note Provider, MD Palma - 01/27/2017 THELMA CAMARENA M.D. CHRISTINE MOORE M.D. FINAL REPORT The radiology attending physician has personally reviewed this study, and has reviewed and/or edited this written report and agrees with it. ACC# Date Time Exam [id number] Jul 07, 2016 14:00:00 [id number] MRI Lumbar Spn wo&wi cont EXAMINATION: Magnetic resonance imaging (MRI) of the lumbar spine without and with contrast HISTORY: Metastatic endometrial cancer status post retroperitoneal dissection presenting with fever, back pain, radiculopathy with concern for abscess. TECHNIQUE: Multiplanar multi-weighted MRI of the lumbar spine was performed without and with intravenous contrast using the standard lumbar spine protocol. Contrast information: 14 mL Dotarem COMPARISON: CT of the abdomen and pelvis dated 04/10/2016 FINDINGS: There is mild straightening of the lumbar spine. There is a hemangioma within the L2 vertebral body. There are no compression fractures. The conus medullaris terminates at the level of L1-L2. The distal spinal cord signal intensity is normal. There is disc desiccation most prominent at L2-L3 and L4-L5. There is associated annular fissures at these levels. Postsurgical changes of retroperitoneal dissection are partially visualized. The aorta is normal. There is enhancement about the left L5-S1 facet joint with enhancement of the adjacent paraspinal muscles. Additionally, there is rim enhancement within the epidural space in the lower lumbar spine with associated region of T2 hyperintensity along the dorsal epidural space. There is compression of the thecal sac at L5-S1 extending inferiorly through the sacrum. There is partial visualization of enhancement along the right iliacus muscle, likely related to recent surgery. There is mild central canal stenosis at L2-L3 the L4-L5. Mild bilateral neuroforaminal stenosis is noted at L4-L5 and L5-S1. IMPRESSION: 1. Rim enhancing epidural fluid collection, consistent with an epidural abscess, centered around L5-S1 which exerts mass effect on the thecal sac, and appears to be associated with the left L5-S1 facet, which may be related to septic arthritis involving the facet joint. 2. Enhancement involving the left iliacus muscle, incompletely visualized, which may be related to recent surgical intervention. The above findings were Dr. Yo by Dr. Moore at 1520 on 07/07/2016. Requested By: KASSANDRA JORGENESN M.D. Dictated By: CHRISTINE MOORE M.D. on Jul 07 2016 3:24P This document has been electronically signed by: THELMA CAMARENA M.D. on Jul 07 2016 10:11P [id number] Historical Provider MD SOLORZANO MRI PROCEDURES Final Result * Blood culture (07/07/2016 11:00 AM CDT) Blood specimen (specimen) (Antecubital, right) 07/07/2016 11:00 AM CDT 07/07/2016 1:20 PM CDT Impressions CDR HISTORICAL RESULTS - 07/13/2016 1:20 AM CDT Blood cultures are incubated for five days on a continuously monitored blood culture system. ??The first report of a negative culture is issued within 24 hours of receipt of the specimen in the laboratory. ??Positive culture results are reported as soon as they are detected. ??For blood cultures with gram-positive cocci, a rapid molecular test for organism identification may be performed using the [employer] Nanosphere Gram Positive Blood Culture Assay. ??The Nanosphere assay detects microbial DNA in positive blood culture broth via hybridization of target DNA to capture oligonucleotides on a microarray. ??This assay has been cleared by the [place] Food and Drug Administration and its performance characteristics have been verified by the [facility]. Current Interpretive Data was last revised on 2014. Narrative CDR HISTORICAL RESULTS - 07/13/2016 1:20 AM CDT No growth us Historical Provider MD LAB MICROBIOLOGY - GENERA L ORDERABLES Final Result Performing Organization Address [facility] de Phone Number CDR HISTORICAL RESULTS * Urinalysis (07/07/2016 10:54 AM CDT) Color, ur Straw Yellow CDR HISTOR ICAL RESULTS Clarity, ur Clear Clear CDR HIST ORICAL RESULTS Specific gravity, ur 1.009 1.003 - 1.030 CDR HISTORICAL RESULTS pH, ur 5.0 5.0 - 8.0 CDR HISTOR ICAL RESULTS Protein, ur Negative Trace CDR HIST ORICAL RESULTS Glucose, ur Negative Negative CDR HIST ORICAL RESULTS Ketones, ur Negative Negative CDR HIST ORICAL RESULTS Bilirubin, ur Negative Negative CDR HI STORICAL RESULTS U Blood Negative Negative CDR HISTOR ICAL RESULTS Urobilinogen, quant, ur <2.0 <2.0 mg/dl CDR HISTORICAL RESULTS Nitrites, ur Negative Negative CDR HIS TORICAL RESULTS Leukocyte esterase, ur Negative Negative CDR HISTORICAL RESULTS Urine 07/07/2016 10:5 4 AM CDT us Historical Provider LAB BLOOD ORDERABLES Shira l Result Performing Organization Address [facility] de Phone Number CDR HISTORICAL RESULTS * Blood culture (07/07/2016 9:45 AM CDT) Blood specimen (specimen) (Antecubital, right) 07/07/2016 9:45 AM CDT 07/07/2016 10:53 AM CDT Impressions CDR HISTORICAL RESULTS - 07/13/2016 1:20 AM CDT Blood cultures are incubated for five days on a continuously monitored blood culture system. ??The first report of a negative culture is issued within 24 hours of receipt of the specimen in the laboratory. ??Positive culture results are reported as soon as they are detected. ??For blood cultures with gram-positive cocci, a rapid molecular test for organism identification may be performed using the [employer] Nanosphere Gram Positive Blood Culture Assay. ??The Nanosphere assay detects microbial DNA in positive blood culture broth via hybridization of target DNA to capture oligonucleotides on a microarray. ??This assay has been cleared by the [place] Food and Drug Administration and its performance characteristics have been verified by the [facility]. Current Interpretive Data was last revised on 2014. Narrative CDR HISTORICAL RESULTS - 07/13/2016 1:20 AM CDT No growth Historical Provider MD LAB MICROBIOLOGY - GENERA L ORDERABLES Final Result Performing Organization Address City/[facility] de Phone Number CDR HISTORICAL RESULTS * (ABNORMAL) Blood cell count (CBC) (07/07/2016 8:59 AM CDT) WBC 8.6 3.8 - 9.9 K/cumm CDR HISTORICAL RESULTS RBC 2.68(L) 3.90 - 5.20 M/cumm CDR HISTORICAL RESULTS Hgb 8.1(L) 11.9 - 15.5 g/dl CDR HISTORICAL RESULTS Hct 24.6(L) 35.6 - 45.5 % CDR HISTORICAL RESULTS MCV 91.8 81.3 - 96.4 fl CDR HISTORICAL RESULTS MCH 30.2 27.1 - 33.3 pg CDR HISTORICAL RESULTS MCHC 32.9 32.3 - 35.7 g/dl CDR HISTORICAL RESULTS Rdw 14.5 11.1 - 14.9 % CDR HISTORICAL RESULTS RDW 48.9(H) 35.7 - 48.1 fl CDR HISTORICAL RESULTS Platelets 217 150 - 400 K/cumm CDR HISTORICAL RESULTS Comment:Verified MPV 11.0 9.1 - 12.3 fl CDR HISTORICAL RESULTS NRBC 0.0 0.0 - 0.2 % CDR HISTORICAL RESULTS NRBC, abs 0.00 0.00 - 0.01 K/cumm CDR HISTORICAL RESULTS Blood specimen (specimen) 07/07/2016 8:59 AM CDT Historical Provider LAB BLOOD ORDERABLES Shira l Result Performing Organization Address [facility]/ZIP Co de Phone Number CDR HISTORICAL RESULTS * (ABNORMAL) Blood cell morphologic exam (07/07/2016 8:59 AM CDT) Neutrophils 68.0 % CDR HIST ORICAL RESULTS Immature granulocytes 5.7 % CDR HISTORICAL RESULTS Lymphocytes 13.9 % CDR HIST ORICAL RESULTS Monos 9.2 % CDR HISTOR ICAL RESULTS Eosinophils 2.6 % CDR HIST ORICAL RESULTS Basophils 0.6 % CDR HISTOR ICAL RESULTS Neutrophils, abs 5.8 1.7 - 6.5 K/cumm CDR HISTORICAL RESULTS Immature granulocyte, abs 0.5(H) 0.0 - 0.1 K/cumm CDR HISTORICAL RESULTS Lymphocytes, abs 1.2 0.8 - 3.3 K/cumm CDR HISTORICAL RESULTS Monocytes, absolute 0.8 0.2 - 0.8 K/cumm CDR HISTORICAL RESULTS Eosinophils, abs 0.2 0.0 - 0.5 K/cumm CDR HISTORICAL RESULTS Basophils, abs 0.0 0.0 - 0.1 K/cumm CDR HISTORICAL RESULTS Blood specimen (specimen) 07/07/2016 8:59 AM CDT us Historical Provider LAB BLOOD ORDERABLES Shira l Result CDR HISTORICAL RESULTS * Blood culture (07/05/2016 9:58 PM CDT) Blood specimen (specimen) (Hand, left) 07/05/2016 9:58 PM CDT 07/05/2016 11:51 PM CDT Impressions CDR HISTORICAL RESULTS - 07/11/2016 6:31 AM CDT Blood cultures are incubated for five days on a continuously monitored blood culture system. ??The first report of a negative culture is issued within 24 hours of receipt of the specimen in the laboratory. ??Positive culture results are reported as soon as they are detected. ??For blood cultures with gram-positive cocci, a rapid molecular test for organism identification may be performed using the [employer] Nanosphere Gram Positive Blood Culture Assay. ??The Nanosphere assay detects microbial DNA in positive blood culture broth via hybridization of target DNA to capture oligonucleotides on a microarray. ??This assay has been cleared by the [place] Food and Drug Administration and its performance characteristics have been verified by the [facility]. Current Interpretive Data was last revised on 2014. Narrative CDR HISTORICAL RESULTS - 07/11/2016 6:31 AM CDT No growth Historical Provider MD LAB MICROBIOLOGY - GENERA L ORDERABLES Final Result Performing Organization Address [facility] de Phone Number CDR HISTORICAL RESULTS * Blood culture (07/05/2016 9:58 PM CDT) Blood specimen (specimen) (Brachial, right) 07/05/2016 9:58 PM CDT 07/05/2016 11:52 PM CDT Impressions CDR HISTORICAL RESULTS - 07/11/2016 6:31 AM CDT Blood cultures are incubated for five days on a continuously monitored blood culture system. ??The first report of a negative culture is issued within 24 hours of receipt of the specimen in the laboratory. ??Positive culture results are reported as soon as they are detected. ??For blood cultures with gram-positive cocci, a rapid molecular test for organism identification may be performed using the [employer] Nanosphere Gram Positive Blood Culture Assay. ??The Nanosphere assay detects microbial DNA in positive blood culture broth via hybridization of target DNA to capture oligonucleotides on a microarray. ??This assay has been cleared by the [place] Food and Drug Administration and its performance characteristics have been verified by the [facility]. Current Interpretive Data was last revised on 2014. Narrative CDR HISTORICAL RESULTS - 07/11/2016 6:31 AM CDT No growth Historical Provider LAB MICROBIOLOGY - GENERA L ORDERABLES Final Result Performing Organization Address [facility] de Phone Number CDR HISTORICAL RESULTS * (ABNORMAL) Plasma basic metabolic panel (07/05/2016 9:00 PM CDT) Sodium 138 135 - 145 mmol/L CDR HISTORICAL RESULTS K, pl 3.9 3.3 - 4.9 mmol/L CDR HISTORICAL RESULTS Chloride 107 97 - 110 mmol/L CDR HISTORICAL RESULTS CO2 22 22 - 32 mmol/L CDR HISTORICAL RESULTS A. gap 9 2 - 15 mmol/L CDR HISTORICAL RESULTS Glucose 121 70 - 199 mg/dl CDR HISTORICAL RESULTS BUN 7(L) 8 - 25 mg/dl CDR HISTORICAL RESULTS Creatinine 0.82 0.60 - 1.10 mg/dl CDR HISTORICAL RESULTS Calcium 8.5 8.5 - 10.3 mg/dl CDR HISTORICAL RESULTS Plasma 07/05/2016 9:00 PM CDT Rubi Shepherder LAB BLOOD ORDERABLES Final Resul t Performing Organization Address [facility] de Phone Number CDR HISTORICAL RESULTS * (ABNORMAL) Plasma phosphorus (07/05/2016 9:00 PM CDT) Phosphorus, pl 1.9(L) 2.3 - 4.5 mg/dl CDR HISTORICAL RESULTS Plasma 07/05/2016 9:00 PM CDT Rubi Shepherder LAB BLOOD ORDERABLES Final Resul t Performing Organization Address [facility] de Phone Number CDR HISTORICAL RESULTS * Serum magnesium (07/05/2016 9:00 PM CDT) Magnesium 2.3 1.4 - 2.5 mg/dl CDR HISTORICAL RESULTS Serum 07/05/2016 9:00 PM CDT Rubi Orta Bronson LAB BLOOD ORDERABLES Final Resul t Performing Organization Address [facility] de Phone Number CDR HISTORICAL RESULTS * (ABNORMAL) Blood cell count [CBC] express (07/05/2016 9:00 PM CDT) WBC 3.9 3.8 - 9.9 K/cumm CDR HISTORICAL RESULTS RBC 2.53(L) 3.90 - 5.20 M/cumm CDR HISTORICAL RESULTS Hgb 7.7(L) 11.9 - 15.5 g/dl CDR HISTORICAL RESULTS Hct 23.1(L) 35.6 - 45.5 % CDR HISTORICAL RESULTS MCV 91.3 81.3 - 96.4 fl CDR HISTORICAL RESULTS MCH 30.4 27.1 - 33.3 pg CDR HISTORICAL RESULTS MCHC 33.3 32.3 - 35.7 g/dl CDR HISTORICAL RESULTS Rdw 14.2 11.1 - 14.9 % CDR HISTORICAL RESULTS RDW 47.8 35.7 - 48.1 fl CDR HISTORICAL RESULTS NRBC 0.0 0.0 - 0.2 % CDR HIST ORICAL RESULTS NRBC, abs 0.00 0.00 - 0.01 K/cumm CDR HISTORICAL RESULTS Platelets 92(L) 150 - 400 K/cumm CDR HISTORICAL RESULTS MPV 11.5 9.1 - 12.3 fl CDR HISTORICAL RESULTS Blood specimen (specimen) 07/05/2016 9:00 PM CDT Rubi Bronson LAB BLOOD ORDERABLES Final Resul t CDR HISTORICAL RESULTS * (ABNORMAL) Serum vancomycin, trough drug level (07/05/2016 10:05 AM CDT) Vancomycin, trough 9.0(L) 10.0 - 20.9 mcg/ml CDR HISTORICAL RESULTS Serum 07/05/2016 10:0 5 AM CDT Historical Provider LAB BLOOD ORDERABLES Shira l Result Performing Organization Address City/[facility] Co de Phone Number CDR HISTORICAL RESULTS * (ABNORMAL) Plasma basic metabolic panel (07/04/2016 10:23 PM CDT) Sodium 136 135 - 145 mmol/L CDR HISTORICAL RESULTS K, pl 3.7 3.3 - 4.9 mmol/L CDR HISTORICAL RESULTS Chloride 103 97 - 110 mmol/L CDR HISTORICAL RESULTS CO2 23 22 - 32 mmol/L CDR HISTORICAL RESULTS A. gap 10 2 - 15 mmol/L CDR HISTORICAL RESULTS Glucose 130 70 - 199 mg/dl CDR HISTORICAL RESULTS BUN 8 8 - 25 mg/dl CDR HISTORICAL RESULTS Creatinine 0.84 0.60 - 1.10 mg/dl CDR HISTORICAL RESULTS Calcium 8.4(L) 8.5 - 10.3 mg/dl CDR HISTORICAL RESULTS Plasma 07/04/2016 10:2 3 PM CDT Alyse Garay MD LAB BLOOD ORDERABLES F inal Result CDR HISTORICAL RESULTS * (ABNORMAL) Plasma phosphorus (07/04/2016 10:23 PM CDT) Phosphorus, pl 2.0(L) 2.3 - 4.5 mg/dl CDR HISTORICAL RESULTS Plasma 07/04/2016 10:2 3 PM CDT Alyse Gaary MD LAB BLOOD ORDERABLES F inal Result Performing Organization Address [facility] de Phone Number CDR HISTORICAL RESULTS * Serum magnesium (07/04/2016 10:23 PM CDT) Magnesium 2.5 1.4 - 2.5 mg/dl CDR HISTORICAL RESULTS Serum 07/04/2016 10:2 3 PM CDT Alyse Garay MD LAB BLOOD ORDERABLES F inal Result Performing Organization Address [facility] de Phone Number CDR HISTORICAL RESULTS * (ABNORMAL) Blood cell count (CBC) (07/04/2016 10:23 PM CDT) WBC 5.1 3.8 - 9.9 K/cumm CDR HISTORICAL RESULTS RBC 2.95(L) 3.90 - 5.20 M/cumm CDR HISTORICAL RESULTS Hgb 9.0(L) 11.9 - 15.5 g/dl CDR HISTORICAL RESULTS Hct 26.6(L) 35.6 - 45.5 % CDR HISTORICAL RESULTS MCV 90.2 81.3 - 96.4 fl CDR HISTORICAL RESULTS MCH 30.5 27.1 - 33.3 pg CDR HISTORICAL RESULTS MCHC 33.8 32.3 - 35.7 g/dl CDR HISTORICAL RESULTS Rdw 14.0 11.1 - 14.9 % CDR HISTORICAL RESULTS RDW 45.6 35.7 - 48.1 fl CDR HISTORICAL RESULTS Platelets 103(L) 150 - 400 K/cumm CDR HISTORICAL RESULTS MPV 11.3 9.1 - 12.3 fl CDR HISTORICAL RESULTS NRBC 0.0 0.0 - 0.2 % CDR HIST ORICAL RESULTS NRBC, abs 0.00 0.00 - 0.01 K/cumm CDR HISTORICAL RESULTS Blood specimen (specimen) 07/04/2016 10:23 PM CDT Alyse Garay MD LAB BLOOD ORDERABLES F inal Result Performing Organization Address [facility] de Phone Number CDR HISTORICAL RESULTS * (ABNORMAL) Blood cell morphologic exam (07/04/2016 10:23 PM CDT) Neutrophils 74.5 % CDR HIST ORICAL RESULTS Comment:{Consistent with pre vious result} Immature granulocytes 0.6 % CDR HISTORICAL RESULTS Lymphocytes 14.0 % CDR HIST ORICAL RESULTS Monos 9.9 % CDR HISTOR ICAL RESULTS Eosinophils 0.6 % CDR HIST ORICAL RESULTS Basophils 0.4 % CDR HISTOR ICAL RESULTS Neutrophils, abs 3.8 1.7 - 6.5 K/cumm CDR HISTORICAL RESULTS Immature granulocyte, abs 0.0 0.0 - 0.1 K/cumm CDR HISTORICAL RESULTS Lymphocytes, abs 0.7(L) 0.8 - 3.3 K/cumm CDR HISTORICAL RESULTS Monocytes, absolute 0.5 0.2 - 0.8 K/cumm CDR HISTORICAL RESULTS Eosinophils, abs 0.0 0.0 - 0.5 K/cumm CDR HISTORICAL RESULTS Basophils, abs 0.0 0.0 - 0.1 K/cumm CDR HISTORICAL RESULTS Blood specimen (specimen) 07/04/2016 10:23 PM CDT Alyse Garay MD LAB BLOOD ORDERABLES F inal Result Performing Organization Address [facility] de Phone Number CDR HISTORICAL RESULTS * Blood culture (07/04/2016 10:23 PM CDT) Blood specimen (specimen) (Antecubital, right) 07/04/2016 10:23 PM CDT 07/05/2016 1:14 AM CDT Impressions CDR HISTORICAL RESULTS - 07/11/2016 6:31 AM CDT Blood cultures are incubated for five days on a continuously monitored blood culture system. ??The first report of a negative culture is issued within 24 hours of receipt of the specimen in the laboratory. ??Positive culture results are reported as soon as they are detected. ??For blood cultures with gram-positive cocci, a rapid molecular test for organism identification may be performed using the [employer] Nanosphere Gram Positive Blood Culture Assay. ??The Nanosphere assay detects microbial DNA in positive blood culture broth via hybridization of target DNA to capture oligonucleotides on a microarray. ??This assay has been cleared by the [place] Food and Drug Administration and its performance characteristics have been verified by the [facility]. Current Interpretive Data was last revised on 2014. Narrative CDR HISTORICAL RESULTS - 07/11/2016 6:31 AM CDT No growth Historical Provider MD LAB MICROBIOLOGY - GENERA L ORDERABLES Final Result Performing Organization Address [facility] de Phone Number CDR HISTORICAL RESULTS * Blood culture (07/04/2016 10:23 PM CDT) Blood specimen (specimen) (Hand, left) 07/04/2016 10:23 PM CDT 07/05/2016 1:15 AM CDT Impressions CDR HISTORICAL RESULTS - 07/11/2016 6:31 AM CDT Blood cultures are incubated for five days on a continuously monitored blood culture system. ??The first report of a negative culture is issued within 24 hours of receipt of the specimen in the laboratory. ??Positive culture results are reported as soon as they are detected. ??For blood cultures with gram-positive cocci, a rapid molecular test for organism identification may be performed using the [employer] Nanosphere Gram Positive Blood Culture Assay. ??The Nanosphere assay detects microbial DNA in positive blood culture broth via hybridization of target DNA to capture oligonucleotides on a microarray. ??This assay has been cleared by the [place] Food and Drug Administration and its performance characteristics have been verified by the [facility]. Current Interpretive Data was last revised on 2014. Narrative CDR HISTORICAL RESULTS - 07/11/2016 6:31 AM CDT No growth us Historical Provider MD LAB MICROBIOLOGY - GENERA L ORDERABLES Final Result Performing Organization Address City/[facility] Co de Phone Number CDR HISTORICAL RESULTS * Port Removal (07/04/2016 3:30 PM CDT) Anatomical Region Laterality Modality Body N/A X-Ray Angiograph y 07/04/2016 3:30 PM CDT Narrative 07/04/2016 7:19 PM CDT YULISSA CROCKER M.D. LI OLSON M.D. FINAL REPORT The radiology attending physician has personally reviewed this study, and has reviewed and/or edited this written report and agrees with it. ACC# ??Date Time ??Exam [id number] Jul 04, 2016 15:30:00 11598 Remove Port R EXAMINATION: ?PORT REMOVAL HISTORY: 61-year-old woman with endometrial cancer and positive blood cultures. There are is consulted for port removal and to send the port tip for culture ATTENDING PRESENCE: Dr. Crocker, the attending radiologist, was present from the beginning to the end of the procedure. SEDATION: The patient did not require conscious sedation. TECHNIQUE: The risks, benefits and alternatives were discussed and informed consent was obtained. ??Prior to beginning the procedure, [place] Protocol was used to confirm the patient's identity and planned procedure. ??If fluoroscopy was used, fluoroscopy time has been recorded in the electronic medical record. Maximum sterile barriers including cap, mask, hand hygiene, sterile gloves, sterile gown, large sterile drape and 2% chlorhexidine for cutaneous antisepsis were used. ??The skin adjacent to the right chest wall port was sterilely prepped, draped and infiltrated with 1% lidocaine. ?? After making a short transverse incision, the port reservoir was freed using a combination of sharp and blunt dissection. ??The catheter was then removed. ??The deep tissues were approximated using 4-0 Monocryl and the incision closed using Dermabond. ESTIMATED BLOOD LOSS: less than 30 milliliters DISCHARGED TO: Recovery and then to home ?? CONDITION: Stable FINDINGS: The port site showed no purulence or other evidence of infection. IMPRESSION: ?? Successful port removal. Requested By: Dictated By: ?? LI OLSON M.D. ??on Jul 04 2016 ??5:49P This document has been electronically signed by: YULISSA CROCKER M.D. on Jul 04 2016 ??7:19P Procedure Note Provider, MD [place]ma - 01/27/2017 YULISSA CROCKER M.D. LI OLSON M.D. FINAL REPORT The radiology attending physician has personally reviewed this study, and has reviewed and/or edited this written report and agrees with it. [facility]# Date Time Exam [id number] Jul 04, 2016 15:30:00 11686 Remove Port R EXAMINATION: PORT REMOVAL HISTORY: 61-year-old woman with endometrial cancer and positive blood cultures. There are is consulted for port removal and to send the port tip for culture ATTENDING PRESENCE: Dr. Crocker, the attending radiologist, was present from the beginning to the end of the procedure. SEDATION: The patient did not require conscious sedation. TECHNIQUE: The risks, benefits and alternatives were discussed and informed consent was obtained. Prior to beginning the procedure, [place] Protocol was used to confirm the patient's identity and planned procedure. If fluoroscopy was used, fluoroscopy time has been recorded in the electronic medical record. Maximum sterile barriers including cap, mask, hand hygiene, sterile gloves, sterile gown, large sterile drape and 2% chlorhexidine for cutaneous antisepsis were used. The skin adjacent to the right chest wall port was sterilely prepped, draped and infiltrated with 1% lidocaine. After making a short transverse incision, the port reservoir was freed using a combination of sharp and blunt dissection. The catheter was then removed. The deep tissues were approximated using 4-0 Monocryl and the incision closed using Dermabond. ESTIMATED BLOOD LOSS: less than 30 milliliters DISCHARGED TO: Recovery and then to home CONDITION: Stable FINDINGS: The port site showed no purulence or other evidence of infection. IMPRESSION: Successful port removal. Requested By: Dictated By: LI OLSON M.D. on Jul 04 2016 5:49P This document has been electronically signed by: YULISSA CROCKER M.D. on Jul 04 2016 7:19P us Historical Provider MD SOL[facility]O IR PROCEDURES Final R esult * Aerobic culture (07/04/2016 12:30 PM CDT) Catheter tip (Port) 07/04/2016 12:30 PM CDT 07/04/2016 3:24 PM CDT Impressions CDR HISTORICAL RESULTS - 07/07/2016 11:07 AM CDT Specimens submitted from normally sterile body sites will have all bacterial morphotypes identified. Specimens that contain grossly mixed frida and/or are from body sites that are not normally sterile will be examined for Staphylococcus aureus, Pseudomonas aeruginosa, beta-hemolytic strep, vancomycin-resistant Enterococcus and fungus. If any of these are isolated, the organism will be reported. Current interpretive data was last revised on 2013. Narrative CDR HISTORICAL RESULTS - 07/07/2016 11:07 AM CDT Abundant Staphylococcus aureus For susceptibility results, refer to accession number [id number] on the Blood culture from 07/03/2016 us Historical Provider MD LAB MICROBIOLOGY - GENERA L ORDERABLES Final Result Performing Organization Address [facility] de Phone Number CDR HISTORICAL RESULTS * (ABNORMAL) Plasma basic metabolic panel (07/03/2016 8:56 PM CDT) Sodium 129(L) 135 - 145 mmol/L CDR HISTORICAL RESULTS K, pl 3.7 3.3 - 4.9 mmol/L CDR HISTORICAL RESULTS Chloride 95(L) 97 - 110 mmol/L CDR HISTORICAL RESULTS CO2 24 22 - 32 mmol/L CDR HISTORICAL RESULTS A. gap 10 2 - 15 mmol/L CDR HISTORICAL RESULTS Glucose 166 70 - 199 mg/dl CDR HISTORICAL RESULTS BUN 13 8 - 25 mg/dl CDR HISTORICAL RESULTS Creatinine 0.85 0.60 - 1.10 mg/dl CDR HISTORICAL RESULTS Calcium 9.0 8.5 - 10.3 mg/dl CDR HISTORICAL RESULTS Plasma 07/03/2016 8:56 PM CDT Rubi Bronson LAB BLOOD ORDERABLES Final Resul t Performing Organization Address [facility] de Phone Number CDR HISTORICAL RESULTS * (ABNORMAL) Plasma phosphorus (07/03/2016 8:56 PM CDT) Phosphorus, pl 1.4(L) 2.3 - 4.5 mg/dl CDR HISTORICAL RESULTS Plasma 07/03/2016 8:56 PM CDT Rubi Bronson LAB BLOOD ORDERABLES Final Resul t Performing Organization Address [facility]/ZIP Co de Phone Number CDR HISTORICAL RESULTS * Serum magnesium (07/03/2016 8:56 PM CDT) Magnesium 1.8 1.4 - 2.5 mg/dl CDR HISTORICAL RESULTS Serum 07/03/2016 8:56 PM CDT Rubi Bronson LAB BLOOD ORDERABLES Final Resul t Performing Organization Address [facility] de Phone Number CDR HISTORICAL RESULTS * (ABNORMAL) Blood cell count [CBC] express (07/03/2016 8:56 PM CDT) WBC 4.0 3.8 - 9.9 K/cumm CDR HISTORICAL RESULTS RBC 3.17(L) 3.90 - 5.20 M/cumm CDR HISTORICAL RESULTS Hgb 9.7(L) 11.9 - 15.5 g/dl CDR HISTORICAL RESULTS Hct 27.9(L) 35.6 - 45.5 % CDR HISTORICAL RESULTS MCV 88.0 81.3 - 96.4 fl CDR HISTORICAL RESULTS MCH 30.6 27.1 - 33.3 pg CDR HISTORICAL RESULTS MCHC 34.8 32.3 - 35.7 g/dl CDR HISTORICAL RESULTS Rdw 13.2 11.1 - 14.9 % CDR HISTORICAL RESULTS RDW 42.5 35.7 - 48.1 fl CDR HISTORICAL RESULTS NRBC 0.0 0.0 - 0.2 % CDR HIST ORICAL RESULTS NRBC, abs 0.00 0.00 - 0.01 K/cumm CDR HISTORICAL RESULTS Platelets 81(L) 150 - 400 K/cumm CDR HISTORICAL RESULTS MPV 11.6 9.1 - 12.3 fl CDR HISTORICAL RESULTS Blood specimen (specimen) 07/03/2016 8:56 PM CDT us Rubi Bronson LAB BLOOD ORDERABLES Final Resul t Performing Organization Address [facility] Co de Phone Number CDR HISTORICAL RESULTS * CT Chest W Contrast (07/03/2016 4:18 PM CDT) Anatomical Region Laterality Modality Body N/A Computed Tomogra phy 07/03/2016 4:18 PM CDT Narrative 07/03/2016 4:59 PM CDT ALLYSSA MEZA M.D. FINAL REPORT ACC# ??Date Time ??Exam [id number] Jul 03, 2016 16:18:[id number] Chest with contrast [id number] Jul 03, 2016 16:18:[id number] Abd & Pelvis with cont EXAMINATION: ?? Computed tomography of the chest, abdomen, and pelvis with intravenous contrast DATE: 07/03/2016. HISTORY: Endometrial cancer status post retroperitoneal debulking, now with fever. TECHNIQUE: Computed tomography images of the chest, abdomen, and pelvis were obtained after the uneventful administration of 94 mL of Optiray-350 according to standard protocol. FINDINGS: Comparison is made to 04/10/2016. Right internal jugular Port-A-Cath has tip at the superior cavoatrial junction. No supraclavicular, axillary, mediastinal, or hilar lymphadenopathy. Heart size is normal, no pericardial effusion. No consolidation to suggest pneumonia. No pleural effusion or pneumothorax. No suspicious pulmonary nodules or masses. No hepatic lesions or biliary ductal dilatation. Gallbladder is normal. Spleen, pancreas, adrenal glands, and kidneys are normal. No free intraperitoneal fluid or gas. The bowel is normal in caliber without evidence of any focal wall thickening or obstruction. Patient status post hysterectomy and bilateral salpingo-oophorectomy. Previously seen necrotic mass associated with the right psoas muscle has been removed. There is no fluid collection seen. No lytic or blastic lesions. IMPRESSION: ?? 1. 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 Requested By: RUBI BRONSON M.D. Dictated By: ?? ALLYSSA MEZA M.D. ??on Jul 03 2016 ??4:59P This document has been electronically signed by: ALLYSSA MEZA M.D. on Jul 03 2016 ??4:59P [id number] Procedure Note Provider, MD [place] - 01/27/2017 ALLYSSA MEZA M.D. FINAL REPORT ACC# Date Time Exam [id number] Jul 03, 2016 16:18:[id number] Chest with contrast [id number] Jul 03, 2016 16:18:[address] Abd & Pelvis with cont EXAMINATION: Computed tomography of the chest, abdomen, and pelvis with intravenous contrast DATE: 07/03/2016. HISTORY: Endometrial cancer status post retroperitoneal debulking, now with fever. TECHNIQUE: Computed tomography images of the chest, abdomen, and pelvis were obtained after the uneventful administration of 94 mL of Optiray-350 according to standard protocol. FINDINGS: Comparison is made to 04/10/2016. Right internal jugular Port-A-Cath has tip at the superior cavoatrial junction. No supraclavicular, axillary, mediastinal, or hilar lymphadenopathy. Heart size is normal, no pericardial effusion. No consolidation to suggest pneumonia. No pleural effusion or pneumothorax. No suspicious pulmonary nodules or masses. No hepatic lesions or biliary ductal dilatation. Gallbladder is normal. Spleen, pancreas, adrenal glands, and kidneys are normal. No free intraperitoneal fluid or gas. The bowel is normal in caliber without evidence of any focal wall thickening or obstruction. Patient status post hysterectomy and bilateral salpingo-oophorectomy. Previously seen necrotic mass associated with the right psoas muscle has been removed. There is no fluid collection seen. No lytic or blastic lesions. IMPRESSION: 1. 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 Requested By: RUBI BRONSON M.D. Dictated By: ALLYSSA MEZA M.D. on Jul 03 2016 4:59P This document has been electronically signed by: ALLYSSA MEZA M.D. on Jul 03 2016 4:59P [id number] us Historical Provider MD SOLORZANO CT PROCEDURES Final R esult * CT Abdomen Pelvis W Contrast (07/03/2016 4:18 PM CDT) Anatomical Region Laterality Modality Body N/A Computed Tomogra phy 07/03/2016 4:18 PM CDT Narrative 07/03/2016 4:59 PM CDT ALLYSSA MEZA M.D. FINAL REPORT ACC# ??Date Time ??Exam [id number] Jul 03, 2016 16:18:[id number] Chest with contrast [id number] Jul 03, 2016 16:18:[id number] Abd & Pelvis with cont EXAMINATION: ?? Computed tomography of the chest, abdomen, and pelvis with intravenous contrast DATE: 07/03/2016. HISTORY: Endometrial cancer status post retroperitoneal debulking, now with fever. TECHNIQUE: Computed tomography images of the chest, abdomen, and pelvis were obtained after the uneventful administration of 94 mL of Optiray-350 according to standard protocol. FINDINGS: Comparison is made to 04/10/2016. Right internal jugular Port-A-Cath has tip at the superior cavoatrial junction. No supraclavicular, axillary, mediastinal, or hilar lymphadenopathy. Heart size is normal, no pericardial effusion. No consolidation to suggest pneumonia. No pleural effusion or pneumothorax. No suspicious pulmonary nodules or masses. No hepatic lesions or biliary ductal dilatation. Gallbladder is normal. Spleen, pancreas, adrenal glands, and kidneys are normal. No free intraperitoneal fluid or gas. The bowel is normal in caliber without evidence of any focal wall thickening or obstruction. Patient status post hysterectomy and bilateral salpingo-oophorectomy. Previously seen necrotic mass associated with the right psoas muscle has been removed. There is no fluid collection seen. No lytic or blastic lesions. IMPRESSION: ?? 1. 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 Requested By: RUBI BRONSON M.D. Dictated By: ?? ALLYSSA MEZA M.D. ??on Jul 03 2016 ??4:59P This document has been electronically signed by: ALLYSSA MEZA M.D. on Jul 03 2016 ??4:59P [id number] Procedure Note Provider, MD Palma - 01/27/2017 ALLYSSA MEZA M.D. FINAL REPORT ACC# Date Time Exam [id number] Jul 03, 2016 16:18:[id number] Chest with contrast [id number] Jul 03, 2016 16:18:[id number] Abd & Pelvis with cont EXAMINATION: Computed tomography of the chest, abdomen, and pelvis with intravenous contrast DATE: 07/03/2016. HISTORY: Endometrial cancer status post retroperitoneal debulking, now with fever. TECHNIQUE: Computed tomography images of the chest, abdomen, and pelvis were obtained after the uneventful administration of 94 mL of Optiray-350 according to standard protocol. FINDINGS: Comparison is made to 04/10/2016. Right internal jugular Port-A-Cath has tip at the superior cavoatrial junction. No supraclavicular, axillary, mediastinal, or hilar lymphadenopathy. Heart size is normal, no pericardial effusion. No consolidation to suggest pneumonia. No pleural effusion or pneumothorax. No suspicious pulmonary nodules or masses. No hepatic lesions or biliary ductal dilatation. Gallbladder is normal. Spleen, pancreas, adrenal glands, and kidneys are normal. No free intraperitoneal fluid or gas. The bowel is normal in caliber without evidence of any focal wall thickening or obstruction. Patient status post hysterectomy and bilateral salpingo-oophorectomy. Previously seen necrotic mass associated with the right psoas muscle has been removed. There is no fluid collection seen. No lytic or blastic lesions. IMPRESSION: 1. 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 Requested By: RUBI BRONSON M.D. Dictated By: ALLYSSA MEZA M.D. on Jul 03 2016 4:59P This document has been electronically signed by: ALLYSSA MEZA M.D. on Jul 03 2016 4:59P [id number] Historical Provider IMG CT PROCEDURES Final R esult * Urine (aerobic) culture (07/03/2016 3:57 PM CDT) Unknown (Unknown) 07/03/2016 3:57 PM CDT 07/03/2016 4:56 PM CDT Narrative CDR HISTORICAL RESULTS - 07/05/2016 7:34 AM CDT Insignificant growth based on current clinical standards. Historical Provider LAB MICROBIOLOGY - GENERA L ORDERABLES Final Result CDR HISTORICAL RESULTS * Blood culture (07/03/2016 12:41 PM CDT) Blood specimen (specimen) (Peripheral) 07/03/2016 12:41 PM CDT 07/03/2016 2:01 PM CDT Impressions CDR HISTORICAL RESULTS - 07/09/2016 7:07 AM CDT Blood cultures are incubated for five days on a continuously monitored blood culture system. ??The first report of a negative culture is issued within 24 hours of receipt of the specimen in the laboratory. ??Positive culture results are reported as soon as they are detected. ??For blood cultures with gram-positive cocci, a rapid molecular test for organism identification may be performed using the [employer] Nanosphere Gram Positive Blood Culture Assay. ??The Nanosphere assay detects microbial DNA in positive blood culture broth via hybridization of target DNA to capture oligonucleotides on a microarray. ??This assay has been cleared by the [place] Food and Drug Administration and its performance characteristics have been verified by the [facility]. Current Interpretive Data was last revised on 2014. Narrative CDR HISTORICAL RESULTS - 07/09/2016 7:07 AM CDT No growth us Historical Provider LAB MICROBIOLOGY - GENERA L ORDERABLES Final Result CDR HISTORICAL RESULTS * Blood culture (07/03/2016 12:24 PM CDT) Organism SAUR^[id number] CDR HISTORICAL RESULTS Blood specimen (specimen) (Catheter) 07/03/2016 12:24 PM CDT 07/03/2016 1:59 PM CDT Impressions CDR HISTORICAL RESULTS - 07/07/2016 2:54 PM CDT Blood cultures are incubated for five days on a continuously monitored blood culture system. ??The first report of a negative culture is issued within 24 hours of receipt of the specimen in the laboratory. ??Positive culture results are reported as soon as they are detected. ??For blood cultures with gram-positive cocci, a rapid molecular test for organism identification may be performed using the [employer] Nanosphere Gram Positive Blood Culture Assay. ??The Nanosphere assay detects microbial DNA in positive blood culture broth via hybridization of target DNA to capture oligonucleotides on a microarray. ??This assay has been cleared by the [place] Food and Drug Administration and its performance characteristics have been verified by the [facility]. Current Interpretive Data was last revised on 2014. Narrative CDR HISTORICAL RESULTS - 07/07/2016 2:54 PM CDT Staphylococcus aureus Methicillin susceptible (MSSA) by penicillin binding protein 2a (PBP2a) testing. Notification of: Gram Positive Cocci in clusters called to and read back by: DR. AMADEO BURROWS ([phone]) ??07/04/2016 05:38:51. Staphylococcus aureus, methicillin susceptible (MSSA) detected by the [employer] Blood Culture Nucleic Acid Test. This test does not exclude the possibility of a mixed bacterial infection. Notification of: Staphylococcus aureus, methicillin susceptible called to and read back by: DR. MADELYN OROZCO ([phone]) ??07/04/2016 07:55:43. Organism Antibiotic Method Susceptibility Staphylococcus aureus Doxycycline Susceptible Staphylococcus aureus Linezolid Susceptible Staphylococcus aureus Trimethoprim with Sulfamethoxazo le Susceptible Staphylococcus aureus Clindamycin Susceptible Staphylococcus aureus Erythromycin Resistant Staphylococcus aureus Vancomycin Susceptible Staphylococcus aureus Oxacillin Susceptible Staphylococcus aureus Cefazolin Susceptible Staphylococcus aureus Ceftriaxone Susceptible Historical Provider MD LAB MICROBIOLOGY - GENERA L ORDERABLES Final Result Performing Organization Address [facility] de Phone Number CDR HISTORICAL RESULTS * Blood ABO, Rh, indirect ab screen (07/03/2016 12:21 PM CDT) ABO, Rho(D) O Positive CDR HIS TORICAL RESULTS Bassem, indirect Negative CDR HISTORICAL RESULTS Blood specimen (specimen) 07/03/2016 12:21 PM CDT Rubi Bronson LAB BLOOD ORDERABLES Final Resul t Performing Organization Address [facility] de Phone Number CDR HISTORICAL RESULTS * (ABNORMAL) Plasma partial thromboplastin time (PTT) (07/03/2016 12:21 PM CDT) APTT 39.8(H) 25.0 - 37.0 seconds CDR HISTORICAL RESULTS Comment: Interpretive Data Therapeutic heparin range:60.0 - 94.0 sec based on correlation with therapeutic heparin activity range of 0.3 -0.7 Units/mL. Current interpretive data was last revised on 2011. Plasma 07/03/2016 12:2 1 PM CDT Rubi Bronson LAB BLOOD ORDERABLES Final Resul t Performing Organization Address [facility] de Phone Number CDR HISTORICAL RESULTS * (ABNORMAL) Plasma prothrombin time (PT) (07/03/2016 12:21 PM CDT) Prothrombin time (PT) 14.4(H) 9.2 - 14.0 seconds CDR HISTORICAL RESULTS INR 1.26(H) 0.81 - 1.22 CDR HIST ORICAL RESULTS Comment: Interpretive Data Inpatient therapeutic ranges* Atrial fibrillation ?2.0-3.0 INR Venous thrombo-embolism ?2.0-3.0 INR Bioprosthetic heart valve ?* Mechanical heart valve, bileaflet or tilting disk,aortic position ? 2.0-3.0 INR All other,or bileaflet or tilting disk, in mitral position ? 2.5-3.5 INR *See the pharmacy resource directory (PHRED) for an updated copy of the Tool Book at [email or web address] Current Interpretive Data was last revised 2011. Plasma 07/03/2016 12:2 1 PM CDT Rubi Bronson LAB BLOOD ORDERABLES Final Resul t CDR HISTORICAL RESULTS * (ABNORMAL) Plasma comprehensive metabolic panel (07/03/2016 12:21 PM CDT) Sodium 132(L) 135 - 145 mmol/L CDR HISTORICAL RESULTS K, pl 3.8 3.3 - 4.9 mmol/L CDR HISTORICAL RESULTS Chloride 96(L) 97 - 110 mmol/L CDR HISTORICAL RESULTS CO2 27 22 - 32 mmol/L CDR HISTORICAL RESULTS A. gap 9 2 - 15 mmol/L CDR HISTORICAL RESULTS Glucose 110 70 - 199 mg/dl CDR HISTORICAL RESULTS BUN 16 8 - 25 mg/dl CDR HISTORICAL RESULTS Creatinine 0.89 0.60 - 1.10 mg/dl CDR HISTORICAL RESULTS Calcium 9.4 8.5 - 10.3 mg/dl CDR HISTORICAL RESULTS Protein, pl 6.8 6.5 - 8.5 g/dl CDR HISTORICAL RESULTS Alb 3.5 3.5 - 5.0 g/dl CDR HISTORICAL RESULTS Bilirubin 0.3 0.1 - 1.2 mg/dl CDR HISTORICAL RESULTS Alk phos 75 40 - 130 Units/L CDR HISTORICAL RESULTS AST 41 10 - 45 Units/L CDR HISTORICAL RESULTS ALT 39 7 - 45 Units/L CDR HISTORICAL RESULTS Plasma 07/03/2016 12:2 1 PM CDT [facility] LAB BLOOD ORDERABLES Final Resul t Performing Organization Address [facility] de Phone Number CDR HISTORICAL RESULTS * Plasma phosphorus (07/03/2016 12:21 PM CDT) Phosphorus, pl 3.5 2.3 - 4.5 mg/dl CDR HISTORICAL RESULTS Plasma 07/03/2016 12:2 1 PM CDT [facility] LAB BLOOD ORDERABLES Final Resul t Performing Organization Address [facility] de Phone Number CDR HISTORICAL RESULTS * (ABNORMAL) Blood cell morphologic exam, manual (07/03/2016 12:21 PM CDT) Neutrophils 81.7 % CDR HIST ORICAL RESULTS Lymphocytes 7.0 % CDR HIST ORICAL RESULTS Monos 7.8 % CDR HISTOR ICAL RESULTS Eosinophils 0.9 % CDR HIST ORICAL RESULTS Basophils 1.7 % CDR HISTOR ICAL RESULTS WBC counted 115 # of cells CDR HIS TORICAL RESULTS Variant lymphs 0.9 % CDR H ISTORICAL RESULTS Neutrophils, abs 2.9 1.7 - 6.5 K/cumm CDR HISTORICAL RESULTS Lymphocytes, abs 0.3(L) 0.8 - 3.3 K/cumm CDR HISTORICAL RESULTS Monocytes, absolute 0.3 0.2 - 0.8 K/cumm CDR HISTORICAL RESULTS Eosinophils, abs 0.0 0.0 - 0.5 K/cumm CDR HISTORICAL RESULTS Basophils, abs 0.1 0.0 - 0.1 K/cumm CDR HISTORICAL RESULTS Immature granulocyte, abs 0.0 0.0 - 0.1 K/cumm CDR HISTORICAL RESULTS Blood specimen (specimen) 07/03/2016 12:21 PM CDT Rubi Orta Bronson LAB BLOOD ORDERABLES Final Resul t Performing Organization Address [facility] de Phone Number CDR HISTORICAL RESULTS * Serum magnesium (07/03/2016 12:21 PM CDT) Magnesium 2.1 1.4 - 2.5 mg/dl CDR HISTORICAL RESULTS Serum 07/03/2016 12:2 1 PM CDT Rubi Orta Bronson LAB BLOOD ORDERABLES Final Resul t Performing Organization Address [facility] de Phone Number CDR HISTORICAL RESULTS * (ABNORMAL) Blood cell count (CBC) (07/03/2016 12:21 PM CDT) RBC 3.75(L) 3.90 - 5.20 M/cumm CDR HISTORICAL RESULTS Hgb 11.3(L) 11.9 - 15.5 g/dl CDR HISTORICAL RESULTS Hct 33.2(L) 35.6 - 45.5 % CDR HISTORICAL RESULTS MCV 88.5 81.3 - 96.4 fl CDR HISTORICAL RESULTS MCH 30.1 27.1 - 33.3 pg CDR HISTORICAL RESULTS MCHC 34.0 32.3 - 35.7 g/dl CDR HISTORICAL RESULTS Rdw 13.2 11.1 - 14.9 % CDR HISTORICAL RESULTS RDW 43.1 35.7 - 48.1 fl CDR HISTORICAL RESULTS Platelets 72(L) 150 - 400 K/cumm CDR HISTORICAL RESULTS MPV 11.3 9.1 - 12.3 fl CDR HISTORICAL RESULTS WBC 3.5(L) 3.8 - 9.9 K/cumm CDR HISTORICAL RESULTS NRBC 0.0 0.0 - 0.2 % CDR HIST ORICAL RESULTS NRBC, abs 0.00 0.00 - 0.01 K/cumm CDR HISTORICAL RESULTS Blood specimen (specimen) 07/03/2016 12:21 PM CDT us Rubi Bronson LAB BLOOD ORDERABLES Final Resul t CDR HISTORICAL RESULTS * Influenza virus PCR (07/03/2016 12:21 PM CDT) Nasopharyngeal (Unknown) 07/03/2016 12:21 PM CDT 07/03/2016 12:52 PM CDT Impressions CDR HISTORICAL RESULTS - 07/03/2016 2:20 PM CDT This test is performed using the [employer] Xpert Flu/RSV Assay. ??This is a multiplex, real-time reverse transcriptase PCR assay that detects influenza A, influenza B, and respiratory syncytial virus RNA. ??This assay has been cleared by the [place] Food and Drug Administration, and its performance characteristics have been verified by the [facility]. Narrative CDR HISTORICAL RESULTS - 07/03/2016 2:20 PM CDT Flu A target RNA not detected Flu B target RNA not detected RSV target RNA not detected us Historical Provider LAB MICROBIOLOGY - GENERA L ORDERABLES Final Result Performing Organization Address [place]/[facility] Co de Phone Number CDR HISTORICAL RESULTS documented in this encounter Visit Diagnoses Diagnosis Bloodstream infection due to central venous catheter Sepsis due to methicillin susceptible Staphylococcus aureus (HCC) Intraspinal abscess and granuloma Acute embolism and thrombosis of right internal jugular vein (CMS/HCC) (HCC) Hypothyroidism Unspecified hypothyroidism Malignant neoplasm of endometrium (CMS/HCC) (HCC) Malignant neoplasm of corpus uteri, except isthmus Anemia Unspecified anemia Acute embolism and thrombosis of superficial vein of left upper extremity Family history of malignant neoplasm of breast Family history of malignant neoplasm of digestive organ Family history of malignant neoplasm of gastrointestinal tract Personal history of nicotine dependence Other surgical procedures as the cause of abnormal reaction of the patient, or of later complication, without mention of misadventure at the time of the procedure Unspecified place or not applicable Engages in activity Headache documented in this encounter
--- OUTSIDE RECORDS SUMMARY | 2024-10-06 04:07 | XMS_ITS | Encounter Summary ---
Author Organization [facility] Facility Care Team Providers Care Concession Supervisor Name Role Phone Unavailable Primary Care Provider Unavailabl e Encounter Details Date Type Department Care Team (Late st Contact Info) Description 05/21/2016 12:26 PM CDT - 05/21/2016 11:59 PM T Hospital Encounter [facility] Jonnathan Jack, DO [address] [place] [address] Encounter for preprocedural laboratory examination; Intra-abdominal and pelvic swelling, mass and lump, unspecified site; Gastro-esophageal reflux disease without esophagitis; Endometriosis; Hypothyroidism; Malignant neoplasm of endometrium (CMS/HCC); Personal history of nicotine dependence Social History Tobacco Use Types Packs/Day Years Used Date Smoking Tobacco: Never Assessed Comments Unknown Sex and Gender Information Value Date Recorded Sex Assigned at Not on file 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 Gender Identity Not on file Sexual Orientation Not on file documented as of this encounter Medications at Time of Discharge cetirizine (ZyrTEC) 10 mg tablet 04/01/2016Zyrtec, po solid 10 mg TabletPOdailyCurrent Medication 6 [id number] M-acetaminophe n 2-5-10-325 mg tablets, sequential 04/01/2016Multivitamin, po solid TabletPOdailyCurrent Medication 6 018 cholecalcifero l (VITAMIN D-3) 400 unit capsule 04/01/2016Vitamin d, po solid 400 unit TabletPOdailyCurrent Medication 6 023 FLUoxetine (PROzac) 20 mg capsule 04/01/2016Fluoxetine hcl, po solid 20 mg CapsulePOdailyCurrent Medication 6 018 levothyroxine (SYNTHROID, LEVOTHROID) 50 mcg tablet Take 75 mcg by mouth 01 6 023 omega 6-vlt-eqc-fish oil 100-160-1,000 mg capsule 04/01/2016Fish oil omega-3, po solid 300-1000mg CapsulePOdailyCurrent Medication 6 023 vitamin E 100 unit/0.25 mL drops 04/01/2016Vitamin e, po solid 1000 unit CapsulePOdailyCurrent Medication 6 023 documented as of this encounter Plan of Treatment Not on file documented as of this encounter Procedures Procedure Name Priority Date/Time Associated Diagnosis Comments PLASMA BASIC METABOLIC PANEL Routine 05/21/2016 2:40 PM CDT BLOOD CELL COUNT Routine 05/21/2016 2:40 PM CDT BLOOD ABO, RH, INDIRECT AB SCREEN Routine 05/21/2016 2:40 PM CDT SERUM CA 125 AG, NEW Routine 05/21/2016 9:40 AM CDT ELECTROCARDIOGRAPHY (ECG) 05/21/2016 DISCHARGE LABORATORY CUMULATIVE REPORT 05/21/2016 documented in this encounter Results * Blood ABO, Rh, indirect ab screen (05/21/2016 2:40 PM CDT) ABO, Rho(D) O Positive CDR HIS TORICAL RESULTS Bassem, indirect Negative CDR HISTORICAL RESULTS Blood specimen (specimen) 05/21/2016 2:40 PM CDT Mariya Beckford RETOUCHER LAB BLOOD ORDERABLES Final R esult CDR HISTORICAL RESULTS * (ABNORMAL) Plasma basic metabolic panel (05/21/2016 2:40 PM CDT) Pathologist [facility] Sodium 138 135 - 145 mmol/L CDR HISTORICAL RESULTS K, pl 5.2(H) 3.3 - 4.9 mmol/L CDR HISTORICAL RESULTS Chloride 99 97 - 110 mmol/L CDR HISTORICAL RESULTS CO2 30 22 - 32 mmol/L CDR HISTORICAL RESULTS A. gap 9 2 - 15 mmol/L CDR HISTORICAL RESULTS Glucose 85 70 - 199 mg/dl CDR HISTORICAL RESULTS BUN 17 8 - 25 mg/dl CDR HISTORICAL RESULTS Creatinine 0.92 0.60 - 1.10 mg/dl CDR HISTORICAL RESULTS Calcium 10.7(H) 8.5 - 10.3 mg/dl CDR HISTORICAL RESULTS Plasma 05/21/2016 2:40 PM CDT Historical Provider MD LAB BLOOD ORDERABLES Shira l Result Performing Organization Address [facility] de Phone Number CDR HISTORICAL RESULTS * Blood cell count [CBC] express (05/21/2016 2:40 PM CDT) Pathologist [facility] WBC 4.6 3.8 - 9.9 K/cumm CDR HISTORICAL RESULTS RBC 4.18 3.90 - 5.20 M/cumm CDR HISTORICAL RESULTS Hgb 13.0 11.9 - 15.5 g/dl CDR HISTORICAL RESULTS Hct 38.4 35.6 - 45.5 % CDR HISTORICAL RESULTS MCV 91.9 81.3 - 96.4 fl CDR HISTORICAL RESULTS MCH 31.1 27.1 - 33.3 pg CDR HISTORICAL RESULTS MCHC 33.9 32.3 - 35.7 g/dl CDR HISTORICAL RESULTS Rdw 13.4 11.1 - 14.9 % CDR HISTORICAL RESULTS RDW 45.0 35.7 - 48.1 fl CDR HISTORICAL RESULTS NRBC 0.0 0.0 - 0.2 % CDR HIST ORICAL RESULTS NRBC, abs 0.00 0.00 - 0.01 K/cumm CDR HISTORICAL RESULTS Platelets 198 150 - 400 K/cumm CDR HISTORICAL RESULTS MPV 10.7 9.1 - 12.3 fl CDR HISTORICAL RESULTS Blood specimen (specimen) 05/21/2016 2:40 PM CDT Result [facility] Provider LAB BLOOD ORDERABLES Shira l Result Performing Organization Address [facility] de Phone Number CDR HISTORICAL RESULTS * Serum CA 125 ag, new (05/21/2016 9:40 AM CDT) CA 125 ag 5.8 0.0 - 35.0 Units/ml CDR HISTORICAL RESULTS Serum 05/21/2016 9:40 AM CDT Narrative CDR HISTORICAL RESULTS - 05/21/2016 5:27 PM CDT The method for this assay was changed on December 25, 2015. For a period of six months the new assay result will be reported alongside results from the old assay method. For patients being monitored, the new results should be interpreted in the context of any changes in the old results. If you have questions please call the chemistry laboratory at [phone] ??or the lab medicine resident division superintendent [phone]. Option #2 Result [facility] Jonnathan Jack MD LAB BLOOD ORDERABLES Final Res ult Performing Organization Address [facility] de Phone Number [facility] HISTORICAL RESULTS * DISCHARGE LABORATORY CUMULATIVE REPORT (05/21/2016) Narrative 05/21/2016 Ordered by an unspecified provider. Result [facility] Provider LAB BLOOD ORDERABLES Shira l Result * ELECTROCARDIOGRAPHY (ECG) (05/21/2016) Narrative 05/21/2016 Ordered by an unspecified provider. Result [facility] Provider ECG ORDERABLES Final Res ult documented in this encounter Visit Diagnoses Diagnosis Encounter for preprocedural laboratory examination Intra-abdominal and pelvic swelling, mass and lump, unspecified site Gastro-esophageal reflux disease without esophagitis Endometriosis Endometriosis, site unspecified Hypothyroidism Unspecified hypothyroidism Malignant neoplasm of endometrium (CMS/HCC) (HCC) Malignant neoplasm of corpus uteri, except isthmus Personal history of nicotine dependence documented in this encounter
--- OUTSIDE RECORDS SUMMARY | 2024-10-06 04:07 | XMS_ITS | Encounter Summary ---
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); Personal history of malignant neoplasm of other parts of uterus Social History Tobacco Use Types Packs/Day Years Used Date Smoking Tobacco: Never Assessed Comments Unknown Sex and Gender Information Value Date Recorded Sex Assigned at Not on file 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 Gender Identity Not on file Sexual Orientation Not on file documented as of this encounter Last Filed Vital Signs Vital Sign Reading Time Taken Comments Blood Pressure 132/66 06/08/2016 7:46 AM CDT Pulse 68 06/08/2016 7:46 AM CDT Temperature - - Respiratory Rate - - Oxygen Saturation 94% 06/08/2016 7:46 AM CDT Inhaled Oxygen Concentration - - Weight 70.3 kg (154 lb 15.7 oz) 06/05/2016 9:46 PM CDT Height 162.6 cm (5' 4 ) 06/05/2016 9:46 PM CDT Body Mass Index 26.6 06/05/2016 9:46 PM CDT documented in this encounter Medications at Time of Discharge cetirizine (ZyrTEC) 10 mg tablet 04/01/2016Zyrtec, po solid 10 mg TabletPOdailyCurrent Medication 6 gxyadtsnt-VY-P M-acetaminophe n 2-5-10-325 mg tablets, sequential 04/01/2016Multivitamin, po solid TabletPOdailyCurrent Medication 6 018 cholecalcifero l (VITAMIN D-3) 400 unit capsule 04/01/2016Vitamin d, po solid 400 unit TabletPOdailyCurrent Medication 6 023 FLUoxetine (PROzac) 20 mg capsule 04/01/2016Fluoxetine hcl, po solid 20 mg CapsulePOdailyCurrent Medication 6 018 levothyroxine (SYNTHROID, LEVOTHROID) 50 mcg tablet Take 75 mcg by mouth 01 6 023 omega 6-ffz-bpi-fish oil 100-160-1,000 mg capsule 04/01/2016Fish oil omega-3, po solid 300-1000mg CapsulePOdailyCurrent Medication 6 023 vitamin E 100 unit/0.25 mL drops 04/01/2016Vitamin e, po solid 1000 unit CapsulePOdailyCurrent Medication 6 023 documented as of this encounter Miscellaneous Notes * Op Note - Provider, MD Palma - 06/05/2016 12:00 AM CDT Patient: CORI RENEE Reg No: [id number] U H #: [id number] Admit Dt.: 06/05/2016 : 1955 Pt Type: Room No: 94624-20 Attending: Jonnathan Jack M.D. Surgeon: Jonnathan Jack M.D. Dictating: Alea Mathew M.D. Service Dt: 06/05/2016 OPERATIVE REPORT FIRST SECURITY OPERATIONS CENTER ANALYST: Alea Mathew M.D. SECOND/THIRD SECURITY OPERATIONS CENTER ANALYST: Darling Chopra. ANESTHESIA: General endotracheal anesthesia. PREOPERATIVE DIAGNOSIS (ES): Endometrioid adenocarcinoma. POSTOPERATIVE DIAGNOSIS (ES): Endometrioid adenocarcinoma. NAME OF OPERATION: Examination under anesthesia. Exploratory laparotomy. Radical retroperitoneal dissection. Tumor debulking. Lysis of adhesions. INDICATIONS FOR PROCEDURE: The patient is a 60-year-old, BMI 27.8, who initially presented with abdominal pain. The patient has a history of hysterectomy over ten years ago for benign indications, at which time she had endometriosis and subsequently also had ovaries removed. 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 The patient was then found to have a small fluid collection along the right iliopsoas, initially thought to be possible. Postoperative fluid collection versus metastasis. The patient then underwent a PET scan which showed hypermetabolic pelvic side wall mass adjacent to the right iliacus muscle, consistent with biopsy proven endometrioid carcinoma. There was no hypermetabolic lymphadenopathy identified. A preoperative CA-125 was 5.8. The patient was counseled regarding risks, benefits, indications, alternatives to procedure and desired to proceed with further surgical management. OPERATIVE FINDINGS: The patient had a 2-3 cm fixed implant at the junction insertion of the psoas muscle on the bony pelvis. At the completion of the procedure there was no gross residual disease remaining. DESCRIPTION OF PROCEDURE: The patient was taken to the operating room after informed consent was obtained. General endotracheal anesthesia was obtained without difficulty and found to be adequate. The patient received Ancef and had bilateral SCD's placed below the knee for prophylaxis. The patient was prepped and draped in the dorsal lithotomy position using Yello-fin stirrups and a sterile Wells catheter was placed for continuous bladder drainage. Attention was then turned to the abdomen where a vertical midline skin incision was made with Bovie electrocautery and cut from the pubic symphysis to just around the umbilicus. The skin incision was taken down to the underlying layer of fascia, coagulating small bleeders along the way. The fascia was nicked in the midline, extended superiorly, inferiorly, paying careful attention to avoiding the underlying muscle. The left aspect of the fascial incision was then grasped with two Zuly's and the rectus muscle was dissected off of the fascia. The peritoneum was identified in the midline, elevated, tented up and incised with Metzenbaum scissors. The peritoneal incision was then extended superiorly and inferiorly, paying careful attention to avoid underlying bowel and bladder. The bowel was run in its entirety and noted to be without evidence of metastatic disease. Filmy adhesions were lysed along the way and there was no evidence of bowel injury. The bowel was then packed in to the upper abdomen and attention was turned to the firm implant in the right lower quadrant. We started by incising the white line of Toldt and mobilizing the ileocecal junction medially. It was then evident that this mass was retroperitoneal , though a biopsy of a dense adhesion on the cecum was sent for Pathology to rule out metastatic disease. We then incised the peritoneum and dissected the retroperitoneum to expose the implant. The implant was then grasped with a right angle and dissected off of the pelvic bone and psoas muscle with Bovie electrocautery, blunt dissection and tension with elevation. We took care to avoid the blood vessels in the pelvis, as well as innervation to the iliopsoas muscle. Given the involvement in the retroperitoneal space with muscle and bone, Surgifilm was placed in the space and Hemostasis was noted. There other evidence of metastatic disease. A #19 Allen drain was placed in the pelvis and the fascia was closed with a #1 looped PDS both superiorly, inferiorly and tied in the midline. Subcutaneous fat was then closed with 3-0 plain gut and the skin was closed with 4-0 Monocryl in a subcuticular fashion. Sponge counts were correct times two. The patient tolerated the procedure well, was extubated in the operating room and taken to the recovery room in stable condition. SPECIMENS REMOVED: Cecal implant, right pelvic sidewall mass and ileal biopsy. ESTIMATED BLOOD LOSS: Estimated blood loss is 100 ml. INTRAOPERATIVE FLUIDS: Intraoperative fluids are 2000 ml. Urine output is 450 ml. Blood products transfused none. SPONGE/INSTRUMENT/NEEDLE COUNTS: Sponge counts were correct times two. CONDITION ON DISCHARGE FROM OPERATING ROOM: Condition on discharge from the operating room is stable to the recovery room. Attending Attestation: Dr. Jack was present and directly participated in the entire procedure, including opening and closing. COMPLICATIONS: Complications, none. Electronically Authenticated and Edited by: Jonnathan Jack MD On 06/13/2016 12:21 AM CDT Alea Mathew M.D. Jonnathan Jack M.D. LMD:ashly #[id number] Editing MT: ADM TD: 06/07/2016 02:44 PM cc: Danica Haro M.D. documented in this encounter Plan of Treatment Not on file documented as of this encounter Procedures Procedure Name Priority Date/Time Associated Diagnosis Comments DISCHARGE LABORATORY CUMULATIVE REPORT 06/08/2016 SERUM MAGNESIUM Routine 06/07/2016 11:10 PM CDT PLASMA PHOSPHORUS Routine 06/07/2016 11: 10 PM CDT PLASMA BASIC METABOLIC PANEL Routine 06/07/2016 11:10 PM CDT BLOOD CELL COUNT Routine 06/07/2016 11:1 0 PM CDT PLASMA BASIC METABOLIC PANEL Routine 06/07/2016 1:44 PM CDT URINE SODIUM Routine 06/07/2016 6:59 AM CDT URINE OSMOLALITY Routine 06/07/2016 6:59 AM CDT SERUM OSMOLALITY Routine 06/07/2016 12:3 9 AM CDT PLASMA BASIC METABOLIC PANEL Routine 06/07/2016 12:39 AM CDT CRITICAL RESULT CALL BACK Routine 2015 12:39 AM CDT SERUM MAGNESIUM Routine 06/06/2016 9:09 PM CDT PLASMA PHOSPHORUS Routine 06/06/2016 9:0 9 PM CDT PLASMA BASIC METABOLIC PANEL Routine 06/06/2016 9:09 PM CDT BLOOD CELL COUNT (CBC) Routine 6 9:09 PM CDT BLOOD CELL MORPHOLOGIC EXAM Routine 06/06/2016 9:09 PM CDT BLOOD POTASSIUM, MIXED VENOUS Routine 06/06/2016 1:12 AM CDT ELECTROCARDIOGRAPHY (ECG) 06/06/2016 ELECTROCARDIOGRAPHY (ECG) 06/06/2016 SERUM MAGNESIUM Routine 06/05/2016 9:34 PM CDT PLASMA PHOSPHORUS Routine 06/05/2016 9:3 4 PM CDT PLASMA BASIC METABOLIC PANEL Routine 06/05/2016 9:34 PM CDT BLOOD CELL COUNT Routine 06/05/2016 9:34 PM CDT BLOOD ABO, RH, INDIRECT AB SCREEN Routine 06/05/2016 9:53 AM CDT BLOOD ELECTROLYTE, HEMOGLOBIN, HEMATOCRIT PANEL, I-STAT Routine 06/05/2016 9:48 AM CDT SURGICAL PATHOLOGY 06/05/2016 documented in this encounter Results * DISCHARGE LABORATORY CUMULATIVE REPORT (06/08/2016) Narrative 06/08/2016 Ordered by an unspecified provider. us Historical Provider LAB BLOOD ORDERABLES Shira l Result * (ABNORMAL) Plasma basic metabolic panel (06/07/2016 11:10 PM CDT) Sodium 128(L) 135 - 145 mmol/L CDR HISTORICAL RESULTS K, pl 4.4 3.3 - 4.9 mmol/L CDR HISTORICAL RESULTS Chloride 95(L) 97 - 110 mmol/L CDR HISTORICAL RESULTS CO2 26 22 - 32 mmol/L CDR HISTORICAL RESULTS A. gap 7 2 - 15 mmol/L CDR HISTORICAL RESULTS Glucose 122 70 - 199 mg/dl CDR HISTORICAL RESULTS BUN 9 8 - 25 mg/dl CDR HISTORICAL RESULTS Creatinine 0.85 0.60 - 1.10 mg/dl CDR HISTORICAL RESULTS Calcium 9.1 8.5 - 10.3 mg/dl CDR HISTORICAL RESULTS Plasma 06/07/2016 11:1 0 PM CDT Xin Mcmanus LAB BLOOD ORDERABLES Final Resul t Performing Organization Address [facility] de Phone Number CDR HISTORICAL RESULTS * (ABNORMAL) Plasma phosphorus (06/07/2016 11:10 PM CDT) Phosphorus, pl 1.7(L) 2.3 - 4.5 mg/dl CDR HISTORICAL RESULTS Plasma 06/07/2016 11:1 0 PM CDT Xin Mcmanus LAB BLOOD ORDERABLES Final Resul t Performing Organization Address [facility] Co de Phone Number CDR HISTORICAL RESULTS * Serum magnesium (06/07/2016 11:10 PM CDT) Pathologist [facility] Magnesium 2.0 1.4 - 2.5 mg/dl CDR HISTORICAL RESULTS Serum 06/07/2016 11:1 0 PM CDT Xin Mcmanus LAB BLOOD ORDERABLES Final Resul t CDR HISTORICAL RESULTS * (ABNORMAL) Blood cell count [CBC] express (06/07/2016 11:10 PM CDT) WBC 4.3 3.8 - 9.9 K/cumm CDR HISTORICAL RESULTS RBC 3.37(L) 3.90 - 5.20 M/cumm CDR HISTORICAL RESULTS Hgb 10.2(L) 11.9 - 15.5 g/dl CDR HISTORICAL RESULTS Hct 30.4(L) 35.6 - 45.5 % CDR HISTORICAL RESULTS MCV 90.2 81.3 - 96.4 fl CDR HISTORICAL RESULTS MCH 30.3 27.1 - 33.3 pg CDR HISTORICAL RESULTS MCHC 33.6 32.3 - 35.7 g/dl CDR HISTORICAL RESULTS Rdw 12.8 11.1 - 14.9 % CDR HISTORICAL RESULTS RDW 42.7 35.7 - 48.1 fl CDR HISTORICAL RESULTS NRBC 0.0 0.0 - 0.2 % CDR HIST ORICAL RESULTS NRBC, abs 0.00 0.00 - 0.01 K/cumm CDR HISTORICAL RESULTS Platelets 169 150 - 400 K/cumm CDR HISTORICAL RESULTS MPV 10.5 9.1 - 12.3 fl CDR HISTORICAL RESULTS Blood specimen (specimen) 06/07/2016 11:10 PM CDT Xin Mcmanus LAB BLOOD ORDERABLES Final Resul t CDR HISTORICAL RESULTS * (ABNORMAL) Plasma basic metabolic panel (06/07/2016 1:44 PM CDT) Sodium 130(L) 135 - 145 mmol/L CDR HISTORICAL RESULTS K, pl 4.4 3.3 - 4.9 mmol/L CDR HISTORICAL RESULTS Chloride 94(L) 97 - 110 mmol/L CDR HISTORICAL RESULTS CO2 28 22 - 32 mmol/L CDR HISTORICAL RESULTS A. gap 8 2 - 15 mmol/L CDR HISTORICAL RESULTS Glucose 113 70 - 199 mg/dl CDR HISTORICAL RESULTS BUN 9 8 - 25 mg/dl CDR HISTORICAL RESULTS Creatinine 0.87 0.60 - 1.10 mg/dl CDR HISTORICAL RESULTS Calcium 8.8 8.5 - 10.3 mg/dl CDR HISTORICAL RESULTS Plasma 06/07/2016 1:44 PM CDT Ruth Pagan MD LAB BLOOD ORDERABLES Fi nal Result CDR HISTORICAL RESULTS * Urine osmolality (06/07/2016 6:59 AM CDT) Osmo, ur 102 51 - 1499 mOsm/kg CDR HISTORICAL RESULTS Urine 06/07/2016 6:59 AM CDT us Historical Provider LAB BLOOD ORDERABLES Shira l Result CDR HISTORICAL RESULTS * Urine sodium (06/07/2016 6:59 AM CDT) Sodium, ur <20 mmol/L CDR HISTO RICAL RESULTS Urine 06/07/2016 6:59 AM CDT Xin Mcmanus LAB BLOOD ORDERABLES Final Resul t Performing Organization Address [facility]/State/ZIP Co de Phone Number CDR HISTORICAL RESULTS * (ABNORMAL) Serum osmolality (06/07/2016 12:39 AM CDT) Osmo 253(C) 275 - 300 mOsm/kg CDR HISTORICAL RESULTS Serum 06/07/2016 12:3 9 AM CDT Ruth Pagan MD LAB BLOOD ORDERABLES Fi nal Result Performing Organization Address [facility] Co de Phone Number CDR HISTORICAL RESULTS * (ABNORMAL) Plasma basic metabolic panel (06/07/2016 12:39 AM CDT) Sodium 122(L) 135 - 145 mmol/L CDR HISTORICAL RESULTS K, pl 3.4 3.3 - 4.9 mmol/L CDR HISTORICAL RESULTS Chloride 88(L) 97 - 110 mmol/L CDR HISTORICAL RESULTS CO2 26 22 - 32 mmol/L CDR HISTORICAL RESULTS A. gap 8 2 - 15 mmol/L CDR HISTORICAL RESULTS Glucose 102 70 - 199 mg/dl CDR HISTORICAL RESULTS BUN 10 8 - 25 mg/dl CDR HISTORICAL RESULTS Creatinine 0.82 0.60 - 1.10 mg/dl CDR HISTORICAL RESULTS Calcium 8.4(L) 8.5 - 10.3 mg/dl CDR HISTORICAL RESULTS Plasma 06/07/2016 12:3 9 AM CDT Ruth Pagan MD LAB BLOOD ORDERABLES Fi nal Result CDR HISTORICAL RESULTS * Critical result call back (06/07/2016 12:39 AM CDT) Date notified 06/07/2016 CDR H ISTORICAL RESULTS Time notified [id number] [facility] HI STORICAL RESULTS Test name caesar marcial CDR HISTOR ICAL RESULTS Called to fransisca smallwood CDR HISTORICAL RESULTS Credentials RN CDR HIST ORICAL RESULTS Called by cs CDR HISTOR ICAL RESULTS No specimen 06/07/2016 12:3 9 AM CDT Ruth Pagan MD LAB BLOOD ORDERABLES Fi nal Result Performing Organization Address [facility] de Phone Number CDR HISTORICAL RESULTS * (ABNORMAL) Plasma basic metabolic panel (06/06/2016 9:09 PM CDT) Sodium 122(L) 135 - 145 mmol/L CDR HISTORICAL RESULTS K, pl 3.9 3.3 - 4.9 mmol/L CDR HISTORICAL RESULTS Chloride 88(L) 97 - 110 mmol/L CDR HISTORICAL RESULTS CO2 25 22 - 32 mmol/L CDR HISTORICAL RESULTS A. gap 9 2 - 15 mmol/L CDR HISTORICAL RESULTS Glucose 125 70 - 199 mg/dl CDR HISTORICAL RESULTS BUN 10 8 - 25 mg/dl CDR HISTORICAL RESULTS Creatinine 0.80 0.60 - 1.10 mg/dl CDR HISTORICAL RESULTS Calcium 8.3(L) 8.5 - 10.3 mg/dl CDR HISTORICAL RESULTS Plasma 06/06/2016 9:09 PM CDT Ruth Pagan MD LAB BLOOD ORDERABLES Fi nal Result Performing Organization Address [facility]/ZIP Co de Phone Number CDR HISTORICAL RESULTS * (ABNORMAL) Plasma phosphorus (06/06/2016 9:09 PM CDT) Phosphorus, pl 1.4(L) 2.3 - 4.5 mg/dl CDR HISTORICAL RESULTS Plasma 06/06/2016 9:09 PM CDT Ruth Pagan MD LAB BLOOD ORDERABLES Fi nal Result Performing Organization Address [place]/[facility] Co de Phone Number CDR HISTORICAL RESULTS * Serum magnesium (06/06/2016 9:09 PM CDT) Magnesium 1.8 1.4 - 2.5 mg/dl CDR HISTORICAL RESULTS Serum 06/06/2016 9:09 PM CDT Ruth Pagan MD LAB BLOOD ORDERABLES Fi nal Result Performing Organization Address [facility] de Phone Number CDR HISTORICAL RESULTS * (ABNORMAL) Blood cell count (CBC) (06/06/2016 9:09 PM CDT) WBC 6.3 3.8 - 9.9 K/cumm CDR HISTORICAL RESULTS RBC 3.10(L) 3.90 - 5.20 M/cumm CDR HISTORICAL RESULTS Hgb 9.6(L) 11.9 - 15.5 g/dl CDR HISTORICAL RESULTS Hct 27.9(L) 35.6 - 45.5 % CDR HISTORICAL RESULTS MCV 90.0 81.3 - 96.4 fl CDR HISTORICAL RESULTS MCH 31.0 27.1 - 33.3 pg CDR HISTORICAL RESULTS MCHC 34.4 32.3 - 35.7 g/dl CDR HISTORICAL RESULTS Rdw 12.9 11.1 - 14.9 % CDR HISTORICAL RESULTS RDW 42.5 35.7 - 48.1 fl CDR HISTORICAL RESULTS Platelets 141(L) 150 - 400 K/cumm CDR HISTORICAL RESULTS MPV 10.6 9.1 - 12.3 fl CDR HISTORICAL RESULTS NRBC 0.0 0.0 - 0.2 % CDR HIST ORICAL RESULTS NRBC, abs 0.00 0.00 - 0.01 K/cumm CDR HISTORICAL RESULTS Blood specimen (specimen) 06/06/2016 9:09 PM CDT Ruth Pagan MD LAB BLOOD ORDERABLES Fi nal Result Performing Organization Address [place]/[facility] Co de Phone Number CDR HISTORICAL RESULTS * (ABNORMAL) Blood cell morphologic exam (06/06/2016 9:09 PM CDT) Neutrophils 78.2 % CDR HIST ORICAL RESULTS Immature granulocytes 0.3 % CDR HISTORICAL RESULTS Lymphocytes 12.6 % CDR HIST ORICAL RESULTS Monos 6.4 % CDR HISTOR ICAL RESULTS Eosinophils 2.2 % CDR HIST ORICAL RESULTS Basophils 0.3 % CDR HISTOR ICAL RESULTS Neutrophils, abs 4.9 1.7 - 6.5 K/cumm CDR HISTORICAL RESULTS Immature granulocyte, abs 0.0 0.0 - 0.1 K/cumm CDR HISTORICAL RESULTS Lymphocytes, abs 0.8(L) 0.8 - 3.3 K/cumm CDR HISTORICAL RESULTS Monocytes, absolute 0.4 0.2 - 0.8 K/cumm CDR HISTORICAL RESULTS Eosinophils, abs 0.1 0.0 - 0.5 K/cumm CDR HISTORICAL RESULTS Basophils, abs 0.0 0.0 - 0.1 K/cumm CDR HISTORICAL RESULTS Blood specimen (specimen) 06/06/2016 9:09 PM CDT Result [facility] Ruth Pagan MD LAB BLOOD ORDERABLES Fi nal Result CDR HISTORICAL RESULTS * Blood potassium, mixed venous (06/06/2016 1:12 AM CDT) Potassium, bld 4.5 3.3 - 4.9 mmol/L CDR HISTORICAL RESULTS Mixed venous blood 06/06/2016 1:12 AM CDT Result [facility] Ruth Pagan MD LAB BLOOD ORDERABLES Fi nal Result CDR HISTORICAL RESULTS * ELECTROCARDIOGRAPHY (ECG) (06/06/2016) Narrative 06/06/2016 Ordered by an unspecified provider. Historical Provider ECG ORDERABLES Final Res ult * ELECTROCARDIOGRAPHY (ECG) (06/06/2016) Narrative 06/06/2016 Ordered by an unspecified provider. us Historical Provider MD ECG ORDERABLES Final Res ult * (ABNORMAL) Plasma basic metabolic panel (06/05/2016 9:34 PM CDT) Sodium 138 135 - 145 mmol/L CDR HISTORICAL RESULTS K, pl 5.5(H) 3.3 - 4.9 mmol/L CDR HISTORICAL RESULTS Comment: Hemolyzed; (+++); potassium value may be falsely elevated by as much as 0.6 - 1.0 mmol/L. Suggest redraw and reanalysis. Chloride 105 97 - 110 mmol/L CDR HISTORICAL RESULTS CO2 24 22 - 32 mmol/L CDR HISTORICAL RESULTS A. gap 9 2 - 15 mmol/L CDR HISTORICAL RESULTS Glucose 149 70 - 199 mg/dl CDR HISTORICAL RESULTS BUN 14 8 - 25 mg/dl CDR HISTORICAL RESULTS Creatinine 0.73 0.60 - 1.10 mg/dl CDR HISTORICAL RESULTS Calcium 8.4(L) 8.5 - 10.3 mg/dl CDR HISTORICAL RESULTS Plasma 06/05/2016 9:34 PM CDT us Darling Chopra MD LAB BLOOD ORDERAB LES Final Result CDR HISTORICAL RESULTS * Plasma phosphorus (06/05/2016 9:34 PM CDT) Phosphorus, pl 3.5 2.3 - 4.5 mg/dl CDR HISTORICAL RESULTS Plasma 06/05/2016 9:34 PM CDT Darling Chopra MD LAB BLOOD ORDERAB LES Final Result CDR HISTORICAL RESULTS * Serum magnesium (06/05/2016 9:34 PM CDT) Magnesium 1.7 1.4 - 2.5 mg/dl CDR HISTORICAL RESULTS Serum 06/05/2016 9:34 PM CDT Darling Chopra MD LAB BLOOD ORDERAB LES Final Result CDR HISTORICAL RESULTS * (ABNORMAL) Blood cell count [CBC] express (06/05/2016 9:34 PM CDT) WBC 6.6 3.8 - 9.9 K/cumm CDR HISTORICAL RESULTS RBC 3.57(L) 3.90 - 5.20 M/cumm CDR HISTORICAL RESULTS Hgb 10.9(L) 11.9 - 15.5 g/dl CDR HISTORICAL RESULTS Hct 33.1(L) 35.6 - 45.5 % CDR HISTORICAL RESULTS MCV 92.7 81.3 - 96.4 fl CDR HISTORICAL RESULTS MCH 30.5 27.1 - 33.3 pg CDR HISTORICAL RESULTS MCHC 32.9 32.3 - 35.7 g/dl CDR HISTORICAL RESULTS Rdw 13.3 11.1 - 14.9 % CDR HISTORICAL RESULTS RDW 46.1 35.7 - 48.1 fl CDR HISTORICAL RESULTS NRBC 0.0 0.0 - 0.2 % CDR HIST ORICAL RESULTS NRBC, abs 0.00 0.00 - 0.01 K/cumm CDR HISTORICAL RESULTS Platelets 124(L) 150 - 400 K/cumm CDR HISTORICAL RESULTS MPV 10.9 9.1 - 12.3 fl CDR HISTORICAL RESULTS Blood specimen (specimen) 06/05/2016 9:34 PM CDT us Darling Chopra MD LAB BLOOD ORDERAB LES Final Result Performing Organization Address [facility] de Phone Number CDR HISTORICAL RESULTS * Blood ABO, Rh, indirect ab screen (06/05/2016 9:53 AM CDT) Pathologist [facility] ABO, Rho(D) O Positive CDR HIS TORICAL RESULTS Bassem, indirect Negative CDR HISTORICAL RESULTS Blood specimen (specimen) 06/05/2016 9:53 AM CDT us Jonnathan Jack MD LAB BLOOD ORDERABLES Final Res ult Performing Organization Address [facility] Co de Phone Number CDR HISTORICAL RESULTS * (ABNORMAL) Blood electrolyte, hemoglobin, hematocrit panel, I-Stat (06/05/2016 9:48 AM CDT) Sodium, bld 138 135 - 145 mmol/L CDR HISTORICAL RESULTS Potassium, bld 4.9 3.3 - 4.9 mmol/L CDR HISTORICAL RESULTS BUN, POC, bld 20 8 - 25 mg/dl CDR HISTORICAL RESULTS Glucose, POC, bld 93 70 - 199 mg/dl CDR HISTORICAL RESULTS Hct 35.0(L) 36.1 - 44.3 % CDR HISTORICAL RESULTS Hgb 11.9(L) 12.1 - 15.1 g/dl CDR HISTORICAL RESULTS Blood specimen (specimen) 06/05/2016 9:48 AM CDT Jonnathan Jack MD LAB BLOOD ORDERABLES Final Res ult CDR HISTORICAL RESULTS * Surgical pathology (06/05/2016) Narrative 06/05/2016 Ordered by an unspecified provider. 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
--- OUTSIDE RECORDS SUMMARY | 2024-10-06 04:07 | XMS_ITS | Encounter Summary ---
Author Organization [facility] Facility Care Team Providers Care Label Printer Name Role Phone Unavailable Primary Care Provider Unavailabl e Encounter Details Date Type Department Care Team (Late st Contact Info) Description 04/15/2016 8:05 AM CDT - 04/15/2016 11:59 PM T Hospital Encounter [facility] Jonnathan Jack, DO [address] [place] [address] Social History Tobacco Use Types Packs/Day Years Used Date Smoking Tobacco: Never Assessed Comments Unknown Sex and Gender Information Value Date Recorded Sex Assigned at Not on file 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 Gender Identity Not on file Sexual Orientation Not on file documented as of this encounter Medications at Time of Discharge cetirizine (ZyrTEC) 10 mg tablet 04/01/2016Zyrtec, po solid 10 mg TabletPOdailyCurrent Medication 6 [id number] M-acetaminophe n 2-5-10-325 mg tablets, sequential 04/01/2016Multivitamin, po solid TabletPOdailyCurrent Medication 6 06//2 018 cholecalcifero l (VITAMIN D-3) 400 unit capsule 04/01/2016Vitamin d, po solid 400 unit TabletPOdailyCurrent Medication 6 023 FLUoxetine (PROzac) 20 mg capsule 04/01/2016Fluoxetine hcl, po solid 20 mg CapsulePOdailyCurrent Medication 6 018 levothyroxine (SYNTHROID, LEVOTHROID) 50 mcg tablet Take 75 mcg by mouth 01 6 023 omega 2-bhm-svp-fish oil 100-160-1,000 mg capsule 04/01/2016Fish oil omega-3, po solid 300-1000mg CapsulePOdailyCurrent Medication 6 023 vitamin E 100 unit/0.25 mL drops 04/01/2016Vitamin e, po solid 1000 unit CapsulePOdailyCurrent Medication 6 023 documented as of this encounter Plan of Treatment Not on file documented as of this encounter Visit Diagnoses Not on filedocumented in this encounter
--- OUTSIDE RECORDS SUMMARY | 2024-10-06 04:07 | XMS_ITS | Encounter Summary ---
Author Organization 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 Name Role Phone Unavailable Primary Care Provider Unavailabl e Encounter Details Date Type Department Care Team (Late st Contact Info) Description 04/15/2016 7:35 AM CDT - 04/15/2016 11:59 PM T Hospital Encounter [facility] Van Jack MD [id number] [place] [address] Malignant neoplasm of endometrium (CMS/HCC); Acquired absence of both cervix and uterus Social History Tobacco Use Types Packs/Day Years Used Date Smoking Tobacco: Never Assessed Comments Unknown Sex and Gender Information Value Date Recorded Sex Assigned at Not on file 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 Gender Identity Not on file Sexual Orientation Not on file documented as of this encounter Medications at Time of Discharge cetirizine (ZyrTEC) 10 mg tablet 04/01/2016Zyrtec, po solid 10 mg TabletPOdailyCurrent Medication 6 whgckqtvy-VR-M M-acetaminophe n 2-5-10-325 mg tablets, sequential 04/01/2016Multivitamin, po solid TabletPOdailyCurrent Medication 6 018 cholecalcifero l (VITAMIN D-3) 400 unit capsule 04/01/2016Vitamin d, po solid 400 unit TabletPOdailyCurrent Medication 6 023 FLUoxetine (PROzac) 20 mg capsule 04/01/2016Fluoxetine hcl, po solid 20 mg CapsulePOdailyCurrent Medication 6 018 levothyroxine (SYNTHROID, LEVOTHROID) 50 mcg tablet Take 75 mcg by mouth 01 6 023 omega 8-hso-lwa-fish oil 100-160-1,000 mg capsule 04/01/2016Fish oil omega-3, po solid 300-1000mg CapsulePOdailyCurrent Medication 6 023 vitamin E 100 unit/0.25 mL drops 04/01/2016Vitamin e, po solid 1000 unit CapsulePOdailyCurrent Medication 6 023 documented as of this encounter Plan of Treatment Not on file documented as of this encounter Procedures Procedure Name Priority Date/Time Associated Diagnosis Comments PET/CT FDG SKULL TO THIGH Routine 04/15/2016 9:32 AM CDT documented in this encounter Results * PET/CT FDG Skull to Thigh (04/15/2016 9:32 AM CDT) Anatomical Region Laterality Modality N/A Positron Emissio n Tomography (PET) 04/15/2016 9:32 AM CDT Narrative 04/15/2016 10:29 PM CDT JENNIFER DAVIS M.D. VAN PLATA M.D. FINAL REPORT The radiology attending physician has personally reviewed this study, and has reviewed and/or edited this written report and agrees with it. ACC# ??Date Time ??Exam [id number] Apr 15, 2016 09:32:00 [id number] PET/CT Sk-Thigh ACC# ??Date Time ??Exam [id number] Apr 15, 2016 09:32:00 [id number] PET/CT Sk-Thigh EXAMINATION: ?TUMOR FDG-PET/CT IMAGING DATE OF STUDY: ??04/15/2016 SCANNER: ??mCT RADIOPHARMACEUTICAL: ??15.9 mCi F-18 Fluorodeoxyglucose (FDG) i.v. HISTORY: 60-year-old woman with newly diagnosed endometrioid carcinoma. She underwent hysterectomy and bilateral salpingo-oophorectomy 10 years ago for benign conditions. During a recent appendectomy, a right lower quadrant mass was biopsied with pathology demonstrating endometrioid carcinoma, presumably arising from a site of endometriosis. The study is requested for initial staging. Initial treatment strategy. TECHNIQUE: ??The patient's fasting blood glucose level, measured by glucometer before injection of FDG, was 93 mg/dL. ??MD-Gastroview was given orally. ??After intravenous administration of FDG, noncontrast CT images were obtained for attenuation correction and for fusion with emission PET images to allow for anatomical localization of PET findings. Emission PET images were then obtained. The area imaged spanned the region from the skull base to the proximal thighs. ??The time from injection of FDG to start of imaging was 60 minutes. COMPARISON: ??No prior PET/CT is available for comparison. Correlation is made to CT of the abdomen and pelvis the 04/10/2016. FINDINGS: There is an approximately 2.6 x 1.5 cm hypermetabolic mass in the pelvic sidewall along the right iliacus muscle with a maximum SUV of 16.8. Adjacent surgical clips are present. When compared to abdominal and pelvic CT dated 03/21/2016 ??the previously seen fluid collection component associated with the mass has decreased in size. Mild uptake is present in the breasts bilaterally. Focal uptake in the lumbar spine corresponds to degenerative changes. ??Uptake adjacent to the left greater trochanter likely represents bursitis. No hypermetabolic lymphadenopathy is identified. Mildly increased tracer activity is noted in the subcutaneous tissues of the anterior abdominal wall, most likely consistent with post-operative changes. Additional CT findings: Atelectasis is present in the lung bases. Sludge is present in the gallbladder. ??The uterus and ovaries are surgically absent. Areas of stranding in the anterior abdominal wall are likely related to recent surgery. Multilevel degenerative changes of the cervical and lumbar spine are present with grade 1 anterolisthesis of L4 on L5. A calcified pulmonary nodule is seen in the right middle lobe. ?? IMPRESSION: 1. Hypermetabolic pelvic sidewall mass adjacent to the right iliacus muscle compatible with biopsy proven endometrioid carcinoma. 2. No hypermetabolic lymphadenopathy is identified. ?? Requested By: Dictated By: ?? VAN PLATA M.D. ??on Apr 15 2016 10:40A This document has been electronically signed by: JENNIFER DAVIS M.D. on Apr 15 2016 10:29P [id number] Procedure Note Provider, MD Palma - 01/25/2017 JENNIFER DAVIS M.D. VAN PLATA M.D. FINAL REPORT The radiology attending physician has personally reviewed this study, and has reviewed and/or edited this written report and agrees with it. ACC# Date Time Exam [id number] Apr 15, 2016 09:32:00 [id number] PET/CT Sk-Thigh ACC# Date Time Exam [id number] Apr 15, 2016 09:32:00 [id number] PET/CT Sk-Thigh EXAMINATION: TUMOR FDG-PET/CT IMAGING DATE OF STUDY: 04/15/2016 SCANNER: mCT RADIOPHARMACEUTICAL: 15.9 mCi F-18 Fluorodeoxyglucose (FDG) i.v. HISTORY: 60-year-old woman with newly diagnosed endometrioid carcinoma. She underwent hysterectomy and bilateral salpingo-oophorectomy 10 years ago for benign conditions. During a recent appendectomy, a right lower quadrant mass was biopsied with pathology demonstrating endometrioid carcinoma, presumably arising from a site of endometriosis. The study is requested for initial staging. Initial treatment strategy. TECHNIQUE: The patient's fasting blood glucose level, measured by glucometer before injection of FDG, was 93 mg/dL. NOLAGastroview was given orally. After intravenous administration of FDG, noncontrast CT images were obtained for attenuation correction and for fusion with emission PET images to allow for anatomical localization of PET findings. Emission PET images were then obtained. The area imaged spanned the region from the skull base to the proximal thighs. The time from injection of FDG to start of imaging was 60 minutes. COMPARISON: No prior PET/CT is available for comparison. Correlation is made to CT of the abdomen and pelvis the 04/10/2016. FINDINGS: There is an approximately 2.6 x 1.5 cm hypermetabolic mass in the pelvic sidewall along the right iliacus muscle with a maximum SUV of 16.8. Adjacent surgical clips are present. When compared to abdominal and pelvic CT dated 03/21/2016 the previously seen fluid collection component associated with the mass has decreased in size. Mild uptake is present in the breasts bilaterally. Focal uptake in the lumbar spine corresponds to degenerative changes. Uptake adjacent to the left greater trochanter likely represents bursitis. No hypermetabolic lymphadenopathy is identified. Mildly increased tracer activity is noted in the subcutaneous tissues of the anterior abdominal wall, most likely consistent with post-operative changes. Additional CT findings: Atelectasis is present in the lung bases. Sludge is present in the gallbladder. The uterus and ovaries are surgically absent. Areas of stranding in the anterior abdominal wall are likely related to recent surgery. Multilevel degenerative changes of the cervical and lumbar spine are present with grade 1 anterolisthesis of L4 on L5. A calcified pulmonary nodule is seen in the right middle lobe. IMPRESSION: 1. Hypermetabolic pelvic sidewall mass adjacent to the right iliacus muscle compatible with biopsy proven endometrioid carcinoma. 2. No hypermetabolic lymphadenopathy is identified. Requested By: Dictated By: VAN PLATA M.D. on Apr 15 2016 10:40A This document has been electronically signed by: JENNIFER DAVIS M.D. on Apr 15 2016 10:29P [id number] us Historical Provider MD SOLORZANO PET PROCEDURES Final Result documented in this encounter Visit Diagnoses Diagnosis Malignant neoplasm of endometrium (CMS/HCC) (HCC) Malignant neoplasm of corpus uteri, except isthmus Acquired absence of both cervix and uterus documented in this encounter
--- OUTSIDE RECORDS SUMMARY | 2024-10-06 04:07 | XMS_ITS | Encounter Summary ---
Author Organization [facility] Address [address] [facility] [address] [place] [address] Phone Care Team Providers Care Outside Plant Field Engineer Name Role Phone Momo Carrillo MD Primary Care Provider [phone] Encounter Details Date Type Department Care Team (Late st Contact Info) Description 06/05/2016 Orders Only [facility] [place], [place] Jonnathan Jack MD [address] 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 [place] [address] SURGICAL PATHOLOGY REPORT FINAL WITH ADDENDUM Patient Name: LEWIS HUANG ? Address: [facility] [address] ??Service: ??Gynecology ??[place], [place] ??[id number] ??Location: ??MANAGER IMPLEMENTATION Taken: 06/05/2016 Gender: F ?? Received: 06/05/2016 : 1955 (Age: 61) Hospital #: ??[id number] Accessioned: 06/05/2016 ?Patient Type: ??[facility] Inpatient Reported: 06/10/2016 ? Physician(s): Jonnathan Jack M.D. ? Diagnosis: Soft tissue, cecal implant, biopsy (including AFR1) ? - Metastatic carcinoma with squamous differentiation, morphologically consistent with endometrial primary ? - See comment Soft tissue, right pelvic side wall mass, excision (B) ? - Metastatic carcinoma with squamous differentiation, morphologically consistent with endometrial primary Soft tissue, ileal, biopsy (C) ? - Fibroadipose tissue with foreign body giant cell reaction - Negative for malignancy jbj/06/09/2016 09:45 By this signature, I attest that the above diagnosis is based upon my personal examination of the slides(and/or other material indicated in the diagnosis). ?? Bebeto Salgado M.D., Ph.D. ??Report Electronically Reviewed and Signed Out By ??Bebeto Salgado M.D., Ph.D. 06/10/2016 17:14:22 Intraoperative Consultation: AFR1: ?? Cecal implant ? - Chronic inflammation - No evidence of malignancy, by Larry Lo M.D./ Lalitha Helton M.D. ? Microscopic Description and Comment: Sections from cecal implant and right pelvic side wall mass show metastatic high grade carcinoma with squamous differentiation. Frozen section slides (AFR1 FR levels 1-4) were reviewed and show no definitive tumor. ??The tumor becomes apparent upon deeper sampling of the frozen remnant (permanent slide AFR1). Scanned slides from prior case [id number] have been reviewed. Based upon the predominance of solid areas, the metastatic tumor should be classified as FIGO grade 3. ?Bill Green M.D. ?History: The patient is a 61-year-old woman who presents with an adnexal mass. ??History of metastatic endometrial adenocarcinoma. ??Operative procedure and findings: ??Exploratory laparotomy, removal of right adnexal mass, radical tumor debulking, removal of adhesions. Specimen(s) Received: A: Cecal implant B: Right pelvic sidewall mass C: Illeo biopsy Gross Description: The specimens are received in three formalin-filled containers labeled Lewis Huang. ??The first container is labeled #1 cecal implant. ??It contains a 1.3 x 1.2 x 0.2 cm unoriented piece of flanagan-pink soft tissue. ??Labeled AFR1. ??Jar 0. The second container is labeled #2 right pelvic sidewall mass. ??It contains a 6.5 x 5.0 x 3.5 cm aggregate of flanagan-pink membranous and solid tissue. ??Moderate amounts of cautery artifact are present as well. ??Moderate amounts of flanagan-yellow lobular adipose tissue are adherent to the specimen. ??Sectioning reveals cut surfaces consisting of a mixture of flanagan-yellow lobular adipose tissue and pale walker-flanagan mottled solid tissue. ??Moderate amounts of likely fat necrosis are identified. ??Labeled B1 to B5. Jar 1. The third container is labeled #3 ileal biopsy. ??It contains a 0.8 x 0.5 x 0.3 cm piece of dark flanagan-brown soft tissue. ??Labeled C1. ??Jar 0. cmb/06/06/2016 15:36 ?Celso Kim MS, PA(ASCP) ? By this signature, I attest that the above diagnosis is based upon my personal examination of the slides(and/or other material). ?? Addenda/Procedures Addendum Ordered: 06/19/2016 Status: Signed Out Addendum Complete: 06/19/2016 By: Bebeto Salgado M.D., Ph.D. Addendum Signed Out: 06/20/2016 ?? Addendum Comment At Dr. Jack's request, immunohistochemical stains (single antibody stain procedures with adequate controls) were performed on the right pelvic wall mass (block B3) to determine whether the tumor expresses hormone receptors. The neoplastic cells show diffuse staining with antibodies for ER and HI. This finding supports the previously reported diagnosis. ?? Of note, the primary site would appear to be a focus of endometriosis within the appendix (reviewed in [id number]). Clinical correlation is required to determine if this is best staged as a primary peritoneal carcinoma, versus endometrial. Discussed at gynecologic tumor board, 06/17/16. By this signature, I attest that the above diagnosis is based upon my personal examination of the slides(and/or other material indicated in the diagnosis). ?? Bebeto Salgado M.D., Ph.D. ??Report Electronically Reviewed and Signed Out By ??Bebeto Salgado M.D., Ph.D. ??06/20/2016 10:49:28 ? Addendum Ordered: 01/23/2017 Status: Signed Out Addendum Complete: 01/23/2017 By: Bebeto Salgado M.D., Ph.D. Addendum Signed Out: 02/03/2017 ?? Addendum Diagnosis Immunohistochemical stains (IHC; single antibody stain procedures) have been performed for the DNA mismatch repair (MMR) enzymes MLH1, MSH2, MSH6, and PMS2. These show retained nuclear expression in the tumor cells equivalent to that seen in lymphocytes and smooth muscle in the adjacent normal tissue, a staining pattern that is usually not associated with a defect in mismatch repair function. Normal expression of all four proteins suggests this particular cancer is unlikely to be due to a hereditary germline mutation in the genes known to be associated with Sanchez Syndrome.Clinical correlation is required. IHC is a reliable measure of DNA mismatch repair status but is neither completely sensitive nor specific and has limitations. MLH1, MSH6 and PMS2 were performed and interpreted at [facility]. ??MSH-2 was performed at [email or web address] ([place], [place]) and interpreted at [facility]. By this signature, I attest that the above diagnosis is based upon my personal examination of the slides(and/or other material indicated in the diagnosis). ?? Bebeto Salgado M.D., Ph.D. ??Report Electronically Reviewed and Signed Out By ??Bebeto Salgado M.D., Ph.D. ??02/03/2017 15:56:12 ? Surgical Pathology report is available electronically in Clinical Desktop. The performance characteristics of some immunohistochemical stains, fluorescence in-situ hybridization tests and immunophenotyping by flow cytometry cited in this report (if any) were determined by the Surgical Pathology Department at [facility] as part of an ongoing quality associate program and in compliance with federally mandated [...] determined by the Surgical Pathology Department of [facility]. ??It has not been cleared or approved by the [place]. [place]. Food and Drug Administration. Jonnathan Jack MD LAB PATHOLOGY ORDERABLES Final Result Performing Organization Address City/State/[facility] Phone Number [facility] [address] [place] [address] documented in this encounter Visit Diagnoses Not on filedocumented in this encounter Care Teams Outside Plant Field Engineer Relationship Specialty Start Date End Date Momo Carrillo MD [address] [place] [address] PCP - General 01/07/17 12/15/17 documented as of this encounter
--- OUTSIDE RECORDS SUMMARY | 2024-10-06 04:07 | XMS_ITS | Encounter Summary ---
Author Organization [facility] Healthcare Address [address] [place] [address] Care Team Providers Care Ophthalmology Assistant Name Role Phone Unavailable Primary Care Provider Unavailabl e Encounter Details Date Type Department Care Team (Latest Contact Info) Description 08/04/2016 11:50 AM MEAT CURER - 08/04/2016 11:59 PM MEAT CURER Hospital Encounter [facility]nathan Jack [facility] [address] [facility] [phone] [place], [place] [id number] Bloodstream infection due to central venous catheter; Sepsis due to Methicillin susceptible Staphylococcus aureus (CMS/HCC); Medical procedure, unspecified as the cause of abnormal reaction of the patient, or of later complication, without mention of misadventure at the time of the procedure; Unspecified place or not applicable Social History Tobacco Use Types Packs/Day Years Used Date Smoking Tobacco: Never Assessed Comments Unknown Sex and Gender Information Value Date Recorded Sex Assigned at Not on file 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 Gender Identity Not on file Sexual Orientation Not on file documented as of this encounter Medications at Time of Discharge cetirizine (ZyrTEC) 10 mg tablet 04/01/2016Zyrtec, po solid 10 mg TabletPOdailyCurrent Medication 6 [id number] M-acetaminophe n 2-5-10-325 mg tablets, sequential 04/01/2016Multivitamin, po solid TabletPOdailyCurrent Medication 6 018 cholecalcifero l (VITAMIN D-3) 400 unit capsule 04/01/2016Vitamin d, po solid 400 unit TabletPOdailyCurrent Medication 6 023 FLUoxetine (PROzac) 20 mg capsule 04/01/2016Fluoxetine hcl, po solid 20 mg CapsulePOdailyCurrent Medication 6 018 levothyroxine (SYNTHROID, LEVOTHROID) 50 mcg tablet Take 75 mcg by mouth 01 6 023 omega 8-zha-vlq-fish oil 100-160-1,000 mg capsule 04/01/2016Fish oil omega-3, [...] Associated Diagnosis Comments DISCHARGE LABORATORY CUMULATIVE REPORT 08/05/2016 SERUM ESTIMATED GLOMERULAR FILTRATION RATE Routine 08/04/2016 11:50 AM MEAT CURER PLASMA COMPREHENSIVE METABOLIC PANEL Routine 08/04/2016 11:50 AM MEAT CURER BLOOD CELL COUNT (CBC) Routine 6 11:50 AM MEAT CURER BLOOD CELL MORPHOLOGIC EXAM Routine 08/04/2016 11:50 AM MEAT CURER documented in this encounter Results * DISCHARGE LABORATORY CUMULATIVE REPORT (08/05/2016) Narrative 08/05/2016 Ordered by an unspecified provider. us Historical Provider LAB BLOOD ORDERABLES Shira l Result * (ABNORMAL) Blood cell count (CBC) (08/04/2016 11:50 AM MEAT CURER) WBC 3.2(L) 3.8 - 9.8 K/cumm CDR HISTORICAL RESULTS RBC 3.33(L) 3.90 - 5.00 M/cumm CDR HISTORICAL RESULTS Hgb 10.1(L) 12.1 - 15.1 g/dl CDR HISTORICAL RESULTS Hct 31.0(L) 36.1 - 44.3 % CDR HISTORICAL RESULTS MCV 93.1 80.0 - 100.0 fl CDR HISTORICAL RESULTS MCH 30.3 26.7 - 33.7 pg CDR HISTORICAL RESULTS MCHC 32.6(L) 32.7 - 36.0 g/dl CDR HISTORICAL RESULTS Rdw 13.8 11.5 - 14.6 % CDR HISTORICAL RESULTS Platelets 132(L) 140 - 440 K/cumm CDR HISTORICAL RESULTS MPV 11.0 8.0 - 12.0 fl CDR HISTORICAL RESULTS NRBC 0.0 0.0 - 0.0 % CDR HIST ORICAL RESULTS NRBC, abs 0.00 0.00 - 0.00 K/cumm CDR HISTORICAL RESULTS Blood specimen (specimen) 08/04/2016 11:50 AM MEAT CURER us Historical Provider LAB BLOOD ORDERABLES Shira l Result CDR HISTORICAL RESULTS * Blood cell morphologic exam (08/04/2016 11:50 AM MEAT CURER) Pathologist [facility] [place] Neutrophils 57.3 44.0 - 80.0 % CDR HISTORICAL RESULTS Immature granulocytes 0.3 0.0 - 1.0 % CDR HISTORICAL RESULTS Lymphocytes 29.3 13.0 - 44.0 % CDR HISTORICAL RESULTS Monos 7.5 2.0 - 11.0 % CDR HISTORICAL RESULTS Eosinophils 4.4 0.0 - 6.0 % CDR HISTORICAL RESULTS Basophils 1.2 0.0 - 3.0 % CDR HISTORICAL RESULTS Neutrophils, abs 1.8 1.6 - 7.0 K/cumm CDR HISTORICAL RESULTS Immature granulocyte, abs 0.0 0.0 - 0.2 K/cumm CDR HISTORICAL RESULTS Lymphocytes, abs 0.9 0.5 - 4.3 K/cumm CDR HISTORICAL RESULTS Monocytes, absolute 0.2 0.1 - 1.0 K/cumm CDR HISTORICAL RESULTS Eosinophils, abs 0.1 0.0 - 0.6 K/cumm CDR HISTORICAL RESULTS Basophils, abs 0.0 0.0 - 0.3 K/cumm CDR HISTORICAL RESULTS Blood specimen (specimen) 08/04/2016 11:50 AM MEAT CURER us Historical Provider LAB BLOOD ORDERABLES Shira l Result CDR HISTORICAL RESULTS * (ABNORMAL) Plasma comprehensive metabolic panel (08/04/2016 11:50 AM MEAT CURER) Sodium 136 135 - 145 mmol/L CDR HISTORICAL RESULTS CO2 27 22 - 32 mmol/L CDR HISTORICAL RESULTS K, pl 4.1 3.5 - 5.1 mmol/L CDR HISTORICAL RESULTS A. gap 17(H) 8 - 16 mmol/L CDR HISTORICAL RESULTS Chloride 96(L) 97 - 110 mmol/L CDR HISTORICAL RESULTS Glucose 107 70 - 199 mg/dl CDR HISTORICAL RESULTS Comment: Interpretive Data Note:The glucose is assumed non fasting Fastin-99 mg/dL Random: ??70-199 mg/dL Either a fasting glucose > 126 mg/dL or a random glucose > 200 mg/dL plus symptoms is diagnostic of diabetes when confirmed on another day. Fasting values > 100 mg/dL but < 125 mg/dL are diagnostic of impaired fasting glucose. Current interpretive data was last revised on 2014. BUN 11.1 8.0 - 25.0 mg/dl CDR HISTORICAL RESULTS Creatinine 0.69 0.60 - 1.10 mg/dl CDR HISTORICAL RESULTS BUN/creat ratio 16 10 - 20 CDR HISTORICAL RESULTS Calcium 9.4 8.6 - 10.2 mg/dl CDR HISTORICAL RESULTS Protein, sr 7.6 6.0 - 8.4 g/dl CDR HISTORICAL RESULTS Alb 4.2 3.6 - 5.0 g/dl CDR HISTORICAL RESULTS Alk phos 75 40 - 130 Units/L CDR HISTORICAL RESULTS ALT 37 5 - 45 Units/L CDR HISTORICAL RESULTS AST 34 10 - 40 Units/L CDR HISTORICAL RESULTS Bilirubin <0.2 <=1.2 mg/dl CDR HISTORICAL RESULTS Plasma 08/04/2016 11:5 0 AM MEAT CURER Historical Provider LAB BLOOD ORDERABLES Shira l Result Performing Organization Address City/[facility] de Phone Number CDR HISTORICAL RESULTS * Serum estimated glomerular filtration rate (08/04/2016 11:50 AM MEAT CURER) eGFR >60 ml/min/1.7 3 m2 CDR HISTORICAL RESULTS Comment: Interpretation of Estimated GFR (eGFR): Normal ?>/= 60 mL/min/1.73m2 Possible Chronic Kidney Disease ??15 - 59 mL/min/1.73m2 Possible Kidney Failure ?< 15 ??mL/min/1.73m2 If -[place] multiply value by 1.16. ??Estimated glomerular filtration rate is determined by the CKD-EPI equation recommended by the National Kidney Foundation (KDIGO 2012 Clinical Practice Guideline for the Evaluation and Management of Chronic Kidney Disease. ??Kidney Intnl Suppl Sep 2012;3:1). ??The CKD-EPI equation should not be used in acute renal failure or acute kidney injury and is not valid in children. Serum 08/04/2016 11:5 0 AM MEAT CURER Historical Provider LAB BLOOD ORDERABLES Shira l Result Performing Organization Address [facility] de Phone Number CDR HISTORICAL RESULTS documented in this encounter Visit Diagnoses Diagnosis Bloodstream infection due to central venous catheter Sepsis due to methicillin susceptible Staphylococcus aureus (HCC) Medical procedure, unspecified as the cause of abnormal reaction of the patient, or of later complication, without mention of misadventure at the time of the procedure Unspecified place or not applicable documented in this encounter
--- OUTSIDE RECORDS SUMMARY | 2024-10-06 04:07 | XMS_ITS | Encounter Summary ---
Author Organization [facility] Facility Care Team Providers Care Client Services Coordinator Name Role Phone Unavailable Primary Care Provider Unavailabl e Encounter Details Date Type Department Care Team (Late st Contact Info) Description 05/08/2016 4:10 PM CDT - 05/08/2016 11:59 PM T Hospital Encounter [facility] CLINCONV Jayro Weir MD [address] [facility] [address] [place] [address] Encounter for examination for normal comparison or control in clinical research program Social History Tobacco Use Types Packs/Day Years Used Date Smoking Tobacco: Never Assessed Comments Unknown Sex and Gender Information Value Date Recorded Sex Assigned at Not on file 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 Gender Identity Not on file Sexual Orientation Not on file documented as of this encounter Medications at Time of Discharge cetirizine (ZyrTEC) 10 mg tablet 04/01/2016Zyrtec, po solid 10 mg TabletPOdailyCurrent Medication 6 [id number] M-acetaminophe n 2-5-10-325 mg tablets, sequential 04/01/2016Multivitamin, po solid TabletPOdailyCurrent Medication 6 03/17/ 018 cholecalcifero l (VITAMIN D-3) 400 unit capsule 04/01/2016Vitamin d, po solid 400 unit TabletPOdailyCurrent Medication 6 023 FLUoxetine (PROzac) 20 mg capsule 04/01/2016Fluoxetine hcl, po solid 20 mg CapsulePOdailyCurrent Medication 6 018 levothyroxine (SYNTHROID, LEVOTHROID) 50 mcg tablet Take 75 mcg by mouth 01 6 023 omega 1-uuo-xrf-fish oil 100-160-1,000 mg capsule 04/01/2016Fish oil omega-3, po solid 300-1000mg CapsulePOdailyCurrent Medication 6 023 vitamin E 100 unit/0.25 mL drops 04/01/2016Vitamin e, po solid 1000 unit CapsulePOdailyCurrent Medication 6 023 documented as of this encounter Plan of Treatment Not on file documented as of this encounter Procedures Procedure Name Priority Date/Time Associated Diagnosis Comments PLASMA COMPREHENSIVE METABOLIC PANEL Routine 05/08/2016 10:15 AM CDT BLOOD CELL COUNT (CBC) Routine 6 10:15 AM CDT BLOOD CELL MORPHOLOGIC EXAM Routine 05/08/2016 10:15 AM CDT DISCHARGE LABORATORY CUMULATIVE REPORT 05/08/2016 documented in this encounter Results * (ABNORMAL) Plasma comprehensive metabolic panel (05/08/2016 10:15 AM CDT) Sodium 132(L) 135 - 145 mmol/L CDR HISTORICAL RESULTS K, pl See Comment 3.3 - 4.9 mmol/L CDR HISTORICAL RESULTS Comment:{CRDT; Grossly Hemol yzed sample; Unable to test.} Chloride 97 97 - 110 mmol/L CDR HISTORICAL RESULTS CO2 27 22 - 32 mmol/L CDR HISTORICAL RESULTS Comment:{Hemolyzed; result m ay be falsely decreased.} A. gap 8 2 - 15 mmol/L CDR HISTORICAL RESULTS Glucose, fasting 70 70 - 99 mg/dl CDR HISTORICAL RESULTS BUN 15 8 - 25 mg/dl CDR HISTORICAL RESULTS Creatinine 0.80 0.60 - 1.10 mg/dl CDR HISTORICAL RESULTS Calcium 9.4 8.5 - 10.3 mg/dl CDR HISTORICAL RESULTS Protein, pl 7.5 6.5 - 8.5 g/dl CDR HISTORICAL RESULTS Alb 4.3 3.5 - 5.0 g/dl CDR HISTORICAL RESULTS Bilirubin 0.4 0.1 - 1.2 mg/dl CDR HISTORICAL RESULTS Alk phos See Comment 40 - 130 Units/L CDR HISTORICAL RESULTS Comment:{CRDT; Hemolyzed spe cimen} AST See Comment 10 - 45 Units/L CDR HISTORICAL RESULTS Comment:{CRDT, Hemolyzed Spe cimen} ALT 27 7 - 45 Units/L CDR HISTORICAL RESULTS Comment:{Hemolyzed; result m ay be falsely elevated.} Plasma 05/08/2016 10:1 5 AM CDT us Jayro Weir MD LAB BLOOD ORDERABLES Final Re sult CDR HISTORICAL RESULTS * (ABNORMAL) Blood cell count (CBC) (05/08/2016 10:15 AM CDT) WBC 3.9 3.8 - 9.9 K/cumm CDR HISTORICAL RESULTS RBC 3.76(L) 3.90 - 5.20 M/cumm CDR HISTORICAL RESULTS Hgb 11.7(L) 11.9 - 15.5 g/dl CDR HISTORICAL RESULTS Hct 35.5(L) 35.6 - 45.5 % CDR HISTORICAL RESULTS MCV 94.4 81.3 - 96.4 fl CDR HISTORICAL RESULTS MCH 31.1 27.1 - 33.3 pg CDR HISTORICAL RESULTS MCHC 33.0 32.3 - 35.7 g/dl CDR HISTORICAL RESULTS Rdw 13.4 11.1 - 14.9 % CDR HISTORICAL RESULTS RDW 45.8 35.7 - 48.1 fl CDR HISTORICAL RESULTS Platelets 149(L) 150 - 400 K/cumm CDR HISTORICAL RESULTS MPV 11.2 9.1 - 12.3 fl CDR HISTORICAL RESULTS NRBC 0.0 0.0 - 0.2 % CDR HIST ORICAL RESULTS NRBC, abs 0.00 0.00 - 0.01 K/cumm CDR HISTORICAL RESULTS Blood specimen (specimen) 05/08/2016 10:15 AM CDT Jayro Weir MD LAB BLOOD ORDERABLES Final Re sult CDR HISTORICAL RESULTS * Blood cell morphologic exam (05/08/2016 10:15 AM CDT) Neutrophils 65.3 % CDR HIST ORICAL RESULTS Immature granulocytes 0.3 % CDR HISTORICAL RESULTS Lymphocytes 23.3 % CDR HIST ORICAL RESULTS Monos 8.5 % CDR HISTOR ICAL RESULTS Eosinophils 1.8 % CDR HIST ORICAL RESULTS Basophils 0.8 % CDR HISTOR ICAL RESULTS Neutrophils, abs 2.5 1.7 - 6.5 K/cumm CDR HISTORICAL RESULTS Immature granulocyte, abs 0.0 0.0 - 0.1 K/cumm CDR HISTORICAL RESULTS Lymphocytes, abs 0.9 0.8 - 3.3 K/cumm CDR HISTORICAL RESULTS Monocytes, absolute 0.3 0.2 - 0.8 K/cumm CDR HISTORICAL RESULTS Eosinophils, abs 0.1 0.0 - 0.5 K/cumm CDR HISTORICAL RESULTS Basophils, abs 0.0 0.0 - 0.1 K/cumm CDR HISTORICAL RESULTS Blood specimen (specimen) 05/08/2016 10:15 AM CDT Jayro Weir MD LAB BLOOD ORDERABLES Final Re sult CDR HISTORICAL RESULTS * DISCHARGE LABORATORY CUMULATIVE REPORT (05/08/2016) Narrative 05/08/2016 Ordered by an unspecified provider. Historical Provider LAB BLOOD ORDERABLES Shira l Result documented in this encounter Visit Diagnoses Diagnosis Encounter for examination for normal comparison or control in clinical research program documented in this encounter
--- OUTSIDE RECORDS SUMMARY | 2024-10-06 04:07 | XMS_ITS | Encounter Summary ---
Author Organization [facility] Facility Care Team Providers Care Sports Leadership Instructor Name Role Phone Unavailable Primary Care Provider Unavailabl e Encounter Details Date Type Department Care Team (Late st Contact Info) Description 09/04/2016 10:10 AM LIGHTING FIXTURE INSTALLER - 09/04/2016 11:59 PM LIGHTING FIXTURE INSTALLER Hospital Encounter [facility] Van Jack, DO [address] [place] [address] Malignant neoplasm of endometrium (CMS/HCC); Pure hypercholesterolemia ; Disorder of thyroid; Anxiety disorder Social History Tobacco Use Types Packs/Day Years Used Date Smoking Tobacco: Never Assessed Comments Unknown Sex and Gender Information Value Date Recorded Sex Assigned at Not on file Legal Sex Female 2:10 AM LIGHTING FIXTURE INSTALLER Gender Identity Not on file Sexual Orientation Not on file documented as of this encounter Medications at Time of Discharge cetirizine (ZyrTEC) 10 mg tablet 04/01/2016Zyrtec, po solid 10 mg TabletPOdailyCurrent Medication 6 [id number] M-acetaminophe n 2-5-10-325 mg tablets, sequential 04/01/2016Multivitamin, po solid TabletPOdailyCurrent Medication 6 018 cholecalcifero l (VITAMIN D-3) 400 unit capsule 04/01/2016Vitamin d, po solid 400 unit TabletPOdailyCurrent Medication 6 023 FLUoxetine (PROzac) 20 mg capsule 04/01/2016Fluoxetine hcl, po solid 20 mg CapsulePOdailyCurrent Medication 6 018 levothyroxine (SYNTHROID, LEVOTHROID) 50 mcg tablet Take 75 mcg by mouth 01 6 023 omega 0-urz-dmw-fish oil 100-160-1,000 mg capsule 04/01/2016Fish oil omega-3, [...] Date/Time Associated Diagnosis Comments VENOUS ACCESS Routine 09/04/2016 12:36 PM LIGHTING FIXTURE INSTALLER US GUIDED VASCULAR ACCESS Routine 09/04/2016 12:36 PM LIGHTING FIXTURE INSTALLER PORT PLACEMENT CHEST >5 YEARS Routine 09/04/2016 12:36 PM LIGHTING FIXTURE INSTALLER documented in this encounter Results * Port Placement Chest > 5 Years (09/04/2016 12:36 PM LIGHTING FIXTURE INSTALLER) Anatomical Region Laterality Modality Chest N/A X-Ray Angiograph y 09/04/2016 12:3 6 PM LIGHTING FIXTURE INSTALLER Narrative 09/05/2016 7:56 AM LIGHTING FIXTURE INSTALLER YASH REED M.D. MENDY LARA M.D. FINAL REPORT The radiology attending physician has personally reviewed this study, and has reviewed and/or edited this written report and agrees with it. ACC# ??Date Time ??Exam [id number] Sep 04, 2016 12:36:00 92266 Insert Chest Port >5 y/o [id number] Sep 04, 2016 12:36:00 74124 Fluoro Wilian Accs R [id number] Sep 04, 2016 12:36:00 88462 USguide Wilian Acc R EXAMINATION: ?PORT PLACEMENT USING ULTRASOUND AND FLUOROSCOPIC GUIDANCE HISTORY: 61-year-old woman with metastatic endometrial carcinoma requiring central venous port placement for chemotherapy. ??The patient had a port removed on 07/04/2016 secondary to infection. ATTENDING PRESENCE: Dr. Reed, the attending radiologist, was present from the beginning to the end of the procedure. SEDATION: Conscious sedation was administered under the attending physician's direction and continuous monitoring by a trained nurse specialist who was independent from those actually performing the procedure. ??Total monitored sedation time was 25 minutes. TECHNIQUE: The risks, benefits and alternatives were discussed and informed consent was obtained. ??Prior to beginning the procedure, Diana Protocol was used to confirm the patient's [...] length and inserted through a peel-away sheath. ??It was immediately noted that air embolized during the process of inserting the catheter through the peel-away sheath. ??The patient was placed into the left lateral decubitus position and the air was aspirated out of the catheter. ?? 15 mL Optiray intravenous contrast were injected through the catheter and digital subtraction angiography was performed demonstrating no central pulmonary arterial occlusion. The catheter was flushed with 100U/ml heparin and the access needle was left in place while the patient was observed in holding. ??The access needle was removed prior to discharge. The deep tissues were approximated using 4-0 Monocryl and the incision closed using Dermabond. ??The incision in the lower neck was closed in a similar fashion. In the holding area, the patient's left peripherally inserted central venous catheter was successfully removed by assistant to the vice president, Dr. Eder Heath. ESTIMATED BLOOD LOSS: less than 30 milliliters DISCHARGED TO: Recovery and then to home. ? CONDITION: Stable. FINDINGS: Ultrasound image shows a patent vein in the lower neck. ??The final fluoroscopic image demonstrates the catheter with its tip at the cavoatrial junction. ?? Images obtained immediately following placement of the port tubing through the peel-away sheath demonstrate an air embolism. ??The patient was placed in the left lateral decubitus position and the air was aspirated. ??Following aspiration, fluoroscopic images demonstrate no residual air. ??Digital subtraction angiography images obtained following injection of contrast demonstrate no central pulmonary arterial occlusion. Following the air embolism, the patient's oxygen saturations decreased to 79% and the patient was placed on supplemental oxygen. ??Following aspiration of the air, the saturations returned to 100%. ??The patient remained on supplemental oxygen and was monitored for an additional two hours following the procedure. ??The supplemental oxygen was weaned off until the patient's oxygen saturations were ranging from 98-100% on room air. ?? The procedure, complication and findings were discussed with the patient. In the holding area prior to discharge, the patient's left peripherally inserted central venous catheter was successfully removed by assistant to the vice president, Dr. Eder Heath. IMPRESSION: ?? Successful chest wall port placement. PLAN: The port is ready for immediate use. Please note that a power injectable port was placed. When treatment is completed, removal can be scheduled by calling [facility] - [phone] [facility] - [phone] Requested By: VAN JACK M.D. Dictated By: ?? MENDY LARA M.D. ??on Sep 04 2016 ??5:46P This document has been electronically signed by: YASH REED M.D. on Sep 05 2016 ??7:56A [id number] Procedure Note Provider, MD Palma - 01/27/2017 YASH REED M.D. MENDY LARA M.D. FINAL REPORT The radiology attending physician has personally reviewed this study, and has reviewed and/or edited this written report and agrees with it. ACC# Date Time Exam [id number] Sep 04, 2016 12:36:00 97814 Insert Chest Port >5 y/o [id number] Sep 04, 2016 12:36:00 01852 Fluoro Wilian Accs R [id number] Sep 04, 2016 12:36:00 61893 USguide Wilian Acc R EXAMINATION: PORT PLACEMENT USING ULTRASOUND AND FLUOROSCOPIC GUIDANCE HISTORY: 61-year-old woman with metastatic endometrial carcinoma requiring central venous port placement for chemotherapy. The patient had a port removed on 07/04/2016 secondary to infection. ATTENDING PRESENCE: Dr. Reed, the attending radiologist, was present from the beginning to the end of the procedure. SEDATION: Conscious sedation was administered under the attending physician's direction and continuous monitoring by a trained nurse specialist who was independent from those actually performing the procedure. Total monitored sedation time was 25 minutes. TECHNIQUE: The risks, benefits and alternatives were discussed and informed consent was obtained. Prior to beginning the procedure, Diana Protocol was used to confirm the patient's [...] length and inserted through a peel-away sheath. It was immediately noted that air embolized during the process of inserting the catheter through the peel-away sheath. The patient was placed into the left lateral decubitus position and the air was aspirated out of the catheter. 15 mL Optiray intravenous contrast were injected through the catheter and digital subtraction angiography was performed demonstrating no central pulmonary arterial occlusion. The catheter was flushed with 100U/ml heparin and the access needle was left in place while the patient was observed in holding. The access needle was removed prior to discharge. The deep tissues were approximated using 4-0 Monocryl and the incision closed using Dermabond. The incision in the lower neck was closed in a similar fashion. In the holding area, the patient's left peripherally inserted central venous catheter was successfully removed by assistant to the vice president, Dr. Eder Heath. ESTIMATED BLOOD LOSS: less than 30 milliliters DISCHARGED TO: Recovery and then to home. CONDITION: Stable. FINDINGS: Ultrasound image shows a patent vein in the lower neck. The final fluoroscopic image demonstrates the catheter with its tip at the cavoatrial junction. Images obtained immediately following placement of the port tubing through the peel-away sheath demonstrate an air embolism. The patient was placed in the left lateral decubitus position and the air was aspirated. Following aspiration, fluoroscopic images demonstrate no residual air. Digital subtraction angiography images obtained following injection of contrast demonstrate no central pulmonary arterialocclusion. Following the air embolism, the patient's oxygen saturations decreased to 79% and the patient was placed on supplemental oxygen. Following aspiration of the air, the saturations returned to 100%. The patient remained on supplemental oxygen and was monitored for an additional two hours following the procedure. The supplemental oxygen was weaned off until the patient's oxygen saturations were ranging from 98-100% on room air. The procedure, complication and findings were discussed with the patient. In the holding area prior to discharge, the patient's left peripherally inserted central venous catheter was successfully removed by assistant to the vice president, Dr. Eder Heath. IMPRESSION: Successful chest wall port placement. PLAN: The port is ready for immediate use. Please note that a power injectable port was placed. When treatment is completed, removal can be scheduled by calling [facility] - [phone] [facility] - [phone] Requested By: VAN JACK M.D. Dictated By: MENDY LARA M.D. on Sep 04 2016 5:46P This document has been electronically signed by: YASH REED M.D. on Sep 05 2016 7:56A [id number] us Historical Provider MD SOLORZANO IR PROCEDURES Final R esult * VENOUS ACCESS (09/04/2016 12:36 PM LIGHTING FIXTURE INSTALLER) Anatomical Region Laterality Modality N/A Radiographic Ana Cristina ging 09/04/2016 12:3 6 PM LIGHTING FIXTURE INSTALLER Narrative 09/05/2016 7:56 AM LIGHTING FIXTURE INSTALLER YASH REED M.D. MENDY LARA M.D. FINAL REPORT The radiology attending physician has personally reviewed this study, and has reviewed and/or edited this written report and agrees with it. ACC# ??Date Time ??Exam [id number] Sep 04, 2016 12:36:00 08003 Insert Chest Port >5 y/o [id number] Sep 04, 2016 12:36:00 91937 Fluoro Wilian Accs R [id number] Sep 04, 2016 12:36:00 12488 USguide Wilian Acc R EXAMINATION: ?PORT PLACEMENT USING ULTRASOUND AND FLUOROSCOPIC GUIDANCE HISTORY: 61-year-old woman with metastatic endometrial carcinoma requiring central venous port placement for chemotherapy. ??The patient had a port removed on 07/04/2016 secondary to infection. ATTENDING PRESENCE: Dr. Reed, the attending radiologist, was present from the beginning to the end of the procedure. SEDATION: Conscious sedation was administered under the attending physician's direction and continuous monitoring by a trained nurse specialist who was independent from those actually performing the procedure. ??Total monitored sedation time was 25 minutes. TECHNIQUE: The risks, benefits and alternatives were discussed and informed consent was obtained. ??Prior to beginning the procedure, Diana Protocol was used to confirm the patient's [...] length and inserted through a peel-away sheath. ??It was immediately noted that air embolized during the process of inserting the catheter through the peel-away sheath. ??The patient was placed into the left lateral decubitus position and the air was aspirated out of the catheter. ?? 15 mL Optiray intravenous contrast were injected through the catheter and digital subtraction angiography was performed demonstrating no central pulmonary arterial occlusion. The catheter was flushed with 100U/ml heparin and the access needle was left in place while the patient was observed in holding. ??The access needle was removed prior to discharge. The deep tissues were approximated using 4-0 Monocryl and the incision closed using Dermabond. ??The incision in the lower neck was closed in a similar fashion. In the holding area, the patient's left peripherally inserted central venous catheter was successfully removed by assistant to the vice president, Dr. Eder Heath. ESTIMATED BLOOD LOSS: less than 30 milliliters DISCHARGED TO: Recovery and then to home. ? CONDITION: Stable. FINDINGS: Ultrasound image shows a patent vein in the lower neck. ??The final fluoroscopic image demonstrates the catheter with its tip at the cavoatrial junction. ?? Images obtained immediately following placement of the port tubing through the peel-away sheath demonstrate an air embolism. ??The patient was placed in the left lateral decubitus position and the air was aspirated. ??Following aspiration, fluoroscopic images demonstrate no residual air. ??Digital subtraction angiography images obtained following injection of contrast demonstrate no central pulmonary arterial occlusion. Following the air embolism, the patient's oxygen saturations decreased to 79% and the patient was placed on supplemental oxygen. ??Following aspiration of the air, the saturations returned to 100%. ??The patient remained on supplemental oxygen and was monitored for an additional two hours following the procedure. ??The supplemental oxygen was weaned off until the patient's oxygen saturations were ranging from 98-100% on room air. ?? The procedure, complication and findings were discussed with the patient. In the holding area prior to discharge, the patient's left peripherally inserted central venous catheter was successfully removed by assistant to the vice president, Dr. Eder Heath. IMPRESSION: ?? Successful chest wall port placement. PLAN: The port is ready for immediate use. Please note that a power injectable port was placed. When treatment is completed, removal can be scheduled by calling [facility] - [phone] [facility] - [phone] Requested By: VAN JACK M.D. Dictated By: ?? MENDY LARA M.D. ??on Sep 04 2016 ??5:46P This document has been electronically signed by: YASH REED M.D. on Sep 05 2016 ??7:56A [id number] Procedure Note Provider, MD [place] - 01/27/2017 YASH REED M.D. MENDY LARA M.D. FINAL REPORT The radiology attending physician has personally reviewed this study, and has reviewed and/or edited this written report and agrees with it. ACC# Date Time Exam [id number] Sep 04, 2016 12:36:00 32524 Insert Chest Port >5 y/o [id number] Sep 04, 2016 12:36:00 75314 Fluoro Wilian Accs R [id number] Sep 04, 2016 12:36:00 65053 USguide Wilian Acc R EXAMINATION: PORT PLACEMENT USING ULTRASOUND AND FLUOROSCOPIC GUIDANCE HISTORY: 61-year-old woman with metastatic endometrial carcinoma requiring central venous port placement for chemotherapy. The patient had a port removed on 07/04/2016 secondary to infection. ATTENDING PRESENCE: Dr. Reed, the attending radiologist, was present from the beginning to the end of the procedure. SEDATION: Conscious sedation was administered under the attending physician's direction and continuous monitoring by a trained nurse specialist who was independent from those actually performing the procedure. Total monitored sedation time was 25 minutes. TECHNIQUE: The risks, benefits and alternatives were discussed and informed consent was obtained. Prior to beginning the procedure, Diana Protocol was used to confirm the patient's [...] length and inserted through a peel-away sheath. It was immediately noted that air embolized during the process of inserting the catheter through the peel-away sheath. The patient was placed into the left lateral decubitus position and the air was aspirated out of the catheter. 15 mL Optiray intravenous contrast were injected through the catheter and digital subtraction angiography was performed demonstrating no central pulmonary arterial occlusion. The catheter was flushed with 100U/ml heparin and the access needle was left in place while the patient was observed in holding. The access needle was removed prior to discharge. The deep tissues were approximated using 4-0 Monocryl and the incision closed using Dermabond. The incision in the lower neck was closed in a similar fashion. In the holding area, the patient's left peripherally inserted central venous catheter was successfully removed by assistant to the vice president, Dr. Eder Heath. ESTIMATED BLOOD LOSS: less than 30 milliliters DISCHARGED TO: Recovery and then to home. CONDITION: Stable. FINDINGS: Ultrasound image shows a patent vein in the lower neck. The final fluoroscopic image demonstrates the catheter with its tip at the cavoatrial junction. Images obtained immediately following placement of the port tubing through the peel-away sheath demonstrate an air embolism. The patient was placed in the left lateral decubitus position and the air was aspirated. Following aspiration, fluoroscopic images demonstrate no residual air. Digital subtraction angiography images obtained following injection of contrast demonstrate no central pulmonary arterialocclusion. Following the air embolism, the patient's oxygen saturations decreased to 79% and the patient was placed on supplemental oxygen. Following aspiration of the air, the saturations returned to 100%. The patient remained on supplemental oxygen and was monitored for an additional two hours following the procedure. The supplemental oxygen was weaned off until the patient's oxygen saturations were ranging from 98-100% on room air. The procedure, complication and findings were discussed with the patient. In the holding area prior to discharge, the patient's left peripherally inserted central venous catheter was successfully removed by assistant to the vice president, Dr. Eder Heath. IMPRESSION: Successful chest wall port placement. PLAN: The port is ready for immediate use. Please note that a power injectable port was placed. When treatment is completed, removal can be scheduled by calling [facility] - [phone] [facility] - [phone] Requested By: VAN JACK M.D. Dictated By: MENDY LARA M.D. on Sep 04 2016 5:46P This document has been electronically signed by: YASH REED M.D. on Sep 05 2016 7:56A [id number] us Historical Provider MD SOLORZANO XR PROCEDURES Final R esult * US Guided Vascular Access (09/04/2016 12:36 PM LIGHTING FIXTURE INSTALLER) Anatomical Region Laterality Modality N/A Ultrasound 09/04/2016 12:3 6 PM LIGHTING FIXTURE INSTALLER Narrative 09/05/2016 7:56 AM LIGHTING FIXTURE INSTALLER Danica VEGA M.D. FINAL REPORT The radiology attending physician has personally reviewed this study, and has reviewed and/or edited this written report and agrees with it. ACC# ??Date Time ??Exam [id number] Sep 04, 2016 12:36:00 55060 Insert Chest Port >5 y/o [id number] Sep 04, 2016 12:36:00 28428 Fluoro Wilian Accs R [id number] Sep 04, 2016 12:36:00 36213 USguide Wilian Acc R EXAMINATION: ?PORT PLACEMENT USING ULTRASOUND AND FLUOROSCOPIC GUIDANCE HISTORY: 61-year-old woman with metastatic endometrial carcinoma requiring central venous port placement for chemotherapy. ??The patient had a port removed on 07/04/2016 secondary to infection. ATTENDING PRESENCE: Dr. Reed, the attending radiologist, was present from the beginning to the end of the procedure. SEDATION: Conscious sedation was administered under the attending physician's direction and continuous monitoring by a trained nurse specialist who was independent from those actually performing the procedure. ??Total monitored sedation time was 25 minutes. TECHNIQUE: The risks, benefits and alternatives were discussed and informed consent was obtained. ??Prior to beginning the procedure, Diana Protocol was used to confirm the patient's [...] length and inserted through a peel-away sheath. ??It was immediately noted that air embolized during the process of inserting the catheter through the peel-away sheath. ??The patient was placed into the left lateral decubitus position and the air was aspirated out of the catheter. ?? 15 mL Optiray intravenous contrast were injected through the catheter and digital subtraction angiography was performed demonstrating no central pulmonary arterial occlusion. The catheter was flushed with 100U/ml heparin and the access needle was left in place while the patient was observed in holding. ??The access needle was removed prior to discharge. The deep tissues were approximated using 4-0 Monocryl and the incision closed using Dermabond. ??The incision in the lower neck was closed in a similar fashion. In the holding area, the patient's left peripherally inserted central venous catheter was successfully removed by assistant to the vice president, Dr. Eder Heath. ESTIMATED BLOOD LOSS: less than 30 milliliters DISCHARGED TO: Recovery and then to home. ? CONDITION: Stable. FINDINGS: Ultrasound image shows a patent vein in the lower neck. ??The final fluoroscopic image demonstrates the catheter with its tip at the cavoatrial junction. ?? Images obtained immediately following placement of the port tubing through the peel-away sheath demonstrate an air embolism. ??The patient was placed in the left lateral decubitus position and the air was aspirated. ??Following aspiration, fluoroscopic images demonstrate no residual air. ??Digital subtraction angiography images obtained following injection of contrast demonstrate no central pulmonary arterial occlusion. Following the air embolism, the patient's oxygen saturations decreased to 79% and the patient was placed on supplemental oxygen. ??Following aspiration of the air, the saturations returned to 100%. ??The patient remained on supplemental oxygen and was monitored for an additional two hours following the procedure. ??The supplemental oxygen was weaned off until the patient's oxygen saturations were ranging from 98-100% on room air. ?? The procedure, complication and findings were discussed with the patient. In the holding area prior to discharge, the patient's left peripherally inserted central venous catheter was successfully removed by assistant to the vice president, Dr. Eder Heath. IMPRESSION: ?? Successful chest wall port placement. PLAN: The port is ready for immediate use. Please note that a power injectable port was placed. When treatment is completed, removal can be scheduled by calling [facility] - [phone] [facility] - [phone] Requested By: VAN JACK M.D. Dictated By: ?? MENDY LARA M.D. ??on Sep 04 2016 ??5:46P This document has been electronically signed by: YASH REED M.D. on Sep 05 2016 ??7:56A [id number] Procedure Note Provider, MD [place] - 01/27/2017 YASH REED M.D. MENDY LARA M.D. FINAL REPORT The radiology attending physician has personally reviewed this study, and has reviewed and/or edited this written report and agrees with it. ACC# Date Time Exam [id number] Sep 04, 2016 12:36:00 [id number] Insert Chest Port >5 y/o [id number] Sep 04, 2016 12:36:00 13557 Fluoro Wilian Accs R [id number] Sep 04, 2016 12:36:00 37998 USguide Wilian Acc R EXAMINATION: PORT PLACEMENT USING ULTRASOUND AND FLUOROSCOPIC GUIDANCE HISTORY: 61-year-old woman with metastatic endometrial carcinoma requiring central venous port placement for chemotherapy. The patient had a port removed on 07/04/2016 secondary to infection. ATTENDING PRESENCE: Dr. Reed, the attending radiologist, was present from the beginning to the end of the procedure. SEDATION: Conscious sedation was administered under the attending physician's direction and continuous monitoring by a trained nurse specialist who was independent from those actually performing the procedure. Total monitored sedation time was 25 minutes. TECHNIQUE: The risks, benefits and alternatives were discussed and informed consent was obtained. Prior to beginning the procedure, Diana Protocol was used to confirm the patient's [...] length and inserted through a peel-away sheath. It was immediately noted that air embolized during the process of inserting the catheter through the peel-away sheath. The patient was placed into the left lateral decubitus position and the air was aspirated out of the catheter. 15 mL Optiray intravenous contrast were injected through the catheter and digital subtraction angiography was performed demonstrating no central pulmonary arterial occlusion. The catheter was flushed with 100U/ml heparin and the access needle was left in place while the patient was observed in holding. The access needle was removed prior to discharge. The deep tissues were approximated using 4-0 Monocryl and the incision closed using Dermabond. The incision in the lower neck was closed in a similar fashion. In the holding area, the patient's left peripherally inserted central venous catheter was successfully removed by assistant to the vice president, Dr. Eder Heath. ESTIMATED BLOOD LOSS: less than 30 milliliters DISCHARGED TO: Recovery and then to home. CONDITION: Stable. FINDINGS: Ultrasound image shows a patent vein in the lower neck. The final fluoroscopic image demonstrates the catheter with its tip at the cavoatrial junction. Images obtained immediately following placement of the port tubing through the peel-away sheath demonstrate an air embolism. The patient was placed in the left lateral decubitus position and the air was aspirated. Following aspiration, fluoroscopic images demonstrate no residual air. Digital subtraction angiography images obtained following injection of contrast demonstrate no central pulmonary arterialocclusion. Following the air embolism, the patient's oxygen saturations decreased to 79% and the patient was placed on supplemental oxygen. Following aspiration of the air, the saturations returned to 100%. The patient remained on supplemental oxygen and was monitored for an additional two hours following the procedure. The supplemental oxygen was weaned off until the patient's oxygen saturations were ranging from 98-100% on room air. The procedure, complication and findings were discussed with the patient. In the holding area prior to discharge, the patient's left peripherally inserted central venous catheter was successfully removed by assistant to the vice president, Dr. Eder Heath. IMPRESSION: Successful chest wall port placement. PLAN: The port is ready for immediate use. Please note that a power injectable port was placed. When treatment is completed, removal can be scheduled by calling [facility] - [phone] [facility] - [phone] Requested By: VAN JACK M.D. Dictated By: MENDY LARA M.D. on Sep 04 2016 5:46P This document has been electronically signed by: YASH REED M.D. on Sep 05 2016 7:56A [id number] us Historical Provider MD SOLORZANO US PROCEDURES Final R esult documented in this encounter Visit Diagnoses Diagnosis Malignant neoplasm of endometrium (CMS/HCC) (HCC) Malignant neoplasm of corpus uteri, except isthmus Pure hypercholesterolemia Disorder of thyroid Unspecified disorder of thyroid Anxiety disorder Anxiety state, unspecified documented in this encounter
== END 2024-10-05 11:03 | disposition home or self-care (01) ==
PROVIDERS: PCP Family Medicine; Referring Provider Nurse Practitioner Family; Visit Provider Internal Medicine Gastroenterology
PROC: 0DJD8ZZ Inspection of Lower Intestinal Tract, Via Natural or Artificial Opening Endoscopic (ICD-10-PCS; CPT 45378; principal; 2024-10-05 10:00)
DX: Z12.11 Encounter for screening for malignant neoplasm of colon (principal); Z87.891 Personal history of nicotine dependence
CPT/HCPCS: G0121; J2003; J2704; J7120

== ENCOUNTER 2024-10-20 13:55 | Emergency (ER) | payer MEDICARE, OTHER, SELFPAY ==
[2024-10-20 14:12] VITALS: BP 144/76; PULSE 77; RESP 18; TEMP 36.3; O2SAT 98
--- NOTE | 2024-10-20 14:38 | ED_ITS ---
HPI - URI/Sore Throat General Chief Complaint: Upper Respiratory Infection Stated Complaint: Upper Respiratory Infection History of Present Illness HPI Narrative: patient is a 69-year-old female, past medical history significant for recurrent sinusitis, presents to [facility] with 7 day history of URI symptoms, including nasal congestion, postnasal drip and a productive cough. She states that she can taste the infection with purulent sputum and nasal discharge reported. She is taking zfjw-asf-ajrbosd medications without relief. She denies associated fevers, she has no chest pain shortness of breath, she denies nausea vomiting or diarrhea. She states that she knows that she needs an antibiotic and a steroid to resolve his symptoms as she has experienced this in the past and typically gets much worse if she does not complete treatment at this point Related Data Home Medications ?Medication ?Instructions ?Recorded ?Confirmed ?Last Taken ?Type cetirizine 10 mg capsule (Zyrtec) 10 mg PO DAILY PRN Allergy Symptoms 06/24/22 10/05/24 10/04/24 History raxgjgsq-bbnh-opyh 8 mg-folic 400 1 tablet PO DAILY 06/24/22 10/05/24 10/04/24 History mcg-K 50 mcg-lutein 300 mcg tablet (Centrum Silver Women) diphenhydramine 25 1 tablet PO QHS PRN sleep 05/11/23 10/05/24 10/04/24 History mg-acetaminophen 500 mg tablet (Tylenol PM Extra Strength) mecobalamin (vitamin B12) 1,000 1,000 mcg PO DAILY 03/28/24 10/05/24 10/04/24 History mcg lozenges cholecalciferol (vitamin D3) 50 50 mcg PO DAILY 09/09/24 10/03/24 10/03/24 History mcg (2,000 unit) tablet (Vitamin D3) Allergies Allergy/AdvReac Type Severity Reaction Status Date / Time codeine (Guaifen-C) AdvReac Unknown anxious Verified 10/20/24 14:19 guaifenesin (Entex T) AdvReac Unknown anxious Verified 10/20/24 14:19 pseudoephedrine (Entex T) AdvReac Unknown anxious Verified 10/20/24 14:19 [facility] Past Medical History Medical History Laboratory confirmed diagnosis of COVID-09 October 2021 Esophageal reflux Lesion of vertebra Lytic lesion of bone on x-ray Cancer of endometrium Hysterectomy [address] Pathak Hypothyroid Depression, recurrent Surgical History Surgical History H/O dilation and curettage H/O: hysterectomy History of appendectomy Hx of tonsillectomy Family History Family History Mother Hypertension Family history of elevated blood lipids Family history of cardiovascular disease Family history of coronary artery disease Cerebrovascular accident, Onset Age: 84 Father Malignant neoplasm of prostate Family history of cardiovascular disease Family history of malignant neoplasm of esophagus Other Family history of glaucoma Family history of malignant neoplasm of breast Social History Social History Smoking status: Former smoker Tobacco type: cigarettes Smoking end date: 09/21/98 Alcohol intake: current Drinks per week: 2 Substance use: never Substance use type: does not use Lack of Transportation: No Lack of Food: Never True Current Housing: I Have Housing Concerned About Future Housing: No Difficulty Paying Gas/Electric Bills: No Difficulty Paying for Meds: No Currently Unemployed: No Education: Trade/Vocational Certificate Difficulty w/ Childcare or Family Care: No Living arrangements: with family Spiritual care concerns: No Exam Const: General: healthy appearing Nutritional Appearance: well nourished Orientation/consciousness: patient oriented x3 Limitations: no limitations Other: patient appears younger than stated HENMT: Head: normal to inspection Ears: external ears normal Face/Nose/Sinus: Normal external nose present Face and sinus: sinus tenderness ( right unilateral focal sinus percussion tenderness) frontal and maxillary Mouth: Yes Normal oral and palatal mucosa present Teeth and gingiva: dentition normal Throat: posterior oropharynx normal and uvula midline Other: Purulent drainage is noted the posterior pharynx Eyes: Conjunctivae: conjunctivae normal EOM: EOMs intact bilaterally Neck: Neck: normal visual inspection, no lymphadenopathy and no meningeal signs Resp: Effort & Inspection: normal respiratory effort Auscultation: clear to auscultation bilaterally Cardio: Rate: regular rate Rhythm: regular rhythm Skin: General skin exam: normal color Rashes: no rashes Wounds: no wounds Neuro: General: patient oriented x3 Cranial nerves: Yes Nystagmus not present Speech: normal speech Gait exam (Neuro): Normal gait present Extrem: General: normal to inspection Course Course Emergency Course: plan to treat empirically for suspected acute bacterial rhinosinusitis. Patient notes that she typically requires Levaquin and has tolerated this well in the past. She has not received antibiotic therapy in the last approximately 8 months per patient report. Will treat with Levaquin, short steroid course and PCP follow-up was stressed if her symptoms are not improving, ER if condition worsens in any way. Patient is agreeable with plan Level of Care: Express Care Visit ([id number]) Vital Signs Vital signs: Vital Signs Temperature 36.3 C L 10/20/24 14:12 Pulse Rate 77 10/20/24 14:12 Respiratory Rate 18 10/20/24 14:12 Blood Pressure 144/76 H 10/20/24 14:12 Pulse Oximetry 98 10/20/24 14:12 Oxygen Delivery Room Air 10/20/24 14:12 Temperature 36.3 C L 10/20/24 14:12 Pulse Rate 77 10/20/24 14:12 Respiratory Rate 18 10/20/24 14:12 Blood Pressure 144/76 H 10/20/24 14:12 Pulse Oximetry 98 10/20/24 14:12 Oxygen Delivery Room Air 10/20/24 14:12 MDM - URI/Sore Throat MDM Narrative Medical decision making narrative: Levaquin and prednisone Differential Diagnosis Differential diagnosis: Likely upper respiratory infection, otitis media, sinusitis, viral infection, bronchitis and pharyngitis Discharge Plan Discharge Clinical Impression: Acute bacterial sinusitis Acute bronchitis Qualifiers: Bronchitis organism: unspecified organism Qualified Code(s): J20.9 - Acute bronchitis, unspecified Patient Disposition: Home, Self-Care Condition: Stable Instructions: Antibiotic Form, Sinusitis (ED), Acute Bronchitis (ED) Additional Instructions: PUSH FLUIDS AND REST, COMPLETE ANTIBIOTICS AND ORAL STEROIDS PRESCRIBED. SEE YOUR PRIMARY DOCTOR IN 3-5 DAYS IF SYMPTOMS NOT IMPROVING, PROCEED TO THE ER IF YOUR CONDITION WORSENS IN ANY WAY OR WITH ANY FURTHER EMERGENCY CONCERNS Patient Language: Mozambican Prescriptions: New levofloxacin 500 mg tablet 500 mg PO DAILY Qty: 10 0RF prednisone 20 mg tablet 40 mg PO DAILY Qty: 10 0RF No Action Zyrtec 10 mg capsule 10 mg PO DAILY PRN (Reason: Allergy Symptoms) Centrum Silver Women 8 mg iron-400 mcg-300 mcg tablet 1 tablet PO DAILY diphenhydramine-acetaminophen [Tylenol PM Extra Strength] 25-500 mg tablet 1 tablet PO QHS PRN (Reason: sleep) mecobalamin (vitamin B12) 1,000 mcg lozenge 1,000 mcg PO DAILY Rx Instructions: allow to dissolve in mouth OR may chew lightly before swallowing cholecalciferol (vitamin D3) [Vitamin D3] 50 mcg (2,000 unit) tablet 50 mcg PO DAILY levothyroxine 75 mcg tablet See Rx Instructions .ROUTE .COMPLEX Qty: 90 1RF Dose Instruction: TAKE 1 TABLET BY MOUTH EVERY DAY Rx Instructions: TAKE 1 TABLET BY MOUTH EVERY DAY simvastatin 20 mg tablet See Rx Instructions .ROUTE .COMPLEX Qty: 90 1RF Dose Instruction: TAKE 1 TABLET BY MOUTH EVERY DAY Rx Instructions: TAKE 1 TABLET BY MOUTH EVERY DAY omeprazole 20 mg capsule,delayed release(DR/EC) 20 mg PO DAILY Qty: 90 0RF Rx Instructions: NEEDS APPOINTMENT FOR FURTHER REFILLS fluoxetine 20 mg capsule 20 mg PO DAILY Qty: 90 0RF Rx Instructions: NEEDS APPOINTMENT FOR FURTHER REFILLS Follow-up/Referrals: Tiffanie Davidson MD [Primary Care Provider] - Time of Disposition: 14:45
--- OUTSIDE RECORDS SUMMARY | 2024-10-20 14:38 | XMS_ITS | Referral Summary ---
Author Organization [facility] Address [address] [place] [address] Care Team Providers Care Deli Cook Name Role Phone Momo Carrillo MD Primary Care Provider [phone] Momo Carrillo MD Unavailable Encounters Date Type Department Care Team Description 09/28/2024 Telephone [facility] Obstetrics and Gynecology [address] [facility] 13th [place] [address] Leyla Rowley RN 08/24/2024 Orders Only [facility] Ob[facility]etrics and Gynecology [address] [facility] 13th [place] [address] Polly Macdonald RN Endometrial cancer ([facility]/HCC) (HCC) (Primary Dx) 08/24/2024 11:45 AM TAPE MACHINE TAILER Office Visit [facility] Ob[facility]etrics [facility] Gynecology [address] [facility] 13th [place] [address] Brooke Harrington MD Endometrial cancer (CMS/HCC) (HCC) (Primary Dx) from Last 3 Months Allergies No known [...] Date Diagnosed Date Deep vein thrombosis (DVT) ([facility]) 08/18/2016 Epidural abscess 08/13/2016 Bloodstream infection 07/15/2016 Malignant neoplasm of endometrium ([facility]) 03/22 Hypercholesterolemia 04/09/2016 Hyperthyroidism 04/09/2016 Carcinoma [...] on file Legal Sex Female 2:10 AM TAPE MACHINE TAILER Gender Identity Not on file Sexual Orientation Not on file Last Filed Vital Signs Vital Sign Reading Time Taken Comments Blood Pressure 133/83 08/24/2024 11:41 AM TAPE MACHINE TAILER Pulse 76 08/24/2024 11:41 AM TAPE MACHINE TAILER Temperature 36.4 ??C (97.6 ??F) 08/24/2024 11:[address] Respiratory Rate 16 08/24/2024 11:41 AM TAPE MACHINE TAILER Oxygen Saturation 97% 08/24/2024 11:41 AM TAPE MACHINE TAILER Inhaled Oxygen Concentration - - Weight 73 kg (161 lb) 08/24/2024 11:41 AM TAPE MACHINE TAILER Height 162.6 cm (5' 4 ) 08/24/2024 11:41 AM TAPE MACHINE TAILER Body Mass Index 27.64 08/24/2024 11:41 AM TAPE MACHINE TAILER Plan of Treatment Not on file Procedures Procedure Name Priority Date/Time Associated Diagnosis Comments CA 125 Routine 08/30/2024 8:56 AM TAPE MACHINE TAILER Endometrial cancer (CMS/HCC) (HCC) from Last 3 Months Results * CA 125 (08/30/2024 8:56 AM TAPE MACHINE TAILER) CA 125 ag 4 <35 U/mL [facility] Comment: This test was performed using the Siemens Chemiluminescent method. Values obtained from different assay methods cannot be used interchangeably. CA 125 levels, regardless of value, should not be interpreted as absolute evidence of the presence or absence of disease. Blood 08/30/2024 8:56 AM TAPE MACHINE TAILER 08/30/2024 8:56 AM TAPE MACHINE TAILER us Brooke Harrington MD LAB BLOOD ORDERABLES Final Result [facility] [address] [place] [address] from Last 3 Months Insurance [employer] MEDICARE [facility] MEDICARE [facility] [employer] Address: [address] [place] [id number] Care Teams Deli Cook Relationship Specialty Start Date End Date Momo Carrillo MD [address] [place] [address] PCP - General 02/18/18 Momo Carirllo MD [address] [place] [address] Referring Physician Family Medicine 11/20/20
--- OUTSIDE RECORDS SUMMARY | 2024-10-20 14:38 | XMS_ITS ---
Author Organization [facility] Address [address] [place] [address] Care Team Providers Care Data Manager Name Role Phone Momo Carrillo MD Primary Care Provider [phone] Momo Carrillo MD Unavailable Active Problems Problem [...] treatments are documented for this patient in [facility]. Treatments may have been administered in another system. Lifetime Dose Tracking * Chemical Lifetime Dose Automatic Entry Manual Entr y DLP 1,685 mGycm 1,685 mGycm 0 mGycm
--- OUTSIDE RECORDS SUMMARY | 2024-10-20 14:38 | XMS_ITS | Encounter Summary ---
Author Organization [facility] Address [address] [place] [address] Phone Care Team Providers Care General Ledger Bookkeeper Name Role Phone Momo Carrillo MD Primary Care Provider [phone] Momo Carrillo MD Unavailable Encounter Details Date [...] on file Legal Sex Female 2:10 AM PLASTICS AND COMPOSITES INSPECTOR Gender Identity Not on file Sexual [...] on filedocumented in this encounter Care Teams General Ledger Bookkeeper Relationship Specialty Start Date End Date Momo Carrillo MD [address] [place] [address] PCP - General 02/18/18 Momo Carrillo MD [address] [place] [address] Referring Physician Family Medicine 11/20/20 documented as of this encounter
--- OUTSIDE RECORDS SUMMARY | 2024-10-20 14:38 | XMS_ITS | Clinical Summary ---
Author Organization [facility] Address [address] [place] [address] Care Team Providers Care Machine Designer Name Role Phone Momo Carrillo MD Primary Care Provider [phone] Momo Carrillo MD Unavailable Allergies No known [...] Date Diagnosed Date Deep vein thrombosis (DVT) ([facility]/HCC) 08/18/2016 Epidural abscess 08/13/2016 Bloodstream infection 07/15/2016 Malignant neoplasm of endometrium (CMS/HCC) 03/22 Hypercholesterolemia 04/09/2016 Hyperthyroidism 04/09/2016 Carcinoma of endometrium 04/01/2016 Encounters Date Type Department Care Team Description 09/28/2024 Telephone [facility] Obstetrics and Gynecology [address] [facility] 13th [place] [address] Leyla Rowley RN 08/24/2024 11:45 AM PLATFORM MATERIAL HANDLING SUPERVISOR Office Visit [facility] Obstetrics and Gyne[facility] 13th [place] [address] Brooke Harrington MD Endometrial cancer (CMS/HCC) (HCC) (Primary Dx) 08/24/2024 Orders Only [facility] Obstetrics and Gynecology [address] [place] [address] 13th [place] [address] Polly Macdonald RN Endometrial cancer (CMS/HCC) (HCC) (Primary Dx) from Last 3 Months Immunizations Name Administration [...] on file Legal Sex Female 2:10 AM PLATFORM MATERIAL HANDLING SUPERVISOR Gender Identity Not on file Sexual Orientation Not on file Obstetrics History Para Term AB IAB SAB Ectopic Multiple Livin g Live Births 0 0 0 0 0 0 0 0 0 0 0 Last Filed Vital Signs Vital Sign Reading Time Taken Comments Blood Pressure 133/83 08/24/2024 11:41 AM PLATFORM MATERIAL HANDLING SUPERVISOR Pulse 76 08/24/2024 11:41 AM PLATFORM MATERIAL HANDLING SUPERVISOR Temperature 36.4 ??C (97.6 ??F) 08/24/2024 11:[address] Respiratory Rate 16 08/24/2024 11:41 AM PLATFORM MATERIAL HANDLING SUPERVISOR Oxygen Saturation 97% 08/24/2024 11:41 AM PLATFORM MATERIAL HANDLING SUPERVISOR Inhaled Oxygen Concentration - - Weight 73 kg (161 lb) 08/24/2024 11:41 AM PLATFORM MATERIAL HANDLING SUPERVISOR Height 162.6 cm (5' 4 ) 08/24/2024 11:41 AM PLATFORM MATERIAL HANDLING SUPERVISOR Body Mass Index 27.64 08/24/2024 11:41 AM PLATFORM MATERIAL HANDLING SUPERVISOR Plan of Treatment Health Maintenance Due Date [...] Comments CA 125 Routine 08/30/2024 8:56 AM PLATFORM MATERIAL HANDLING SUPERVISOR Endometrial cancer (CMS/HCC) (HCC) from Last 3 Months Results * CA 125 (08/30/2024 8:56 AM PLATFORM MATERIAL HANDLING SUPERVISOR) CA 125 ag 4 <35 U/mL [facility] Comment: This test was performed using the Siemens Chemiluminescent method. Values obtained from different assay methods cannot be used interchangeably. CA 125 levels, regardless of value, should not be interpreted as absolute evidence of the presence or absence of disease. Blood 08/30/2024 8:56 AM PLATFORM MATERIAL HANDLING SUPERVISOR 08/30/2024 8:56 AM PLATFORM MATERIAL HANDLING SUPERVISOR us Brooke Harrington MD LAB BLOOD ORDERABLES Final Result [facility] [id number] [address] [id number] from Last 3 Months Insurance [facility] HMO/PPO Address: [facility] [id number] [place] [id number] MEDICARE MEDICARE [employer] [address] Care Teams Machine Designer Relationship Specialty Start Date End Date Momo Carrillo MD [address] [place] [address] PCP - General 02/18/18 Momo Carrillo MD [address] [place] [address] Referring Physician Family Medicine 11/20/20
--- OUTSIDE RECORDS SUMMARY | 2024-10-20 14:39 | XMS_ITS | Clinical Summary ---
Author Organization [facility] Address [address] [place] [address]. [place], [place] [id number] [place] [address] Care Team Providers Care Floor Care Specialist Name Role Phone Tien Lezama MD Primary Care Provider [phone] Allergies No known active allergies Medications simvastatin [...] 2024 08/22/2019, 06/04/2018, 06/24/2016, Additional history exists PHQ-2 (Physician [place]) 09/21/2024 05/21/2024 PHQ-2 (Physician [place]) 05/21/2025 05/21/2024 RSV Immunization or 60+ Years (1 - 1-dose 75+ series) 2029 DTaP, Tdap and Td Vaccines (2 - Td or Tdap) 08/22/2029 08/22/2019 Meningococcal B Vaccine Aged Out No l onger eligible based on patient's age to complete this topic Meningococcal Vaccine Aged Out No justin ad eligible based on patient's age to complete this topic RSV Immunizations Under 20 Months Aged Out No longer eligible based on patient's age to complete this topic Insurance [facility] [address] [address] MEDICARE [facility] Care Teams Floor Care Specialist Relationship Specialty Start Date End Date Tien Lezama MD [address] [place] [address] PCP - General EMERGENCY MEDICINE 05/21/24
--- OUTSIDE RECORDS SUMMARY | 2024-10-20 14:39 | XMS_ITS | Data Portability ---
Author Organization [place] - [facility] Address [address] [place] [address] Assessment No assessment recorded. Plan of Treatment Reminders Order Date Submit Date Provider Last Modified By Organization Details Last Modified Time Details Appointments None recorded. Lab None recorded. Referral None recorded. Procedures None recorded. Surgeries None recorded. Imaging None recorded. Medication Orders Depo-Medrol 80 mg/mL suspension for injection 2023 024 [email or web address] Not available 11:43:28 Zithromax Z-Frank [address] [facility]/Pharmacy #[id number], [place], [address], 4 11:15:06 Patient TargetsNo targets recorded. Patient [...] TEST HAVE BEEN DETER MINED BY THE [facility] TANG DILLON AND ARE INCOR PORAT ED PART OF THE EMERG ENCY USE AUTHO BELINDA ARELLANO. PROVI VERA AND PATIE NT FACT SHEET S ARE AVAIL ABLE AT: HTTPS ://WW W.FDA .GOV/ MEDIC AL-DE VICES /KYLE GENCY -SITU ATION S-MED ICAL -JASPER POLLY/E MERGE NCY-U SE-AU AYAH URRUTIA NS#CO BONNIE IRUS2 019. Not Available [facility] (Lab) [address] [place], [address], 06/12/2021 18:06:10 Result Notes None recorded. Problems Name Problem SNOMED Code Status Onset Date Resolution Date Notes Provider Name and Address Organization Details Recorded Time Hypercholeste rolemia 05801325 Active 2020 Not Available [facility] 3 03:31:19 Acute sinusitis 65023468 Active 2021 Not Available [facility] 3 03:31:19 Insect bite, nonvenomous, of upper arm 425303851 Active 2021 Not Available [facility] 3 03:31:19 Problem Notes None recorded. [...] Address Organization Details Last Updated DateTime 12/22/2023 59035.37 g Slime Blanchard [facility] 12/22/2023 10:45:52 Date Recorded Body mass index (BMI) Body height Provider Name and Address Organization Details Last Updated DateTime 12/22/2023 27.6 kg/m2 162.56 cm Slime Blanchard [facility] 12/22/2023 10:46:04 Date Recorded Body temperature Provider Name a nd Address Organization Details Last Updated DateTime 12/22/2023 97 [degF] Slime Blanchard [facility] 12/22/2023 10:46:27 Date Recorded Respiratory rate Provider Name a nd Address Organization Details Last Updated DateTime 12/22/2023 16 /min Slime Blanchard [facility] 12/22/2023 10:46:42 Date Recorded Oxygen saturation Oxygen saturation in Arterial blood by Pulse oximetry Provider Name and Address Organization Details Last Updated DateTime 12/22/2023 95 % 95 % Slime Blanchard [facility] 12/22/2023 10:47:16 Date Recorded Heart rate Provider Name an d Address Organization Details Last Updated DateTime 12/22/2023 66 /min Slime Blanchard [facility] 12/22/2023 10:48:01 Date Recorded Body height Systolic blood pressure Diastolic blood pressure Systolic blood pressure Diastolic blood pressure Provider Name and Address Organization Details Last Updated DateTime 3 162.56 cm 152 mm[Hg] 79 mm[Hg] 145 mm[Hg] 91 mm[Hg] Not Available [facility] 3 03:30:52 Date Recorded Oxygen saturation [...] /min 16 /min 97.6 [degF] 97.9 [degF] 45792.3 9 g 67306.5 9 g Not Available [facility] 3 03:30:53 Date Recorded Systolic blood pressure Diastolic blood pressure Provider Name and Address Organization Details Last Updated DateTime 12/22/2023 146 mm[Hg] 79 mm[Hg] Slime Blanchard [facility] 12/22/2023 10:46:16 Social History Question Answer Notes LastModified by Organizat ion Details LastModified Time Tobacco Smoking Status Never Smoker Not Available [facility] 09/28/2022 03:30:02 In The 14 Days Before Symptom Onset, Have You Had Close Contact With A Laboratory-confirm ed COVID-19 While That Case Was Ill? No [id number] Information not available 09/28/2022 In The 14 Days Before Symptom Onset, Have You Had Close Contact With A Person Who Is Under Investigation For COVID-19 While That Person Was Ill? No [id number] Information not available 09/28/2022 What Was The Date Of Your Most Recent Tobacco Screening? 12/22/2023 [email or web address] Information not available 12/22/2023 Have You Recently Traveled Abroad? No [id number] Information not available 09/28/2022 Sex: Unknown [...] 50 mcg/0.25mL dose 12/08/2020 completed Not Available [facility] 3 03:32:38 COVID-19, mRNA, LNP-S, PF, 100 mcg/0.5mL dose or 50 mcg/0.25mL dose 11/19/2020 completed Not Available [facility] 3 03:32:38 Past Encounters Encounter ID Performer Location Encounter Start Date Encounter Closed Date Diagnosis/Indication Diagnosis SNOMED-CT Code Diagnosis ICD10 Code Diagnosis Note [id number] [facility] [address] [place] [address] 06/11/2021 00:00:00 06/11/2021 20:46:03 [id number] [facility] [address] [place] [address] 07/01/2022 00:00:00 07/01/2022 11:59:00 [id number] MONY Wayne [facility] [address] [place] [address] 12/22/2023 10:32:02 12/22/2023 11:19:22 Acute sinusitis 01086211 J01.90 Discussed with patient that most cases [...] Mallory Member ID Guarantor Name 12/22/2023 1 MEDICARE-[place] (MEDICARE) Cori Kiran [id number] 1 Cori Sidhu 12/22/2023 2 [facility] (MEDICARE SUPPLEMENT) Cori gant [id number] Cori Sidhu er Notes Date Note Type [...] with minimal relief. MONY Wayne [address] [place], [address], [facility] 12/22/2023 11:19:12 OBGyn Episode No OBEpisode recorded.
== END 2024-10-20 14:53 | disposition home or self-care (01) ==
PROVIDERS: Emergency Provider Nurse Practitioner Family; PCP Family Medicine
DX: J01.80 Other acute sinusitis (principal); B96.89 Other specified bacterial agents as the cause of diseases classified elsewhere; J20.9 Acute bronchitis, unspecified; Z85.42 Personal history of malignant neoplasm of other parts of uterus; E03.9 Hypothyroidism, unspecified; Z87.891 Personal history of nicotine dependence
CPT/HCPCS: 99213; G0463

== ENCOUNTER 2025-09-13 09:57 | Outpatient (CLI) | payer MEDICARE, OTHER, SELFPAY ==
--- NOTE | ~2025-09-13 | MM_ITS ---
EXAMINATION: MM screening bela BI w guicho HISTORY: Screening TECHNIQUE: Craniocaudal and mediolateral oblique 3-D tomosynthesis images were obtained and synthetic 2-D images were generated. CAD analysis was submitted and interpreted. COMPARISON: Comparison to multiple prior studies sequentially, with oldest reviewed study dated 07/03/2018. BREAST PARENCHYMAL COMPOSITION: Not dense: There are scattered areas of fibroglandular density. FINDINGS: There is no evidence of suspicious mass, calcification, or architectural distortion to suggest malignancy in either breast. There has been no suspicious interval change. IMPRESSION: 1. No mammographic evidence of malignancy. 2. Recommend routine screening mammography in one year. BI-RADS Category 1: Negative Reviewed, dictated and finalized at location O. CLIMBER
--- OUTSIDE RECORDS SUMMARY | 2025-09-13 10:02 | XMS_ITS | Clinical Summary ---
Author Organization [facility] Address [facility] [place] [address] Care Team Providers Care Farm Instructor Name Role Phone Tien Lezama MD Primary Care Provider [phone] Allergies No known active allergies Medications simvastatin [...] 64 05/21/2024 11:47 AM CDT Temperature 36.4 C (97.5 F) 05/21/2024 11:47 AM CDT Respiratory Rate 16 05/21/2024 11:47 AM CDT Oxygen Saturation 96% 05/21/2024 11:47 AM CDT Inhaled Oxygen Concentration - - Weight 70.9 kg (156 lb 3.2 oz) 05/21/2024 11:47 AM CDT Height 162.6 cm (5' 4) 05/21/2024 11:47 AM CDT Body Mass Index 26.81 05/21/2024 11:47 AM CDT Plan of Treatment Health Maintenance Due Date Last Done Comments Colorectal Cancer Screening Colonoscopy (10 Years) 1954 Hepatitis C 1972 Mammogram Screening 1994 Pneumococcal Vaccine: 50+ Years (1 of 1 - PCV) 2004 Zoster Vaccines (2 of 3) 05/27/2016 04/01/2016 Annual Medicare Wellness Visit 2019 Dexa Scan (General) 2019 PHQ-2 (Physician [place]) 09/21/2024 05/21/2024 COVID-19 Vaccine ( season) 2025 12/11/2020, 12/08/2020, 11/20/2020, Additional history exists Influenza Adult (#1) 2025 08/22/2019, 06/04/2018, 06/24/2016, Additional history exists RSV Immunization or 60+ Years (1 - 1-dose 75+ series) 2029 DTaP, Tdap and Td Vaccines (2 - Td or Tdap) 08/22/2029 08/22/2019 Hepatitis A Vaccines Aged Out No long er eligible based on patient's age to complete this topic Meningococcal B Vaccine Aged Out No l onger eligible based on patient's age to complete this topic Meningococcal Vaccine Aged Out No justin ad eligible based on patient's age to complete this topic RSV Immunizations Under 20 Months Aged Out No longer eligible based on patient's age to complete this topic Insurance [facility] [place] [id number] MEDICARE [facility] Care Teams Farm Instructor Relationship Specialty Start Date End Date Tien Lezama MD [address] [place] [address] PCP - General EMERGENCY MEDICINE 05/21/24
--- OUTSIDE RECORDS SUMMARY | 2025-09-13 10:02 | XMS_ITS | Clinical Summary ---
Author Organization [facility] Address [address] [place] [address] Care Team Providers Care Welcome Wagon Host/Hostess Name Role Phone Unavailable Primary Care Provider Unavailabl e Allergies No known active allergies Medications No known medications Active Problems No known active problems Social History Tobacco Use Types Packs/Day Years Used Date Smoking Tobacco: Former Cigarettes Passive Smoke Exposure: Never Smokeless Tobacco: Never Tobacco Cessation:Counseling Given: No Comments Unknown Sex and Gender Information Value Date Recorded Sex Assigned at Not on file Legal Sex Female 11:01 PM CDT Gender Identity Not on file Sexual Orientation Not on file Last Filed Vital Signs Vital Sign Reading Time Taken Comments Blood Pressure 152/84 05/25/2024 11:56 AM CDT Pulse 70 05/25/2024 11:56 AM CDT Temperature 36.7 C (98 F) 05/25/2024 11:56 AM CDT Respiratory Rate 16 05/25/2024 11:56 AM CDT Oxygen Saturation 98% 05/25/2024 11:56 AM CDT Inhaled Oxygen Concentration - - Weight 75.8 kg (167 lb) 05/25/2024 11:56 AM CDT Height 162.6 cm (5' 4) 05/25/2024 11:56 AM CDT Body Mass Index 28.67 05/25/2024 11:56 AM CDT Plan of Treatment Health Maintenance Due Date Last Done Comments Hepatitis C Screening ages 18 to 79 once 1955 Medicare Annual Wellness (AWV) 1955 DEPRESSION SCREENING 1966 BREAST CANCER SCREENING 1994 Colon Cancer Screening 1999 LIPID TESTING 1999 Pneumococcal Vaccine: 50 and over (1 of 1 - PCV) 2004 Zoster Vaccine (Recombinant Vaccine) (1 of 2) 2004 DEXA SCAN SCREENING 2019 Fall Risk Assessment 2019 Influenza Vaccine 04/21/2025 08/22/2019, , 06/24/2016, Additional history exists COVID-19 Immunization ( season) 2025 12/11/2020, 11/20/2020 RSV Vaccines (1 - 1-dose 75+ series) 2029 ADULT TETANUS 08/22/2029 08/22/2019 HEPATITIS A VACCINES Aged Out No long er eligible based on patient's age to complete this topic HEPATITIS B VACCINES Aged Out No long er eligible based on patient's age to complete this topic HIB VACCINES Aged Out No longer eligi ble based on patient's age to complete this topic HPV VACCINES Aged Out No longer eligi ble based on patient's age to complete this topic IPV VACCINES Aged Out No longer eligi ble based on patient's age to complete this topic MENINGOCOCCAL VACCINE Aged Out No justin ad eligible based on patient's age to complete this topic Meningococcal B Vaccine Aged Out No l onger eligible based on patient's age to complete this topic ROTAVIRUS VACCINES Aged Out No longer eligible based on patient's age to complete this topic Insurance MEDICARE [facility] [place] [address]
--- OUTSIDE RECORDS SUMMARY | 2025-09-13 10:02 | XMS_ITS | Encounter Summary ---
Author Organization [facility] Address [address] [place] [address] Phone Care Team Providers Care Ship Purser Name Role Phone Momo Carrillo MD Primary Care Provider [phone] Momo Carrillo MD Unavailable Encounter Details Date [...] on file Legal Sex Female 2:10 AM FILM PAINTER Gender Identity Not on file Sexual Orientation [...] on filedocumented in this encounter Care Teams Ship Purser Relationship Specialty Start Date End Date Momo Carrillo MD [address] [place] [address] PCP - General 02/18/18 Momo Carrillo MD [address] [place] [address] Referring Physician Family Medicine 11/20/20 documented as of this encounter
--- OUTSIDE RECORDS SUMMARY | 2025-09-13 10:02 | XMS_ITS ---
Author Organization [facility] Address [address] [place] [address] Care Team Providers Care Bench Assembler Operator Name Role Phone Momo Carrillo MD Primary Care Provider [phone] Momo Carrillo MD Unavailable Active Problems Problem Noted Date Diagnosed Date Deep vein thrombosis (DVT) 08/18/2016 Epidural abscess 08/13/2016 Bloodstream infection 07/15/2016 Malignant neoplasm of endometrium 04/09/2016 Hypercholesterolemia 04/09/2016 Hyperthyroidism 04/09/2016 Carcinoma of endometrium 04/01/2016 Current Treatment and Therapy Plans No current plan information found. Past Treatment and Therapy Plans No past plan information found. Lifetime Dose Tracking * Chemical Lifetime Dose Automatic Entry Manual Entr y DLP 1,685 mGycm 1,685 mGycm 0 mGycm
--- OUTSIDE RECORDS SUMMARY | 2025-09-13 10:02 | XMS_ITS | Data Portability ---
Author Organization [place] - [facility] Address [address] [place] [address] Assessment No assessment recorded. Plan of Treatment Reminders Order Date Submit Date Provider Last Modified By Organization Details Last Modified Time Details Appointments None recorded. Lab None recorded. Referral None recorded. Procedures None recorded. Surgeries None recorded. Imaging None recorded. Medication Orders Depo-Medrol 80 mg/mL suspension for injection 2023 024 [email or web address] Not available 4 11:43:28 Zithromax Z-Frank 250 mg tablet 2023 024 [facility] #[id number], [address] [place], [address], 4 11:15:06 Patient TargetsNo targets recorded. Patient InstructionsNo instructions recorded. Reason for Referral None Reported. Results Created Date Observation Date Name Description Value Unit Range Abnormal Flag Note LastModifiedBy Organization Detail LastModifiedTime 06/12/2006/12/2021 RT-PC R COVID -19 covid-19 real-time PCR [...] TEST HAVE BEEN DETER MINED BY THE THERM NESHA DILLON AND ARE INCOR PORAT ED PART OF THE EMERG ENCY USE AUTHO BELINDA ARELLANO. PROVI VERA AND PATIE NT FACT SHEET S ARE AVAIL ABLE AT: HTTPS ://WW W.FDA .GOV/ MEDIC AL-DE VICES /KYLE GENCY -SITU ATION S-MED ICAL -JASPER POLLY/E MERGE NCY-U SE-AU AYAH URRUTIA NS#CO BRIGIDAV IRUS2 019. Not Available [facility] (Lab) [address] [place], [address], 06/12/2021 18:06:10 Result Notes None recorded. Problems Name Problem SNOMED Code Status Onset Date Resolution Date Notes Provider Name and Address Organization Details Recorded Time Hypercholeste rolemia 40847300 Active 2020 Not Available [facility] 3 03:31:19 Acute sinusitis 43339441 Active 2021 Not Available [facility] 3 03:31:19 Insect bite, nonvenomous, of upper arm 502846131 Active 2021 Not Available [facility] 3 03:31:19 Problem Notes None recorded. Medical [...] t Available Vitals Date Recorded Body weight Body mass index (BMI) Body height Body temperature Respiratory rate Oxygen saturation Heart rate Systolic And Diastolic Provider Name and Address Organization Details Last Updated DateTime 4 88067.3 7 g 27.6 kg/m2 162.56 cm 97 [degF] 16 /min 95 % 66 /min 146/79 mm[Hg] Slime Blanchard [facility] 4 10:46:16 Date Recorded Oxygen saturation Heart rate Respiratory rate Body temperature Body weight Systolic And Diastolic Provider Name and Address Organization Details Last Updated DateTime 1 97 % 72 /min 14 /min 97.6 [degF] 86373.3 9 g 152/79 mm[Hg] Not Available [facility] 3 03:30:52 Date Recorded Body height Oxygen saturation Heart rate Respiratory rate Body temperature Body weight Systolic And Diastolic Provider Name and Address Organization Details Last Updated DateTime 2 162.56 cm 96 % 61 /min 16 /min 97.9 [degF] 05215.5 9 g 145/91 mm[Hg] Not Available [facility] 3 03:30:52 Social History Question Answer Notes LastModified by Organizat ion Details LastModified Time Tobacco Smoking Status Never Smoker Not Available [facility] 09/28/2022 03:30:02 In The 14 Days Before Symptom Onset, Have You Had Close Contact With A Laboratory-confirm ed COVID-19 While That Case Was Ill? No [id number] 200 Information not available 09/28/2022 In The 14 Days Before Symptom Onset, Have You Had Close Contact With A Person Who Is Under Investigation For COVID-19 While That Person Was Ill? No [id number] 200 Information not available 09/28/2022 What Was The Date Of Your Most Recent Tobacco Screening? 12/22/2023 [email or web address] Information not available 12/22/2023 Have You Recently Traveled Abroad? No [id number] 200 Information not available 09/28/2022 Sex: Unknown [...] 50 mcg/0.25mL dose 12/08/2020 completed Not Available [facility] 3 03:32:38 COVID-19, mRNA, LNP-S, PF, 100 mcg/0.5mL dose or 50 mcg/0.25mL dose 11/19/2020 completed Not Available [facility] 03:32:38 Past Encounters Encounter ID Performer Location Encounter Start Date Encounter Closed Date Diagnosis/Indication Diagnosis SNOMED-CT Code Diagnosis ICD10 Code Diagnosis IMO Codes Diagnosis Note [id number] _[id number] ATION_5 [facility] [address] [place] [address] 06/11/2021 00:00:00 06/11/2021 20:46:03 [id number] DUANE Cabrera [facility] [address] [place] [address] 07/01/2022 00:00:00 07/01/2022 11:59:00 [id number] Nickie Macdonald MD [facility] [address] [place] [address] 12/22/2023 10:32:02 12/22/2023 11:19:22 Acute sinusitis [id number] J01.90 Discussed with patient that most cases [...] Recorded Advance Directives Directive None Recorded Payers Insurance Date Sequence Insurance Name Policy Number Policy Mallory Covered Member ID Mallory Member ID Guarantor Name 03/31/2024 1 [place] Cori Kiran [id number] Cori Sidhu er 12/22/2023 2 [employer] (MEDICARE SUPPLEMENT) Cori gant [id number] Cori Sidhu er 03/31/2024 2 [employer] (MEDICARE SUPPLEMENT) Corileida Hannah [facility] [id number] Cori Sidhu er Notes Date Note Type Note Provider Name and Address Organization Details Recorded Time 12/22/2023 text/html ROS as noted in the HPI Patient is a 68 y/o female presenting with complaints of sinus headache, sinus pressure, right ear pain, postnasal drainage, right sided sore throat, and cough with yellow to green sputum production. Symptoms developed 3-4 days ago. She denies known fever. She has taken Mucinex, Benadryl, and an otc decongestant with minimal relief. MONY Wayne [address] [place], [address], [facility] 12/22/2023 11:19:12 OBGyn Episode No OBEpisode recorded.
--- OUTSIDE RECORDS SUMMARY | 2025-09-13 10:02 | XMS_ITS | Clinical Summary ---
Author Organization [facility] Address [address] [place] [address] Care Team Providers Care Gas Fitter Apprentice Name Role Phone Momo Carrillo MD Primary Care Provider [phone] Momo Carrillo MD Unavailable Allergies No known [...] WOMENS ORAL) Take by mouth daily Active losartan (COZAAR) 50 mg tablet 1 tablet (50 mg total) 02/09 25 Active levothyroxine (SYNTHROID) 50 mcg tablet 01/13/20 25 Active Active Problems Problem Noted Date Diagnosed Date Deep vein thrombosis (DVT) 08/18/2016 Epidural abscess 08/13/2016 Bloodstream infection 07/15/2016 Malignant neoplasm of endometrium 04/09/2016 Hypercholesterolemia 04/09/2016 Hyperthyroidism 04/09/2016 Carcinoma of endometrium 04/01/2016 Encounters Date Type Department Care Team Description 08/30/2025 1:40 PM SLOT ROUTER Lab [facility] [address] [place] [address] Endometrial cancer 08/30/2025 11:30 AM SLOT ROUTER Office Visit [facility] [address]th [place] [address] Brooke Harrington MD Endometrial cancer (Primary Dx) 08/30/[address] [facility] [address] [place] [address] [address]th [place] [address] Shae Casas RN Endometrial cancer (Primary Dx) from Last 3 Months Immunizations Immunization Administration Dates Next Due Influenza, Quadrivalent, Rec [...] History Medical History Date Comments Uterine cancer (HCC) Endometrial cancer Thyroid disease GERD (gastroesophageal reflux disease) Depression Hyperlipidemia Social History Tobacco Use Types Packs/Day Years Used Date Smoking Tobacco: Former Passive Smoke Exposure: Past Smokeless Tobacco: Never Tobacco Cessation:Counseling Given: No Alcohol Use Standard Drinks/Week Comments Yes 0 (1 standard drink = 0.6 oz pur e alcohol) Comments No Sex and Gender Information Value Date Recorded Sex Assigned at Not on file Legal Sex Female 2:10 AM SLOT ROUTER Gender Identity Not on file Sexual Orientation Not on file Obstetrics History Para Term AB IAB SAB Ectopic Multiple Livin g Live Births 0 0 0 0 0 0 0 0 0 0 0 Last Filed Vital Signs Vital Sign Reading Time Taken Comments Blood Pressure 150/83 08/30/2025 11:23 AM SLOT ROUTER Pulse 73 08/30/2025 11:23 AM SLOT ROUTER Temperature 36.4 C (97.6 F) 08/30/2025 11:23 AM SLOT ROUTER Respiratory Rate 12 08/30/2025 11:23 AM SLOT ROUTER Oxygen Saturation 96% 08/30/2025 11:23 AM SLOT ROUTER Inhaled Oxygen Concentration - - Weight 73.7 kg (162 lb 6.4 oz) 08/30/2025 11:23 AM SLOT ROUTER Height 162.6 cm (5' 4) 08/24/2024 11:41 AM SLOT ROUTER Body Mass Index 27.88 08/24/2024 11:41 AM SLOT ROUTER Plan of Treatment Health Maintenance Due Date Last Done Comments Breast Cancer Screening-Mammogram 1954 Colon Cancer Screening-Colonoscopy 1954 Depression Screening 1954 Fall Risk Assessment 1954 Hepatitis C Screening 1954 Osteoporosis Screening-Bone Density Scan 1954 Hepatitis B Screening 1972 Zoster Vaccine (2 of 3) 05/27/2016 04/01/2016 Well Visit 65+ 2019 Covid-19 Vaccine (5 - 2024-2 6 season) 2025 03/28/2022, 07/13/2021, 12/11/2020, Additional history exists Influenza Vaccine (#1) 2025 , 08/22/2019, 06/04/2018, Additional history exists DTaP/Tdap/Td Vaccine (3 - Td or Tdap) 08/22/2029 08/22/2019, 01/28/2013, 10/08/2005 Pneumococcal vaccine 65+ Completed 09/03/2021, 02/19 Procedures Procedure Name Priority Date/Time Associated Diagnosis Comments CA 125 Routine 08/30/2025 12:13 PM SLOT ROUTER Endometrial cancer from Last 3 Months Results * CA 125 (08/30/2025 12:13 PM SLOT ROUTER) CA 125 ag 3.2 0.0 - 38.1 units/mL Comment: Interpretive Data The Casimiro CA 125 assay procedure was used. Results from different manufacturers or methods may not be comparable. Serial testing should be performed using the same method. Blood 08/30/2025 12:1 3 PM SLOT ROUTER 08/30/2025 12:42 PM SLOT ROUTER us Brooke Harrington MD LAB BLOOD ORDERABLES Final Result [facility] [place] [address] from Last 3 Months Insurance [facility] MEDICARE [facility] Address: [address] [address] [place] [address] MEDICARE [facility] MEDICARE [facility] Care Teams Gas Fitter Apprentice Relationship Specialty Start Date End Date Momo Carrillo MD [address] [place] [address] PCP - General 02/18/18 Momo Carrillo MD [address] [place] [address] Referring Physician Family Medicine 11/20/20
== END 2025-09-13 09:58 | disposition home or self-care (01) ==
LOC: ANHFOHIMG 09:59
PROVIDERS: PCP Family Medicine; Visit Provider Family Medicine
DX: Z12.31 Encounter for screening mammogram for malignant neoplasm of breast (principal)
CPT/HCPCS: 77063; 77067